=== PATIENT | male | born 1955 | race Caucasian/White ===

== ENCOUNTER 2021-09-11 18:55 | Inpatient (IN) | payer MEDICARE, MEDICAID, SELFPAY ==
--- NOTE | ~2021-09-11 | XR_ITS ---
EXAMINATION: X-RAY THORACIC SPINE X-RAY LUMBAR SPINE CLINICAL INFORMATION: Fall, pain. COMPARISON: CTA of the chest dated from 12/28/2016. TECHNIQUE: 2 views of the thoracic spine. 3 views of lumbar spine. FINDINGS: Thoracic spine: Unchanged significant compression deformity at T11. No new compression deformities or malalignment. Decreased bone mineralization and thoracic spondylosis. Again noted cardiomegaly. Included lungs are clear. Lumbar spine: No acute compression deformities or malalignment. Mild likely degenerative grade 1 anterolisthesis of L1 on L2. Moderate to severe disc space narrowing and facet arthropathy from L4 through S1. SI joints are symmetric. Atherosclerotic disease of the thoracic aorta. Nonobstructive bowel gas pattern. XR/XR thoracic spine 2V IMPRESSION: Chronic compression deformity at T11. No new fractures or subluxation. Multilevel thoracolumbar spondylosis which is moderate to severe in the lower lumbar spine. If there is high clinical suspicious for fracture, correlation with a CT or MR could obtained.
--- NOTE | ~2021-09-11 | XR_ITS ---
EXAMINATION: XR CHEST CLINICAL INFORMATION: SOB COMPARISON: None TECHNIQUE: Frontal view of the chest was obtained. FINDINGS: The lungs are well-expanded without acute consolidation. The heart size is enlarged with increased pulmonary vascularity is suggestive of CHF. There is no pleural effusion. No gross bony abnormality seen. XR/XR chest 1V IMPRESSION: Cardiomegaly with mild CHF.
--- NOTE | ~2021-09-11 | CT_ITS ---
EXAMINATION: CT HEAD WITHOUT CONTRAST CLINICAL INFORMATION: Fell, on blood thinners. COMPARISON: No similar priors. TECHNIQUE: Contiguous axial imaging was performed from the skull base to vertex without intravenous administration of contrast. This CT examination was performed using dose optimization techniques as appropriate, variously including the following: *Automated exposure control *Adjustment of mA and/or kV according to patient size (this includes techniques or standardized protocols for targeted exams where dose is matched to indication/reason for exam; i.e. extremities or head) *Use of iterative reconstruction technique DLP: 847 mGy-cm FINDINGS: There is no evidence of acute intracranial hemorrhage or edematous territorial infarction. Scattered hypoattenuation in the periventricular and deep white matter are consistent with moderate microangiopathy. Morrell-white matter differentiation is preserved. Proportional prominence of the ventricles and sulcal spaces. No evidence for obstructive hydrocephalus. No abnormal mass effect or midline shift. No extra-axial fluid collections. No acute soft tissue or osseous abnormalities. Mild mucosal thickening of the paranasal sinuses. Leftward nasal septal deviation. No air-fluid levels. The mastoids and middle ear cavities are clear. CT/CT head/brain wo con IMPRESSION: No evidence of acute intracranial hemorrhage or edematous territorial infarction. Moderate chronic microangiopathy and generalized cerebral volume loss.
--- NOTE | ~2021-09-11 | XR_ITS ---
EXAMINATION: X-RAY THORACIC SPINE X-RAY LUMBAR SPINE CLINICAL INFORMATION: Fall, pain. COMPARISON: CTA of the chest dated from 12/28/2016. TECHNIQUE: 2 views of the thoracic spine. 3 views of lumbar spine. FINDINGS: Thoracic spine: Unchanged significant compression deformity at T11. No new compression deformities or malalignment. Decreased bone mineralization and thoracic spondylosis. Again noted cardiomegaly. Included lungs are clear. Lumbar spine: No acute compression deformities or malalignment. Mild likely degenerative grade 1 anterolisthesis of L1 on L2. Moderate to severe disc space narrowing and facet arthropathy from L4 through S1. SI joints are symmetric. Atherosclerotic disease of the thoracic aorta. Nonobstructive bowel gas pattern. XR/XR lumbar spine 2-3V IMPRESSION: Chronic compression deformity at T11. No new fractures or subluxation. Multilevel thoracolumbar spondylosis which is moderate to severe in the lower lumbar spine. If there is high clinical suspicious for fracture, correlation with a CT or MR could obtained.
[2021-09-11 19:05] VITALS: BP 110/79; BP 113/70; PULSE 130; PULSE 148; RESP 28; TEMP 36.9; O2SAT 92; O2SAT 94; BMI 39.5
--- NOTE | 2021-09-11 19:08 | ECG_ITS ---
Test Reason : fall Blood Pressure : / mmHG Vent. Rate : 141 BPM Atrial Rate : 000 BPM P-R Int : 000 ms QRS Dur : 070 ms QT Int : 304 ms P-R-T Axes : 000 090 -80 degrees QTc Int : 465 ms Atrial fibrillation with rapid ventricular response Rightward axis Nonspecific ST abnormality Abnormal ECG When compared with ECG of 21-JUN-2018 10:39, ST now depressed in Lateral leads Inverted T waves have replaced nonspecific T wave abnormality in Inferior leads Referred By: Shannan Brown Electronically Signed By:WOODROW KUO
--- NOTE | 2021-09-11 19:09 | ED_ITS ---
HPI - General Adult General Chief complaint: General Medical Stated complaint: fall Time Seen by Provider: 09/11/21 18:58 Source: patient and EMS Mode of arrival: EMS Limitations: no limitations History of Present Illness HPI narrative: Patient comes to emergency room from home. Patient's called because the p atient fell out of bed. She reports that she came to give him food in his apartment, patient was found on the floor, unknown down time. The patient reports no loss of consciousness. Also, the states that the patient has been unable to care for himself, seems that patient has been coughing more than usual, having subjective fever, patient complaining of shortness of breath and feeling weak. Patient is known to have CHF and atrial fibrillation, patient states that he takes metoprolol, Lasix and Eliquis. Patient states that he is compliant with his medications. Patient states that he has not been tested for COVID yet, and he is not immunized. Related Data Home Medications Medication Instructions Recorded Confirmed apixaban 5 mg tablet (Eliquis) 5 mg PO BID 09/11/21 09/11/21 furosemide 20 mg tablet 20 mg PO DAILY 09/11/21 09/11/21 metoprolol tartrate 100 mg tablet 100 mg PO BID 09/11/21 09/11/21 Allergies Allergy/AdvReac Type Severity Reaction Status Date / Time maprotiline [From LUDIOMIL] Allergy Unknown UNK Verified 09/11/21 19:28 meperidine [From DEMEROL] Allergy Unknown VOMITING Verified 09/11/21 19:28 Review of Systems Review of Systems: Constitutional : No Weight loss, No Fever, No Chills, No Night Sweats, complaining of fatigue and generalized weakness ENT/Mouth : No Hearing loss, No Ear Pain, No Nasal Congestion, No Sinus Pain, No Hoarseness, No sore throat, No Rhinorrhea, No Swallowing Difficulty Eyes: No Eye Pain, No Swelling, No Redness, No Foreign Body, No Discharge, No Vision Changes Cardiovascular : No Chest Pain, complaining of shortness of breath with exer tion, orthopnea Respiratory : Coughing more than usual, No Wheezing, No Smoke Exposure, mild Dyspnea Gastrointestinal : No Nausea, No Vomiting, No Diarrhea, No Constipation, No abdominal Pain, No Hematochezia, No Melena Genitourinary : no irregular bleeding, No Dysuria, No Urinary Frequency, No Hem aturia, No Urinary Incontinence, No Urgency, No Flank Pain, No Urinary Flow Changes, No Hesitancy Musculoskeletal : No joint pain, No Myalgias, No Joint Swelling Skin : No Skin Lesions, No rash Neuro : No Weakness, No Numbness, No Paresthesias, No Loss of Consciousness, No Dizziness, No Headache Psych : No Anxiety/Panic, No Depression, No SI/HI/AH/VH, No Social Issues, Heme/Lymph: No Bruising, No Bleeding,No Lymphadenopathy Endocrine : No Polyuria, No Polydipsia, No Temperature Intolerance [facility] Past Medical History Medical History (Updated 09/11/21 @ 20:58 by Shannan Brown MD) Atrial fibrillation CHF (congestive heart failure) Diabetes mellitus type 2 in obese 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 Oriented X3. No acute distress. Disheveled Eyes: Pupils equal, round and reactive to light. ENT: Pharynx normal. Neck: Normal inspection. Neck supple. No lymph nodes noted. No crepitus CVS: Irregularly irregular, heart rate between 140 and 160, Pulses normal. Normal S1 and S2 Respiratory: No respiratory distress. Bilateral crackles, No Wheezing. No rales Abdomen: Soft and nontender. No rigidity. No distention. Skin: Skin warm and sweaty, Normal skin color. Normal skin turgor. Extremities: No lower extremity edema. No Lacerations. No Rash Neuro: Oriented X 3. No motor deficit. No sensory deficit. Moving all extremities. No slurred speech. CN 2 through 12 grossly intact Psych: calm, cooperative, normal affect Course Course Course Narrative: All Of patient's labs and imaging studies are pending. Patient is currently taking metoprolol at home, we will go ahead and give him a dose of IV metoprolol to control his heart rate. Rectal temperature negative for fever. Patient went into atrial fibrillation with RVR, heart rate into 170s, patient was given 5 mg IV metoprolol. Heart rate now 117, blood pressure 103. I discussed the patient with Dr. Devine, patient will be admitted. White blood cell count likely secondary to reactive leukocytosis. Patient has mild HILLARY, patient being gently rehydrated, lactic acid likely secondary to dehydration as well. Sepsis is not suspected. Patient also has mild CHF. At this time, patient has no hypoxia or respiratory distress. Medical Decision Making Lab Data Result diagrams: 09/11/21 19:21 09/11/21 19:21 Labs: Lab Results 09/11/21 09/11/21 09/11/21 Range/Units 19:06 19:21 19:21 WBC 12.2 H (4.8-10.8) X10*3/uL RBC 5.34 (4.60-5.80) X10*6/uL Hgb 15.5 (14.0-18.0) g/dl Hct 45.1 (42.0-52.0) % MCV 84.5 (80.0-98.0) fL MCH 29.0 (27.0-33.0) pg MCHC 34.4 (31.0-36.0) g/dl RDW 13.5 (11.0-16.0) % Plt Count 212 (160-400) X10*3/uL MPV 10.6 (9.4-12.4) fL Immature Gran % (Auto) 0.8 H (0.0-0.4) % Neut % (Auto) 89.8 H (45-73) % Lymph % (Auto) 3.2 L (20-40) % Pickens % (Auto) 5.8 (2-11) % Eos % (Auto) 0.0 (0-4) % Baso % (Auto) 0.4 (0-2) % Lymph # (Auto) 0.4 L (1.2-4.9) X10*3/uL Pickens # (Auto) 0.7 (0.1-1.2) X10*3/uL Eos # (Auto) 0.0 (0.0-0.4) X10*3/uL Baso # (Auto) 0.1 (0.0-0.2) X10*3/uL Abs Immat Gran (auto) 0.10 H (0.00-0.03) X10*3/uL Absolute Neuts (auto) 10.9 H (2.0-8.3) x10*3/uL Absolute Nucleated RBC 0.000 (0.0-0.012) X10*3/uL Nucleated RBC % (auto) 0.0 (0.0-0.2) /100WBC PT 19.5 H (9.9-13.0) SEC INR 1.7 H (0.9-1.1) VBG pH (7.32-7.43) VBG pCO2 mmHg VBG pO2 mmHg VBG HCO3 (22-26) mmol/L VBG O2 Saturation % VBG Base Excess mmol/L Sodium (135-145) mmol/L Potassium (3.3-5.1) mmol/L Chloride (96-108) mmol/L Carbon Dioxide (22-29) mmol/L Anion Gap (12-20) BUN (9-16) mg/dL Creatinine (0.5-1.4) mg/dL Estim Creat Clear Calc Estimated GFR POC Glucose 174 H (60-115) mg/dL Random Glucose (60-115) mg/dL Lactic Acid (0.5-2.0) mmol/L Calcium (8.4-10.2) mg/dL Magnesium (1.6-2.6) mg/dL Total Bilirubin (0.0-1.0) mg/dL Direct Bilirubin (0.0-0.5) mg/dL AST (5-37) U/L ALT (0-40) U/L Alkaline Phosphatase (39-117) U/L Total Creatine Kinase (38-174) U/L Troponin I High Sens (<3.5-35.0) ng/L B-Natriuretic Peptide (<100) pg/mL Total Protein (6.5-8.0) g/dL Albumin (3.5-5.0) g/dL TSH (0.32-4.0) uIU/mL Urine Color Urine Appearance Urine pH (5.0-8.0) Ur Specific Crockett (1.005-1.025) Urine Protein (NEG-TRACE) MG/DL Urine Glucose (UA) (NEG) MG/DL Urine Ketones (NEG) MG/DL Urine Blood (NEG) Urine Nitrite (NEG) Ur Leukocyte Esterase (NEG) Urine RBC (0) /HPF Urine WBC (0-4) /HPF Ur Squamous Epith Cells /LPF Calcium Oxalate Crystal /LPF Urine Bacteria /LPF Hyaline Casts /LPF Granular Casts /LPF Urine Mucus /LPF Urine Opiates Screen (Not Detect) Urine Fentanyl Screen (Not Detect) Ur Barbiturates Screen (Not Detect) Ur Phencyclidine Scrn (Not Detect) Ur Amphetamines Screen (Not Detect) U Benzodiazepines Scrn (Not Detect) Urine Cocaine Screen (Not Detect) U Marijuana (THC) Screen (Not Detect) Ethyl Alcohol mg/dL COVID-19 (ELSY) (Negative) COVID-19 Clin Com 09/11/21 09/11/21 09/11/21 Range/Units 19:21 19:21 19:21 WBC (4.8-10.8) X10*3/uL RBC (4.60-5.80) X10*6/uL Hgb (14.0-18.0) g/dl Hct (42.0-52.0) % MCV (80.0-98.0) fL MCH (27.0-33.0) pg MCHC (31.0-36.0) g/dl RDW (11.0-16.0) % Plt Count (160-400) X10*3/uL MPV (9.4-12.4) fL Immature Gran % (Auto) (0.0-0.4) % Neut % (Auto) (45-73) % Lymph % (Auto) (20-40) % Pickens % (Auto) (2-11) % Eos % (Auto) (0-4) % Baso % (Auto) (0-2) % Lymph # (Auto) (1.2-4.9) X10*3/uL Pickens # (Auto) (0.1-1.2) X10*3/uL Eos # (Auto) (0.0-0.4) X10*3/uL Baso # (Auto) (0.0-0.2) X10*3/uL Abs Immat Gran (auto) (0.00-0.03) X10*3/uL Absolute Neuts (auto) (2.0-8.3) x10*3/uL Absolute Nucleated RBC (0.0-0.012) X10*3/uL Nucleated RBC % (auto) (0.0-0.2) /100WBC PT (9.9-13.0) SEC INR (0.9-1.1) VBG pH (7.32-7.43) VBG pCO2 mmHg VBG pO2 mmHg VBG HCO3 (22-26) mmol/L VBG O2 Saturation % VBG Base Excess mmol/L Sodium 136 (135-145) mmol/L Potassium 3.4 (3.3-5.1) mmol/L Chloride 102 (96-108) mmol/L Carbon Dioxide 21 L (22-29) mmol/L Anion Gap 16 (12-20) BUN 16 (9-16) mg/dL Creatinine 1.51 H (0.5-1.4) mg/dL Estim Creat Clear Calc 59.2 Estimated GFR 46 POC Glucose (60-115) mg/dL Random Glucose 190 H (60-115) mg/dL Lactic Acid 4.2 H* (0.5-2.0) mmol/L Calcium 9.4 (8.4-10.2) mg/dL Magnesium 1.6 (1.6-2.6) mg/dL Total Bilirubin 1.6 H (0.0-1.0) mg/dL Direct Bilirubin 0.6 H (0.0-0.5) mg/dL AST 21 (5-37) U/L ALT 11 (0-40) U/L Alkaline Phosphatase 94 (39-117) U/L Total Creatine Kinase 716 H (38-174) U/L Troponin I High Sens 24.8 (<3.5-35.0) ng/L B-Natriuretic Peptide 422 H (<100) pg/mL Total Protein 6.6 (6.5-8.0) g/dL Albumin 3.7 (3.5-5.0) g/dL TSH 2.11 (0.32-4.0) uIU/mL Urine Color Urine Appearance Urine pH (5.0-8.0) Ur Specific Crockett (1.005-1.025) Urine Protein (NEG-TRACE) MG/DL Urine Glucose (UA) (NEG) MG/DL Urine Ketones (NEG) MG/DL Urine Blood (NEG) Urine Nitrite (NEG) Ur Leukocyte Esterase (NEG) Urine RBC (0) /HPF Urine WBC (0-4) /HPF Ur Squamous Epith Cells /LPF Calcium Oxalate Crystal /LPF Urine Bacteria /LPF Hyaline Casts /LPF Granular Casts /LPF Urine Mucus /LPF Urine Opiates Screen (Not Detect) Urine Fentanyl Screen (Not Detect) Ur Barbiturates Screen (Not Detect) Ur Phencyclidine Scrn (Not Detect) Ur Amphetamines Screen (Not Detect) U Benzodiazepines Scrn (Not Detect) Urine Cocaine Screen (Not Detect) U Marijuana (THC) Screen (Not Detect) Ethyl Alcohol mg/dL COVID-19 (ELSY) (Negative) COVID-19 Clin Com 09/11/21 09/11/21 09/11/21 Range/Units 19:21 19:21 19:24 WBC (4.8-10.8) X10*3/uL RBC (4.60-5.80) X10*6/uL Hgb (14.0-18.0) g/dl Hct (42.0-52.0) % MCV (80.0-98.0) fL MCH (27.0-33.0) pg MCHC (31.0-36.0) g/dl RDW (11.0-16.0) % Plt Count (160-400) X10*3/uL MPV (9.4-12.4) fL Immature Gran % (Auto) (0.0-0.4) % Neut % (Auto) (45-73) % Lymph % (Auto) (20-40) % Pickens % (Auto) (2-11) % Eos % (Auto) (0-4) % Baso % (Auto) (0-2) % Lymph # (Auto) (1.2-4.9) X10*3/uL [place]ens # (Auto) (0.1-1.2) X10*3/uL Eos # (Auto) (0.0-0.4) X10*3/uL Baso # (Auto) (0.0-0.2) X10*3/uL Abs Immat Gran (auto) (0.00-0.03) X10*3/uL Absolute Neuts (auto) (2.0-8.3) x10*3/uL Absolute Nucleated RBC (0.0-0.012) X10*3/uL Nucleated RBC % (auto) (0.0-0.2) /100WBC PT (9.9-13.0) SEC INR (0.9-1.1) VBG pH 7.46 H (7.32-7.43) VBG pCO2 22 mmHg VBG pO2 68 mmHg VBG HCO3 16 L (22-26) mmol/L VBG O2 Saturation 92.0 % VBG Base Excess -4.9 mmol/L Sodium (135-145) mmol/L Potassium (3.3-5.1) mmol/L Chloride (96-108) mmol/L Carbon Dioxide (22-29) mmol/L Anion Gap (12-20) BUN (9-16) mg/dL Creatinine (0.5-1.4) mg/dL Estim Creat Clear Calc Estimated GFR POC Glucose (60-115) mg/dL Random Glucose (60-115) mg/dL Lactic Acid (0.5-2.0) mmol/L Calcium (8.4-10.2) mg/dL Magnesium (1.6-2.6) mg/dL Total Bilirubin (0.0-1.0) mg/dL Direct Bilirubin (0.0-0.5) mg/dL AST (5-37) U/L ALT (0-40) U/L Alkaline Phosphatase (39-117) U/L Total Creatine Kinase (38-174) U/L Troponin I High Sens (<3.5-35.0) ng/L B-Natriuretic Peptide (<100) pg/mL Total Protein (6.5-8.0) g/dL Albumin (3.5-5.0) g/dL TSH (0.32-4.0) uIU/mL Urine Color Urine Appearance Urine pH (5.0-8.0) Ur Specific Crockett (1.005-1.025) Urine Protein (NEG-TRACE) MG/DL Urine Glucose (UA) (NEG) MG/DL Urine Ketones (NEG) MG/DL Urine Blood (NEG) Urine Nitrite (NEG) Ur Leukocyte Esterase (NEG) Urine RBC (0) /HPF Urine WBC (0-4) /HPF Ur Squamous Epith Cells /LPF Calcium Oxalate Crystal /LPF Urine Bacteria /LPF Hyaline Casts /LPF Granular Casts /LPF Urine Mucus /LPF Urine Opiates Screen (Not Detect) Urine Fentanyl Screen (Not Detect) Ur Barbiturates Screen (Not Detect) Ur Phencyclidine Scrn (Not Detect) Ur Amphetamines Screen (Not Detect) U Benzodiazepines Scrn (Not Detect) Urine Cocaine Screen (Not Detect) U Marijuana (THC) Screen (Not Detect) Ethyl Alcohol < 10 mg/dL COVID-19 (ELSY) Negative (Negative) COVID-19 Clin Com See Note 09/11/21 09/11/21 Range/Units 19:29 19:29 WBC (4.8-10.8) X10*3/uL RBC (4.60-5.80) X10*6/uL Hgb (14.0-18.0) g/dl Hct (42.0-52.0) % MCV (80.0-98.0) fL MCH (27.0-33.0) pg MCHC (31.0-36.0) g/dl RDW (11.0-16.0) % Plt Count (160-400) X10*3/uL MPV (9.4-12.4) fL Immature Gran % (Auto) (0.0-0.4) % Neut % (Auto) (45-73) % Lymph % (Auto) (20-40) % [place] % (Auto) (2-11) % Eos % (Auto) (0-4) % Baso % (Auto) (0-2) % Lymph # (Auto) (1.2-4.9) X10*3/uL [place] # (Auto) (0.1-1.2) X10*3/uL Eos # (Auto) (0.0-0.4) X10*3/uL Baso # (Auto) (0.0-0.2) X10*3/uL Abs Immat Gran (auto) (0.00-0.03) X10*3/uL Absolute Neuts (auto) (2.0-8.3) x10*3/uL Absolute Nucleated RBC (0.0-0.012) X10*3/uL Nucleated RBC % (auto) (0.0-0.2) /100WBC PT (9.9-13.0) SEC INR (0.9-1.1) VBG pH (7.32-7.43) VBG pCO2 mmHg VBG pO2 mmHg VBG HCO3 (22-26) mmol/L VBG O2 Saturation % VBG Base Excess mmol/L Sodium (135-145) mmol/L Potassium (3.3-5.1) mmol/L Chloride (96-108) mmol/L Carbon Dioxide (22-29) mmol/L Anion Gap (12-20) BUN (9-16) mg/dL Creatinine (0.5-1.4) mg/dL Estim Creat Clear Calc Estimated GFR POC Glucose (60-115) mg/dL Random Glucose (60-115) mg/dL Lactic Acid (0.5-2.0) mmol/L Calcium (8.4-10.2) mg/dL Magnesium (1.6-2.6) mg/dL Total Bilirubin (0.0-1.0) mg/dL Direct Bilirubin (0.0-0.5) mg/dL AST (5-37) U/L ALT (0-40) U/L Alkaline Phosphatase (39-117) U/L Total Creatine Kinase (38-174) U/L Troponin I High Sens (<3.5-35.0) ng/L B-Natriuretic Peptide (<100) pg/mL Total Protein (6.5-8.0) g/dL Albumin (3.5-5.0) g/dL TSH (0.32-4.0) uIU/mL Urine Color DK YELLOW Urine Appearance CLEAR Urine pH 7.0 (5.0-8.0) Ur Specific Cro[place]ett 1.010 (1.005-1.025) Urine Protein 1+ H (NEG-TRACE) MG/DL Urine Glucose (UA) NEG (NEG) MG/DL Urine Ketones NEG (NEG) MG/DL Urine Blood 1+ H (NEG) Urine Nitrite NEG (NEG) Ur Leukocyte Esterase NEG (NEG) Urine RBC 5-9 H (0) /HPF Urine WBC 0 (0-4) /HPF Ur Squamous Epith Cells 1+ /LPF Calcium Oxalate Crystal TRACE /LPF Urine Bacteria NONE /LPF Hyaline Casts 1-4 /LPF Granular Casts 1-4 /LPF Urine Mucus TRACE /LPF Urine Opiates Screen Not Detected (Not Detect) Urine Fentanyl Screen Not Detected (Not Detect) Ur Barbiturates Screen Not Detected (Not Detect) Ur Phencyclidine Scrn Not Detected (Not Detect) Ur Amphetamines Screen Not Detected (Not Detect) U Benzodiazepines Scrn Not Detected (Not Detect) Urine Cocaine Screen Not Detected (Not Detect) U Marijuana (THC) Screen Not Detected (Not Detect) Ethyl Alcohol mg/dL COVID-19 (ELSY) (Negative) COVID-19 Clin Com Imaging Data Chest x-ray: Radiologist's impression: The lungs are well-expanded without acute consolidation. The heart size is enlarged with increased pulmonary vascularity is suggestive of CHF. There is no pleural effusion. No gross bony abnormality seen. XR/XR chest 1V IMPRESSION: Cardiomegaly with mild CHF. CT scan - head: Radiologist's impression: FINDINGS: There is no evidence of acute intracranial hemorrhage or edematous territorial infarction. Scattered hypoattenuation in the periventricular and deep white matter are consistent with moderate microangiopathy. Morrell-white matter differentiation is preserved. Proportional prominence of the ventricles and sulcal spaces. No evidence for obstructive hydrocephalus. No abnormal mass effect or midline shift. No extra-axial fluid collections. No acute soft tissue or osseous abnormalities. Mild mucosal thickening of the paranasal sinuses. Leftward nasal septal deviation. No air-fluid levels. The mastoids and middle ear cavities are clear. ? CT/CT head/brain wo con IMPRESSION: No evidence of acute intracranial hemorrhage or edematous territorial infarction. ? Moderate chronic microangiopathy and generalized cerebral volume loss. Discharge Plan Discharge Clinical Impression: Atrial fibrillation with RVR, Acute kidney injury, Dehydration Patient Disposition: Admitted As Inpatient
[2021-09-11] MEDS: Metoprolol Tartrate 5 MG/5 ML VIAL IVPUSH (19:29)
[2021-09-11 19:31] LABS: Venous Blood Gas Refer to POC result
[2021-09-11 19:31] LABS: MANUAL DIFF FLAG NO
[2021-09-11 19:32] LABS: VBG Base Excess -4.9 mmol/L; VBG HCO3 16 mmol/L (22-26); VBG pCO2 22 mmHg; VBG pH 7.46 (7.32-7.43); VBG pO2 68 mmHg
[2021-09-11 19:32] LABS: Basophils Absolute Auto 0.1 X10*3/uL (0.0-0.2); Basophils Percent Auto 0.4 % (0-2); Hematocrit 45.1 % (42.0-52.0); Hemoglobin 15.5 g/dl (14.0-18.0); Imm Gran Pct Auto 0.8 % (0.0-0.4); Lymphocytes Absolute Auto 0.4 X10*3/uL (1.2-4.9); Lymphocytes Percent Auto 3.2 % (20-40); Mean Corpuscular HGB Conc 34.4 g/dl (31.0-36.0); Mean Corpuscular Volume 84.5 fL (80.0-98.0); Mean Platelet Volume 10.6 fL (9.4-12.4); Monocytes Absolute Auto 0.7 X10*3/uL (0.1-1.2); Monocytes Percent Auto 5.8 % (2-11); Neutrophils Absolute Auto 10.9 x10*3/uL (2.0-8.3); Neutrophils Percent Auto 89.8 % (45-73); Platelet Count 212 X10*3/uL (160-400); Red Blood Count 5.34 X10*6/uL (4.60-5.80); Red Cell Distribution Width 13.5 % (11.0-16.0); White Blood Count 12.2 X10*3/uL (4.8-10.8)
[2021-09-11 19:37] LABS: Appearance Urine CLEAR; Color Urine DK YELLOW; Glucose Urine UA NEG (NEG); Leukocyte Esterase Urine NEG (NEG); Nitrite Urine NEG (NEG); UACC Culture Trigger NO; Urine Blood 1+ (NEG); Urine Ketones NEG (NEG); Urine Protein 1+ MG/DL (NEG-TRACE)
[2021-09-11 19:39] LABS: INTERNATIONAL NORM RATIO 1.7 (0.9-1.1); Prothrombin Time 19.5 SEC (9.9-13.0)
[2021-09-11 19:46] LABS: Calcium Oxalate Crystals Urine TRACE /LPF; Mucus Urine TRACE /LPF; Squamous Epithelial Cell Urine 1+ /LPF; WBC Urine 0 /HPF (0-4)
[2021-09-11 19:46] LABS: Ethanol < 10 mg/dL; Lactic Acid 4.2 mmol/L (0.5-2.0)
[2021-09-11 19:47] LABS: Glucose, Whole Blood 174 mg/dL (60-115)
[2021-09-11 19:48] VITALS: BP 114/60; PULSE 128; RESP 18; TEMP 36.4; O2SAT 97
[2021-09-11 19:51] LABS: Amphetamine Screen Urine Not Detected (Not Detect); Barbiturates, Urine Not Detected (Not Detect); Benzodiazepines Screen Urine Not Detected (Not Detect); Cannabinoid Screen Urine Not Detected (Not Detect); Cocaine Screen Urine Not Detected (Not Detect); Fentanyl, urine Not Detected (Not Detect); Opiate Screen Urine Not Detected (Not Detect); Phencyclidine Screen Urine Not Detected (Not Detect)
[2021-09-11 19:51] LABS: COVID-19 Test Negative (Negative); IDNOW Serial# 16C4AD1C
[2021-09-11 19:54] VITALS: BP 103/61; PULSE 120
[2021-09-11 19:54] LABS: Alanine Aminotransferase 11 U/L (0-40); Albumin Level 3.7 g/dL (3.5-5.0); Alkaline Phosphatase 94 U/L (39-117); Anion Gap 16 (12-20); Aspartate Amino Transferase 21 U/L (5-37); Bilirubin Direct 0.6 mg/dL (0.0-0.5); Bilirubin Total 1.6 mg/dL (0.0-1.0); Blood Urea Nitrogen 16 mg/dL (9-16); Calcium 9.4 mg/dL (8.4-10.2); Carbon Dioxide 21 mmol/L (22-29); Chloride 102 mmol/L (96-108); Creatinine Clr Calc Pharmacy 59.2; Estimated Glomerular Filt Rate 46; Glucose Random 190 mg/dL (60-115); Magnesium 1.6 mg/dL (1.6-2.6); Potassium 3.4 mmol/L (3.3-5.1); Sodium 136 mmol/L (135-145); Total Protein 6.6 g/dL (6.5-8.0)
[2021-09-11 19:58] LABS: B Type Natriuretic Peptide 422 pg/mL (<100); Troponin-I High Sensitivity 24.8 ng/L (<3.5-35.0)
[2021-09-11 20:01] VITALS: BP 103/61; PULSE 128; RESP 17; O2SAT 96
[2021-09-11 20:14] LABS: TSH reflex Free T4 2.11 uIU/mL (0.32-4.0)
[2021-09-11] MEDS: 0.9 % Sodium Chloride 1,000 ML 300 ML IVCONT (20:34)
[2021-09-11 21:10] VITALS: BP 126/62; PULSE 118; RESP 25; O2SAT 98
--- NOTE | 2021-09-11 21:11 | PHA.MEDREC ---
Pharmacy Consult ? Medication Reconciliation Pharmacy has completed the medication reconciliation.
[2021-09-11 21:27] LABS: Reflex Lactate? Lactic Acid Added
[2021-09-11 22:18] LABS: ~Lactic Acid-LAB USE ONLY 2.4 mmol/L (0.5-2.0)
[2021-09-11 22:20] VITALS: BP 142/78; PULSE 110; RESP 24; O2SAT 96
[2021-09-11 22:32] LABS: IDNOW Serial# 55D5AD1C; Influenza A Positive (Negative); Influenza B2 Negative (Negative)
--- NOTE | 2021-09-11 23:28 | P.HPHOSP_ITS ---
History of Present Illness Date of Service: 09/11/21 Chief Complaint: Fall 66-year-old male with a past medical history of hypertension, CHF, AFib, tobacco dependence presented to the hospital today with a chief complaint of fall. Patient reported that he tripped and fell over today; denies any head strike or loss of consciousness. Denies any chest pain or palpitations. Mentions that he has been complaint with his home medications. Denies any GI symptoms. Patient also reports that he has chronic low back pain; denies any change in his back pain. Denies any numbness tingling or focal weakness. Denies any neck pain or hip pain. Denies any fever chills cough or shortness of breath. Denies any lightheadedness or dizziness. Review of all other systems is negative except mentioned above ER course: Per ER team; CT head showed no acute findings; thoracic spine x-ray showed no acute fracture but noted multilevel thoracolumbar spondylosis; old chronic compression fracture of the T11 noted; chest x-ray showed mild CHF; troponin of 24; EKG nonischemic; creatinine elevated to 1.5; given IV fluids. Admitted for further management. COUNTS INCLUDE 234 BEDS AT THE [facility] Medical History (Updated 09/11/21 @ 20:58 by Shannan Brown MD) Atrial fibrillation CHF (congestive heart failure) Diabetes mellitus type 2 in obese Hx of assisted use of blood thinners Hypertension Social History Advance Directives: No Advance Directives Information Provided: Yes Meds Allergies Allergy/AdvReac Type Severity Reaction Status Date / Time maprotiline [From LUDIOMIL] Allergy Unknown UNK Verified 09/11/21 19:28 meperidine [From DEMEROL] Allergy Unknown VOMITING Verified 09/11/21 19:28 Active Medications: Current Medications Pharmacy Consult (Consult Rx Perform Med Rec) 1 each MISCELLANE ONCE PRN PRN Reason: Consult order Home Medications Medication Instructions Recorded Confirmed Last Taken Type apixaban 5 mg tablet (Eliquis) 5 mg PO BID 09/11/21 09/11/21 Unknown History furosemide 20 mg tablet 20 mg PO DAILY 09/11/21 09/11/21 Unknown History metoprolol tartrate 100 mg tablet 100 mg PO BID 09/11/21 09/11/21 Unknown History Physical Exam Vital Signs and Narrative: Vital Signs: Last Vital Signs Temp 97.6 F 09/11/21 19:48 Pulse 110 H 04/27/22 22:20 Resp 24 H 09/11/21 22:20 BP 142/78 H 09/11/21 22:20 Pulse Ox 96 09/11/21 22:20 Oxygen Flow Rate 2 09/11/21 19:05 BMI result Body Mass Index 39.5 Gen: Appears be in no acute distress; dry skin turgor HEENT: NCAT, dry mucosa. Pulmonary: Vesicular breath sounds, fair air entry CVS: Normal S1-S2 Abdomen: BS+, Soft, Nontender Extremities: Warm well perfused Neuro: Alert and awake. Grossly nonfocal Results Labs CBC and Chem 7: 09/12/21 05:56 09/12/21 05:56 Labs: Laboratory Results - last 24 hr 09/11/21 09/11/21 09/11/21 19:06 19:21 19:21 MCV 84.5 MCH 29.0 MCHC 34.4 RDW 13.5 Plt Count 212 MPV 10.6 Immature Gran % (Auto) 0.8 H Neut % (Auto) 89.8 H Lymph % (Auto) 3.2 L [place] % (Auto) 5.8 Eos % (Auto) 0.0 Baso % (Auto) 0.4 Lymph # (Auto) 0.4 L [place] # (Auto) 0.7 Eos # (Auto) 0.0 Baso # (Auto) 0.1 Abs Immat Gran (auto) 0.10 H Absolute Neuts (auto) 10.9 H Absolute Nucleated RBC 0.000 Nucleated RBC % (auto) 0.0 PT 19.5 H INR 1.7 H VBG pH VBG pCO2 VBG pO2 VBG HCO3 VBG O2 Saturation VBG Base Excess Anion Gap Estim Creat Clear Calc Estimated GFR POC Glucose 174 H Random Glucose Lactic Acid Lactic Acid F/U @ 2Hr Calcium Magnesium Total Bilirubin Direct Bilirubin AST ALT Alkaline Phosphatase Total Creatine Kinase Troponin I High Sens B-Natriuretic Peptide Total Protein Albumin TSH Urine Color Urine Appearance Urine pH Ur Specific [place] Urine Protein Urine Glucose (UA) Urine Ketones Urine Blood Urine Nitrite Ur Leukocyte Esterase Urine RBC Urine WBC Ur Squamous Epith Cells Calcium Oxalate Crystal Urine Bacteria Hyaline Casts Granular Casts Urine Mucus Urine Opiates Screen Urine Fentanyl Screen Ur Barbiturates Screen Ur Phencyclidine Scrn Ur Amphetamines Screen U Benzodiazepines Scrn Urine Cocaine Screen U Marijuana (THC) Screen Ethyl Alcohol COVID-19 (ELSY) COVID-19 Clin Com Influenza Type A (ROMEL) Influenza Type B (ROMEL) Influenza A & B Note 09/11/21 09/11/21 09/11/21 19:21 19:21 19:21 MCV MCH MCHC RDW Plt Count MPV Immature Gran % (Auto) Neut % (Auto) Lymph % (Auto) [place] % (Auto) Eos % (Auto) Baso % (Auto) Lymph # (Auto) [place] # (Auto) Eos # (Auto) Baso # (Auto) Abs Immat Gran (auto) Absolute Neuts (auto) Absolute Nucleated RBC Nucleated RBC % (auto) PT INR VBG pH VBG pCO2 VBG pO2 VBG HCO3 VBG O2 Saturation VBG Base Excess Anion Gap 16 Estim Creat Clear Calc 59.2 Estimated GFR 46 POC Glucose Random Glucose 190 H Lactic Acid 4.2 H* Lactic Acid F/U @ 2Hr Calcium 9.4 Magnesium 1.6 Total Bilirubin 1.6 H Direct Bilirubin 0.6 H AST 21 ALT 11 Alkaline Phosphatase 94 Total Creatine Kinase 716 H Troponin I High Sens 24.8 B-Natriuretic Peptide 422 H Total Protein 6.6 Albumin 3.7 TSH 2.11 Urine Color Urine Appearance Urine pH Ur Specific [place] Urine Protein Urine Glucose (UA) Urine Ketones Urine Blood Urine Nitrite Ur Leukocyte Esterase Urine RBC Urine WBC Ur Squamous Epith Cells Calcium Oxalate Crystal Urine Bacteria Hyaline Casts Granular Casts Urine Mucus Urine Opiates Screen Urine Fentanyl Screen Ur Barbiturates Screen Ur Phencyclidine Scrn Ur Amphetamines Screen U Benzodiazepines Scrn Urine Cocaine Screen U Marijuana (THC) Screen Ethyl Alcohol COVID-19 (ELSY) COVID-19 Clin Com Influenza Type A (ROMEL) Influenza Type B (ROMEL) Influenza A & B Note 09/11/21 09/11/21 09/11/21 19:21 19:21 19:24 MCV MCH MCHC RDW Plt Count MPV Immature Gran % (Auto) Neut % (Auto) Lymph % (Auto) [place] % (Auto) Eos % (Auto) Baso % (Auto) Lymph # (Auto) [place] # (Auto) Eos # (Auto) Baso # (Auto) Abs Immat Gran (auto) Absolute Neuts (auto) Absolute Nucleated RBC Nucleated RBC % (auto) PT INR VBG pH 7.46 H VBG pCO2 22 VBG pO2 68 VBG HCO3 16 L VBG O2 Saturation 92.0 VBG Base Excess -4.9 Anion Gap Estim Creat Clear Calc Estimated GFR POC Glucose Random Glucose Lactic Acid Lactic Acid F/U @ 2Hr Calcium Magnesium Total Bilirubin Direct Bilirubin AST ALT Alkaline Phosphatase Total Creatine Kinase Troponin I High Sens B-Natriuretic Peptide Total Protein Albumin TSH Urine Color Urine Appearance Urine pH Ur Specific [place] Urine Protein Urine Glucose (UA) Urine Ketones Urine Blood Urine Nitrite Ur Leukocyte Esterase Urine RBC Urine WBC Ur Squamous Epith Cells Calcium Oxalate Crystal Urine Bacteria Hyaline Casts Granular Casts Urine Mucus Urine Opiates Screen Urine Fentanyl Screen Ur Barbiturates Screen Ur Phencyclidine Scrn Ur Amphetamines Screen U Benzodiazepines Scrn Urine Cocaine Screen U Marijuana (THC) Screen Ethyl Alcohol < 10 COVID-19 (ELSY) Negative COVID-19 Clin Com See Note Influenza Type A (ROMEL) Influenza Type B (ROMEL) Influenza A & B Note 09/11/21 09/11/21 09/11/21 19:29 19:29 21:50 MCV MCH MCHC RDW Plt Count MPV Immature Gran % (Auto) Neut % (Auto) Lymph % (Auto) [place] % (Auto) Eos % (Auto) Baso % (Auto) Lymph # (Auto) [place] # (Auto) Eos # (Auto) Baso # (Auto) Abs Immat Gran (auto) Absolute Neuts (auto) Absolute Nucleated RBC Nucleated RBC % (auto) PT INR VBG pH VBG pCO2 VBG pO2 VBG HCO3 VBG O2 Saturation VBG Base Excess Anion Gap Estim Creat Clear Calc Estimated GFR POC Glucose Random Glucose Lactic Acid Lactic Acid F/U @ 2Hr Calcium Magnesium Total Bilirubin Direct Bilirubin AST ALT Alkaline Phosphatase Total Creatine Kinase Troponin I High Sens B-Natriuretic Peptide Total Protein Albumin TSH Urine Color DK YELLOW Urine Appearance CLEAR Urine pH 7.0 Ur Specific [place] 1.010 Urine Protein 1+ H Urine Glucose (UA) NEG Urine Ketones NEG Urine Blood 1+ H Urine Nitrite NEG Ur Leukocyte Esterase NEG Urine RBC 5-9 H Urine WBC 0 Ur Squamous Epith Cells 1+ Calcium Oxalate Crystal TRACE Urine Bacteria NONE Hyaline Casts 1-4 Granular Casts 1-4 Urine Mucus TRACE Urine Opiates Screen Not Detected Urine Fentanyl Screen Not Detected Ur Barbiturates Screen Not Detected Ur Phencyclidine Scrn Not Detected Ur Amphetamines Screen Not Detected U Benzodiazepines Scrn Not Detected Urine Cocaine Screen Not Detected U Marijuana (THC) Screen Not Detected Ethyl Alcohol COVID-19 (ELSY) COVID-19 Clin Com Influenza Type A (ROMEL) Positive A Influenza Type B (ROMEL) Negative Influenza A & B Note See Note 09/11/21 22:00 MCV MCH MCHC RDW Plt Count MPV Immature Gran % (Auto) Neut % (Auto) Lymph % (Auto) [place] % (Auto) Eos % (Auto) Baso % (Auto) Lymph # (Auto) [place] # (Auto) Eos # (Auto) Baso # (Auto) Abs Immat Gran (auto) Absolute Neuts (auto) Absolute Nucleated RBC Nucleated RBC % (auto) PT INR VBG pH VBG pCO2 VBG pO2 VBG HCO3 VBG O2 Saturation VBG Base Excess Anion Gap Estim Creat Clear Calc Estimated GFR POC Glucose Random Glucose Lactic Acid Lactic Acid F/U @ 2Hr 2.4 H* Calcium Magnesium Total Bilirubin Direct Bilirubin AST ALT Alkaline Phosphatase Total Creatine Kinase Troponin I High Sens B-Natriuretic Peptide Total Protein Albumin TSH Urine Color Urine Appearance Urine pH Ur Specific [place] Urine Protein Urine Glucose (UA) Urine Ketones Urine Blood Urine Nitrite Ur Leukocyte Esterase Urine RBC Urine WBC Ur Squamous Epith Cells Calcium Oxalate Crystal Urine Bacteria Hyaline Casts Granular Casts Urine Mucus Urine Opiates Screen Urine Fentanyl Screen Ur Barbiturates Screen Ur Phencyclidine Scrn Ur Amphetamines Screen U Benzodiazepines Scrn Urine Cocaine Screen U Marijuana (THC) Screen Ethyl Alcohol COVID-19 (ELSY) COVID-19 Clin Com Influenza Type A (ROMEL) Influenza Type B (ROMEL) Influenza A & B Note Imaging Radiologist's Impressions: Impressions Chest X-Ray 09/11/21 19:34 IMPRESSION: Cardiomegaly with mild CHF. Lumbar Spine X-Ray 09/11/21 20:26 IMPRESSION: Chronic compression deformity at T11. No new fractures or subluxation. Multilevel thoracolumbar spondylosis which is moderate to severe in the lower lumbar spine. If there is high clinical suspicious for fracture, correlation with a CT or MR could obtained. Thoracic Spine X-Ray 09/11/21 20:26 IMPRESSION: Chronic compression deformity at T11. No new fractures or subluxation. Multilevel thoracolumbar spondylosis which is moderate to severe in the lower lumbar spine. If there is high clinical suspicious for fracture, correlation with a CT or MR could obtained. Head CT 09/11/21 20:49 IMPRESSION: No evidence of acute intracranial hemorrhage or edematous territorial infarction. Moderate chronic microangiopathy and generalized cerebral volume loss. Assessment and Plan (1) Atrial fibrillation with RVR: Status: Acute (2) Acute kidney injury: Status: Acute Plan 66-year-old male with a past medical history of hypertension, CHF, AFib, tobacco dependence presented to the hospital today with a chief complaint of fall. Fall: Mechanical in nature. Denies any head strike or loss of consciousness. CT head showed no acute intracranial process. Fall precautions. PT/OT eventually. HILLARY: Likely prerenal or secondary to mild rhabdo. Patient being given gentle IV fluids. Rhabdomyolysis: Monitor CPK levels. Patient on IV fluids. Lactic acidosis: Improving with IV fluids. Microscopic hematuria: Likely in setting of HILLARY/dehydration. Repeat urinalysis after hydration. If not improving please consider urology follow-up. AFib with RVR: Patient heart rate on presentation was in 140s. IV metoprolol prn. Monitor telemetry. Continue home metoprolol. c/w Home Eliquis. Elevated troponins: Patient denies any chest pain. EKG nonischemic. Troponin-24->167->441. Likely in the setting of demand versus question myocarditis given influenza positive. Cardiology consult dr Dorsey was notified. Echocardiogram Influenza positive: Patient is started on Tamiflu. Droplet precautions. History of CHF: Patient breathing comfortably. Chest x-ray showed mild congestion. Patient being given IV fluids for HILLARY/rhabdomyolysis/lactic acidosis. Monitor for signs of fluid overload. To be resumed on Lasix eventually. DVT prophylaxis: Patient on Eliquis Code status: Full code Quality Stroke Does the patient have a stroke diagnosis?: No VTE Prior VTE?: No VTE Risk Level:: Medical - moderate - high VTE Device Contraindication: Treatment Not Indicated VTE Drug Contraindication: N/A - Med Ordered
[2021-09-12] VITALS (16 sets, daily range): BP systolic 113–186; BP diastolic 70–107; PULSE 86–187; RESP 16–33; TEMP 36.4–37.1; O2SAT 90–97; BMI 39.5
--- NOTE | 2021-09-12 | ECG_ITS ---
Test Reason : REPEAT. ELEVATED TROPONIN Blood Pressure : / mmHG Vent. Rate : 105 BPM Atrial Rate : 000 BPM P-R Int : 000 ms QRS Dur : 070 ms QT Int : 362 ms P-R-T Axes : 000 072 -43 degrees QTc Int : 478 ms Atrial fibrillation with rapid ventricular response Nonspecific ST and T wave abnormality Abnormal ECG When compared with ECG of 11-SEP-2021 19:02, ST no longer depressed in Lateral leads Referred By: Rolando Devine Electronically Signed By:WOODROW KUO
[2021-09-12 00:04] LABS: Reflex Lactate? 2 Y
[2021-09-12] MEDS: Dextrose 5 % and 0.45 % NaCl 1,000 ML 50 ML IVCONT (00:46)
[2021-09-12] MEDS: 0.9 % Sodium Chloride Flush 3 ML SYRINGE IVFLUSH ×3 (00:46→20:30)
[2021-09-12 01:02] LABS: ~Lactic Acid-LAB USE ONLY 2.8 mmol/L (0.5-2.0)
[2021-09-12 01:03] LABS: Troponin-I High Sensitivity 167.5 ng/L (<3.5-35.0)
[2021-09-12 06:06] LABS: MANUAL DIFF FLAG NO
--- NOTE | 2021-09-12 06:07 | PC.NURSE ---
PT was moving around in bed while using the urinal and heart rate increased to 170. Afterwards pt was repositioned to comfortable position and HR decreased to 110-120. Hospitalist made aware and requested that repeat trop be drawn and to give morning metoprolol now.
[2021-09-12 06:08] LABS: Basophils Percent Auto 0.3 % (0-2); Eosinophils Percent Auto 0.2 % (0-4); Hematocrit 43.2 % (42.0-52.0); Hemoglobin 14.4 g/dl (14.0-18.0); Imm Gran Abs Auto 0.05 X10*3/uL (0.00-0.03); Imm Gran Pct Auto 0.6 % (0.0-0.4); Lymphocytes Absolute Auto 0.8 X10*3/uL (1.2-4.9); Lymphocytes Percent Auto 8.7 % (20-40); Mean Corpuscular HGB Conc 33.3 g/dl (31.0-36.0); Mean Corpuscular Hemoglobin 28.2 pg (27.0-33.0); Mean Corpuscular Volume 84.5 fL (80.0-98.0); Mean Platelet Volume 10.4 fL (9.4-12.4); Monocytes Percent Auto 11.2 % (2-11); Platelet Count 176 X10*3/uL (160-400); Red Blood Count 5.11 X10*6/uL (4.60-5.80); Red Cell Distribution Width 13.7 % (11.0-16.0); White Blood Count 8.9 X10*3/uL (4.8-10.8)
[2021-09-12] MEDS: Metoprolol Tartrate 100 MG TABLET PO ×2 (06:18→20:30)
[2021-09-12 06:26] LABS: Anion Gap 13 (12-20); Blood Urea Nitrogen 16 mg/dL (9-16); Calcium 8.9 mg/dL (8.4-10.2); Carbon Dioxide 25 mmol/L (22-29); Chloride 103 mmol/L (96-108); Creatinine Clr Calc Pharmacy 83.6; Estimated Glomerular Filt Rate > 60; Glucose Random 143 mg/dL (60-115); Potassium 3.9 mmol/L (3.3-5.1); Sodium 137 mmol/L (135-145)
[2021-09-12 06:31] LABS: Troponin-I High Sensitivity 441.4 ng/L (<3.5-35.0)
[2021-09-12] MEDS: Oseltamivir Phosphate 75 MG CAPSULE PO ×2 (07:19→18:40)
--- NOTE | 2021-09-12 09:00 | CA_ITS ---
Transthoracic Echocardiogram Patient (Last, First, Middle): Dion Landaverde, Gender: Male Date of : 1955 Age: 66 Procedure Date: 09/12/2021 Procedure Type: Transthoracic Echocardiogram Location: [facility] [place] Height: 172.72 cm Weight: 117.94 kg BSA: 2.29 m2 Heart Rate: bpm BP: 151 / 90 mmHg Mother Baby Rn: KARL Referring MD: Rolando Devine MD Symptoms: afib rvr; elevated troponin Study Quality: Technically Difficult/Contrast ECG Rhythm: Atrial Fibrillation Conclusions: - The left ventricular systolic function is normal. The visually estimated ejection fraction is between 65-70%. - There is mild to moderately decreased right ventricular systolic function. - The left atrium is moderately dilated. - Moderate pulmonary hypertension is present. Findings Procedure Information Contrast agent, definity, is being given per protocol without apparent complications. Left Ventricle Normal left ventricular cavity size. There is moderately increased left ventricular wall thickness. The left ventricular systolic function is normal. The visually estimated ejection fraction is between 65-70%. There is no evidence of regional wall motion abnormalities. Diastolic function is indeterminate on the basis of available data. Right Ventricle Normal right ventricular cavity size. There is mild to moderately decreased right ventricular systolic function. Atria The left atrium is moderately dilated. The right atrium is severely dilated. Aortic Valve There is mild calcification of the aortic valve. There is no aortic valve stenosis. There is no aortic valve regurgitation. Mitral Valve The mitral valve was not well visualized. There is no mitral valve regurgitation. There is no mitral valve stenosis. Pulmonic Valve The pulmonic valve was not well visualized. Tricuspid Valve There is trace tricuspid valve regurgitation. The right ventricular systolic pressure is 55 mmHg. Moderate pulmonary hypertension is present. Great Vessels The asc aorta is normal in size. Venous The inferior vena cava was not well visualized. The inferior vena cava is dilated and collapses less than 50% with inspiration. Pericardium/Pleural There is no evidence of pericardial effusion. Prior Study Comparison No significant change compared to prior study dated: 12/29/2016. Measurements 2D Linear Measurements IVSd: 1.37 0.6-0.9/0.6-1.0 cm LVIDd: 3.76 3.9-5.3/4.2-5.9 cm LVIDd Index: 1.64 2.4-3.2/2.2-3.1 cm/m2 LVIDs: 2.20 2.0-3.6 cm LVPWd: 1.46 0.7-1.1 cm LA Diam: 4.50 2.7-3.8/3.0-4.0 cm LAIDs Index: 1.97 1.5-2.3 cm/m2 LV Mass: 242.36 67-162/88-224 g LV Mass Index: 105.83 43-95/49-115 g/m2 LVOT Diam: 2.00 3.0+(-)1.3 cm 2D Systolic Function EF 4C: 61.10 >55% EF 2C: 61.10 >55% EF BiP: 61.50 >55% Mitral Valve MV Pk E: 1.40 MV Decel Time: 130.00 E'Lateral: 9.57 E'Medial: 6.85 E/E' Med: 20.40 E/E' Lat: 14.60 PHT: 38.00 MVA PHT: 5.79 Decel [place]: 10.78 Aortic Valve AoV Pk Fernando: 0.98 AoV Mn Fernando: 0.73 AoV VTI: 0.18 AoV Pk Grad: 4.00 Aov Mn Grad: 2.00 WILMA Cont.VTI: 1.87 LVOT LVOT Pk Fernando: 0.64 LVOT Mn Fernando: 0.45 LVOT VTI: 0.11 LVOT Pk Grad: 2.00 LVOT Mn Grad: 1.00 LVOT Diam: 2.00 LVOT Area: 3.14 Diastolic Function MV Pk E: 1.40 E'Medial: 6.85 E/E' Med: 20.40 E' Laterial: 9.57 E/E' Lat: 14.60 Right Ventricle TAPSE (mm): 12.90 TVS' Fernando: 7.83 Tricuspid Valve TR Pk Fernando: 3.18 TR Pk Grad: 40.00 RA Press: 15.00 RVSP: 55.00 Great Vessels Aorta Sinus of Valsalva: 3.51 2.0-3.[address] [place]: 2.39 1.7-3.4 cm Ao Asc: 3.30 2.1-3.4 cm Updated in Other Vendor System with Status of Final Chinmay Dorsey MD electronically signed on 09/12/2021 5:11:38 PM with status of Final
--- NOTE | 2021-09-12 09:33 | PM.CNCAR ---
History of Present Illness History of Present Illness Date of Service: 09/12/21 Chief complaint: Fall Narrative: This is a cardiology consultation regarding atrial fibrillation as well as elevated troponins. Initial presentation is mainly because of fall. He states that he tripped and fell down. No major injuries. No chest pain or shortness of breath or palpitations or dizzy spells or syncopal episodes or any other clear cardiac symptoms. In this context, he was found to have elevation troponins. He was also found to have atrial fibrillation with rapid rate. Hence Cardiology consulted. He states that he has never had any cardiac issues like coronary artery disease, myocardial infarction or cardiomyopathy or in fact any cardiac issues whatsoever in the past. However, Eliquviktoria is listed his meds and hence atrial fibrillation is likely previously known. Overall, not too active at baseline but able to get along for the most part. He also has tested positive for influenza A. Review of Systems Review of Systems: Yes all other systems are reviewed and are negative Constitutional: Constitutional: Reports as per HPI, Reports fatigue, Reports frequent falls, Reports lethargy and Reports malaise Eyes: Eyes: Reports as per HPI ENT: Reports as per HPI Cardiovascular: Cardiovascular: Reports as per HPI, Denies acrocyanosis, Denies cool extremities, Denies chest pain, Denies leg edema, Denies lightheadedness, Denies palpitations and Denies dyspnea Respiratory: Respiratory: Reports as per HPI, Reports no additional respiratory complaints and Denies dyspnea Gastrointestinal: Gastrointestinal: Reports as per HPI and Reports no additional gastrointestinal complaints Genitourinary: Genitourinary: Reports no additional male genitourinary complaints and Reports as per HPI Musculoskeletal: Musculoskeletal: Reports no additional musculoskeletal complaints and Reports as per HPI Integumentary/Breasts: Skin/Breast: Reports system reviewed and no additional complaints, except as docu Neurologic: Reports system reviewed and no additional complaints, except as documented, Reports as per HPI and Reports frequent falls Psychiatric: Psychiatric: Reports no additional psychiatric complaints and Reports as per HPI Endocrine: Endocrine: Reports no additional endocrine complaints, Reports as per HPI, Reports fatigue and Denies palpitations Hematologic/Lymphatic: Hematologic/Lymphatic: Reports no additional hematologic/lymphatic complaints and Reports as per HPI Allergic/Immunologic: Allergic/Immunologic: Reports no additional allergic/immunologic complaints and Reports as per HPI COUNTS INCLUDE 234 BEDS AT THE [facility] Past Medical History Medical History (Updated 09/12/21 @ 09:39 by Chinmay Dorsey MD) Atrial fibrillation CHF (congestive heart failure) Diabetes mellitus type 2 in obese 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 Hypertension Family History Family History (Updated 09/12/21 @ 09:36 by Chinmay Dorsey MD) Mother CAD (coronary artery disease) Social History Social History Advance Directives: No Advance Directives Information Provided: Yes Meds Allergies Allergy/AdvReac Type Severity Reaction Status Date / Time maprotiline [From LUDIOMIL] Allergy Unknown UNK Verified 09/11/21 19:28 meperidine [From DEMEROL] Allergy Unknown VOMITING Verified 09/11/21 19:28 Active Medications: Current Medications Acetaminophen (Acetaminophen 325 Mg Tablet) 650 mg PO Q6H PRN PRN Reason: Pain, Mild (Pain Scale 1-3) Apixaban (Apixaban 5 Mg Tablet) 5 mg PO BID [facility] Furosemide (Furosemide 20 Mg Tablet) 20 mg PO DAILY [facility]; Protocol Melatonin (Melatonin 3 Mg Tablet) 6 mg PO BEDTIME PRN PRN Reason: Insomnia Metoprolol Tartrate (Metoprolol Tartrate 100 Mg Tablet) 100 mg PO BID [facility]; Protocol Last Admin: 09/12/21 06:18 Dose: 100 mg Documented by: Metoprolol Tartrate (Metoprolol Tartrate 5 Mg/5 Ml Vial) 5 mg IVPUSH Q6H PRN PRN Reason: HR>125 Oseltamivir Phosphate (Oseltamivir Phosphate 75 Mg Capsule) 75 mg PO Q12H [facility] Stop: 09/16/21 19:01 Last Admin: 09/12/21 07:19 Dose: 75 mg Documented by: Pharmacy Consult (Consult Rx Perform Med Rec) 1 each MISCELLANE ONCE PRN PRN Reason: Consult order Senna (Sennosides 8.6 Mg Tablet) 17.2 mg PO BEDTIME PRN PRN Reason: Constipation Sodium Chloride (0.9 % Sodium Chloride Flush 3 Ml Syringe) 3 ml IVFLUSH QSHIFT [facility] Last Admin: 09/12/21 07:19 Dose: Not Given Documented by: Home Medications Medication Instructions Recorded Confirmed Last Taken Type apixaban 5 mg tablet (Eliquis) 5 mg PO BID 09/11/21 09/11/21 Unknown History furosemide 20 mg tablet 20 mg PO DAILY 09/11/21 09/11/21 Unknown History metoprolol tartrate 100 mg tablet 100 mg PO BID 09/11/21 09/11/21 Unknown History Physical Exam Vital Signs: Vital Signs: Last Vital Signs Temp 97.6 F 09/12/21 07:17 Pulse 109 H 09/12/21 07:17 Resp 26 H 09/12/21 07:17 BP 147/78 H 09/12/21 07:17 Pulse Ox 95 09/12/21 07:17 Oxygen Flow Rate 2 09/11/21 19:05 BMI result Body Mass Index 39.5 Const: General: comfortable and no acute distress Orientation/consciousness: patient oriented x3 HEENT: Other: Unremarkable Head: Yes normal to inspection Neck: Neck: Yes normal visual inspection Chest: Chest palpation & inspection: normal inspection of the chest Resp: Auscultation: rhonchi, wheezes and diminished lung sounds Cardio: Palpation: normal PMI Heart sounds: S1 normal heart sound present, S2 normal heart sound present, no gallops, no murmurs and no rubs GI: Palpation (GI): Soft to palpation Back/Spine/Pelvis: Other: unremarkable Skin: General skin exam: no rashes or lesions noted Neuro: General: patient oriented x3 Extrem: General: Yes normal to inspection Psych: Mental Status: mental status grossly normal Objective Labs and Meds Result diagrams: 09/12/21 05:56 09/12/21 05:56 Lab results: Laboratory Results - last 24 hr 09/11/21 09/11/21 09/11/21 19:06 19:21 19:21 WBC 12.2 H RBC 5.34 Hgb 15.5 Hct 45.1 MCV 84.5 MCH 29.0 MCHC 34.4 RDW 13.5 Plt Count 212 MPV 10.6 Immature Gran % (Auto) 0.8 H Neut % (Auto) 89.8 H Lymph % (Auto) 3.2 L [place] % (Auto) 5.8 Eos % (Auto) 0.0 Baso % (Auto) 0.4 Lymph # (Auto) 0.4 L [place] # (Auto) 0.7 Eos # (Auto) 0.0 Baso # (Auto) 0.1 Abs Immat Gran (auto) 0.10 H Absolute Neuts (auto) 10.9 H Absolute Nucleated RBC 0.000 Nucleated RBC % (auto) 0.0 PT 19.5 H INR 1.7 H VBG pH VBG pCO2 VBG pO2 VBG HCO3 VBG O2 Saturation VBG Base Excess Sodium Potassium Chloride Carbon Dioxide Anion Gap BUN Creatinine Estim Creat Clear Calc Estimated GFR POC Glucose 174 H Random Glucose Lactic Acid Lactic Acid F/U @ 2Hr Lactic Acid F/U @ 4Hr Calcium Magnesium Total Bilirubin Direct Bilirubin AST ALT Alkaline Phosphatase Total Creatine Kinase Troponin I High Sens B-Natriuretic Peptide Total Protein Albumin TSH Urine Color Urine Appearance Urine pH Ur Specific [place] Urine Protein Urine Glucose (UA) Urine Ketones Urine Blood Urine Nitrite Ur Leukocyte Esterase Urine RBC Urine WBC Ur Squamous Epith Cells Calcium Oxalate Crystal Urine Bacteria Hyaline Casts Granular Casts Urine Mucus Urine Opiates Screen Urine Fentanyl Screen Ur Barbiturates Screen Ur Phencyclidine Scrn Ur Amphetamines Screen U Benzodiazepines Scrn Urine Cocaine Screen U Marijuana (THC) Screen Ethyl Alcohol COVID-19 (ELSY) COVID-19 Clin Com Influenza Type A (ROMEL) Influenza Type B (ROMEL) Influenza A & B Note 09/11/21 09/11/21 09/11/21 19:21 19:21 19:21 WBC RBC Hgb Hct MCV MCH MCHC RDW Plt Count MPV Immature Gran % (Auto) Neut % (Auto) Lymph % (Auto) [place] % (Auto) Eos % (Auto) Baso % (Auto) Lymph # (Auto) [place] # (Auto) Eos # (Auto) Baso # (Auto) Abs Immat Gran (auto) Absolute Neuts (auto) Absolute Nucleated RBC Nucleated RBC % (auto) PT INR VBG pH VBG pCO2 VBG pO2 VBG HCO3 VBG O2 Saturation VBG Base Excess Sodium 136 Potassium 3.4 Chloride 102 Carbon Dioxide 21 L Anion Gap 16 BUN 16 Creatinine 1.51 H Estim Creat Clear Calc 59.2 Estimated GFR 46 POC Glucose Random Glucose 190 H Lactic Acid 4.2 H* Lactic Acid F/U @ 2Hr Lactic Acid F/U @ 4Hr Calcium 9.4 Magnesium 1.6 Total Bilirubin 1.6 H Direct Bilirubin 0.6 H AST 21 ALT 11 Alkaline Phosphatase 94 Total Creatine Kinase 716 H Troponin I High Sens 24.8 B-Natriuretic Peptide 422 H Total Protein 6.6 Albumin 3.7 TSH 2.11 Urine Color Urine Appearance Urine pH Ur Specific [place] Urine Protein Urine Glucose (UA) Urine Ketones Urine Blood Urine Nitrite Ur Leukocyte Esterase Urine RBC Urine WBC Ur Squamous Epith Cells Calcium Oxalate Crystal Urine Bacteria Hyaline Casts Granular Casts Urine Mucus Urine Opiates Screen Urine Fentanyl Screen Ur Barbiturates Screen Ur Phencyclidine Scrn Ur Amphetamines Screen U Benzodiazepines Scrn Urine Cocaine Screen U Marijuana (THC) Screen Ethyl Alcohol COVID-19 (ELSY) COVID-19 Clin Com Influenza Type A (ROMEL) Influenza Type B (ROMEL) Influenza A & B Note 09/11/21 09/11/21 09/11/21 19:21 19:21 19:24 WBC RBC Hgb Hct MCV MCH MCHC RDW Plt Count MPV Immature Gran % (Auto) Neut % (Auto) Lymph % (Auto) [place] % (Auto) Eos % (Auto) Baso % (Auto) Lymph # (Auto) [place] # (Auto) Eos # (Auto) Baso # (Auto) Abs Immat Gran (auto) Absolute Neuts (auto) Absolute Nucleated RBC Nucleated RBC % (auto) PT INR VBG pH 7.46 H VBG pCO2 22 VBG pO2 68 VBG HCO3 16 L VBG O2 Saturation 92.0 VBG Base Excess -4.9 Sodium Potassium Chloride Carbon Dioxide Anion Gap BUN Creatinine Estim Creat Clear Calc Estimated GFR POC Glucose Random Glucose Lactic Acid Lactic Acid F/U @ 2Hr Lactic Acid F/U @ 4Hr Calcium Magnesium Total Bilirubin Direct Bilirubin AST ALT Alkaline Phosphatase Total Creatine Kinase Troponin I High Sens B-Natriuretic Peptide Total Protein Albumin TSH Urine Color Urine Appearance Urine pH Ur Specific [place] Urine Protein Urine Glucose (UA) Urine Ketones Urine Blood Urine Nitrite Ur Leukocyte Esterase Urine RBC Urine WBC Ur Squamous Epith Cells Calcium Oxalate Crystal Urine Bacteria Hyaline Casts Granular Casts Urine Mucus Urine Opiates Screen Urine Fentanyl Screen Ur Barbiturates Screen Ur Phencyclidine Scrn Ur Amphetamines Screen U Benzodiazepines Scrn Urine Cocaine Screen U Marijuana (THC) Screen Ethyl Alcohol < 10 COVID-19 (ELSY) Negative COVID-19 Clin Com See Note Influenza Type A (ROMEL) Influenza Type B (ROMEL) Influenza A & B Note 09/11/21 09/11/21 09/11/21 19:29 19:29 21:50 WBC RBC Hgb Hct MCV MCH MCHC RDW Plt Count MPV Immature Gran % (Auto) Neut % (Auto) Lymph % (Auto) [place] % (Auto) Eos % (Auto) Baso % (Auto) Lymph # (Auto) [place] # (Auto) Eos # (Auto) Baso # (Auto) Abs Immat Gran (auto) Absolute Neuts (auto) Absolute Nucleated RBC Nucleated RBC % (auto) PT INR VBG pH VBG pCO2 VBG pO2 VBG HCO3 VBG O2 Saturation VBG Base Excess Sodium Potassium Chloride Carbon Dioxide Anion Gap BUN Creatinine Estim Creat Clear Calc Estimated GFR POC Glucose Random Glucose Lactic Acid Lactic Acid F/U @ 2Hr Lactic Acid F/U @ 4Hr Calcium Magnesium Total Bilirubin Direct Bilirubin AST ALT Alkaline Phosphatase Total Creatine Kinase Troponin I High Sens B-Natriuretic Peptide Total Protein Albumin TSH Urine Color DK YELLOW Urine Appearance CLEAR Urine pH 7.0 Ur Specific [place] 1.010 Urine Protein 1+ H Urine Glucose (UA) NEG Urine Ketones NEG Urine Blood 1+ H Urine Nitrite NEG Ur Leukocyte Esterase NEG Urine RBC 5-9 H Urine WBC 0 Ur Squamous Epith Cells 1+ Calcium Oxalate Crystal TRACE Urine Bacteria NONE Hyaline Casts 1-4 Granular Casts 1-4 Urine Mucus TRACE Urine Opiates Screen Not Detected Urine Fentanyl Screen Not Detected Ur Barbiturates Screen Not Detected Ur Phencyclidine Scrn Not Detected Ur Amphetamines Screen Not Detected U Benzodiazepines Scrn Not Detected Urine Cocaine Screen Not Detected U Marijuana (THC) Screen Not Detected Ethyl Alcohol COVID-19 (ELSY) COVID-19 Clin Com Influenza Type A (ROMEL) Positive A Influenza Type B (ROMEL) Negative Influenza A & B Note See Note 09/11/21 09/12/21 09/12/21 22:00 00:35 00:35 WBC RBC Hgb Hct MCV MCH MCHC RDW Plt Count MPV Immature Gran % (Auto) Neut % (Auto) Lymph % (Auto) [place] % (Auto) Eos % (Auto) Baso % (Auto) Lymph # (Auto) [place] # (Auto) Eos # (Auto) Baso # (Auto) Abs Immat Gran (auto) Absolute Neuts (auto) Absolute Nucleated RBC Nucleated RBC % (auto) PT INR VBG pH VBG pCO2 VBG pO2 VBG HCO3 VBG O2 Saturation VBG Base Excess Sodium Potassium Chloride Carbon Dioxide Anion Gap BUN Creatinine Estim Creat Clear Calc Estimated GFR POC Glucose Random Glucose Lactic Acid Lactic Acid F/U @ 2Hr 2.4 H* Lactic Acid F/U @ 4Hr 2.8 H* Calcium Magnesium Total Bilirubin Direct Bilirubin AST ALT Alkaline Phosphatase Total Creatine Kinase Troponin I High Sens 167.5 H* D B-Natriuretic Peptide Total Protein Albumin TSH Urine Color Urine Appearance Urine pH Ur Specific [place] Urine Protein Urine Glucose (UA) Urine Ketones Urine Blood Urine Nitrite Ur Leukocyte Esterase Urine RBC Urine WBC Ur Squamous Epith Cells Calcium Oxalate Crystal Urine Bacteria Hyaline Casts Granular Casts Urine Mucus Urine Opiates Screen Urine Fentanyl Screen Ur Barbiturates Screen Ur Phencyclidine Scrn Ur Amphetamines Screen U Benzodiazepines Scrn Urine Cocaine Screen U Marijuana (THC) Screen Ethyl Alcohol COVID-19 (ELSY) COVID-19 Clin Com Influenza Type A (ROMEL) Influenza Type B (ROMEL) Influenza A & B Note 09/12/21 09/12/21 09/12/21 05:56 05:56 05:57 WBC 8.9 RBC 5.11 Hgb 14.4 Hct 43.2 MCV 84.5 MCH 28.2 MCHC 33.3 RDW 13.7 Plt Count 176 MPV 10.4 Immature Gran % (Auto) 0.6 H Neut % (Auto) 79.0 H Lymph % (Auto) 8.7 L [place] % (Auto) 11.2 H Eos % (Auto) 0.2 Baso % (Auto) 0.3 Lymph # (Auto) 0.8 L [place] # (Auto) 1.0 Eos # (Auto) 0.0 Baso # (Auto) 0.0 Abs Immat Gran (auto) 0.05 H Absolute Neuts (auto) 7.0 Absolute Nucleated RBC 0.000 Nucleated RBC % (auto) 0.0 PT INR VBG pH VBG pCO2 VBG pO2 VBG HCO3 VBG O2 Saturation VBG Base Excess Sodium 137 Potassium 3.9 Chloride 103 Carbon Dioxide 25 Anion Gap 13 BUN 16 Creatinine 1.07 Estim Creat Clear Calc 83.6 Estimated GFR > 60 POC Glucose Random Glucose 143 H Lactic Acid Lactic Acid F/U @ 2Hr Lactic Acid F/U @ 4Hr Calcium 8.9 Magnesium Total Bilirubin Direct Bilirubin AST ALT Alkaline Phosphatase Total Creatine Kinase 2512 H D Troponin I High Sens 441.4 H* D B-Natriuretic Peptide Total Protein Albumin TSH Urine Color Urine Appearance Urine pH Ur Specific [place] Urine Protein Urine Glucose (UA) Urine Ketones Urine Blood Urine Nitrite Ur Leukocyte Esterase Urine RBC Urine WBC Ur Squamous Epith Cells Calcium Oxalate Crystal Urine Bacteria Hyaline Casts Granular Casts Urine Mucus Urine Opiates Screen Urine Fentanyl Screen Ur Barbiturates Screen Ur Phencyclidine Scrn Ur Amphetamines Screen U Benzodiazepines Scrn Urine Cocaine Screen U Marijuana (THC) Screen Ethyl Alcohol COVID-19 (ELSY) COVID-19 Clin Com Influenza Type A (ROMEL) Influenza Type B (ROMEL) Influenza A & B Note ECG Interpretation: EKG with atrial fibrillation at 105/Min; nonspecific ST-T changes. In the EKG prior to that, rate was much faster at 01:41/Min and the ST changes in the inferior and anterolateral leads were more prominent. Imaging Radiologist's impression: Impressions Chest X-Ray 09/11/21 19:34 IMPRESSION: Cardiomegaly with mild CHF. Lumbar Spine X-Ray 09/11/21 20:26 IMPRESSION: Chronic compression deformity at T11. No new fractures or subluxation. Multilevel thoracolumbar spondylosis which is moderate to severe in the lower lumbar spine. If there is high clinical suspicious for fracture, correlation with a CT or MR could obtained. Thoracic Spine X-Ray 09/11/21 20:26 IMPRESSION: Chronic compression deformity at T11. No new fractures or subluxation. Multilevel thoracolumbar spondylosis which is moderate to severe in the lower lumbar spine. If there is high clinical suspicious for fracture, correlation with a CT or MR could obtained. Head CT 09/11/21 20:49 IMPRESSION: No evidence of acute intracranial hemorrhage or edematous territorial infarction. Moderate chronic microangiopathy and generalized cerebral volume loss. Assessment and Plan (1) Atrial fibrillation with RVR: Status: Acute (2) NSTEMI (non-ST elevated myocardial infarction): Status: Acute (3) Rhabdomyolysis: Status: Acute (4) Influenza A: Status: Acute Plan High sensitivity troponins- 24 followed by 167 followed by 441. CK-716 followed by 2512 Cardiac BNP 422. Influenza A positive. Chest x-ray report have cardiomegaly and mild CHF. Overall, atrial fibrillation with rapid rate likely in the setting of active infection from influenza. He is already on beta-blockers. If necessary, we can add either diltiazem or digoxin. He is not on telemetry at this time and hence I requested RN to put him back on a monitor to get his rates. Per prior report from [facility] in 2007, he already had atrial fibrillation and hence most likely this is all chronic. With regard to elevated troponins and CK, not clear if it is NSTEMI or if it is truly rhabdomyolysis from falling down. In any case, he has no cardiac symptoms at all. Additionally, with regard to anticoagulation, he is already on Eliquis. Hence no specific interventions at this time especially in setting of acute infection with influenza. We can however get an echocardiogram for cardiac function assessment including wall motion assessment. Eventually, can consider stress testing. Procedures Date of Service Date of Service: 09/12/21
[2021-09-12] MEDS: Apixaban 5 MG TABLET PO ×2 (10:01→20:30)
[2021-09-12] MEDS: Furosemide 20 MG TABLET PO (10:01)
--- NOTE | 2021-09-12 11:20 | MHC.CM.PN ---
Addendum entered by Hattie Daniels 09/12/21 13:49: CM INFORMED [facility] UNABLE TO VERIFY PCP. MANAN TRAMMELL HAS RETIRED AND PT HAS NOT BEEN ESTABLISHED WITH A NEW PROVIDER. PT WILL NOT BE ELIGIBLE FOR HOME PT Original Note: PT REPORTS HE LIVES WITH HIS AND IS INDEPENDENT WITH CARE AT BASELINE HE REPORTS HE USES [facility] AND HAS NO OTHER DME PT DENIES HAVING HOME SERVICES PT REPORTS HE HAS A HCP NAMING HIS , RASHAD, HIS AGENT PT SAYS HIS PCP IS MANAN TRAMMELL IMM DELIVERED PT IS AWARE HE WILL HAVE A PT EVAL TO HELP DETERMINE DISPOSITION HE REPORTS IF STR IS RECOMMENDED, HE WOULD PREFER [facility] HE DOES NOT HAVE AN AGENCY PREFERENCE IF HOME SERVICES ARE RECOMMENDED BUT IS AGREEABLE TO THEM. DC PLAN TBD PENDING PT EVAL ABLE TO TRANSPORT IF PT IS SAFE TO GO BY CAR
--- NOTE | 2021-09-12 12:19 | P.PNIM_ITS ---
Subjective Subjective Date of Service: 09/12/21 Interval History: coughing no chest pain Review of Systems Review of Systems: Yes all other systems are reviewed and are negative Physical Exam Vital Signs: Vital Signs: Last Vital Signs Temp 97.6 F 09/12/21 07:17 Pulse 94 09/12/21 09:59 Resp 26 H 09/12/21 09:59 BP 125/75 09/12/21 09:59 Pulse Ox 95 09/12/21 09:59 Oxygen Flow Rate 2 09/11/21 19:05 BMI result Body Mass Index 39.5 Gen: mild resp distress HEENT: sclera anicteric, moist mucus membranes Neck: supple Lungs: tachypnea, clear bilaterally Heart: irregularly irregular, no murmurs Abd: soft, non-tender, non-distended Ext: no edema Skin: warm/well-perfused Neuro: alert and oriented x3, no focal findings Psych: appropriate affect Objective Data Active Medications Acetaminophen (Acetaminophen 325 Mg Tablet) 650 mg PO Q6H PRN PRN Reason: Pain, Mild (Pain Scale 1-3) Apixaban (Apixaban 5 Mg Tablet) 5 mg PO BID [facility] Last Admin: 09/12/21 10:01 Dose: 5 mg Documented by: ROGER Furosemide (Furosemide 20 Mg Tablet) 20 mg PO DAILY [facility]; Protocol Last Admin: 09/12/21 10:01 Dose: 20 mg Documented by: ROGER Melatonin (Melatonin 3 Mg Tablet) 6 mg PO BEDTIME PRN PRN Reason: Insomnia Metoprolol Tartrate (Metoprolol Tartrate 100 Mg Tablet) 100 mg PO BID [facility]; Protocol Last Admin: 09/12/21 06:18 Dose: 100 mg Documented by: DUSTY Metoprolol Tartrate (Metoprolol Tartrate 5 Mg/5 Ml Vial) 5 mg IVPUSH Q6H PRN PRN Reason: HR>125 Oseltamivir Phosphate (Oseltamivir Phosphate 75 Mg Capsule) 75 mg PO Q12H [facility] Stop: 09/16/21 19:01 Last Admin: 09/12/21 07:19 Dose: 75 mg Documented by: ROGER Pharmacy Consult (Consult Rx Perform Med Rec) 1 each MISCELLANE ONCE PRN PRN Reason: Consult order Senna (Sennosides 8.6 Mg Tablet) 17.2 mg PO BEDTIME PRN PRN Reason: Constipation Sodium Chloride (0.9 % Sodium Chloride Flush 3 Ml Syringe) 3 ml IVFLUSH QSHIFT [facility] Last Admin: 09/12/21 07:19 Dose: Not Given Documented by: ROGER Non-Admin Reason: IV Running Labs CBC & Chem 7: 09/12/21 05:56 09/12/21 05:56 Labs: Laboratory Results - last 24 hr 09/11/21 09/11/21 09/11/21 19:06 19:21 19:21 MCV 84.5 MCH 29.0 MCHC 34.4 RDW 13.5 Plt Count 212 MPV 10.6 Immature Gran % (Auto) 0.8 H Neut % (Auto) 89.8 H Lymph % (Auto) 3.2 L [place] % (Auto) 5.8 Eos % (Auto) 0.0 Baso % (Auto) 0.4 Lymph # (Auto) 0.4 L [place] # (Auto) 0.7 Eos # (Auto) 0.0 Baso # (Auto) 0.1 Abs Immat Gran (auto) 0.10 H Absolute Neuts (auto) 10.9 H Absolute Nucleated RBC 0.000 Nucleated RBC % (auto) 0.0 PT 19.5 H INR 1.7 H VBG pH VBG pCO2 VBG pO2 VBG HCO3 VBG O2 Saturation VBG Base Excess Anion Gap Estim Creat Clear Calc Estimated GFR POC Glucose 174 H Random Glucose Lactic Acid Lactic Acid F/U @ 2Hr Lactic Acid F/U @ 4Hr Calcium Magnesium Total Bilirubin Direct Bilirubin AST ALT Alkaline Phosphatase Total Creatine Kinase Troponin I High Sens B-Natriuretic Peptide Total Protein Albumin TSH Urine Color Urine Appearance Urine pH Ur Specific Mcintosh Urine Protein Urine Glucose (UA) Urine Ketones Urine Blood Urine Nitrite Ur Leukocyte Esterase Urine RBC Urine WBC Ur Squamous Epith Cells Calcium Oxalate Crystal Urine Bacteria Hyaline Casts Granular Casts Urine Mucus Urine Opiates Screen Urine Fentanyl Screen Ur Barbiturates Screen Ur Phencyclidine Scrn Ur Amphetamines Screen U Benzodiazepines Scrn Urine Cocaine Screen U Marijuana (THC) Screen Ethyl Alcohol COVID-19 (ELSY) COVID-19 Clin Com Influenza Type A (ROMEL) Influenza Type B (ROMEL) Influenza A & B Note 09/11/21 09/11/21 09/11/21 19:21 19:21 19:21 MCV MCH MCHC RDW Plt Count MPV Immature Gran % (Auto) Neut % (Auto) Lymph % (Auto) [place] % (Auto) Eos % (Auto) Baso % (Auto) Lymph # (Auto) [place] # (Auto) Eos # (Auto) Baso # (Auto) Abs Immat Gran (auto) Absolute Neuts (auto) Absolute Nucleated RBC Nucleated RBC % (auto) PT INR VBG pH VBG pCO2 VBG pO2 VBG HCO3 VBG O2 Saturation VBG Base Excess Anion Gap 16 Estim Creat Clear Calc 59.2 Estimated GFR 46 POC Glucose Random Glucose 190 H Lactic Acid 4.2 H* Lactic Acid F/U @ 2Hr Lactic Acid F/U @ 4Hr Calcium 9.4 Magnesium 1.6 Total Bilirubin 1.6 H Direct Bilirubin 0.6 H AST 21 ALT 11 Alkaline Phosphatase 94 Total Creatine Kinase 716 H Troponin I High Sens 24.8 B-Natriuretic Peptide 422 H Total Protein 6.6 Albumin 3.7 TSH 2.11 Urine Color Urine Appearance Urine pH Ur Specific Mcintosh Urine Protein Urine Glucose (UA) Urine Ketones Urine Blood Urine Nitrite Ur Leukocyte Esterase Urine RBC Urine WBC Ur Squamous Epith Cells Calcium Oxalate Crystal Urine Bacteria Hyaline Casts Granular Casts Urine Mucus Urine Opiates Screen Urine Fentanyl Screen Ur Barbiturates Screen Ur Phencyclidine Scrn Ur Amphetamines Screen U Benzodiazepines Scrn Urine Cocaine Screen U Marijuana (THC) Screen Ethyl Alcohol COVID-19 (ELSY) COVID-19 Clin Com Influenza Type A (ROMEL) Influenza Type B (ROMEL) Influenza A & B Note 09/11/21 09/11/21 09/11/21 19:21 19:21 19:24 MCV MCH MCHC RDW Plt Count MPV Immature Gran % (Auto) Neut % (Auto) Lymph % (Auto) [place] % (Auto) Eos % (Auto) Baso % (Auto) Lymph # (Auto) [place] # (Auto) Eos # (Auto) Baso # (Auto) Abs Immat Gran (auto) Absolute Neuts (auto) Absolute Nucleated RBC Nucleated RBC % (auto) PT INR VBG pH 7.46 H VBG pCO2 22 VBG pO2 68 VBG HCO3 16 L VBG O2 Saturation 92.0 VBG Base Excess -4.9 Anion Gap Estim Creat Clear Calc Estimated GFR POC Glucose Random Glucose Lactic Acid Lactic Acid F/U @ 2Hr Lactic Acid F/U @ 4Hr Calcium Magnesium Total Bilirubin Direct Bilirubin AST ALT Alkaline Phosphatase Total Creatine Kinase Troponin I High Sens B-Natriuretic Peptide Total Protein Albumin TSH Urine Color Urine Appearance Urine pH Ur Specific Mcintosh Urine Protein Urine Glucose (UA) Urine Ketones Urine Blood Urine Nitrite Ur Leukocyte Esterase Urine RBC Urine WBC Ur Squamous Epith Cells Calcium Oxalate Crystal Urine Bacteria Hyaline Casts Granular Casts Urine Mucus Urine Opiates Screen Urine Fentanyl Screen Ur Barbiturates Screen Ur Phencyclidine Scrn Ur Amphetamines Screen U Benzodiazepines Scrn Urine Cocaine Screen U Marijuana (THC) Screen Ethyl Alcohol < 10 COVID-19 (ELSY) Negative COVID-19 Clin Com See Note Influenza Type A (ROMEL) Influenza Type B (ROMEL) Influenza A & B Note 09/11/21 09/11/21 09/11/21 19:29 19:29 21:50 MCV MCH MCHC RDW Plt Count MPV Immature Gran % (Auto) Neut % (Auto) Lymph % (Auto) [place] % (Auto) Eos % (Auto) Baso % (Auto) Lymph # (Auto) [place] # (Auto) Eos # (Auto) Baso # (Auto) Abs Immat Gran (auto) Absolute Neuts (auto) Absolute Nucleated RBC Nucleated RBC % (auto) PT INR VBG pH VBG pCO2 VBG pO2 VBG HCO3 VBG O2 Saturation VBG Base Excess Anion Gap Estim Creat Clear Calc Estimated GFR POC Glucose Random Glucose Lactic Acid Lactic Acid F/U @ 2Hr Lactic Acid F/U @ 4Hr Calcium Magnesium Total Bilirubin Direct Bilirubin AST ALT Alkaline Phosphatase Total Creatine Kinase Troponin I High Sens B-Natriuretic Peptide Total Protein Albumin TSH Urine Color DK YELLOW Urine Appearance CLEAR Urine pH 7.0 Ur Specific Mcintosh 1.010 Urine Protein 1+ H Urine Glucose (UA) NEG Urine Ketones NEG Urine Blood 1+ H Urine Nitrite NEG Ur Leukocyte Esterase NEG Urine RBC 5-9 H Urine WBC 0 Ur Squamous Epith Cells 1+ Calcium Oxalate Crystal TRACE Urine Bacteria NONE Hyaline Casts 1-4 Granular Casts 1-4 Urine Mucus TRACE Urine Opiates Screen Not Detected Urine Fentanyl Screen Not Detected Ur Barbiturates Screen Not Detected Ur Phencyclidine Scrn Not Detected Ur Amphetamines Screen Not Detected U Benzodiazepines Scrn Not Detected Urine Cocaine Screen Not Detected U Marijuana (THC) Screen Not Detected Ethyl Alcohol COVID-19 (ELSY) COVID-19 Clin Com Influenza Type A (ROMEL) Positive A Influenza Type B (ROMEL) Negative Influenza A & B Note See Note 04/09/12/21 09/12/21 22:00 00:35 00:35 MCV MCH MCHC RDW Plt Count MPV Immature Gran % (Auto) Neut % (Auto) Lymph % (Auto) [place] % (Auto) Eos % (Auto) Baso % (Auto) Lymph # (Auto) [place] # (Auto) Eos # (Auto) Baso # (Auto) Abs Immat Gran (auto) Absolute Neuts (auto) Absolute Nucleated RBC Nucleated RBC % (auto) PT INR VBG pH VBG pCO2 VBG pO2 VBG HCO3 VBG O2 Saturation VBG Base Excess Anion Gap Estim Creat Clear Calc Estimated GFR POC Glucose Random Glucose Lactic Acid Lactic Acid F/U @ 2Hr 2.4 H* Lactic Acid F/U @ 4Hr 2.8 H* Calcium Magnesium Total Bilirubin Direct Bilirubin AST ALT Alkaline Phosphatase Total Creatine Kinase Troponin I High Sens 167.5 H* D B-Natriuretic Peptide Total Protein Albumin TSH Urine Color Urine Appearance Urine pH Ur Specific Mcintosh Urine Protein Urine Glucose (UA) Urine Ketones Urine Blood Urine Nitrite Ur Leukocyte Esterase Urine RBC Urine WBC Ur Squamous Epith Cells Calcium Oxalate Crystal Urine Bacteria Hyaline Casts Granular Casts Urine Mucus Urine Opiates Screen Urine Fentanyl Screen Ur Barbiturates Screen Ur Phencyclidine Scrn Ur Amphetamines Screen U Benzodiazepines Scrn Urine Cocaine Screen U Marijuana (THC) Screen Ethyl Alcohol COVID-19 (ELSY) COVID-19 Clin Com Influenza Type A (ROMEL) Influenza Type B (ROMEL) Influenza A & B Note 09/12/21 09/12/21 09/12/21 05:56 05:56 05:57 MCV 84.5 MCH 28.2 MCHC 33.3 RDW 13.7 Plt Count 176 MPV 10.4 Immature Gran % (Auto) 0.6 H Neut % (Auto) 79.0 H Lymph % (Auto) 8.7 L [place] % (Auto) 11.2 H Eos % (Auto) 0.2 Baso % (Auto) 0.3 Lymph # (Auto) 0.8 L [place] # (Auto) 1.0 Eos # (Auto) 0.0 Baso # (Auto) 0.0 Abs Immat Gran (auto) 0.05 H Absolute Neuts (auto) 7.0 Absolute Nucleated RBC 0.000 Nucleated RBC % (auto) 0.0 PT INR VBG pH VBG pCO2 VBG pO2 VBG HCO3 VBG O2 Saturation VBG Base Excess Anion Gap 13 Estim Creat Clear Calc 83.6 Estimated GFR > 60 POC Glucose Random Glucose 143 H Lactic Acid Lactic Acid F/U @ 2Hr Lactic Acid F/U @ 4Hr Calcium 8.9 Magnesium Total Bilirubin Direct Bilirubin AST ALT Alkaline Phosphatase Total Creatine Kinase 2512 H D Troponin I High Sens 441.4 H* D B-Natriuretic Peptide Total Protein Albumin TSH Urine Color Urine Appearance Urine pH Ur Specific Mcintosh Urine Protein Urine Glucose (UA) Urine Ketones Urine Blood Urine Nitrite Ur Leukocyte Esterase Urine RBC Urine WBC Ur Squamous Epith Cells Calcium Oxalate Crystal Urine Bacteria Hyaline Casts Granular Casts Urine Mucus Urine Opiates Screen Urine Fentanyl Screen Ur Barbiturates Screen Ur Phencyclidine Scrn Ur Amphetamines Screen U Benzodiazepines Scrn Urine Cocaine Screen U Marijuana (THC) Screen Ethyl Alcohol COVID-19 (ELSY) COVID-19 Clin Com Influenza Type A (ROMEL) Influenza Type B (ROMEL) Influenza A & B Note Assessment and Plan (1) Influenza A: Status: Acute (2) Rhabdomyolysis: Status: Acute (3) NSTEMI (non-ST elevated myocardial infarction): Status: Acute Plan hospital d#2 66yo M with permanent AF, CHF, HTN presented with falls admitted for HILLARY, rhabdomyolysis, AF/RVR, elevated troponin-I, influenza A # elevated troponin-I - Cardiology consulted, likely rhabdomyolysis vs demand, TTE pending, eventual ischemic workup # rhabdomyolysis - gentle IV hydration with NS, repeat CPK in AM, related to influenza myositis? # HILLARY - resolving with IV hydration, avoid nephrotoxins, repeat BMP in AM # permanent AF with RVR - rate now controlled in 90s - continue metoprolol, IV if needed - continue apixaban # lactic acidosis - not due to sepsis # influenza A - oseltamivir d#05/22, droplet precautions # CHF, history of - gentle hydration with caution for fluid overload, TTE pending, hold furosemide for now # VTE ppx - apixaban In my clinical judgment, the patient requires continued hospitalization for the following reasons: IV hydration Quality Stroke Does the patient have a stroke diagnosis?: No VTE Prior VTE?: No VTE Risk Level:: Medical - moderate - high VTE Device Contraindication: Treatment Not Indicated VTE Drug Contraindication: N/A - Med Ordered
--- NOTE | 2021-09-12 12:25 | PC.NURSE ---
audible wheezing inspiration/exhalation, RR 30, O2 maintaining at 97% on 2L. provider notified.
[2021-09-12] MEDS: Albuterol/Iprat 2.5/0.5MG 3 ML AMPUL.NEB INHALE (12:46)
[2021-09-12] MEDS: Albuterol Sulfate (0.083%) 2.5 MG/3 ML VIAL.NEB INHALE ×2 (15:19→20:32)
[2021-09-12] MEDS: Metoprolol Tartrate 5 MG/5 ML VIAL IVPUSH (17:45)
--- NOTE | 2021-09-12 17:53 | PM.EVENT ---
Event Note Date of Service: 09/12/21 Event Note: heart rate still elevated - afib with rvr 140s-160s, BP elevated, asymptomatic, will start diltiazem infusion.
[2021-09-12] MEDS: dilTIAZem HCL 125 MG in 0.9 % Sodium Chloride 100 ML 10 MG IVCONT (18:04)
[2021-09-12] MEDS: 0.9 % Sodium Chloride 1,000 ML 50 ML IVCONT (18:55)
--- NOTE | 2021-09-12 20:14 | PC.NURSE ---
Pt came to unit incontinent of stool and urine. HR elevated in 130's MD notified, 5mG IV PUSH metoprolol given, somewhat effective. Pt became wheezy MD notified; xopenex ordered and given by respiratory. PT hR became more elevated in the 180's, MD made aware and Cardizem drip ordered. HR steadily decreasing and pt being monitored. Report given to oncoming RN.
[2021-09-13] VITALS (11 sets, daily range): BP systolic 110–150; BP diastolic 44–79; PULSE 66–93; RESP 19–22; TEMP 36.3–37; O2SAT 94–97
[2021-09-13 01:51] LABS: Glucose, Whole Blood 142 mg/dL (60-115)
[2021-09-13] MEDS: dilTIAZem HCL 125 MG in 0.9 % Sodium Chloride 100 ML 10 MG IVCONT (02:25)
[2021-09-13] MEDS: Oseltamivir Phosphate 75 MG CAPSULE PO ×2 (05:59→20:13)
[2021-09-13 07:12] LABS: B Type Natriuretic Peptide 229 pg/mL (<100)
[2021-09-13] MEDS: Albuterol Sulfate (0.083%) 2.5 MG/3 ML VIAL.NEB INHALE ×4 (07:35→19:09)
[2021-09-13 07:40] LABS: Anion Gap 8 (12-20); Blood Urea Nitrogen 14 mg/dL (9-16); Calcium 8.3 mg/dL (8.4-10.2); Carbon Dioxide 27 mmol/L (22-29); Chloride 103 mmol/L (96-108); Creatinine Clr Calc Pharmacy 105.2; Estimated Glomerular Filt Rate > 60; Glucose Random 126 mg/dL (60-115); Potassium 3.4 mmol/L (3.3-5.1); Sodium 135 mmol/L (135-145)
[2021-09-13 07:53] LABS: Magnesium 1.7 mg/dL (1.6-2.6)
--- NOTE | 2021-09-13 08:45 | P.CDIC_ITS ---
CDI Concurrent Query Documentation Clarification: PHYSICIAN'S DOCUMENTATION REQUEST Date of Query: 09/13/21 0846 Patient Name: Dion Landaverde Admit Date: 09/11/21 Dear Doctor, A review of the medical record indicates additional documentation may be needed. Please review below and update the documentation accordingly. Risk Factors/Clinical Indicators/Treatments Patient admitted with HILLARY and Rhabdomyolysis vs. demand. Presented with a fall out of bed, found on the floor without known duration of time. CK 2512 IV hydration. Xray spine - high suspicion for fracture. Based on the above, could you clarify in the Progress Notes the appropriate diagnosis, if significant, that supports the above abnormalities and additional evaluation, monitoring, and/or treatment rendered: * Traumatic Rhabdomyolysis * Nontraumatic Rhabdomyolysis * Other (please specify) * Unable to determine Use of terms such as suspected, likely, concern for, or probable (associated with a specific diagnosis that is being evaluated, monitored, or treated as if it exists) are acceptable and can be coded in the inpatient setting, when documented at the time of discharge. Thank you, Essence Gomez [facility], CDIS Extension: [phone] Please use your independent medical judgment in providing your response. THIS QUERY IS PART OF THE PERMANENT MEDICAL RECORD Provider Response: Other Other Diagnosis: traumatic
[2021-09-13] MEDS: Apixaban 5 MG TABLET PO ×2 (09:19→19:58)
[2021-09-13] MEDS: Metoprolol Tartrate 100 MG TABLET PO ×2 (09:19→19:58)
[2021-09-13] MEDS: 0.9 % Sodium Chloride Flush 3 ML SYRINGE IVFLUSH ×2 (09:19→17:57)
[2021-09-13] MEDS: 0.9 % Sodium Chloride 1,000 ML 50 ML IVCONT (09:20)
--- NOTE | 2021-09-13 09:24 | MHC.CM.PN ---
PT is recommending STR and per CM documentation, [facility] is Patient's first choice; a referral will be made to [facility].
--- NOTE | 2021-09-13 11:20 | HO.PM.IMPN ---
Subjective Subjective Date of Service: 09/13/21 Interval History: Placed on diltiazem infusion overnight due to RVR Weakness improving Cough improving Review of Systems Review of Systems: Yes all other systems are reviewed and are negative Physical Exam Vital Signs: Vital Signs: Last Vital Signs Temp 98.6 F 09/13/21 04:00 Pulse 73 09/13/21 11:15 Resp 20 09/13/21 11:15 BP 150/74 H 09/13/21 08:30 Pulse Ox 97 09/13/21 08:30 Oxygen Flow Rate 2 09/11/21 19:05 BMI result Body Mass Index 39.5 Gen: NAD HEENT: sclera anicteric, moist mucus membranes Neck: supple Lungs: CTAB Heart: irregularly irregular, no murmurs Abd: soft, non-tender, non-distended Ext: no edema Skin: warm/well-perfused Neuro: alert and oriented x3, no focal findings Psych: appropriate affect Objective Data Active Medications Acetaminophen (Acetaminophen 325 Mg Tablet) 650 mg PO Q6H PRN PRN Reason: Pain, Mild (Pain Scale 1-3) Albuterol Sulfate (Albuterol Sulfate (0.083%) 2.5 Mg/3 Ml Vial.Neb) 2.5 mg INHALE RQ4H WHILE AWAKE [facility] Last Admin: 09/13/21 11:15 Dose: 2.5 mg Documented by: BRIDGET Apixaban (Apixaban 5 Mg Tablet) 5 mg PO BID [facility] Last Admin: 09/13/21 09:19 Dose: 5 mg Documented by: NHUNG Sodium Chloride (Ns) 1,000 mls @ 50 mls/hr IVCONT .Q20H [facility] Last Admin: 09/13/21 09:20 Dose: 50 mls/hr Documented by: NHUNG Diltiazem HCl 125 mg/ Sodium (Chloride) 125 mls @ 0 mls/hr IVCONT .Q0M [facility]; Protocol Last Admin: 09/13/21 02:25 Dose: 10 mg/hr, 10 mls/hr Documented by: RADHA Levalbuterol HCl (Levalbuterol Hcl 1.25 Mg/0.5 Ml Vial.Neb) 1.25 mg INHALE Q3H PRN PRN Reason: sob Last Admin: 09/12/21 18:28 Dose: 1.25 mg Documented by: BRIDGET Melatonin (Melatonin 3 Mg Tablet) 6 mg PO BEDTIME PRN PRN Reason: Insomnia Metoprolol Tartrate (Metoprolol Tartrate 100 Mg Tablet) 100 mg PO BID [facility]; Protocol Last Admin: 09/13/21 09:19 Dose: 100 mg Documented by: NHUNG Metoprolol Tartrate (Metoprolol Tartrate 5 Mg/5 Ml Vial) 5 mg IVPUSH Q6H PRN PRN Reason: HR>125 Last Admin: 09/12/21 17:45 Dose: 5 mg Documented by: ATTILA Oseltamivir Phosphate (Oseltamivir Phosphate 75 Mg Capsule) 75 mg PO Q12H [facility] Stop: 09/16/21 19:01 Last Admin: 09/13/21 05:59 Dose: 75 mg Documented by: RADHA Pharmacy Consult (Consult Rx Perform Med Rec) 1 each MISCELLANE ONCE PRN PRN Reason: Consult order Senna (Sennosides 8.6 Mg Tablet) 17.2 mg PO BEDTIME PRN PRN Reason: Constipation Sodium Chloride (0.9 % Sodium Chloride Flush 3 Ml Syringe) 3 ml IVFLUSH QSHIFT [facility] Last Admin: 09/13/21 09:19 Dose: 3 ml Documented by: NHUNG Labs CBC & Chem 7: 09/12/21 05:56 09/13/21 06:24 Labs: Laboratory Results - last 24 hr 09/13/21 09/13/21 09/13/21 01:47 06:24 06:24 Anion Gap 8 L Estim Creat Clear Calc 105.2 Estimated GFR > 60 POC Glucose 142 H Random Glucose 126 H Calcium 8.3 L D Magnesium 1.7 Total Creatine Kinase 2487 H B-Natriuretic Peptide 229 H TTE (09/12/21) - The left ventricular systolic function is normal.? The visually estimated ejection fraction is between 65-70%. ? - There is mild to moderately decreased right ventricular? systolic function. ? - The left atrium is moderately dilated. ? - Moderate pulmonary hypertension is present.? Microbiology Microbiology Results: Microbiology 09/11/21 19:54 Blood Culture - Preliminary Blood - Venous No growth after 24 hours. 09/11/21 19:21 Blood Culture - Preliminary Blood - Venous No growth after 24 hours. Assessment and Plan (1) Influenza A: Status: Acute (2) Rhabdomyolysis: Status: Acute (3) NSTEMI (non-ST elevated myocardial infarction): Status: Acute Plan hospital d#23 66yo M with permanent AF, CHF, HTN presented with falls admitted for HILLARY, rhabdomyolysis, AF/RVR, elevated troponin-I, influenza A # elevated troponin-I - Cardiology consulted, likely rhabdomyolysis vs demand, eventual outpt ischemic workup # rhabdomyolysis, traumatic - continue gentle IV hydration with NS, repeat CPK in AM, related to falls, less likely to influenza # HILLARY, prerenal - resolved with IV hydration # permanent AF with RVR - rate now contrlled on diltiazem infusion + PO metoprolol; start PO diltiazem and transition off off drip - continue apixaban # lactic acidosis - not due to sepsis # influenza A - oseltamivir d#06/22, droplet precautions # CHF, R-sided - currently getting volume due to rhabdomyolysis; furosemide on hold; continue metoprolol # VTE ppx - apixaban # dispo - STR In my clinical judgment, the patient requires continued hospitalization for the following reasons: IV hydration, IV rate control Quality Stroke Does the patient have a stroke diagnosis?: No VTE Prior VTE?: No VTE Risk Level:: Medical - moderate - high VTE Device Contraindication: Treatment Not Indicated VTE Drug Contraindication: N/A - Med Ordered
[2021-09-13] MEDS: dilTIAZem HCL 60 MG TABLET PO ×3 (13:29→19:58)
[2021-09-13] MEDS: Acetaminophen 325 MG TABLET 650 MG PO (20:03)
[2021-09-14] VITALS (10 sets, daily range): BP systolic 135–166; BP diastolic 68–91; PULSE 65–107; RESP 19–20; TEMP 36.2–36.9; O2SAT 90–98
[2021-09-14] MEDS: Oseltamivir Phosphate 75 MG CAPSULE PO ×2 (06:21→19:50)
[2021-09-14] MEDS: Acetaminophen 325 MG TABLET 650 MG PO ×2 (06:21→19:51)
[2021-09-14] MEDS: 0.9 % Sodium Chloride 1,000 ML 50 ML IVCONT (06:22)
[2021-09-14 06:53] LABS: Anion Gap 14 (12-20); Blood Urea Nitrogen 16 mg/dL (9-16); Calcium 8.5 mg/dL (8.4-10.2); Carbon Dioxide 24 mmol/L (22-29); Chloride 106 mmol/L (96-108); Creatinine Clr Calc Pharmacy 124.2; Estimated Glomerular Filt Rate > 60; Glucose Random 135 mg/dL (60-115); Magnesium 1.7 mg/dL (1.6-2.6); Potassium 3.7 mmol/L (3.3-5.1); Sodium 140 mmol/L (135-145)
[2021-09-14 07:00] LABS: B Type Natriuretic Peptide 118 pg/mL (<100)
[2021-09-14] MEDS: Albuterol Sulfate (0.083%) 2.5 MG/3 ML VIAL.NEB INHALE ×4 (07:35→18:54)
[2021-09-14 09:13] LABS: Glucose, Whole Blood 184 mg/dL (60-115)
[2021-09-14] MEDS: Metoprolol Tartrate 100 MG TABLET PO ×2 (09:36→19:50)
[2021-09-14] MEDS: 0.9 % Sodium Chloride Flush 3 ML SYRINGE IVFLUSH (09:37)
[2021-09-14] MEDS: dilTIAZem HCL 60 MG TABLET PO (09:37)
[2021-09-14] MEDS: Apixaban 5 MG TABLET PO ×2 (09:39→19:50)
--- NOTE | 2021-09-14 10:19 | HO.PM.IMPN ---
Subjective Subjective Date of Service: 09/14/21 Interval History: Cough + dyspnea improved Still very weak Review of Systems Review of Systems: Yes all other systems are reviewed and are negative Physical Exam Vital Signs: Vital Signs: Last Vital Signs Temp 97.8 F 09/14/21 07:21 Pulse 88 09/14/21 07:36 Resp 20 09/14/21 07:36 BP 135/91 H 09/14/21 07:21 Pulse Ox 94 09/14/21 07:21 Oxygen Flow Rate 2 09/11/21 19:05 BMI result Body Mass Index 39.5 Gen: NAD HEENT: sclera anicteric, moist mucus membranes Neck: supple Lungs: CTAB Heart: irregularly irregular, no murmurs Abd: soft, non-tender, non-distended Ext: no edema Skin: warm/well-perfused Neuro: alert and oriented x3, no focal findings Psych: appropriate affect Objective Data Active Medications Acetaminophen (Acetaminophen 325 Mg Tablet) 650 mg PO Q6H PRN PRN Reason: Pain, Mild (Pain Scale 1-3) Last Admin: 09/14/21 06:21 Dose: 650 mg Documented by: LORE Albuterol Sulfate (Albuterol Sulfate (0.083%) 2.5 Mg/3 Ml Vial.Neb) 2.5 mg INHALE RQ4H WHILE AWAKE [facility] Last Admin: 09/14/21 07:35 Dose: 2.5 mg Documented by: ELMER Apixaban (Apixaban 5 Mg Tablet) 5 mg PO BID [facility] Last Admin: 09/14/21 09:39 Dose: 5 mg Documented by: TAYLOR Diltiazem HCl (Diltiazem Hcl 60 Mg Tablet) 60 mg PO QID [facility]; Protocol Last Admin: 09/14/21 09:37 Dose: 60 mg Documented by: TAYLOR Sodium Chloride (Ns) 1,000 mls @ 50 mls/hr IVCONT .Q20H [facility] Last Admin: 09/14/21 06:22 Dose: 50 mls/hr Documented by: LORE Levalbuterol HCl (Levalbuterol Hcl 1.25 Mg/0.5 Ml Vial.Neb) 1.25 mg INHALE Q3H PRN PRN Reason: sob Last Admin: 09/12/21 18:28 Dose: 1.25 mg Documented by: BRIDGET Melatonin (Melatonin 3 Mg Tablet) 6 mg PO BEDTIME PRN PRN Reason: Insomnia Metoprolol Tartrate (Metoprolol Tartrate 100 Mg Tablet) 100 mg PO BID [facility]; Protocol Last Admin: 09/14/21 09:36 Dose: 100 mg Documented by: TAYLOR Metoprolol Tartrate (Metoprolol Tartrate 5 Mg/5 Ml Vial) 5 mg IVPUSH Q6H PRN PRN Reason: HR>125 Last Admin: 09/12/21 17:45 Dose: 5 mg Documented by: ATTILA Oseltamivir Phosphate (Oseltamivir Phosphate 75 Mg Capsule) 75 mg PO Q12H [facility] Stop: 09/16/21 19:01 Last Admin: 09/14/21 06:21 Dose: 75 mg Documented by: LORE Pharmacy Consult (Consult Rx Perform Med Rec) 1 each MISCELLANE ONCE PRN PRN Reason: Consult order Senna (Sennosides 8.6 Mg Tablet) 17.2 mg PO BEDTIME PRN PRN Reason: Constipation Sodium Chloride (0.9 % Sodium Chloride Flush 3 Ml Syringe) 3 ml IVFLUSH QSHIFT [facility] Last Admin: 09/14/21 09:37 Dose: 3 ml Documented by: TAYLOR Labs CBC & Chem 7: 09/12/21 05:56 09/14/21 06:06 Labs: Laboratory Results - last 24 hr 09/14/21 09/14/21 09/14/21 06:06 06:06 09:10 Anion Gap 14 Estim Creat Clear Calc 124.2 Estimated GFR > 60 POC Glucose 184 H Random Glucose 135 H Calcium 8.5 Magnesium 1.7 Total Creatine Kinase 2045 H B-Natriuretic Peptide 118 H Microbiology Microbiology Results: Microbiology 09/11/21 19:54 Blood Culture - Preliminary Blood - Venous No growth after 48 hours. 09/11/21 19:21 Blood Culture - Preliminary Blood - Venous No growth after 48 hours. Assessment and Plan (1) Influenza A: Status: Acute (2) Rhabdomyolysis: Status: Acute (3) NSTEMI (non-ST elevated myocardial infarction): Status: Acute Plan hospital d#4 66yo M with permanent AF, CHF, HTN presented with falls admitted for HILLARY, rhabdomyolysis, AF/RVR, elevated troponin-I, influenza A # elevated troponin-I - Cardiology consulted, likely rhabdomyolysis vs demand, eventual outpt ischemic workup # rhabdomyolysis, traumatic - continue gentle IV hydration with NS, repeat CPK in AM, related to falls, less likely to influenza # HILLARY, prerenal - resolved with IV hydration # permanent AF with RVR - change PO diltiazem to 24-hr release, continue metoprolol - continue apixaban # lactic acidosis - not due to sepsis # influenza A - oseltamivir d#07/20, droplet precautions # CHF, R-sided - currently getting volume due to rhabdomyolysis; furosemide on hold; continue metoprolol # VTE ppx - apixaban # dispo - STR In my clinical judgment, the patient requires continued hospitalization for the following reasons: IV hydration Quality Stroke Does the patient have a stroke diagnosis?: No VTE Prior VTE?: No VTE Risk Level:: Medical - moderate - high VTE Device Contraindication: Treatment Not Indicated VTE Drug Contraindication: N/A - Med Ordered
[2021-09-14 10:56] LABS: Estimated Average Glucose 137 mg/dL; Hemoglobin A1c % 6.4 %
[2021-09-14] MEDS: dilTIAZem HCL CD 240 MG CAP.ER.DEG PO (12:01)
[2021-09-15] VITALS (11 sets, daily range): BP systolic 138–174; BP diastolic 50–93; PULSE 72–101; RESP 18–22; TEMP 36.1–36.5; O2SAT 91–96
[2021-09-15] MEDS: 0.9 % Sodium Chloride 1,000 ML 50 ML IVCONT (04:50)
[2021-09-15] MEDS: Oseltamivir Phosphate 75 MG CAPSULE PO ×2 (06:19→19:28)
[2021-09-15 07:13] LABS: Anion Gap 15 (12-20); Blood Urea Nitrogen 12 mg/dL (9-16); Calcium 8.8 mg/dL (8.4-10.2); Carbon Dioxide 25 mmol/L (22-29); Chloride 103 mmol/L (96-108); Creatinine Clr Calc Pharmacy 122.5; Estimated Glomerular Filt Rate > 60; Glucose Random 150 mg/dL (60-115); Potassium 3.6 mmol/L (3.3-5.1); Sodium 139 mmol/L (135-145)
[2021-09-15] MEDS: Metoprolol Tartrate 100 MG TABLET PO ×2 (08:23→19:28)
[2021-09-15] MEDS: Apixaban 5 MG TABLET PO ×2 (08:24→19:28)
[2021-09-15] MEDS: dilTIAZem HCL CD 240 MG CAP.ER.DEG PO (08:24)
[2021-09-15] MEDS: Albuterol Sulfate (0.083%) 2.5 MG/3 ML VIAL.NEB INHALE ×4 (09:21→18:51)
--- NOTE | 2021-09-15 10:47 | HO.PM.IMPN ---
Subjective Subjective Date of Service: 09/15/21 Interval History: Cough + dyspnea improved HR controlled CPK still high Review of Systems Review of Systems: Yes all other systems are reviewed and are negative Physical Exam Vital Signs: Vital Signs: Last Vital Signs Temp 97.2 F 09/15/21 08:00 Pulse 72 09/15/21 09:22 Resp 22 H 09/15/21 09:22 BP 138/93 H 09/15/21 08:00 Pulse Ox 93 09/15/21 08:00 Oxygen Flow Rate 2 09/11/21 19:05 BMI result Body Mass Index 39.5 Gen: NAD HEENT: sclera anicteric, moist mucus membranes Neck: supple Lungs: CTAB Heart: irregularly irregular, no murmurs Abd: soft, non-tender, non-distended Ext: no edema Skin: warm/well-perfused Neuro: alert and oriented x3, no focal findings Psych: appropriate affect Objective Data Active Medications Acetaminophen (Acetaminophen 325 Mg Tablet) 650 mg PO Q6H PRN PRN Reason: Pain, Mild (Pain Scale 1-3) Last Admin: 09/14/21 19:51 Dose: 650 mg Documented by: LORE Albuterol Sulfate (Albuterol Sulfate (0.083%) 2.5 Mg/3 Ml Vial.Neb) 2.5 mg INHALE RQ4H WHILE AWAKE COUNTS INCLUDE 234 BEDS AT THE [facility] Last Admin: 09/15/21 09:21 Dose: 2.5 mg Documented by: ELMER Apixaban (Apixaban 5 Mg Tablet) 5 mg PO BID COUNTS INCLUDE 234 BEDS AT THE [facility] Last Admin: 09/15/21 08:24 Dose: 5 mg Documented by: TAYLOR Diltiazem HCl (Diltiazem Hcl Cd 240 Mg Cap.Er.Deg) 240 mg PO DAILY COUNTS INCLUDE 234 BEDS AT THE [facility]; Protocol Last Admin: 09/15/21 08:24 Dose: 240 mg Documented by: TAYLOR Sodium Chloride (Ns) 1,000 mls @ 100 mls/hr IVCONT .Q10H [facility] Last Admin: 09/15/21 04:50 Dose: 50 mls/hr Documented by: NATALIIA Levalbuterol HCl (Levalbuterol Hcl 1.25 Mg/0.5 Ml Vial.Neb) 1.25 mg INHALE Q3H PRN PRN Reason: sob Last Admin: 09/12/21 18:28 Dose: 1.25 mg Documented by: BRIDGET Melatonin (Melatonin 3 Mg Tablet) 6 mg PO BEDTIME PRN PRN Reason: Insomnia Metoprolol Tartrate (Metoprolol Tartrate 100 Mg Tablet) 100 mg PO BID COUNTS INCLUDE 234 BEDS AT THE [facility]; Protocol Last Admin: 09/15/21 08:23 Dose: 100 mg Documented by: TAYLOR Metoprolol Tartrate (Metoprolol Tartrate 5 Mg/5 Ml Vial) 5 mg IVPUSH Q6H PRN PRN Reason: HR>125 Last Admin: 09/12/21 17:45 Dose: 5 mg Documented by: ATTILA Oseltamivir Phosphate (Oseltamivir Phosphate 75 Mg Capsule) 75 mg PO Q12H COUNTS INCLUDE 234 BEDS AT THE [facility] Stop: 09/16/21 19:01 Last Admin: 09/15/21 06:19 Dose: 75 mg Documented by: NATALIIA Pharmacy Consult (Consult Rx Perform Med Rec) 1 each MISCELLANE ONCE PRN PRN Reason: Consult order Senna (Sennosides 8.6 Mg Tablet) 17.2 mg PO BEDTIME PRN PRN Reason: Constipation Sodium Chloride (0.9 % Sodium Chloride Flush 3 Ml Syringe) 3 ml IVFLUSH QSHIFT COUNTS INCLUDE 234 BEDS AT THE [facility] Last Admin: 09/15/21 08:21 Dose: Not Given Documented by: TAYLOR Non-Admin Reason: IV Running Labs CBC & Chem 7: 09/12/21 05:56 09/15/21 06:04 Labs: Laboratory Results - last 24 hr 09/14/21 09/15/21 06:06 06:04 Anion Gap 15 Estim Creat Clear Calc 122.5 Estimated GFR > 60 Random Glucose 150 H Estimat Average Glucose 137 Hemoglobin A1c % 6.4 Calcium 8.8 Total Creatine Kinase 2353 H Assessment and Plan (1) Influenza A: Status: Acute (2) Rhabdomyolysis: Status: Acute (3) NSTEMI (non-ST elevated myocardial infarction): Status: Acute Plan hospital d#5 66yo M with permanent AF, CHF, HTN presented with falls admitted for HILLARY, rhabdomyolysis, AF/RVR, elevated troponin-I, influenza A # elevated troponin-I - Cardiology consulted, likely rhabdomyolysis vs demand, outpt ischemic workup # rhabdomyolysis, traumatic - continue gentle IV hydration with NS- will increase rate from 50 to 100 mL/hr; repeat CPK in A - probably related to falls, less likely to influenza # HILLARY, prerenal - resolved with IV hydration # permanent AF with RVR - changed PO diltiazem to 24-hr release with adequate rate control, continue metoprolol - continue apixaban for AC # lactic acidosis - not due to sepsis # influenza A - oseltamivir d#/, droplet precautions # CHF, R-sided - currently getting volume due to rhabdomyolysis; furosemide on hold; continue metoprolol # VTE ppx - apixaban # dispo - STR In my clinical judgment, the patient requires continued hospitalization for the following reasons: IV hydration Quality Stroke Does the patient have a stroke diagnosis?: No VTE Prior VTE?: No VTE Risk Level:: Medical - moderate - high VTE Device Contraindication: Treatment Not Indicated VTE Drug Contraindication: N/A - Med Ordered
[2021-09-15] MEDS: 0.9 % Sodium Chloride 1,000 ML 100 ML IVCONT (18:36)
[2021-09-15] MEDS: Acetaminophen 325 MG TABLET 650 MG PO (19:28)
[2021-09-15] MEDS: 0.9 % Sodium Chloride Flush 3 ML SYRINGE IVFLUSH (19:29)
[2021-09-16] VITALS (11 sets, daily range): BP systolic 123–190; BP diastolic 60–97; PULSE 70–101; RESP 18–20; TEMP 36.2–36.7; O2SAT 94–97
[2021-09-16] MEDS: Oseltamivir Phosphate 75 MG CAPSULE PO ×2 (05:58→19:19)
[2021-09-16 07:14] LABS: B Type Natriuretic Peptide 283 pg/mL (<100)
[2021-09-16 07:33] LABS: Anion Gap 14 (12-20); Blood Urea Nitrogen 11 mg/dL (9-16); Calcium 9.2 mg/dL (8.4-10.2); Carbon Dioxide 27 mmol/L (22-29); Chloride 102 mmol/L (96-108); Creatinine Clr Calc Pharmacy 127.8; Estimated Glomerular Filt Rate > 60; Glucose Random 177 mg/dL (60-115); Potassium 3.9 mmol/L (3.3-5.1); Sodium 139 mmol/L (135-145)
[2021-09-16] MEDS: Albuterol Sulfate (0.083%) 2.5 MG/3 ML VIAL.NEB INHALE ×3 (08:13→15:20)
--- NOTE | 2021-09-16 09:27 | P.PNIM_ITS ---
Subjective Subjective Date of Service: 09/16/21 Interval History: Cough/dyspnea improved No chest pain C/o muscle weakness HR increasing, episodes of RVR in 110s Review of Systems Review of Systems: Yes all other systems are reviewed and are negative Physical Exam Vital Signs: Vital Signs: Last Vital Signs Temp 97.8 F 09/16/21 07:20 Pulse 95 09/16/21 08:13 Resp 19 09/16/21 08:13 BP 146/80 H 09/16/21 07:20 Pulse Ox 95 09/16/21 07:20 Oxygen Flow Rate 2 09/11/21 19:05 BMI result Body Mass Index 39.5 Gen: NAD HEENT: sclera anicteric, moist mucus membranes Neck: supple Lungs: CTAB Heart: irregularly irregular, no murmurs Abd: soft, non-tender, non-distended Ext: no edema Skin: warm/well-perfused Neuro: alert and oriented x3, no focal findings Psych: appropriate affect Objective Data Active Medications Acetaminophen (Acetaminophen 325 Mg Tablet) 650 mg PO Q6H PRN PRN Reason: Pain, Mild (Pain Scale 1-3) Last Admin: 09/15/21 19:28 Dose: 650 mg Documented by: ARUN Albuterol Sulfate (Albuterol Sulfate (0.083%) 2.5 Mg/3 Ml Vial.Neb) 2.5 mg INHALE RQ4H WHILE AWAKE [facility] Last Admin: 09/16/21 08:13 Dose: 2.5 mg Documented by: ELMER Apixaban (Apixaban 5 Mg Tablet) 5 mg PO BID [facility] Last Admin: 09/15/21 19:28 Dose: 5 mg Documented by: ARUN Diltiazem HCl (Diltiazem Hcl Cd 240 Mg Cap.Er.Deg) 240 mg PO DAILY [facility]; Protocol Last Admin: 09/15/21 08:24 Dose: 240 mg Documented by: TAYLOR Sodium Chloride (Ns) 1,000 mls @ 100 mls/hr IVCONT .Q10H [facility] Last Infusion: 09/16/21 01:49 Dose: 0 mls/hr Documented by: ARUN Levalbuterol HCl (Levalbuterol Hcl 1.25 Mg/0.5 Ml Vial.Neb) 1.25 mg INHALE Q3H PRN PRN Reason: sob Last Admin: 09/12/21 18:28 Dose: 1.25 mg Documented by: BRIDGET Melatonin (Melatonin 3 Mg Tablet) 6 mg PO BEDTIME PRN PRN Reason: Insomnia Metoprolol Tartrate (Metoprolol Tartrate 100 Mg Tablet) 100 mg PO BID [facility]; Protocol Last Admin: 09/15/21 19:28 Dose: 100 mg Documented by: ARUN Metoprolol Tartrate (Metoprolol Tartrate 5 Mg/5 Ml Vial) 5 mg IVPUSH Q6H PRN PRN Reason: HR>125 Last Admin: 09/12/21 17:45 Dose: 5 mg Documented by: ATTILA Oseltamivir Phosphate (Oseltamivir Phosphate 75 Mg Capsule) 75 mg PO Q12H [facility] Stop: 09/16/21 19:01 Last Admin: 09/16/21 05:58 Dose: 75 mg Documented by: ARUN Pharmacy Consult (Consult Rx Perform Med Rec) 1 each MISCELLANE ONCE PRN PRN Reason: Consult order Senna (Sennosides 8.6 Mg Tablet) 17.2 mg PO BEDTIME PRN PRN Reason: Constipation Sodium Chloride (0.9 % Sodium Chloride Flush 3 Ml Syringe) 3 ml IVFLUSH QSHIFT [facility] Last Admin: 09/15/21 19:29 Dose: 3 ml Documented by: ARUN Labs CBC & Chem 7: 09/12/21 05:56 09/16/21 06:32 Labs: Laboratory Results - last 24 hr 09/16/21 09/16/21 06:32 06:32 Anion Gap 14 Estim Creat Clear Calc 127.8 Estimated GFR > 60 Random Glucose 177 H Calcium 9.2 Total Creatine Kinase 3265 H D B-Natriuretic Peptide 283 H Assessment and Plan (1) Influenza A: Status: Acute (2) Rhabdomyolysis: Status: Acute (3) NSTEMI (non-ST elevated myocardial infarction): Status: Acute Plan hospital d#6 66yo M with permanent AF, CHF, HTN presented with falls admitted for HILLARY, rhabdomyolysis, AF/RVR, elevated troponin-I, influenza A # elevated troponin-I - Cardiology consulted, likely rhabdomyolysis vs demand, outpt ischemic workup # rhabdomyolysis, traumatic - continue IV hydration with NS @ 100 mL/hr; CPK still not coming down, so will consult Nephro; recheck CPK in AM - probably related to falls, less likely to influenza # HILLARY, prerenal - resolved with IV hydration # permanent AF with RVR - changed PO diltiazem to 24-hr release; will increase dose - continue metoprolol tartrate - continue apixaban # lactic acidosis - not due to sepsis # influenza A - oseltamivir d#09/19, droplet precautions # CHF, R-sided - currently getting volume due to rhabdomyolysis; furosemide on hold; continue metoprolol # VTE ppx - apixaban # dispo - STR In my clinical judgment, the patient requires continued hospitalization for the following reasons: IV hydration Quality Stroke Does the patient have a stroke diagnosis?: No VTE Prior VTE?: No VTE Risk Level:: Medical - moderate - high VTE Device Contraindication: Treatment Not Indicated VTE Drug Contraindication: N/A - Med Ordered
--- NOTE | 2021-09-16 09:41 | P.PNCA_ITS ---
Subjective Subjective Date of Service: 09/16/21 Interval history: He states that he feels good. No complaints like angina or shortness of breath or palpitations or in fact anything cardiac related at all. Review of Systems Review of Systems Yes all other systems are reviewed and are negative Constitutional: Reports as per HPI Eyes: Reports as per HPI Reports as per HPI Cardiovascular: Reports as per HPI, Denies acrocyanosis, Denies cool extremities, Denies chest pain, Denies leg edema, Denies lightheadedness, Denies palpitations and Denies dyspnea Respiratory: Reports as per HPI, Reports no additional respiratory complaints and Denies dyspnea Gastrointestinal: Reports as per HPI and Reports no additional gastrointestinal complaints Genitourinary: Reports no additional male genitourinary complaints and Reports as per HPI Musculoskeletal: Reports no additional musculoskeletal complaints and Reports as per HPI Skin/Breast: Reports system reviewed and no additional complaints, except as docu Reports system reviewed and no additional complaints, except as documented and Reports as per HPI Psychiatric: Reports no additional psychiatric complaints and Reports as per HPI Endocrine: Reports no additional endocrine complaints, Reports as per HPI and Denies palpitations Hematologic/Lymphatic: Reports no additional hematologic/lymphatic complaints and Reports as per HPI Allergic/Immunologic: Reports no additional allergic/immunologic complaints and Reports as per HPI Physical Exam Vital Signs: Last Vital Signs Temp 97.8 F 09/16/21 07:20 Pulse 95 09/16/21 08:13 Resp 19 09/16/21 08:13 BP 146/80 H 09/16/21 07:20 Pulse Ox 95 09/16/21 07:20 Oxygen Flow Rate 2 09/11/21 19:05 BMI result Body Mass Index 39.5 Const General: comfortable and no acute distress Orientation/consciousness: patient oriented x3 HEENT Other: Unremarkable Head: Yes normal to inspection Neck Neck: Yes normal visual inspection Chest Chest palpation & inspection: normal inspection of the chest Resp Auscultation: crackles, wheezes and diminished lung sounds Cardio Palpation: normal PMI Heart sounds: S1 normal heart sound present, S2 normal heart sound present, no gallops, no murmurs and no rubs GI Palpation (GI): Soft to palpation Back/Spine/Pelvis Other: unremarkable Skin General skin exam: no rashes or lesions noted Neuro General: patient oriented x3 Extrem General: Yes normal to inspection Psych Mental Status: mental status grossly normal Objective Labs and Meds Result diagrams: 09/12/21 05:56 09/16/21 06:32 Lab results: Laboratory Results - last 24 hr 09/16/21 09/16/21 06:32 06:32 Sodium 139 Potassium 3.9 Chloride 102 Carbon Dioxide 27 Anion Gap 14 BUN 11 Creatinine 0.70 Estim Creat Clear Calc 127.8 Estimated GFR > 60 Random Glucose 177 H Calcium 9.2 Total Creatine Kinase 3265 H D B-Natriuretic Peptide 283 H Progress Note: A&P Assessment and plan (1) Atrial fibrillation with RVR: Status: Acute (2) NSTEMI (non-ST elevated myocardial infarction): Status: Acute (3) Rhabdomyolysis: Status: Acute (4) Influenza A: Status: Acute Plan High sensitivity troponins- 24 followed by 167 followed by 441. CK-716 followed by 2512 Cardiac BNP 422. Influenza A positive. Chest x-ray report have cardiomegaly and mild CHF. Telemetry was reviewed and that shows atrial fibrillation, rate around 100- 105/Min. Some higher rates but mostly around 100/Min. Most likely is atrial fibrillation with rapid rate is related to the current influenza infection. His chest sounds still wheezy but he probably has underlying pulmonary disease related to chronic smoking. At home he takes rgqu-[id number] tartrate 100 b.i.d.. During hospitalization, have added diltiazem CD 2 40 mg daily. That should be adequate for now. Otherwise he is on Eliquis at home and that can be continued. His atrial fibrillation is chronic and was noted even in a prior report in [facility], 2008. With regard to elevated troponins as well as CK, could be either demand NSTEMI or rhabdomyolysis or some combination of both. He has no cardiac symptoms whatsoever. Echocardiogram shows preserved LVEF at 65-70% and no wall motion abnormalities and mild to moderately decreased RV function. We could consider outpatient stress testing when he has recovered from the influenza. Time Spent With Patient Time: Total time spent is greater than 50% in coordination of care (as documented) at patient's floor/unit and/or counseling patient: 35min. Progress Note: Quality Stroke Does the patient have a stroke diagnosis?: No Procedures Date of Service Date of Service: 09/16/21
--- NOTE | 2021-09-16 09:46 | P.CDIC_ITS ---
CDI Concurrent Query Documentation Clarification: PHYSICIAN'S DOCUMENTATION REQUEST Date of Query: 09/16/21 0946 Patient Name: Dion Landaverde Admit Date: 09/11/21 Dear Doctor, A review of the medical record indicates additional documentation may be needed. Please review below and update the documentation accordingly. Risk Factors/Clinical Indicators/Treatments BMI 39.5 5' 8 in height Nursing notes 09/12 - patient is Obese class II. If possible, please provide an associated diagnosis related to the abnormal BMI, such as: For a BMI >= 39: * Overweight * Obesity * Due to excess calories or other Morbid Obesity Or: * BMI is not significant * Other (please specify) * Unable to determine Use of terms such as suspected, likely, concern for, or probable (associated with a specific diagnosis that is being evaluated, monitored, or treated as if it exists) are acceptable and can be coded in the inpatient setting, when documented at the time of discharge. Thank you, Essence Gomez [facility], CDIS Extension: [phone] Please use your independent medical judgment in providing your response. THIS QUERY IS PART OF THE PERMANENT MEDICAL RECORD Provider Response: Other Other Diagnosis: non morbid obesity
--- NOTE | 2021-09-16 09:48 | PC.NURSE ---
IV access lost for last rn on shift production supervisor night nurse stated two rn tried, nurses attempting currently
[2021-09-16] MEDS: Apixaban 5 MG TABLET PO ×2 (12:00→20:03)
[2021-09-16] MEDS: Metoprolol Tartrate 100 MG TABLET PO ×2 (12:00→20:03)
[2021-09-16] MEDS: 0.9 % Sodium Chloride 1,000 ML 100 ML IVCONT ×2 (12:07→21:12)
[2021-09-16] MEDS: dilTIAZem HCL CD 300 MG CAP.ER.24H PO (12:08)
--- NOTE | 2021-09-16 14:23 | MHC.CM.PN ---
per rounds pt needs str pt is unvax
[2021-09-16] MEDS: 0.9 % Sodium Chloride Flush 3 ML SYRINGE IVFLUSH (23:47)
[2021-09-17] VITALS (11 sets, daily range): BP systolic 140–173; BP diastolic 73–93; PULSE 68–95; RESP 16–24; TEMP 36–37.1; O2SAT 94–100
[2021-09-17] MEDS: 0.9 % Sodium Chloride 1,000 ML 100 ML IVCONT (05:54)
[2021-09-17 07:35] LABS: Anion Gap 13 (12-20); Blood Urea Nitrogen 8 mg/dL (9-16); Carbon Dioxide 26 mmol/L (22-29); Chloride 103 mmol/L (96-108); Creatinine Clr Calc Pharmacy 137.6; Estimated Glomerular Filt Rate > 60; Glucose Random 179 mg/dL (60-115); Potassium 3.9 mmol/L (3.3-5.1); Sodium 138 mmol/L (135-145)
[2021-09-17 07:41] LABS: B Type Natriuretic Peptide 259 pg/mL (<100)
[2021-09-17] MEDS: Albuterol Sulfate (0.083%) 2.5 MG/3 ML VIAL.NEB INHALE ×4 (07:54→19:31)
[2021-09-17] MEDS: dilTIAZem HCL CD 300 MG CAP.ER.24H PO (09:08)
[2021-09-17] MEDS: 0.9 % Sodium Chloride Flush 3 ML SYRINGE IVFLUSH ×2 (09:09→16:18)
[2021-09-17] MEDS: Apixaban 5 MG TABLET PO ×2 (09:09→20:45)
[2021-09-17] MEDS: Metoprolol Tartrate 100 MG TABLET PO ×2 (09:09→20:45)
--- NOTE | 2021-09-17 15:10 | HO.PM.IMPN ---
Subjective Subjective Date of Service: 09/18/21 Interval History: offers no acute complaints, denies lightheadedness dizziness, denies chest pain, no palpitation, no acute overnight issues, tolerating diet drinking fluids. Review of Systems Review of Systems: Yes all other systems are reviewed and are negative Physical Exam Vital Signs: Vital Signs: Last Vital Signs Temp 97.3 F 09/17/21 10:53 Pulse 72 09/17/21 12:04 Resp 18 09/17/21 12:04 BP 170/85 H 09/17/21 10:53 Pulse Ox 97 09/17/21 10:53 Oxygen Flow Rate 2 09/11/21 19:05 BMI result Body Mass Index 39.5 Const: Other: Gen: Resting comfortably Neck: supple no JVD Lungs: to auscultation bilaterally no wheeze, no crackles Heart: irregularly irregular, no murmurs Abd: soft, non-tender, non-distended, bowel sounds audible. Ext: no edema. Skin: warm/well-perfused Neuro: alert and oriented x3, no focal findings Psych: appropriate affect ? Objective Data Active Medications Acetaminophen (Acetaminophen 325 Mg Tablet) 650 mg PO Q6H PRN PRN Reason: Pain, Mild (Pain Scale 1-3) Last Admin: 09/15/21 19:28 Dose: 650 mg Documented by: ARUN Albuterol Sulfate (Albuterol Sulfate (0.083%) 2.5 Mg/3 Ml Vial.Neb) 2.5 mg INHALE RQ4H WHILE AWAKE [facility] Last Admin: 09/17/21 12:04 Dose: 2.5 mg Documented by: ELMER Apixaban (Apixaban 5 Mg Tablet) 5 mg PO BID [facility] Last Admin: 09/17/21 09:09 Dose: 5 mg Documented by: MARTHA Diltiazem HCl (Diltiazem Hcl Cd 300 Mg Cap.Er.24h) 300 mg PO DAILY [facility]; Protocol Last Admin: 09/17/21 09:08 Dose: 300 mg Documented by: MARTHA Sodium Chloride (Ns) 1,000 mls @ 100 mls/hr IVCONT .Q10H [facility] Last Admin: 09/17/21 05:54 Dose: 100 mls/hr Documented by: MOE Levalbuterol HCl (Levalbuterol Hcl 1.25 Mg/0.5 Ml Vial.Neb) 1.25 mg INHALE Q3H PRN PRN Reason: sob Last Admin: 09/12/21 18:28 Dose: 1.25 mg Documented by: BRIDGET Melatonin (Melatonin 3 Mg Tablet) 6 mg PO BEDTIME PRN PRN Reason: Insomnia Metoprolol Tartrate (Metoprolol Tartrate 100 Mg Tablet) 100 mg PO BID [facility]; Protocol Last Admin: 09/17/21 09:09 Dose: 100 mg Documented by: MARTHA Metoprolol Tartrate (Metoprolol Tartrate 5 Mg/5 Ml Vial) 5 mg IVPUSH Q6H PRN PRN Reason: HR>125 Last Admin: 09/12/21 17:45 Dose: 5 mg Documented by: ATTILA Pharmacy Consult (Consult Rx Perform Med Rec) 1 each MISCELLANE ONCE PRN PRN Reason: Consult order Senna (Sennosides 8.6 Mg Tablet) 17.2 mg PO BEDTIME PRN PRN Reason: Constipation Sodium Chloride (0.9 % Sodium Chloride Flush 3 Ml Syringe) 3 ml IVFLUSH QSNJFT [facility] Last Admin: 09/17/21 09:09 Dose: 3 ml Documented by: MARTHA Labs CBC & Chem 7: 09/12/21 05:56 09/17/21 06:52 Labs: Laboratory Results - last 24 hr 09/17/21 09/17/21 06:52 06:52 Anion Gap 13 Estim Creat Clear Calc 137.6 Estimated GFR > 60 Random Glucose 179 H Calcium 9.0 Total Creatine Kinase 2697 H B-Natriuretic Peptide 259 H Microbiology Microbiology Results: Microbiology 09/11/21 19:54 Blood Culture - Final Blood - Venous No growth after 5 days. 09/11/21 19:21 Blood Culture - Final Blood - Venous No growth after 5 days. Assessment and Plan (1) Influenza A: Status: Acute (2) Rhabdomyolysis: Status: Acute (3) NSTEMI (non-ST elevated myocardial infarction): Status: Acute Plan hospital d#7 66yo M with permanent AF, CHF, HTN presented with falls, admitted for HILLARY, rhabdomyolysis, AF/RVR, elevated troponin-I, influenza A # elevated troponin-I - patient denies chest pain, no shortness of breath, likely rhabdomyolysis vs demand, outpt ischemic workup as per Cardiology. # rhabdomyolysis, traumatic - CPK trended down to 2000 range, will DC IV fluid push by mouth fluids , continue to hold Lasix - probably related to falls, less likely to influenza # HILLARY, prerenal - resolved with IV hydration # permanent AF with RVR - change to PO diltiazem 300 mg daily, heart rate better controlled continue metoprolol tartrate and apixaban # lactic acidosis resolved - not due to sepsis # influenza A - finished 5 day course of oseltamivir , droplet precautions, oxygenation 97% on nasal cannula, wean oxygen patient not on home O2 # CHF, R-sided, no evidence of CHF, BNP stable ,continue metoprolol and Cardizem, BP elevated will discontinue IV fluid and follow BP. # VTE ppx on apixaban # dispo - STR patient Unsafe to go home upon discharge due to recurrent fall and unsteady gait CM looking for rehab bed. Quality Stroke Does the patient have a stroke diagnosis?: No VTE Prior VTE?: No VTE Risk Level:: Medical - moderate - high VTE Device Contraindication: Treatment Not Indicated VTE Drug Contraindication: N/A - Med Ordered
[2021-09-18] MEDS: 0.9 % Sodium Chloride Flush 3 ML SYRINGE IVFLUSH ×2 (00:07→08:28)
[2021-09-18 04:00] VITALS: BP 152/96; PULSE 76; RESP 20; TEMP 37; O2SAT 98
[2021-09-18 07:06] VITALS: BP 150/62; PULSE 70; RESP 20; TEMP 36.8; O2SAT 97
[2021-09-18 08:14] VITALS: PULSE 77
[2021-09-18] MEDS: Apixaban 5 MG TABLET PO (08:28)
[2021-09-18] MEDS: dilTIAZem HCL CD 300 MG CAP.ER.24H PO (08:28)
[2021-09-18] MEDS: Metoprolol Tartrate 100 MG TABLET PO (08:28)
[2021-09-18] MEDS: Albuterol Sulfate (0.083%) 2.5 MG/3 ML VIAL.NEB INHALE ×2 (08:48→11:38)
[2021-09-18 08:51] VITALS: PULSE 77; RESP 20; O2SAT 98
[2021-09-18 11:40] VITALS: PULSE 85; RESP 18; O2SAT 96
--- NOTE | 2021-09-18 11:42 | MHC.CM.PN ---
Per MD in ROUNDS, Patient will be medically cleared for dc today to SNF/STR.Patient will dc to [facility]. IMM addressed with Patient and original has been given to Patient and a copy has been placed on the chart. Patient will dc to [facility] today at 2 PM, via [facility]. CM attempted to inform Patient's /Jessica by phone number listed but there was a recording from [employer] that indicated that call cannot go through.Patient is aware of and in agreement with the dc plan.
[2021-09-18 12:28] LABS: IDNOW Serial# 16C4AD1C
[2021-09-18 12:29] LABS: COVID-19 Test Negative (Negative)
--- NOTE | 2021-09-18 12:40 | P.DS_ITS ---
DS: Providers Provider Date of Service: 09/18/21 Date of admission: 09/11/21 23:25 Primary care physician: Unknown Physician Consults: 09/11/21 23:25 Consult to Cardiology Routine Consulting Provider: Chinmay Dorsey Reason for consultation: CHF; mild AFib with RVR 09/16/21 08:00 Consult to Nephrology Routine Consulting Provider: [facility] Reason for consultation: persistent rhabdo despite IV fluids, CHF caution DS: Diagnosis Discharge Diagnosis (1) Influenza A: Status: Acute (2) Rhabdomyolysis: Status: Acute (3) NSTEMI (non-ST elevated myocardial infarction): Status: Acute DS: Summary Hospital Course Hospital Course: Chief Complaint: Fall 66-year-old male with a past medical history of hypertension, CHF, AFib, tobacco dependence presented to the hospital with a chief complaint of fall.? Patient reported that he tripped and fell over today; denies any head strike or loss of consciousness.? Denies any chest pain or palpitations.? Mentions that he has been complaint with his home medications.? Denies any GI symptoms.? Patient also reports that he has chronic low back pain; denies any change in his back pain.? Denies any numbness tingling or focal weakness.? Denies any neck pain or hip pain.? Denies any fever chills cough or shortness of breath.? Denies any lightheadedness or dizziness.? Review of all other systems is negative except mentioned above ER course: Per ER team; CT head showed no acute findings; thoracic spine x-ray showed no acute fracture but noted multilevel thoracolumbar spondylosis; old chronic compression fracture of the T11 noted; chest x-ray showed mild CHF; troponin of 24; EKG nonischemic; creatinine elevated to 1.5; given IV fluids.? Admitted for further management. hospital course 66yo M with permanent AF, CHF, HTN presented with falls, admitted for HILLARY, rhabdomyolysis, AF/RVR, elevated troponin-I, and influenza A #Elevated troponin-I patient complained of no chest pain, no shortness of breath, likely rhabdomyolysis vs demand, seen by Cardiology and they recommend outpatient ischemic workup recommended patient to follow up with Dr. Dorsey # rhabdomyolysis, traumatic,? CPK trended down to < 2000 range, with IV fluids, Lasix was held rhabdo mild lysis likely related to falls and less likely due to influenza. # HILLARY, prerenal resolved with IV hydration, will resume home dose of Lasix # Permanent AF with RVR patient treated with IV diltiazem subsequently transitioned to by mouth Diltiazem?CD 300 mg daily, heart rate better controlled continue metoprolol tartrate and apixaban. # lactic acidosis resolved was not due to sepsis. # influenza A,? finished 5 day course of oseltamivir , wean oxygen as tolerat ed. # CHF, R-sided, no evidence of CHF,? BNP stable ,continue metoprolol and Cardizem, resume Lasix 20 mg daily. Time Spent with Patient Time attestation: Total time spent providing and/or coordinating discharge services: Discharge coordination time: Greater than 30 minutes Quality: Safe Use of Opioids Does Pt have an Active Cancer Diagnosis on the Problem List?: No Quality: Stroke Does the patient have a stroke diagnosis?: No Physical Exam Vital Signs: Vital Signs: Last Vital Signs Temp 98.3 F 09/18/21 07:06 Pulse 85 09/18/21 11:40 Resp 18 09/18/21 11:40 BP 150/62 H 09/18/21 07:06 Pulse Ox 97 09/18/21 07:06 Oxygen Flow Rate 2 09/11/21 19:05 BMI result Body Mass Index 39.5 Const: Other: Gen: awake alert, no acute distress HEENT: sclera anicteric, moist mucus membranes Neck: supple, no JVD Lungs: clear to auscultation, no wheeze, no rhonchi Heart: irregularly irregular, no murmurs Abd: soft, non-tender, non-distended Ext: no edema Skin: warm/well-perfused Neuro: alert and oriented x3, no focal findings Psych: appropriate affect DS: Data Data Completed and Pending Labs on day of discharge: Laboratory Results - last 24 hr 09/18/21 09/18/21 07:26 11:55 Total Creatine Kinase 1635 H D COVID-19 (ELSY) Negative COVID-19 Clin Com See Note Discharge Plan Discharge Patient Disposition: er SNF Discharge Diagnosis: acute kidney injury permanent AFib with RVR lactic acidosis influenza a elevated troponin traumatic rhabdomyolysis Referrals: [facility] [Outside] - 1 Week Physician,Unknown J [Primary Care Provider] - 1 Week Discharge Medications: New diltiazem HCl 300 mg Capsule,Extended Release 24hr 300 mg PO DAILY Qty: 30 0RF Protocol: Hold for SBP/HR < HOLD for SBP < : 90 HOLD for HR < : 60 levalbuterol HCl [Xopenex Concentrate] 1.25 mg/0.5 mL Solution For Nebulization 1.25 mg inhalation Q3H PRN (Reason: sob) Qty: 30 0RF acetaminophen 325 mg Tablet 650 mg PO Q6H PRN (Reason: Pain, Mild (Pain Scale 1-3)) Qty: 30 0RF Continued metoprolol tartrate 100 mg tablet 100 mg PO BID 0RF furosemide 20 mg tablet 20 mg PO DAILY 0RF Eliquis 5 mg tablet 5 mg PO BID 0RF Discharge Orders: Discharge Order (Routine); Ordered 09/18/21 Ordered By: Fatoumata Hogue Diet: advance to usual diet Activity on Discharge: As tolerated Stand Alone Forms: Patient Portal Discharge page Care Plan Goals: HILLARY resolved with IV hydration, resume Lasix as before, finished course of Tamiflu for influenza A, being discharged to rehab facility due to weakness, unsteady gait. Health Concerns: Chronic persistent atrial fibrillation take medications as prescribed Plan of Treatment: outpatient follow-up with Cardiology Dr. Dorsey from [facility] for ischemic workup, continue close outpatient follow-up with primary care physician. Assessment: as per discharge summary
== END 2021-09-18 14:37 | disposition skilled nursing facility (03) | DRG 564 ==
LOC: HO.ED 20:58 → HO.EDOVER 23:40 → HO.IMC 09-12 12:53
PROVIDERS: Family Medicine; Admitting Provider Hospitalist; Emergency Provider Emergency Medicine; Visit Provider Hospitalist
DX: T79.6XXA Traumatic ischemia of muscle, initial encounter (principal); I21.4 Non-ST elevation (NSTEMI) myocardial infarction; N17.9 Acute kidney failure, unspecified; E87.2 Acidosis; I48.21 Permanent atrial fibrillation; R31.29 Other microscopic hematuria; F17.210 Nicotine dependence, cigarettes, uncomplicated; I50.812 Chronic right heart failure; J10.1 Influenza due to other identified influenza virus with other respiratory manifestations; E86.0 Dehydration; W06.XXXA Fall from bed, initial encounter; M54.50 Low back pain, unspecified; G89.29 Other chronic pain; E66.9 Obesity, unspecified; Z68.39 Body mass index [BMI] 39.0-39.9, adult; Z20.822 Contact with and (suspected) exposure to COVID-19; Z71.6 Tobacco abuse counseling; Z88.5 Allergy status to narcotic agent; Z88.8 Allergy status to other drugs, medicaments and biological substances; Z79.01 Long term (current) use of anticoagulants; Z79.899 Other long term (current) drug therapy
CPT/HCPCS: 36415; 70450; 71045; 72070; 72100; 80048; 80076; 80307; 81001; 82077; 82550; 82803; 82947; 83036; 83605; 83735; 83880; 84443; 84484; 85025; 85610; 87040; 87502; 87635; 93005; 93306; 94640; 96361; 96374; 97110; 97116; 97162; 99285; Q9957

== ENCOUNTER → 2021-10-07 13:27 | Outpatient (BNVA) | payer MEDICARE, MEDICAID, SELFPAY | PROVIDERS: Visit Provider Internal Medicine | DX: I48.19 Other persistent atrial fibrillation (principal); I21.4 Non-ST elevation (NSTEMI) myocardial infarction | CPT/HCPCS: 99212 ==

== ENCOUNTER 2022-07-30 16:49 | Inpatient (IN) | payer MEDICARE, MEDICAID, SELFPAY ==
[2022-07-30] VITALS (8 sets, daily range): BP systolic 100–206; BP diastolic 64–118; PULSE 88–138; RESP 16–32; TEMP 36.4–38.6; O2SAT 88–99; BMI 33.7; BMI 32.8
--- NOTE | ~2022-07-30 | XR_ITS ---
EXAMINATION: XR CHEST CLINICAL INFORMATION: Fall. COMPARISON: Chest x-ray 09/11/2021 TECHNIQUE: Frontal view of the chest was obtained. 5:48 PM FINDINGS: Heart size is enlarged. There is mild central pulmonary vascular congestion. No overt pulmonary edema. No focal consolidation. No pleural effusion there is no pneumothorax. No acute osseous abnormality. Partially visualized chronic deformity of the right shoulder with absent right humeral head. Marked degenerative changes of left glenohumeral joint. XR/XR chest 1V IMPRESSION: Cardiomegaly. Mild central pulmonary vascular congestion.
--- NOTE | ~2022-07-30 | CT_ITS ---
EXAMINATION: CT CHEST, ABDOMEN AND PELVIS WITHOUT CONTRAST. CLINICAL INFORMATION: Meet sepsis criteria with no source. COMPARISON: 12/28/2016 CT scan of the chest. TECHNIQUE: Multidetector volumetric imaging was performed from the thoracic inlet through the pubic symphysis without intravenous contrast. Sagittal and coronal reformatted images were obtained on the technologist workstation. This CT examination was performed using dose optimization techniques as appropriate, variously including the following: *Automated exposure control *Adjustment of mA and/or kV according to patient size (this includes techniques or standardized protocols for targeted exams where dose is matched to indication/reason for exam; i.e. extremities or head) *Use of iterative reconstruction technique DLP: 1746 mGy-cm FINDINGS: CHEST: Lungs: Small bilateral pleural effusions with dependent bibasilar airspace changes more likely due to atelectasis. No dense consolidation. Mediastinum: Prominent vascular calcification within the aorta and coronary vessels. No bulky hilar or mediastinal adenopathy with shotty mediastinal lymph nodes noted Coronary Artery Calcification: Present Pericardium/Pleura: No significant effusion. No pleural mass or thickening. Chest Wall/Axilla: Extensive chronic appearing and degenerative changes to both shoulders with marked deformity to both proximal humeri. ABDOMEN/PELVIS: Peritoneal Space:No significant free air or free fluid identified. Liver, Gallbladder, Biliary Tree: The non contrast liver is normal in size, shape, and attenuation. No focal hepatic lesion or biliary ductal dilatation is present. Gallstone in the dependent portion of the otherwise unremarkable gallbladder. Pancreas: Unremarkable. Spleen: Unremarkable. Adrenal Glands: Unremarkable. Kidneys and Ureters: Exophytic 2 cm cyst arising from the lateral midpole right kidney. No further evaluation this is needed. There is a 5 mm calcification within the right renal pelvis but I do not appreciate any obvious ureteric calculi. Contralateral left kidney grossly unremarkable Bladder: Decompressed by Dia catheter Gastrointestinal Tract: The small and large bowel are unremarkable. The appendix is unremarkable. Abdominal Wall: No significant hernia is appreciated. Lymphovascular Structures: Prominent vascular calcification within the aorta iliac system. Pelvic Viscera: Unremarkable. Osseus Structures: In addition to the chronic degenerative changes to the shoulders, there is a left femoral neck fracture as noted on the plain films from earlier the same day. There are compression fractures of L3, T12, and L1. The L3 and T12 fractures are new from the 09/11/2021 plain films but otherwise of indeterminate age. CT/CT abdomen pelvis wo IV con IMPRESSION: 1. Chronic appearing changes as described above. I do not appreciate any acute intra-abdominal process. 2. Small bilateral pleural effusions with dependent bibasilar airspace changes more likely due to atelectasis. 3. Left femoral neck fracture as noted on the plain films from earlier the same day. 4. Compression fractures of T12 and L3 of indeterminate age but new from the 2017 plain films.
--- NOTE | ~2022-07-30 | CT_ITS ---
EXAMINATION: CT HEAD WITHOUT CONTRAST CLINICAL INFORMATION: Fall, on Eliquis COMPARISON: CT head 09/11/2021 TECHNIQUE: Contiguous axial imaging was performed from the skull base to vertex without intravenous administration of contrast. This CT examination was performed using dose optimization techniques as appropriate, variously including the following: *Automated exposure control *Adjustment of mA and/or kV according to patient size (this includes techniques or standardized protocols for targeted exams where dose is matched to indication/reason for exam; i.e. extremities or head) *Use of iterative reconstruction technique DLP: 754 mGy-cm FINDINGS: There is no evidence of acute intracranial hemorrhage or edematous territorial infarction. No abnormal mass effect or midline shift is seen. Morrell to white matter differentiation is well preserved. No extra-axial fluid collections are identified. Commensurate prominence of the ventricles and sulci is compatible with generalized parenchymal volume loss. There is periventricular and subcortical white matter hypoattenuation, most likely representing microangiopathic disease . No acute calvarial fracture.. Paranasal sinuses and mastoid air cells are well-aerated. CT/CT head/brain wo IV con IMPRESSION: No CT evidence of acute intracranial hemorrhage or edematous large vessel territorial infarction.
--- NOTE | ~2022-07-30 | XR_ITS ---
EXAMINATION: XR PELVIS CLINICAL INFORMATION: Status post left hip hemiarthroplasty. COMPARISON: 07/30/2022 TECHNIQUE: AP view of the pelvis. FINDINGS: AP view of the lower pelvis demonstrates patient to be status post left hip arthroplasty status post subcapital hip fracture seen on study of 07/30/2022. The acetabular and femoral components appear in good position. No acute fracture is identified. There is some gas from recent surgery seen about the left hip. The right hip joint space appears maintained. Inferior and superior pubic rami appear unremarkable bilaterally. XR/XR pelvis 1-2V IMPRESSION: Satisfactory appearance status post left hip arthroplasty.
--- NOTE | ~2022-07-30 | XR_ITS ---
EXAMINATION: XR HIP, LEFT CLINICAL INFORMATION: Fall COMPARISON: None available. TECHNIQUE: Frontal view the pelvis with coned frontal and crosstable lateral views of the left hip. FINDINGS: Impacted left femoral neck fracture is seen. The humeral head itself is well-seated in the acetabulum.. Contralateral right hip grossly unremarkable. No acute bony abnormality otherwise within the pelvis. Unremarkable bowel gas pattern XR/XR hip LT w PEL1V IMPRESSION: Impacted left femoral neck fracture
--- NOTE | 2022-07-30 17:08 | ECG_ITS ---
Test Reason : SEPSIS/FALL Blood Pressure : / mmHG Vent. Rate : 122 BPM Atrial Rate : 000 BPM P-R Int : 000 ms QRS Dur : 062 ms QT Int : 294 ms P-R-T Axes : 000 091 002 degrees QTc Int : 418 ms Atrial fibrillation with rapid ventricular response Rightward axis Abnormal ECG When compared with ECG of 12-SEP-2021 01:05, Nonspecific T wave abnormality no longer evident in Anterior leads Referred By: Vonnie Altamirano Electronically Signed By:Jeffrey Ho
--- NOTE | 2022-07-30 17:22 | ED_ITS ---
HPI - Fall General Chief Complaint: Fall Stated Complaint: FALL Time Seen by Provider: 07/30/22 16:53 Source: patient, family (Spouse) and EMS Mode of arrival: EMS Limitations: no limitations History of Present Illness HPI Narrative: 67-year-old male came in by ambulance for evaluation after a mechanical fall, patient fell at home and remained on the floor for couple hours, called 911 for lift assist, patient with a history of CHF, smoking, AFib on Eliquis therefore patient was transferred to the hospital for further evaluation on arrival patient is disheveled, he was hypoxic at 89% on room air that was improved with 2 L of oxygen via nasal cannula in the ED. patient overall is a poor historian patient otherwise complains no headache, neck pain, no CP, no SOB, no abdominal pain, no extremities problem. Related Data Home Medications Medication Instructions Recorded Confirmed apixaban 5 mg tablet (Eliquis) 5 mg PO BID 09/11/21 07/30/22 furosemide 20 mg tablet 20 mg PO DAILY 09/11/21 07/30/22 metoprolol tartrate 100 mg tablet 100 mg PO BID 09/11/21 07/30/22 ibuprofen 200 mg tablet 400 mg PO Q6H PRN Pain 07/30/22 07/30/22 Previous Rx's Medication Instructions Recorded acetaminophen 325 mg tablet 650 mg PO Q6H PRN Pain, Mild (Pain 09/18/21 Scale 1-3) #30 tabs lisinopril 40 mg tablet 40 mg PO DAILY #90 tabs 10/31/21 Allergies Allergy/AdvReac Type Severity Reaction Status Date / Time maprotiline [From LUDIOMIL] Allergy Unknown UNK Verified 07/30/22 17:09 meperidine [From DEMEROL] Allergy Unknown VOMITING Verified 07/30/22 17:09 Review of Systems Review of Systems: All other systems are reviewed and are negative Constitutional: Reports as per HPI and Reports no additional constitutional complaints Eyes: Reports as per HPI and Reports no additional eye complaints Reports system reviewed and no additional complaints, except as documented Cardiovascular: Reports as per HPI and Reports no additional cardiovascular complaints Respiratory: Reports as per HPI and Reports no additional respiratory complaints Gastrointestinal: Reports as per HPI and Reports no additional gastrointestinal complaints Genitourinary: Reports no additional female genitourinary complaints Musculoskeletal: Reports no additional musculoskeletal complaints Skin/Breast: Reports system reviewed and no additional complaints, except as docu Psychiatric: Reports no additional psychiatric complaints Endocrine: Reports no additional endocrine complaints Hematologic/Lymphatic: Reports no additional hematologic/lymphatic complaints Allergic/Immunologic: Reports no additional allergic/immunologic complaints Reports system reviewed and no additional complaints, except as documented and Reports Abnormal speech present [facility] [place] Past Medical History Medical History Atrial fibrillation CHF (congestive heart failure) Diabetes mellitus type 2 in obese Hx of long-term use of blood thinners Hypertension Surgical History No pertinent past surgical history Family History Family History Mother CAD (coronary artery disease) Social History Social History Household Members: Spouse and Family Housing: House Do you presently have visiting nurse or other home services: No Alcohol intake: never Patient Tobacco Use Status: Current everyday Tobacco user Tobacco use type: Cigarette Cigarette Packs Per Day: 0.5 Cigarettes Per Day: 10.0 Smoked in Last 30 Days: Yes e-Cigarette/Vaping Use: Never Used Use of substances other than those prescribed or required for medical reasons: No Advance Directives: No Advance Directives Information Provided: No service: No Current occupational status: retired Current occupational exposures/hazards: No Physical Exam Vital Signs: Vital Signs: Last Vital Signs Temp 97.5 F 07/30/22 20:29 Pulse 100 07/30/22 21:33 Resp 20 07/30/22 21:33 BP 103/69 07/30/22 21:33 Pulse Ox 96 07/30/22 21:33 O2 Del Method 07/30/22 21:33 O2 Flow Rate 2 07/30/22 21:33 BMI result Body Mass Index 33.7 Vital signs have been reviewed as appeared to be correct. Blood pressure elevated. Heart rate elevated. Respiration rate normal. Temperature normal. Oxygen saturation normal. Appearance: Alert. Oriented X3. No acute distress. Head: Normal external exam. Normocephalic. Atraumatic. No Lauren signs noted. No raccoon eyes noted Eyes: PERRLA. EOMI. Conjunctiva and sclera normal. Eyelids normal. ENT: TM's Normal. Pharynx normal. Uvula midline. Moist mucous membranes. No trismus noted. No drooling noted. No muffled voice noted. Neck: Normal inspection. Neck supple. FROM. No adenopathy. Thyroid Normal. No meningeal signs. No neck mass noted. CVS: Normal heart rate and rhythm. Heart sound normal. No murmurs noted. Pulses normal throughout. Respiratory: No respiratory distress. Painless inspiration. Breath sounds normal . No wheezes/rales/rhonchi noted. Chest nontender. No accessory muscle usage noted or decreased air movement noted. Abdomen: Soft and nontender. Bowel sounds normal in all 4 quadrants. No distention noted. No organomegaly noted. No visible injury noted. Back: No CVA tenderness. Full range of motion noted. Skin: Skin warm and dry. Normal skin color. Normal skin turgor. No rashes/lesions/lacerations noted. Extremities: No lower extremity edema. Extremities exhibit normal range of motion. Extremities nontender. Neuro: Oriented X 3. Cranial nerve exam: II-XII are grossly intact No motor deficit. No sensory deficit. Reflexes normal. Course Course Course Narrative: 67-year-old male came in by ambulance after a fall presumptively a mechanical fall, unable to obtain grate history from the patient, findings patient initially met criteria for SIRS with fever without finding source of infection will cover with empirical ceftriaxone. CT of the chest/abdomen/pelvis are negative for screening for source of infection. Left impacted femoral neck fracture will admit to medical service for medical clearance before surgery. Chronic elevation of total bilirubin with no abdominal pain to suspect a gallbladder issue. Medications Administered Generic Name Dose Route Start Last Admin Trade Name Holaq PRN Reason Stop Dose Admin Enoxaparin Sodium 100 mg 07/30/22 21:00 07/30/22 21:46 Enoxaparin Sodium 100 Mg/Ml Syringe 1 mg/kg (100 mg) 100 mg SUBCUT Administration [facility]H [facility] Insulin Human Lispro 0 unit 07/30/22 21:00 07/30/22 21:46 Insulin Lispro 100 Unit/Ml 3 Ml Vial SUBCUT 2 unit QIDACHS [facility] Administration Protocol Metoprolol Tartrate 100 mg 07/30/22 21:00 07/30/22 21:47 Metoprolol Tartrate 100 Mg Tablet PO 100 mg BID [facility] Administration Protocol Morphine Sulfate 2 mg 07/30/22 20:24 07/30/22 20:45 Morphine Sulfate 2 Mg/Ml Cartridge IVPUSH 2 mg Q4H PRN Administration Pain, Severe (Pain Scale 7-10) Protocol Ondansetron HCl 4 mg 07/30/22 20:23 07/30/22 20:45 Ondansetron Hcl 4 Mg/2 Ml Vial IVPUSH 4 mg Q8H PRN Administration Nausea and Vomiting Discontinued Medications Generic Name Dose Route Start Last Admin Trade Name Freq PRN Reason Stop Dose Admin Diltiazem HCl 10 mg 07/30/22 20:24 07/30/22 20:47 Diltiazem Hcl 50 Mg/10 Ml Vial IVPUSH 07/30/22 20:25 10 mg STAT STA Administration Furosemide 20 mg 07/30/22 20:28 07/30/22 20:48 Furosemide 20 Mg/2 Ml Vial IVPUSH 07/30/22 20:29 20 mg ONCE ONE Administration Protocol Sodium Chloride 1,000 mls @ 999 mls/hr 07/30/22 17:08 07/30/22 18:22 Ns IV 07/30/22 18:08 Not Given .Q1H1M ONE Ceftriaxone Sodium 1 gm/ 50 mls @ 100 mls/hr 07/30/22 19:17 07/30/22 19:54 Sodium Chloride IV 07/30/22 19:46 Infused ONCE ONE Infusion Medical Decision Making Differential Diagnosis Differential Diagnoses: The differential diagnosis associated with the presentation includes Mechanical fall, syncope, hip fracture, intracranial bleed, electrolyte disturbance, rule out sepsis, sirs. Admission/Observation Consideration of admission/observation: Escalation of care including admission/observation considered Consult Healthcare Provider Management of the patient was discussed with: Hospitalist and Investment Banking Analyst (Kaye bazan from [facility].) Lab Data MDM Lab Attestation statement: I reviewed the patient's lab results. 07/30/22 18:02 07/30/22 19:31 Labs: Lab Results 07/30/22 07/30/22 07/30/22 Range/Units 18:02 18:02 18:02 WBC 11.5 H (4.8-10.8) X10*3/uL RBC 5.37 (4.60-5.80) X10*6/uL Hgb 15.5 (14.0-18.0) g/dl Hct 46.1 (42.0-52.0) % MCV 85.8 (80.0-98.0) fL MCH 28.9 (27.0-33.0) pg MCHC 33.6 (31.0-36.0) g/dl RDW 13.8 (11.0-16.0) % Plt Count 208 (160-400) X10*3/uL MPV 10.5 (9.4-12.4) fL Immature Gran % (Auto) 0.7 H (0.0-0.4) % Neut % (Auto) 88.9 H (45-73) % Lymph % (Auto) 5.9 L (20-40) % Calvert % (Auto) 3.9 (2-11) % Eos % (Auto) 0.3 (0-4) % Baso % (Auto) 0.3 (0-2) % Lymph # (Auto) 0.7 L (1.2-4.9) X10*3/uL Calvert # (Auto) 0.5 (0.1-1.2) X10*3/uL Eos # (Auto) 0.0 (0.0-0.4) X10*3/uL Baso # (Auto) 0.0 (0.0-0.2) X10*3/uL Abs Immat Gran (auto) 0.08 H (0.00-0.03) X10*3/uL Absolute Neuts (auto) 10.2 H (2.0-8.3) x10*3/uL Absolute Nucleated RBC 0.000 (0.0-0.012) X10*3/uL Nucleated RBC % (auto) 0.0 (0.0-0.2) /100WBC Sodium (135-145) mmol/L Potassium (3.3-5.1) mmol/L Chloride (96-108) mmol/L Carbon Dioxide (22-29) mmol/L Anion Gap (12-20) BUN (9-16) mg/dL Creatinine (0.5-1.4) mg/dL Estim Creat Clear Calc Estimated GFR Random Glucose (60-115) mg/dL Lactic Acid (0.5-2.0) mmol/L Calcium (8.4-10.2) mg/dL Magnesium (1.6-2.6) mg/dL Total Bilirubin (0.0-1.0) mg/dL Direct Bilirubin (0.0-0.5) mg/dL AST (5-37) U/L ALT (0-40) U/L Alkaline Phosphatase (39-117) U/L Total Creatine Kinase (38-174) U/L Troponin I High Sens 11.3 (<3.5-35.0) ng/L B-Natriuretic Peptide 658 H (<100) pg/mL Total Protein (6.5-8.0) g/dL Albumin (3.5-5.0) g/dL Lipase (8-78) U/L TSH (0.32-4.0) uIU/mL Free T4 (0.71-1.85) ng/dL Urine Color Urine Appearance Urine pH (5.0-9.0) Ur Specific [place] (1.005-1.025) Urine Protein (Neg-Trace) mg/dL Urine Glucose (UA) (Negative) mg/dL Urine Ketones (Negative) mg/dL Urine Blood (Negative) Urine Nitrite (Negative) Ur Leukocyte Esterase (Negative) Urine RBC (0-2) /HPF Urine WBC (0-5) /HPF Ur Squamous Epith Cells (0-2) /HPF Urine Bacteria (None Seen) Hyaline Casts (0-2) /LPF Influenza Type A (PCR) (Negative) Influenza Type B (PCR) (Negative) RSV RNA Qual (PCR) (Negative) SARS-CoV-2 RNA (RT-PCR) (Negative) 07/30/22 07/30/22 07/30/22 Range/Units 18:02 18:02 19:26 WBC (4.8-10.8) X10*3/uL RBC (4.60-5.80) X10*6/uL Hgb (14.0-18.0) g/dl Hct (42.0-52.0) % MCV (80.0-98.0) fL MCH (27.0-33.0) pg MCHC (31.0-36.0) g/dl RDW (11.0-16.0) % Plt Count (160-400) X10*3/uL MPV (9.4-12.4) fL Immature Gran % (Auto) (0.0-0.4) % Neut % (Auto) (45-73) % Lymph % (Auto) (20-40) % Calvert % (Auto) (2-11) % Eos % (Auto) (0-4) % Baso % (Auto) (0-2) % Lymph # (Auto) (1.2-4.9) X10*3/uL Calvert # (Auto) (0.1-1.2) X10*3/uL Eos # (Auto) (0.0-0.4) X10*3/uL Baso # (Auto) (0.0-0.2) X10*3/uL Abs Immat Gran (auto) (0.00-0.03) X10*3/uL Absolute Neuts (auto) (2.0-8.3) x10*3/uL Absolute Nucleated RBC (0.0-0.012) X10*3/uL Nucleated RBC % (auto) (0.0-0.2) /100WBC Sodium (135-145) mmol/L Potassium (3.3-5.1) mmol/L Chloride (96-108) mmol/L Carbon Dioxide (22-29) mmol/L Anion Gap (12-20) BUN (9-16) mg/dL Creatinine (0.5-1.4) mg/dL Estim Creat Clear Calc Estimated GFR Random Glucose (60-115) mg/dL Lactic Acid 2.3 H* (0.5-2.0) mmol/L Calcium (8.4-10.2) mg/dL Magnesium (1.6-2.6) mg/dL Total Bilirubin (0.0-1.0) mg/dL Direct Bilirubin (0.0-0.5) mg/dL AST (5-37) U/L ALT (0-40) U/L Alkaline Phosphatase (39-117) U/L Total Creatine Kinase (38-174) U/L Troponin I High Sens (<3.5-35.0) ng/L B-Natriuretic Peptide (<100) pg/mL Total Protein (6.5-8.0) g/dL Albumin (3.5-5.0) g/dL Lipase (8-78) U/L TSH (0.32-4.0) uIU/mL Free T4 (0.71-1.85) ng/dL Urine Color Yellow Urine Appearance Clear Urine pH 5.0 (5.0-9.0) Ur Specific [place] 1.020 (1.005-1.025) Urine Protein Trace (Neg-Trace) mg/dL Urine Glucose (UA) Negative (Negative) mg/dL Urine Ketones Negative (Negative) mg/dL Urine Blood Large (3+) H (Negative) Urine Nitrite Negative (Negative) Ur Leukocyte Esterase Negative (Negative) Urine RBC >20 H (0-2) /HPF Urine WBC 0-5 (0-5) /HPF Ur Squamous Epith Cells 3-5 (0-2) /HPF Urine Bacteria None Seen (None Seen) Hyaline Casts 0-2 (0-2) /LPF Influenza Type A (PCR) NEGATIVE (Negative) Influenza Type B (PCR) NEGATIVE (Negative) RSV RNA Qual (PCR) NEGATIVE (Negative) SARS-CoV-2 RNA (RT-PCR) NEGATIVE (Negative) 07/30/22 07/30/22 Range/Units 19:31 20:20 WBC (4.8-10.8) X10*3/uL RBC (4.60-5.80) X10*6/uL Hgb (14.0-18.0) g/dl Hct (42.0-52.0) % MCV (80.0-98.0) fL MCH (27.0-33.0) pg MCHC (31.0-36.0) g/dl RDW (11.0-16.0) % Plt Count (160-400) X10*3/uL MPV (9.4-12.4) fL Immature Gran % (Auto) (0.0-0.4) % Neut % (Auto) (45-73) % Lymph % (Auto) (20-40) % Calvert % (Auto) (2-11) % Eos % (Auto) (0-4) % Baso % (Auto) (0-2) % Lymph # (Auto) (1.2-4.9) X10*3/uL Calvert # (Auto) (0.1-1.2) X10*3/uL Eos # (Auto) (0.0-0.4) X10*3/uL Baso # (Auto) (0.0-0.2) X10*3/uL Abs Immat Gran (auto) (0.00-0.03) X10*3/uL Absolute Neuts (auto) (2.0-8.3) x10*3/uL Absolute Nucleated RBC (0.0-0.012) X10*3/uL Nucleated RBC % (auto) (0.0-0.2) /100WBC Sodium 142 (135-145) mmol/L Potassium 4.4 (3.3-5.1) mmol/L Chloride 108 (96-108) mmol/L Carbon Dioxide 25 (22-29) mmol/L Anion Gap 13 (12-20) BUN 15 (9-16) mg/dL Creatinine 0.85 (0.5-1.4) mg/dL Estim Creat Clear Calc 101.6 Estimated GFR > 60 Random Glucose 144 H (60-115) mg/dL Lactic Acid 1.6 (0.5-2.0) mmol/L Calcium 8.4 D (8.4-10.2) mg/dL Magnesium 1.7 (1.6-2.6) mg/dL Total Bilirubin 1.8 H (0.0-1.0) mg/dL Direct Bilirubin 0.4 (0.0-0.5) mg/dL AST 17 (5-37) U/L ALT 15 (0-40) U/L Alkaline Phosphatase 125 H (39-117) U/L Total Creatine Kinase 47 (38-174) U/L Troponin I High Sens (<3.5-35.0) ng/L B-Natriuretic Peptide (<100) pg/mL Total Protein 5.9 L (6.5-8.0) g/dL Albumin 3.3 L (3.5-5.0) g/dL Lipase 8 (8-78) U/L TSH 2.41 (0.32-4.0) uIU/mL Free T4 1.06 (0.71-1.85) ng/dL Urine Color Urine Appearance Urine pH (5.0-9.0) Ur Specific [place] (1.005-1.025) Urine Protein (Neg-Trace) mg/dL Urine Glucose (UA) (Negative) mg/dL Urine Ketones (Negative) mg/dL Urine Blood (Negative) Urine Nitrite (Negative) Ur Leukocyte Esterase (Negative) Urine RBC (0-2) /HPF Urine WBC (0-5) /HPF Ur Squamous Epith Cells (0-2) /HPF Urine Bacteria (None Seen) Hyaline Casts (0-2) /LPF Influenza Type A (PCR) (Negative) Influenza Type B (PCR) (Negative) RSV RNA Qual (PCR) (Negative) SARS-CoV-2 RNA (RT-PCR) (Negative) Independent Interpretation I performed an independent interpretation of an: EKG (AFib with RVR at 122, otherwise normal intervals, no ST-T ischemic change.), Plain X-Ray (X-ray: Left hip x-ray: Left femoral neck impacted fracture.) and CT Scan (Head CT: No acute intracranial pathology.) Radiology Impression Discussion of test interpretation with radiology: I have reviewed the radiologist's reading. Independent Historian Clinical information obtained from an independent historian. History obtained from or confirmed by: Spouse Critical Care Time Critical Care Time Critical Care Time: Yes Total Critical Care Time: 60 Attestation: I spent 60 minutes providing critical care service to the patient, this including time spent at the bedside to evaluate the patient, reassess the patient, monitoring vital signs, review labs, and radiographic studies, counseling the patient/family, discussing the case with consultants, disposition the patient. Discharge Plan Discharge Clinical Impression: Atrial fibrillation, Closed fracture of left hip, SIRS (systemic inflammatory response syndrome) Patient Disposition: Admitted As Inpatient
[2022-07-30 18:09] LABS: MANUAL DIFF FLAG NO
[2022-07-30 18:16] LABS: Basophils Percent Auto 0.3 % (0-2); Eosinophils Percent Auto 0.3 % (0-4); Hematocrit 46.1 % (42.0-52.0); Hemoglobin 15.5 g/dl (14.0-18.0); Imm Gran Abs Auto 0.08 X10*3/uL (0.00-0.03); Imm Gran Pct Auto 0.7 % (0.0-0.4); Lymphocytes Absolute Auto 0.7 X10*3/uL (1.2-4.9); Lymphocytes Percent Auto 5.9 % (20-40); Mean Corpuscular HGB Conc 33.6 g/dl (31.0-36.0); Mean Corpuscular Hemoglobin 28.9 pg (27.0-33.0); Mean Corpuscular Volume 85.8 fL (80.0-98.0); Mean Platelet Volume 10.5 fL (9.4-12.4); Monocytes Absolute Auto 0.5 X10*3/uL (0.1-1.2); Monocytes Percent Auto 3.9 % (2-11); Neutrophils Absolute Auto 10.2 x10*3/uL (2.0-8.3); Neutrophils Percent Auto 88.9 % (45-73); Platelet Count 208 X10*3/uL (160-400); Red Blood Count 5.37 X10*6/uL (4.60-5.80); Red Cell Distribution Width 13.8 % (11.0-16.0); White Blood Count 11.5 X10*3/uL (4.8-10.8)
--- NOTE | 2022-07-30 18:17 | PC.NURSE ---
IVs inserted, labs drawn. EKG done - afib on monitor, HR 129. Will continue to monitor.
--- NOTE | 2022-07-30 18:31 | PHA.MEDREC ---
Pharmacy Consult ? Medication Reconciliation Pharmacy has completed the medication reconciliation.
[2022-07-30 18:33] LABS: Lactic Acid 2.3 mmol/L (0.5-2.0)
[2022-07-30 18:34] LABS: B Type Natriuretic Peptide 658 pg/mL (<100)
[2022-07-30 18:37] LABS: Troponin-I High Sensitivity 11.3 ng/L (<3.5-35.0)
[2022-07-30 18:55] LABS: Influenza A PCR NEGATIVE (Negative); Influenza B PCR NEGATIVE (Negative); Resp Syncy Virus RNA Qual PCR NEGATIVE (Negative); SARS COV2 PCR INHOUSE NEGATIVE (Negative)
[2022-07-30] MEDS: cefTRIAXone sodium 1 GM in 0.9 % Sodium Chloride 50 ML IV (19:24)
--- NOTE | 2022-07-30 19:26 | PC.NURSE ---
rendon inserted, urine obtained.
[2022-07-30 19:39] LABS: Appearance Urine Clear; Color Urine Yellow; Glucose Urine UA Negative (Negative); Leukocyte Esterase Urine Negative (Negative); Nitrite Urine Negative (Negative); UMIC TRIGGER UACC YES; Urine Blood Large (3+) (Negative); Urine Ketones Negative (Negative); Urine Protein Trace mg/dL (Neg-Trace)
[2022-07-30 19:44] LABS: Bacteria Urine None Seen (None Seen); Hyaline Casts Urine 0-2 /LPF (0-2); RBC Urine >20 /HPF (0-2); WBC Urine 0-5 /HPF (0-5)
[2022-07-30 19:53] LABS: Alanine Aminotransferase 15 U/L (0-40); Albumin Level 3.3 g/dL (3.5-5.0); Alkaline Phosphatase 125 U/L (39-117); Anion Gap 13 (12-20); Aspartate Amino Transferase 17 U/L (5-37); Bilirubin Direct 0.4 mg/dL (0.0-0.5); Bilirubin Total 1.8 mg/dL (0.0-1.0); Blood Urea Nitrogen 15 mg/dL (9-16); Calcium 8.4 mg/dL (8.4-10.2); Carbon Dioxide 25 mmol/L (22-29); Chloride 108 mmol/L (96-108); Creatinine Clr Calc Pharmacy 101.6; Estimated Glomerular Filt Rate > 60; Glucose Random 144 mg/dL (60-115); Lipase 8 U/L (8-78); Potassium 4.4 mmol/L (3.3-5.1); Sodium 142 mmol/L (135-145); Total Protein 5.9 g/dL (6.5-8.0)
[2022-07-30 20:07] LABS: Reflex Lactate? Lactic Acid Added
--- NOTE | 2022-07-30 20:09 | P.HPHOSP_ITS ---
History of Present Illness Date of Service: 07/30/22 Attending physician on admission: Kyleigh Soto Chief Complaint: fall 67-year-old male with history of paroxysmal atrial fibrillation anticoagulated with Eliquis, HFpEF, [id number] type 2 diabetes, and hypertension who is a current 4-5 cigarette per day smoker presented to the ED via EMS after sustaining a mechanical fall earlier today. Denies any prodrome. Ambulates with a walker and states he has had multiple falls. The patient reports that he lost his footing and fell and was on the floor for several hours before his . On arrival, the patient was disheveled, hypoxic to 89% on room air and placed on 2 L supplemental O2 with improvement to 95%. Was tachycardic to 138, tachypneic to 32 and hypertensive to 167/117. Patient did develop fever of 101.5. Denies recent known illness or sick contacts. Denies fevers at home, chills, sore throat, congestion, abdominal pain, nausea, vomiting, urinary symptoms, diarrhea, cough, shortness of breath, palpitations, or chest pain. On arrival, leukocytosis 11.5. Renal function baseline, electrolyte levels normal. Lactic acid 2.3. Troponin negative. BNP 658, baseline around 250. CK 47. Urinalysis with 3+ blood, otherwise unremarkable. Negative for influenza, COVID-19, and RSV. Head CT negative for any acute intracranial abnormality. CXR showing ca rdiomegaly with mild central pulmonary congestion. Hip/pelvis x-ray showing impacted left femoral neck fracture. In the ED, given 1 g IV ceftriaxone. 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 Hypertension Family History Mother CAD (coronary artery disease) Surgical History No pertinent past surgical history Social History Household Members: Spouse and Family Housing: House Do you presently have visiting nurse or other home services: No Alcohol intake: never Patient Tobacco Use Status: Current everyday Tobacco user Tobacco use type: Cigarette Cigarette Packs Per Day: 0.5 Cigarettes Per Day: 10.0 Smoked in Last 30 Days: Yes e-Cigarette/Vaping Use: Never Used Use of substances other than those prescribed or required for medical reasons: No Advance Directives: No Advance Directives Information Provided: No service: No Current occupational status: retired Current occupational exposures/hazards: No Meds Allergies Allergy/AdvReac Type Severity Reaction Status Date / Time maprotiline [From LUDIOMIL] Allergy Unknown UNK Verified 07/30/22 17:09 meperidine [From DEMEROL] Allergy Unknown VOMITING Verified 07/30/22 17:09 Active Medications: Current Medications Pharmacy Consult (Consult Rx Perform Med Rec) 1 each MISCELLANE ONCE PRN PRN Reason: Consult order Home Medications Medication Instructions Recorded Confirmed Last Taken Type apixaban 5 mg tablet (Eliquis) 5 mg PO BID 09/11/21 07/30/22 07/30/22 08:00 Hi story furosemide 20 mg tablet 20 mg PO DAILY 09/11/21 07/30/22 07/30/22 08:00 History metoprolol tartrate 100 mg tablet 100 mg PO BID 09/11/21 07/30/22 07/30/22 08:00 History ibuprofen 200 mg tablet 400 mg PO Q6H PRN Pain 07/30/22 07/30/22 Unknown History Physical Exam Vital Signs and Narrative: Vital Signs: Last Vital Signs Temp 101.5 F H 07/30/22 18:00 Pulse 126 H 07/30/22 18:00 Resp 20 07/30/22 18:00 BP 175/92 H 07/30/22 18:00 Pulse Ox 95 07/30/22 18:00 O2 Del Method 07/30/22 18:00 O2 Flow Rate 2 07/30/22 18:00 BMI result Body Mass Index 33.7 Constitutional - Awake and Alert, disheveled-appearing, anxious appearing Eyes - PERRLA, EOMI Cardiovascular - S1S2, RRR, No edema Respiratory - Normal lung expansion, Normal respiratory effort, No respiratory distress on 2L supplemental O2. Bilateral crackles with scattered expiratory wheezing Gastrointestinal - NT / ND; +BS; No rebound or guarding Extremities - no calf tenderness bilaterally, no swelling Musculoskeletal - LLE externally rotated flexed at the knee with limited ROM 2/2 pain Skin - Warm/Dry Neurological - Alert & oriented x3 Psychological - anxious appearing Results Labs 07/30/22 18:02 07/30/22 19:31 Labs: Laboratory Results - last 24 hr 07/30/22 07/30/22 07/30/22 18:02 18:02 18:02 MCV 85.8 MCH 28.9 MCHC 33.6 RDW 13.8 Plt Count 208 MPV 10.5 Immature Gran % (Auto) 0.7 H Neut % (Auto) 88.9 H Lymph % (Auto) 5.9 L Shannon % (Auto) 3.9 Eos % (Auto) 0.3 Baso % (Auto) 0.3 Lymph # (Auto) 0.7 L Shannon # (Auto) 0.5 Eos # (Auto) 0.0 Baso # (Auto) 0.0 Abs Immat Gran (auto) 0.08 H Absolute Neuts (auto) 10.2 H Absolute Nucleated RBC 0.000 Nucleated RBC % (auto) 0.0 Anion Gap Estim Creat Clear Calc Estimated GFR Random Glucose Lactic Acid Calcium Total Bilirubin Direct Bilirubin AST ALT Alkaline Phosphatase Total Creatine Kinase Troponin I High Sens 11.3 B-Natriuretic Peptide 658 H Total Protein Albumin Lipase Urine Color Urine Appearance Urine pH Ur Specific [place] Urine Protein Urine Glucose (UA) Urine Ketones Urine Blood Urine Nitrite Ur Leukocyte Esterase Urine RBC Urine WBC Ur Squamous Epith Cells Urine Bacteria Hyaline Casts Influenza Type A (PCR) Influenza Type B (PCR) RSV RNA Qual (PCR) SARS-CoV-2 RNA (RT-PCR) 07/30/22 07/30/22 07/30/22 18:02 18:02 19:26 MCV MCH MCHC RDW Plt Count MPV Immature Gran % (Auto) Neut % (Auto) Lymph % (Auto) Shannon % (Auto) Eos % (Auto) Baso % (Auto) Lymph # (Auto) Shannon # (Auto) Eos # (Auto) Baso # (Auto) Abs Immat Gran (auto) Absolute Neuts (auto) Absolute Nucleated RBC Nucleated RBC % (auto) Anion Gap Estim Creat Clear Calc Estimated GFR Random Glucose Lactic Acid 2.3 H* Calcium Total Bilirubin Direct Bilirubin AST ALT Alkaline Phosphatase Total Creatine Kinase Troponin I High Sens B-Natriuretic Peptide Total Protein Albumin Lipase Urine Color Yellow Urine Appearance Clear Urine pH 5.0 Ur Specific [place] 1.020 Urine Protein Trace Urine Glucose (UA) Negative Urine Ketones Negative Urine Blood Large (3+) H Urine Nitrite Negative Ur Leukocyte Esterase Negative Urine RBC >20 H Urine WBC 0-5 Ur Squamous Epith Cells 3-5 Urine Bacteria None Seen Hyaline Casts 0-2 Influenza Type A (PCR) NEGATIVE Influenza Type B (PCR) NEGATIVE RSV RNA Qual (PCR) NEGATIVE SARS-CoV-2 RNA (RT-PCR) NEGATIVE 07/30/22 19:31 MCV MCH MCHC RDW Plt Count MPV Immature Gran % (Auto) Neut % (Auto) Lymph % (Auto) Shannon % (Auto) Eos % (Auto) Baso % (Auto) Lymph # (Auto) Shannon # (Auto) Eos # (Auto) Baso # (Auto) Abs Immat Gran (auto) Absolute Neuts (auto) Absolute Nucleated RBC Nucleated RBC % (auto) Anion Gap 13 Estim Creat Clear Calc 101.6 Estimated GFR > 60 Random Glucose 144 H Lactic Acid Calcium 8.4 D Total Bilirubin 1.8 H Direct Bilirubin 0.4 AST 17 ALT 15 Alkaline Phosphatase 125 H Total Creatine Kinase 47 Troponin I High Sens B-Natriuretic Peptide Total Protein 5.9 L Albumin 3.3 L Lipase 8 Urine Color Urine Appearance Urine pH Ur Specific [place] Urine Protein Urine Glucose (UA) Urine Ketones Urine Blood Urine Nitrite Ur Leukocyte Esterase Urine RBC Urine WBC Ur Squamous Epith Cells Urine Bacteria Hyaline Casts Influenza Type A (PCR) Influenza Type B (PCR) RSV RNA Qual (PCR) SARS-CoV-2 RNA (RT-PCR) Imaging Radiologist's Impressions: Impressions Head CT 07/30/22 17:35 IMPRESSION: No CT evidence of acute intracranial hemorrhage or edematous large vessel territorial infarction. Chest X-Ray 07/30/22 17:55 IMPRESSION: Cardiomegaly. Mild central pulmonary vascular congestion. Hip/Pelvis X-Ray 07/30/22 17:55 IMPRESSION: Impacted left femoral neck fracture Assessment and Plan (1) Closed fracture of left hip: Status: Acute (2) Atrial fibrillation with RVR: Status: Acute (3) CHF exacerbation: Status: Acute Plan 67-year-old male with history of paroxysmal atrial fibrillation anticoagulated with Eliquis, HFpEF, [id number] type 2 diabetes, and hypertension who is a current 4-5 cigarette per day smoker admitted for left femoral neck fracture, AFib RVR, and CHF exacerbation. #Acute left femoral neck fracture -Impacted -Ortho consult -Hold eliquis 48-72 hours pre-op per ortho. NPO after midnight 08/01 -pain management -bed rest -continue rendon # acute hypoxemic respiratory failure -secondary to CHF exacerbation -continue supplemental O2 to maintain oximetry 92% #Paroxysmal atrial fibrillation with RVR -HR 129 on exam, 10mg IV diltiazem ordered -Hold eliquis as above. Therapeutic lovenox -Continue PO metoprolol -Echo ordered -Apprecaite cardiology input # sepsis-unclear etiology, possibly viral -leukocytosis 11.5 likely related to fracture. Tachycardia related to atrial fibrillation with RVR. However, febrile to 101.5 and tachypneic to 32 consisten t with sepsis. Lactic acidosis likely related to CHF/hypoxia, not severe sepsis -CXR negative for pneumonia -negative for COVID-19, influenza, RSV. UA negative -full viral respiratory panel pending -CT chest and CT abdomen pending per ED -Tylenol p.r.n. -given 1 g ceftriaxone in ED. Unclear source of infection at this time, possibly viral. Hold off on further antibiotics at this time #Acute CHF exacerbation, unspecified EF -CXR with mild pulmonary congestion, BNP elevated -20 mg IV Lasix daily -echocardiogram ordered -appreciate cardiology input -cardiac diet -strict I and O, daily weights -continue Rendon for fluid management # recurrent falls -PT consult postop # [id number] type 2 diabetes -POC glucose -diabetic diet -Humalog on sliding scale DVT prophylaxis- therapeutic lovenox Full code Pt requires inpt stay at least 2 midnights for management of femoral neck frac ture, afib with rvr, and chf exacerbation Time Spent With Patient Time: Total time managing care of this patient today ____ minutes. Quality Stroke Does the patient have a stroke diagnosis?: No VTE Prior VTE?: No VTE Risk Level:: Medical - moderate - high VTE Device Contraindication: Treatment Not Indicated VTE Drug Contraindication: N/A - Med Ordered
--- NOTE | 2022-07-30 20:30 | PC.NURSE ---
patient a&ox3, lungs course crackles bases as well as in/ex wheezing, vitals obtained-pt afib on monitor 120s, 2nd VL obtained, pt c/o 12/25 lt leg and back pain, hospitalist at bedside, call grayson within reach, will continue to monitor.
[2022-07-30 20:37] LABS: Lactic Acid 1.6 mmol/L (0.5-2.0)
[2022-07-30] MEDS: ondansetron HCL 4 MG/2 ML VIAL IVPUSH (20:45)
[2022-07-30] MEDS: Morphine Sulfate 2 MG/ML CARTRIDGE IVPUSH (20:45)
[2022-07-30] MEDS: dilTIAZem HCL 50 MG/10 ML VIAL 10 MG IVPUSH (20:47)
[2022-07-30] MEDS: Furosemide 20 MG/2 ML VIAL IVPUSH (20:48)
--- NOTE | 2022-07-30 20:58 | PC.NURSE ---
Cardizem given per order. HR now 107 on monitor. Lasix given. medicated for pain
[2022-07-30 21:43] LABS: Glucose, Whole Blood 157 mg/dL (60-115)
[2022-07-30] MEDS: Enoxaparin Sodium 100 MG/ML SYRINGE SUBCUT (21:46)
[2022-07-30] MEDS: Insulin Lispro 100 UNIT/ML 3 ML VIAL SUBCUT (21:46)
[2022-07-30] MEDS: Metoprolol Tartrate 100 MG TABLET PO (21:47)
[2022-07-30 21:48] LABS: Magnesium 1.7 mg/dL (1.6-2.6)
[2022-07-30 21:56] LABS: INTERNATIONAL NORM RATIO 1.3 (0.9-1.1); Prothrombin Time 15.5 SEC (10.0-13.1)
[2022-07-30 21:59] LABS: Partial Thromboplastin Time 36.2 SEC (26.0-36.4)
[2022-07-30 22:11] LABS: Free T4 (Free Thyroxine) 1.06 ng/dL (0.71-1.85); TSH reflex Free T4 2.41 uIU/mL (0.32-4.0)
--- NOTE | 2022-07-30 23:05 | PC.NURSE ---
Report to Myra REA on S3.
[2022-07-30] MEDS: 0.9 % Sodium Chloride Flush 3 ML SYRINGE IVFLUSH (23:37)
[2022-07-30 23:51] LABS: Glucose, Whole Blood 140 mg/dL (60-115)
[2022-07-31 03:48] VITALS: BP 110/62; PULSE 66; RESP 16; TEMP 36.3; O2SAT 98
[2022-07-31] MEDS: Morphine Sulfate 2 MG/ML CARTRIDGE IVPUSH ×3 (03:54→15:44)
--- NOTE | 2022-07-31 05:38 | PC.NURSE ---
Addendum entered by Myra Taylor RN 07/31/22 06:13: Case management referral ordered, this nurse sent message to , to make aware of member situation and current needs for fungal treatment. No response at this time. Will continue to monitor. Original Note: Patient arrived to room via stretcher and transferred to bed at approximately 2315. Patient presents after mechanical fall and down time approximately 2 hours before being found by . Patient A&OX3 for person, place and situation but confused on time/year. Afib in 100s on tele, RR WNL, O2 Sats mid 90s on 2LNC, abdomen, round, obese, BS hyperactive, patient on diabetic diet until 08/01/2022 @0001. Dia catheter in place, no BM at this time. Skin is very dirty, fungal to groin, R-abdominal fold and bilateral axilla.scab to 2nd toe of Left foot. Red non-blanchable area to Great toe Left foot. Patient reports he walks bare foot all the time and has not showered or bathed due to fall risk, no formal supports at home. Patient given bed bath by this RN and NUT FORMER. ABD pads and intadry applied to fungal areas. Sequential compression boots applied, patient repositioned Q2H.Patient has Left femoral head fracture and is awaiting surgery. Patient given meds PRN for pain,see MAR. Patient educated transportation assistant grayson and plan, patient educated on the importance of foot care and his diabetes. Patient verbalized understanding. This RN putting in CM referral and report to oncoming RN for Nystatin order for fungal areas.
[2022-07-31 06:27] LABS: MANUAL DIFF FLAG NO
[2022-07-31 06:32] LABS: Basophils Absolute Auto 0.1 X10*3/uL (0.0-0.2); Basophils Percent Auto 0.5 % (0-2); Eosinophils Absolute Auto 0.1 X10*3/uL (0.0-0.4); Eosinophils Percent Auto 1.5 % (0-4); Hematocrit 43.7 % (42.0-52.0); Hemoglobin 14.2 g/dl (14.0-18.0); Imm Gran Abs Auto 0.06 X10*3/uL (0.00-0.03); Imm Gran Pct Auto 0.6 % (0.0-0.4); Lymphocytes Percent Auto 10.1 % (20-40); Mean Corpuscular HGB Conc 32.5 g/dl (31.0-36.0); Mean Corpuscular Hemoglobin 28.6 pg (27.0-33.0); Mean Corpuscular Volume 88.1 fL (80.0-98.0); Mean Platelet Volume 11.3 fL (9.4-12.4); Monocytes Absolute Auto 0.5 X10*3/uL (0.1-1.2); Monocytes Percent Auto 5.3 % (2-11); Neutrophils Absolute Auto 7.9 x10*3/uL (2.0-8.3); Platelet Count 177 X10*3/uL (160-400); Red Blood Count 4.96 X10*6/uL (4.60-5.80); Red Cell Distribution Width 14.1 % (11.0-16.0); White Blood Count 9.6 X10*3/uL (4.8-10.8)
[2022-07-31 06:53] LABS: B Type Natriuretic Peptide 547 pg/mL (<100)
[2022-07-31 06:59] LABS: Anion Gap 16 (12-20); Blood Urea Nitrogen 18 mg/dL (9-16); Calcium 8.8 mg/dL (8.4-10.2); Carbon Dioxide 24 mmol/L (22-29); Chloride 105 mmol/L (96-108); Creatinine Clr Calc Pharmacy 88.8; Estimated Glomerular Filt Rate > 60; Glucose Random 125 mg/dL (60-115); Potassium 4.5 mmol/L (3.3-5.1); Sodium 140 mmol/L (135-145)
--- NOTE | 2022-07-31 07:00 | CA_ITS ---
Transthoracic Echocardiogram Patient (Last, First, Middle): Dion Landaverde, Gender: Male Date of : 1955 Age: 67 Procedure Date: 07/31/2022 Procedure Type: Transthoracic Echocardiogram Location: S3E Height: 177.8 cm Weight: 103.42 kg BSA: 2.21 m2 Heart Rate: 102 bpm BP: 107 / 70 mmHg Contracts Analyst: TYRELL Symptoms: chf, afib rvr Study Quality: Technically Difficult/Contrast ECG Rhythm: Atrial Fibrillation Conclusions: - Normal left ventricular cavity size. There is severely increased left ventricular wall thickness. The left ventricular systolic function is hyperdynamic. The visually estimated ejection fraction is >70%. - Mildly increased right ventricular cavity size. There is mildly decreased right ventricular systolic function. - There is mild dilatation of the sinuses of Valsalva measuring 3.70 cm and mild dilatation of the ascending aorta measuring 3.50 cm. Findings Procedure Information Contrast agent, definity, is being given per protocol without apparent complications. Left Ventricle Normal left ventricular cavity size. There is severely increased left ventricular wall thickness. The left ventricular systolic function is hyperdynamic. The visually estimated ejection fraction is >70%. There is no evidence of regional wall motion abnormalities. Diastolic function is indeterminate on the basis of available data. Right Ventricle Mildly increased right ventricular cavity size. There is mildly decreased right ventricular systolic function. Atria The left atrium is moderately dilated. Aortic Valve There is mild calcification of the aortic valve. There is mild thickening of the aortic valve. There is no aortic valve stenosis. There is no aortic valve regurgitation. Mitral Valve There is moderate mitral annular calcification. There is no mitral valve regurgitation. There is no mitral valve stenosis. Pulmonic Valve The pulmonic valve is likely normal. Tricuspid Valve Likely normal tricuspid valve structure and function. Normal right atrial pressure. There is no evidence of pulmonary hypertension. Great Vessels There is mild dilatation of the sinuses of Valsalva measuring 3.70 cm and mild dilatation of the ascending aorta measuring 3.50 cm. The visualized portions of the pulmonary artery and branches are normal. Venous The inferior vena cava is normal in size and collapses greater than 50% with inspiration. Pericardium/Pleural There is no evidence of pericardial effusion. Measurements 2D Linear Measurements IVSd: 1.52 0.6-0.9/0.6-1.0 cm LVIDd: 2.94 3.9-5.3/4.2-5.9 cm LVIDd Index: 1.33 2.4-3.2/2.2-3.1 cm/m2 LVIDs: 1.94 2.0-3.6 cm LVPWd: 1.56 0.7-1.1 cm LA Diam: 4.00 2.7-3.8/3.0-4.0 cm LAIDs Index: 1.81 1.5-2.3 cm/m2 LV Mass: 200.47 67-162/88-224 g LV Mass Index: 90.71 43-95/49-115 g/m2 LVOT Diam: 2.20 3.0+(-)1.3 cm 2D Systolic Function EF 4C: 72.40 >55% EF 2C: 71.30 >55% EF BiP: 70.80 >55% Mitral Valve MV Pk E: 1.19 MV PK A: 0.39 MV Decel Time: 191.00 E/A: 3.10 E'Lateral: 11.00 E'Medial: 9.25 E/E' Med: 12.90 E/E' Lat: 10.80 PHT: 56.00 MVA PHT: 3.93 Decel [place]: 6.24 Aortic Valve AoV Pk Fernando: 1.78 AoV Mn Fernando: 1.31 AoV VTI: 0.29 AoV Pk Grad: 13.00 Aov Mn Grad: 8.00 WILMA Cont.VTI: 1.47 LVOT LVOT Pk Fernando: 0.61 LVOT Mn Fernando: 0.49 LVOT VTI: 0.11 LVOT Pk Grad: 2.00 LVOT Mn Grad: 1.00 LVOT Diam: 2.20 LVOT Area: 3.80 Diastolic Function MV Pk E: 1.19 MV Pk A: 0.39 E/A: 3.10 E'Medial: 9.25 E/E' Med: 12.90 E' Laterial: 11.00 E/E' Lat: 10.80 Right Ventricle TAPSE (mm): 9.57 TVS' Fernando: 10.20 Tricuspid Valve TR Pk Fernando: 2.77 TR Pk Grad: 31.00 RA Press: 3.00 RVSP: 34.00 Great Vessels Aorta Sinus of Valsalva: 3.70 2.0-3.5 cm Ao Asc: 3.50 2.1-3.4 cm Pulmonary Valve PV Pk Fernando: 0.86 Peak PV Grad: 3.00 Updated in Other Vendor System with Status of Final Jeffrey Ho MD electronically signed on 07/31/2022 4:42:35 PM with status of Final
[2022-07-31 07:24] VITALS: BP 107/70; PULSE 107; RESP 18; TEMP 36; O2SAT 96
[2022-07-31 07:54] LABS: Glucose, Whole Blood 183 mg/dL (60-115)
[2022-07-31 07:54] LABS: Glucose, Whole Blood 147 mg/dL (60-115)
--- NOTE | 2022-07-31 09:03 | P.CONOP_ITS ---
History of Present Illness HPI Consult date: 07/31/22 Chief complaint: Hip Freacture,afib rvr,chf Narrative: 67-year-old male with history of paroxysmal atrial fibrillation anticoagulated w tasia Eliefeis, HFpEF, [id number] type 2 diabetes, and hypertension who is a current 4-5 cigarette per day smoker admitted to the hospitalist service after sustaining a mechanical fall earlier today resulting in a left femoral neck fracture.?Ambulates with a walker and states he has had multiple falls. The patient reports that he lost his footing and fell and was on the floor for several hours before his found him.? On arrival the the ED, the patient was disheveled, hypoxic to 89% on room air and placed on 2 L supplemental O2 with improvement to 95%.? Was tachycardic to 138, tachypneic to 32 and hypertensive to 167/117.? Patient did develop fever of 101.5.? Denies recent known illness or sick contacts.?He was admitted to hospital service for further workup and treatment and orthopedics was consulted for further recommendations of his left femur fracture. Review of Systems Review of Systems: per hpi [facility] Past Medical History Medical History (Updated 07/31/22 @ 12:44 by Dereck Fajardo DO) Atrial fibrillation CHF (congestive heart failure) Diabetes mellitus type 2 in obese Hx of care home use of blood thinners Hypertension Family History Family History Mother CAD (coronary artery disease) Surgical History Surgical History No pertinent past surgical history Social History Social History Household Members: Spouse Housing: Apartment Do you presently have visiting nurse or other home services: No Alcohol intake: never Patient Tobacco Use Status: Current everyday Tobacco user Tobacco use type: Cigarette Cigarette Packs Per Day: 0.5 Cigarettes Per Day: 3 Years Smoked: 54 e-Cigarette/Vaping Use: Never Used Second Hand Smoke Exposure: No service: No Current occupational status: retired Current occupational exposures/hazards: No Meds Allergies Allergy/AdvReac Type Severity Reaction Status Date / Time maprotiline [From LUDIOMIL] Allergy Unknown UNK Verified 07/30/22 17:09 meperidine [From DEMEROL] Allergy Unknown VOMITING Verified 07/30/22 17:09 Active Medications: Current Medications Acetaminophen (Acetaminophen 325 Mg Tablet) 650 mg PO Q6H PRN PRN Reason: Pain, Mild, fever Albuterol Sulfate (Albuterol Sulfate (0.083%) 2.5 Mg/3 Ml Vial.Neb) 2.5 mg IN [place] Q4H PRN PRN Reason: Shortness of Breath/Wheezing Docusate Sodium (Docusate Sodium 100 Mg Capsule) 100 mg PO DAILY PRN PRN Reason: Constipation Enoxaparin Sodium (Enoxaparin Sodium 100 Mg/Ml Syringe) 100 mg 1 mg/kg (100 mg) SUBCUT Q12H [facility] Last Admin: 07/30/22 21:46 Dose: 100 mg Furosemide (Furosemide 20 Mg/2 Ml Vial) 20 mg IVPUSH DAILY [facility]; Protocol Glucose (Glucose Gel 15 Gm Gel..Gram.) 15 gm PO Q15M PRN; Protocol PRN Reason: per Hypoglycemia Standing Ord. Dextrose (D10) 250 mls @ 750 mls/hr IV Q15M PRN; Protocol PRN Reason: per Hypoglycemia Standing Ord. Insulin Human Lispro (Insulin Lispro 100 Unit/Ml 3 Ml Vial) 0 unit SUBCUT QIDACHS [facility]; Protocol Last Admin: 07/31/22 08:21 Dose: Not Given Lisinopril (Lisinopril 40 Mg Tablet) 40 mg PO DAILY [facility]; Protocol Metoprolol Tartrate (Metoprolol Tartrate 100 Mg Tablet) 100 mg PO BID [facility]; Protocol Last Admin: 07/30/22 21:47 Dose: 100 mg Morphine Sulfate (Morphine Sulfate 2 Mg/Ml Cartridge) 2 mg IVPUSH Q4H PRN; Prot ocol PRN Reason: Pain, Severe (Pain Scale 7-10) Last Admin: 07/31/22 03:54 Dose: 2 mg Nicotine Polacrilex (Nicotine Polacrilex 2 Mg Gum) 2 mg BUCCAL Q2H PRN PRN Reason: Nicotine Cravings Ondansetron HCl (Ondansetron Hcl 4 Mg/2 Ml Vial) 4 mg IVPUSH Q8H PRN PRN Reason: Nausea and Vomiting Last Admin: 07/30/22 20:45 Dose: 4 mg Oxycodone HCl (Oxycodone Hcl Immed Release 5 Mg Tablet) 5 mg PO Q4H PRN PRN Reason: Pain, Moderate (Pain Scale 4-6 Pharmacy Consult (Consult Rx Perform Med Rec) 1 each MISCELLANE ONCE PRN PRN Reason: Consult order Sodium Chloride (0.9 % Sodium Chloride Flush 3 Ml Syringe) 3 ml IVFLUSH QSHIFT [facility] Last Admin: 07/30/22 23:37 Dose: 3 ml Home Medications Medication Instructions Recorded Confirmed Last Taken Type apixaban 5 mg tablet (Eliquis) 5 mg PO BID 09/11/21 07/30/22 07/30/22 08:00 History furosemide 20 mg tablet 20 mg PO DAILY 09/11/21 07/30/22 07/30/22 08:00 History metoprolol tartrate 100 mg tablet 100 mg PO BID 09/11/21 07/30/22 07/30/22 08:00 History ibuprofen 200 mg tablet 400 mg PO Q6H PRN Pain 07/30/22 07/30/22 Unknown History Physical Exam Vital Signs: Vital Signs: Last Vital Signs Temp 96.8 F 07/31/22 07:24 Pulse 107 H 07/31/22 07:24 Resp 18 07/31/22 07:24 BP 107/70 07/31/22 07:24 Pulse Ox 96 07/31/22 07:24 O2 Del Method 07/31/22 07:24 O2 Flow Rate 2 07/31/22 07:24 BMI result Body Mass Index 32.8 Const: General: cooperative, healthy appearing and no acute distress Resp: Effort & Inspection: normal respiratory effort and able to speak in complete sentences Cardio: Rate: regular rate Peripheral pulses: Peripheral pulses 2+ throughout GI: Palpation (GI): Soft to palpation Skin: General skin exam: no rashes or lesions noted Extrem: Other: left hip without abraisons or open wounds. Pain with log roll, unable to SLR. NVI. Results Labs 07/31/22 05:30 07/31/22 05:30 Labs: Abnormal lab results 07/30/22 07/30/22 07/30/22 Range/Units 18:02 18:02 18:02 WBC 11.5 H (4.8-10.8) X10*3/uL Immature Gran % (Auto) 0.7 H (0.0-0.4) % Neut % (Auto) 88.9 H (45-73) % Lymph % (Auto) 5.9 L (20-40) % Lymph # (Auto) 0.7 L (1.2-4.9) X10*3/uL Abs Immat Gran (auto) 0.08 H (0.00-0.03) X10*3/uL Absolute Neuts (auto) 10.2 H (2.0-8.3) x10*3/uL PT (10.0-13.1) SEC INR (0.9-1.1) BUN (9-16) mg/dL POC Glucose (60-115) mg/dL Random Glucose (60-115) mg/dL Lactic Acid 2.3 H* (0.5-2.0) mmol/L Total Bilirubin (0.0-1.0) mg/dL Alkaline Phosphatase (39-117) U/L B-Natriuretic Peptide 658 H (<100) pg/mL Total Protein (6.5-8.0) g/dL Albumin (3.5-5.0) g/dL Urine Blood (Negative) Urine RBC (0-2) /HPF 07/30/22 07/30/22 07/30/22 Range/Units 19:26 19:31 21:36 WBC (4.8-10.8) X10*3/uL Immature Gran % (Auto) (0.0-0.4) % Neut % (Auto) (45-73) % Lymph % (Auto) (20-40) % Lymph # (Auto) (1.2-4.9) X10*3/uL Abs Immat Gran (auto) (0.00-0.03) X10*3/uL Absolute Neuts (auto) (2.0-8.3) x10*3/uL PT (10.0-13.1) SEC INR (0.9-1.1) BUN (9-16) mg/dL POC Glucose 157 H (60-115) mg/dL Random Glucose 144 H (60-115) mg/dL Lactic Acid (0.5-2.0) mmol/L Total Bilirubin 1.8 H (0.0-1.0) mg/dL Alkaline Phosphatase 125 H (39-117) U/L B-Natriuretic Peptide (<100) pg/mL Total Protein 5.9 L (6.5-8.0) g/dL Albumin 3.3 L (3.5-5.0) g/dL Urine Blood Large (3+) H (Negative) Urine RBC >20 H (0-2) /HPF 07/30/22 07/30/22 07/31/22 Range/Units 21:40 23:47 05:30 WBC (4.8-10.8) X10*3/uL Immature Gran % (Auto) 0.6 H (0.0-0.4) % Neut % (Auto) 82.0 H (45-73) % Lymph % (Auto) 10.1 L (20-40) % Lymph # (Auto) 1.0 L (1.2-4.9) X10*3/uL Abs Immat Gran (auto) 0.06 H (0.00-0.03) X10*3/uL Absolute Neuts (auto) (2.0-8.3) x10*3/uL PT 15.5 H (10.0-13.1) SEC INR 1.3 H (0.9-1.1) BUN (9-16) mg/dL POC Glucose 140 H (60-115) mg/dL Random Glucose (60-115) mg/dL Lactic Acid (0.5-2.0) mmol/L Total Bilirubin (0.0-1.0) mg/dL Alkaline Phosphatase (39-117) U/L B-Natriuretic Peptide (<100) pg/mL Total Protein (6.5-8.0) g/dL Albumin (3.5-5.0) g/dL Urine Blood (Negative) Urine RBC (0-2) /HPF 07/31/22 07/31/22 07/31/22 Range/Units 05:30 05:30 07:23 WBC (4.8-10.8) X10*3/uL Immature Gran % (Auto) (0.0-0.4) % Neut % (Auto) (45-73) % Lymph % (Auto) (20-40) % Lymph # (Auto) (1.2-4.9) X10*3/uL Abs Immat Gran (auto) (0.00-0.03) X10*3/uL Absolute Neuts (auto) (2.0-8.3) x10*3/uL PT (10.0-13.1) SEC INR (0.9-1.1) BUN 18 H (9-16) mg/dL POC Glucose 183 H (60-115) mg/dL Random Glucose 125 H (60-115) mg/dL Lactic Acid (0.5-2.0) mmol/L Total Bilirubin (0.0-1.0) mg/dL Alkaline Phosphatase (39-117) U/L B-Natriuretic Peptide 547 H (<100) pg/mL Total Protein (6.5-8.0) g/dL Albumin (3.5-5.0) g/dL Urine Blood (Negative) Urine RBC (0-2) /HPF 07/31/22 Range/Units 07:49 WBC (4.8-10.8) X10*3/uL Immature Gran % (Auto) (0.0-0.4) % Neut % (Auto) (45-73) % Lymph % (Auto) (20-40) % Lymph # (Auto) (1.2-4.9) X10*3/uL Abs Immat Gran (auto) (0.00-0.03) X10*3/uL Absolute Neuts (auto) (2.0-8.3) x10*3/uL PT (10.0-13.1) SEC INR (0.9-1.1) BUN (9-16) mg/dL POC Glucose 147 H (60-115) mg/dL Random Glucose (60-115) mg/dL Lactic Acid (0.5-2.0) mmol/L Total Bilirubin (0.0-1.0) mg/dL Alkaline Phosphatase (39-117) U/L B-Natriuretic Peptide (<100) pg/mL Total Protein (6.5-8.0) g/dL Albumin (3.5-5.0) g/dL Urine Blood (Negative) Urine RBC (0-2) /HPF H & H 07/30/22 07/31/22 Range/Units 18:02 05:30 Hgb 15.5 14.2 (14.0-18.0) g/dl Hct 46.1 43.7 (42.0-52.0) % Coagulation 07/30/22 Range/Units 21:40 INR 1.3 H (0.9-1.1) All other labs normal. Diagnostic results Hip x-ray: image reviewed (Impacted left femoral neck fracture) Assessment and Plan (1) Left displaced femoral neck fracture: Status: Acute Plan I discussed the case with Dr Melendez and explained the extent of the injury to the patient and options available which include surgical intervention. I explained the procedure in detail along with the length of recovery and rehab course. I explained the risk, benefits and alternatives. Risk including, but not limited to infection, blood clots, bleeding, non union or malunion and nerve/tissue damage to surrounding areas. I answered all their questions and with their understanding they have consented to move forward with Operative Fixation of the left hip . The patient will be T&S, med clearance obtained and NPO after midnight. Cardiology clearance 07/31/22 Dictated By: Jeffrey Ho MD Plan 67-year-old gentleman with known history of atrial fibrillation presenting with mechanical fall and hip fracture.? Was noticed to be in AFib with RVR with hypoxia and elevated blood pressures.? I think fracture related pain was a troncoso issue which led to tachycardia and also elevated blood pressures.? His pain is reasonably well controlled at this point and his heart rates are improving along with blood pressure coming down.? He is on Cardizem currently.? I think we should continue the Cardizem for now.? Eliquis has been held appropriately.? He does not appear to be in significant heart failure to me.? I think he can continue oral diuretics at this point.? He is intermediate risk to proceed with hip replacement.? Preoperatively would favor using phenylephrine if required for hypotension and would try to avoid anything that increases heart rate and contractility because he already has significant left ventricular hypertrophy and hyperdynamic function. We will follow along with you.? Thank you for allowing me to participate in the care of your patient.? Please feel free to contact me if you have any questions. Time Spent With Patient Time: Total time managing care of this patient today ____ minutes. Procedures Date of Service Date of Service: 07/31/22
[2022-07-31] MEDS: 0.9 % Sodium Chloride Flush 3 ML SYRINGE IVFLUSH ×3 (09:06→23:51)
[2022-07-31] MEDS: Metoprolol Tartrate 100 MG TABLET PO ×2 (09:06→20:09)
[2022-07-31] MEDS: lisinopriL 40 MG TABLET PO (09:06)
[2022-07-31] MEDS: Enoxaparin Sodium 100 MG/ML SYRINGE SUBCUT ×2 (09:07→20:10)
[2022-07-31] MEDS: Furosemide 20 MG/2 ML VIAL IVPUSH (09:07)
[2022-07-31 11:05] VITALS: BP 120/64; PULSE 104; RESP 18; TEMP 36.5; O2SAT 94
[2022-07-31 11:23] LABS: Adenovirus PCR Not Detected (Not Detect.); Bordetella parapertussis PCR Not Detected (Not Detect.); Bordetella pertussis PCR Not Detected (Not Detect.); Chlamydia pneumoniae PCR Not Detected (Not Detect.); Coronavirus 229E PCR Not Detected (Not Detect.); Coronavirus HKU1 PCR Not Detected (Not Detect.); Coronavirus NL63 PCR Not Detected (Not Detect.); Coronavirus OC43 PCR Not Detected (Not Detect.); Human metapneumovirus PCR Not Detected (Not Detect.); Influenza A PCR Not Detected (Not Detect.); Influenza B PCR Not Detected (Not Detect.); Mycoplasma pneumoniae PCR Not Detected (Not Detect.); Parainfluenza 1 PCR Not Detected (Not Detect.); Parainfluenza 2 PCR Not Detected (Not Detect.); Parainfluenza 3 PCR Not Detected (Not Detect.); Parainfluenza 4 PCR Not Detected (Not Detect.); RSV PCR Not Detected (Not Detect.); Rhino/Enterovirus PCR Detected (Not Detect.); SARS-CoV-2 PCR Not Detected (Not Detect.)
[2022-07-31 11:45] LABS: Glucose, Whole Blood 146 mg/dL (60-115)
[2022-07-31] MEDS: oxyCODONE HCl Immed Release 5 MG TABLET PO ×3 (12:08→23:56)
--- NOTE | 2022-07-31 12:38 | HO.PM.IMPN ---
Subjective Subjective Date of Service: 07/31/22 Interval History: No acute issues overnight. Heart rate fairly well control. Review of Systems Denies chest pain Denies shortness of breath Denies nausea vomiting diarrhea Denies fever chills Physical Exam Vital Signs: Vital Signs: Last Vital Signs Temp 97.7 F 07/31/22 11:05 Pulse 104 H 07/31/22 11:05 Resp 18 07/31/22 11:05 BP 120/64 07/31/22 11:05 Pulse Ox 94 07/31/22 11:05 O2 Del Method 07/31/22 11:05 O2 Flow Rate 2 07/31/22 07:24 BMI result Body Mass Index 32.8 Const: Other: Awake alert no acute distress Resp: Other: Clear to auscultation bilaterally no rales rhonchi or wheezes Cardio: Other: No S4; positive S1-S2; no S3 murmurs rubs gallops. Irregular regular GI: Other: Soft nontender nondistended normoactive bowel sounds Extrem: Other: no edema bilat Objective Data Active Medications Acetaminophen (Acetaminophen 325 Mg Tablet) 650 mg PO Q6H PRN PRN Reason: Pain, Mild, fever Albuterol Sulfate (Albuterol Sulfate (0.083%) 2.5 Mg/3 Ml Vial.Neb) 2.5 mg INHALE Q4H PRN PRN Reason: Shortness of Breath/Wheezing Docusate Sodium (Docusate Sodium 100 Mg Capsule) 100 mg PO DAILY PRN PRN Reason: Constipation Enoxaparin Sodium (Enoxaparin Sodium 100 Mg/Ml Syringe) 100 mg 1 mg/kg (100 mg) SUBCUT Q12H [facility] Last Admin: 07/31/22 09:07 Dose: 100 mg Documented By: TAE Furosemide (Furosemide 20 Mg/2 Ml Vial) 20 mg IVPUSH DAILY [facility]; Protocol Last Admin: 07/31/22 09:07 Dose: 20 mg Documented By: TAE Glucose (Glucose Gel 15 Gm Gel..Gram.) 15 gm PO Q15M PRN; Protocol PRN Reason: per Hypoglycemia Standing Ord. Dextrose (D10) 250 mls @ 750 mls/hr IV Q15M PRN; Protocol PRN Reason: per Hypoglycemia Standing Ord. Insulin Human Lispro (Insulin Lispro 100 Unit/Ml 3 Ml Vial) 0 unit SUBCUT QIDACHS [facility]; Protocol Last Admin: 07/31/22 11:22 Dose: Not Given Documented By: TAE Non-Admin Reason: No Insulin Coverage Lisinopril (Lisinopril 40 Mg Tablet) 40 mg PO DAILY [facility]; Protocol Last Admin: 07/31/22 09:06 Dose: 40 mg Documented By: TAE Metoprolol Tartrate (Metoprolol Tartrate 100 Mg Tablet) 100 mg PO BID [facility]; Protocol Last Admin: 07/31/22 09:06 Dose: 100 mg Documented By: TAE Morphine Sulfate (Morphine Sulfate 2 Mg/Ml Cartridge) 2 mg IVPUSH Q4H PRN; Protocol PRN Reason: Pain, Severe (Pain Scale 7-10) Last Admin: 07/31/22 09:05 Dose: 2 mg Documented By: TAE Nicotine Polacrilex (Nicotine Polacrilex 2 Mg Gum) 2 mg BUCCAL Q2H PRN PRN Reason: Nicotine Cravings Ondansetron HCl (Ondansetron Hcl 4 Mg/2 Ml Vial) 4 mg IVPUSH Q8H PRN PRN Reason: Nausea and Vomiting Last Admin: 07/30/22 20:45 Dose: 4 mg Documented By: CARL Oxycodone HCl (Oxycodone Hcl Immed Release 5 Mg Tablet) 5 mg PO Q4H PRN PRN Reason: Pain, Moderate (Pain Scale 4-6 Last Admin: 07/31/22 12:08 Dose: 5 mg Documented By: TAE Pharmacy Consult (Consult Rx Perform Med Rec) 1 each MISCELLANE ONCE PRN PRN Reason: Consult order Sodium Chloride (0.9 % Sodium Chloride Flush 3 Ml Syringe) [facility] Last Admin: 07/31/22 09:06 Dose: 3 ml Documented By: TAE Labs 07/31/22 05:30 07/31/22 05:30 Labs: Laboratory Results - last 24 hr 07/30/22 07/30/22 07/30/22 18:02 18:02 18:02 MCV 85.8 MCH 28.9 MCHC 33.6 RDW 13.8 Plt Count 208 MPV 10.5 Immature Gran % (Auto) 0.7 H Neut % (Auto) 88.9 H Lymph % (Auto) 5.9 L [place] % (Auto) 3.9 Eos % (Auto) 0.3 Baso % (Auto) 0.3 Lymph # (Auto) 0.7 L [place] # (Auto) 0.5 Eos # (Auto) 0.0 Baso # (Auto) 0.0 Abs Immat Gran (auto) 0.08 H Absolute Neuts (auto) 10.2 H Absolute Nucleated RBC 0.000 Nucleated RBC % (auto) 0.0 PT INR APTT Anion Gap Estim Creat Clear Calc Estimated GFR POC Glucose Random Glucose Lactic Acid Calcium Magnesium Total Bilirubin Direct Bilirubin AST ALT Alkaline Phosphatase Total Creatine Kinase Troponin I High Sens 11.3 B-Natriuretic Peptide 658 H Total Protein Albumin Lipase TSH Free T4 Urine Color Urine Appearance Urine pH Ur Specific [place] Urine Protein Urine Glucose (UA) Urine Ketones Urine Blood Urine Nitrite Ur Leukocyte Esterase Urine RBC Urine WBC Ur Squamous Epith Cells Urine Bacteria Hyaline Casts Respiratory Panel [place] Adenovirus (Rapid PCR) B.pert (TEM-PCR) B.parapertussis DNA PCR C. pneumoniae DNA (PCR) Coronavirus OC43 (PCR) Coronavirus HKU1 (PCR) Coronavirus 229E (PCR) Coronavirus NL63 (PCR) Human Metapneumovir PCR Influenza A (RT-PCR) Influenza Type A (PCR) Influenza B (RT-PCR) Influenza Type B (PCR) M. pneumoniae (PCR) Parainfluenza 1 (PCR) Parainfluenza 2 (PCR) Parainfluenza 3 (PCR) Parainfluenza 4 (PCR) RSV (PCR) RSV RNA Qual (PCR) Entero/Rhino (PCR) SARS-CoV-2 RNA (RT-PCR) 07/30/22 07/30/22 07/30/22 18:02 18:02 19:26 MCV MCH MCHC RDW Plt Count MPV Immature Gran % (Auto) Neut % (Auto) Lymph % (Auto) [place] % (Auto) Eos % (Auto) Baso % (Auto) Lymph # (Auto) [place] # (Auto) Eos # (Auto) Baso # (Auto) Abs Immat Gran (auto) Absolute Neuts (auto) Absolute Nucleated RBC Nucleated RBC % (auto) PT INR APTT Anion Gap Estim Creat Clear Calc Estimated GFR POC Glucose Random Glucose Lactic Acid 2.3 H* Calcium Magnesium Total Bilirubin Direct Bilirubin AST ALT Alkaline Phosphatase Total Creatine Kinase Troponin I High Sens B-Natriuretic Peptide Total Protein Albumin Lipase TSH Free T4 Urine Color Yellow Urine Appearance Clear Urine pH 5.0 Ur Specific [place] 1.020 Urine Protein Trace Urine Glucose (UA) Negative Urine Ketones Negative Urine Blood Large (3+) H Urine Nitrite Negative Ur Leukocyte Esterase Negative Urine RBC >20 H Urine WBC 0-5 Ur Squamous Epith Cells 3-5 Urine Bacteria None Seen Hyaline Casts 0-2 Respiratory Panel [place] Adenovirus (Rapid PCR) B.pert (TEM-PCR) B.parapertussis DNA PCR C. pneumoniae DNA (PCR) Coronavirus OC43 (PCR) Coronavirus HKU1 (PCR) Coronavirus 229E (PCR) Coronavirus NL63 (PCR) Human Metapneumovir PCR Influenza A (RT-PCR) Influenza Type A (PCR) NEGATIVE Influenza B (RT-PCR) Influenza Type B (PCR) NEGATIVE M. pneumoniae (PCR) Parainfluenza 1 (PCR) Parainfluenza 2 (PCR) Parainfluenza 3 (PCR) Parainfluenza 4 (PCR) RSV (PCR) RSV RNA Qual (PCR) NEGATIVE Entero/Rhino (PCR) SARS-CoV-2 RNA (RT-PCR) NEGATIVE 07/30/22 07/30/22 07/30/22 19:31 20:20 21:36 MCV MCH MCHC RDW Plt Count MPV Immature Gran % (Auto) Neut % (Auto) Lymph % (Auto) [place] % (Auto) Eos % (Auto) Baso % (Auto) Lymph # (Auto) [place] # (Auto) Eos # (Auto) Baso # (Auto) Abs Immat Gran (auto) Absolute Neuts (auto) Absolute Nucleated RBC Nucleated RBC % (auto) PT INR APTT Anion Gap 13 Estim Creat Clear Calc 101.6 Estimated GFR > 60 POC Glucose 157 H Random Glucose 144 H Lactic Acid 1.6 Calcium 8.4 D Magnesium 1.7 Total Bilirubin 1.8 H Direct Bilirubin 0.4 AST 17 ALT 15 Alkaline Phosphatase 125 H Total Creatine Kinase 47 Troponin I High Sens B-Natriuretic Peptide Total Protein 5.9 L Albumin 3.3 L Lipase 8 TSH 2.41 Free T4 1.06 Urine Color Urine Appearance Urine pH Ur Specific [place] Urine Protein Urine Glucose (UA) Urine Ketones Urine Blood Urine Nitrite Ur Leukocyte Esterase Urine RBC Urine WBC Ur Squamous Epith Cells Urine Bacteria Hyaline Casts Respiratory Panel [place] Adenovirus (Rapid PCR) B.pert (TEM-PCR) B.parapertussis DNA PCR C. pneumoniae DNA (PCR) Coronavirus OC43 (PCR) Coronavirus HKU1 (PCR) Coronavirus 229E (PCR) Coronavirus NL63 (PCR) Human Metapneumovir PCR Influenza A (RT-PCR) Influenza Type A (PCR) Influenza B (RT-PCR) Influenza Type B (PCR) M. pneumoniae (PCR) Parainfluenza 1 (PCR) Parainfluenza 2 (PCR) Parainfluenza 3 (PCR) Parainfluenza 4 (PCR) RSV (PCR) RSV RNA Qual (PCR) Entero/Rhino (PCR) SARS-CoV-2 RNA (RT-PCR) 07/30/22 07/30/22 07/30/22 21:40 23:02 23:47 MCV MCH MCHC RDW Plt Count MPV Immature Gran % (Auto) Neut % (Auto) Lymph % (Auto) [place] % (Auto) Eos % (Auto) Baso % (Auto) Lymph # (Auto) [place] # (Auto) Eos # (Auto) Baso # (Auto) Abs Immat Gran (auto) Absolute Neuts (auto) Absolute Nucleated RBC Nucleated RBC % (auto) PT 15.5 H INR 1.3 H APTT 36.2 Anion Gap Estim Creat Clear Calc Estimated GFR POC Glucose 140 H Random Glucose Lactic Acid Calcium Magnesium Total Bilirubin Direct Bilirubin AST ALT Alkaline Phosphatase Total Creatine Kinase Troponin I High Sens B-Natriuretic Peptide Total Protein Albumin Lipase TSH Free T4 Urine Color Urine Appearance Urine pH Ur Specific [place] Urine Protein Urine Glucose (UA) Urine Ketones Urine Blood Urine Nitrite Ur Leukocyte Esterase Urine RBC Urine WBC Ur Squamous Epith Cells Urine Bacteria Hyaline Casts Respiratory Panel [place] See Note Adenovirus (Rapid PCR) Not Detected B.pert (TEM-PCR) Not Detected B.parapertussis DNA PCR Not Detected C. pneumoniae DNA (PCR) Not Detected Coronavirus OC43 (PCR) Not Detected Coronavirus HKU1 (PCR) Not Detected Coronavirus 229E (PCR) Not Detected Coronavirus NL63 (PCR) Not Detected Human Metapneumovir PCR Not Detected Influenza A (RT-PCR) Not Detected Influenza Type A (PCR) Influenza B (RT-PCR) Not Detected Influenza Type B (PCR) M. pneumoniae (PCR) Not Detected Parainfluenza 1 (PCR) Not Detected Parainfluenza 2 (PCR) Not Detected Parainfluenza 3 (PCR) Not Detected Parainfluenza 4 (PCR) Not Detected RSV (PCR) Not Detected RSV RNA Qual (PCR) Entero/Rhino (PCR) Detected A SARS-CoV-2 RNA (RT-PCR) Not Detected 07/31/22 07/31/22 07/31/22 05:30 05:30 05:30 MCV 88.1 MCH 28.6 MCHC 32.5 RDW 14.1 Plt Count 177 MPV 11.3 Immature Gran % (Auto) 0.6 H Neut % (Auto) 82.0 H Lymph % (Auto) 10.1 L [place] % (Auto) 5.3 Eos % (Auto) 1.5 Baso % (Auto) 0.5 Lymph # (Auto) 1.0 L [place] # (Auto) 0.5 Eos # (Auto) 0.1 Baso # (Auto) 0.1 Abs Immat Gran (auto) 0.06 H Absolute Neuts (auto) 7.9 Absolute Nucleated RBC 0.000 Nucleated RBC % (auto) 0.0 PT INR APTT Anion Gap 16 Estim Creat Clear Calc 88.8 Estimated GFR > 60 POC Glucose Random Glucose 125 H Lactic Acid Calcium 8.8 Magnesium Total Bilirubin Direct Bilirubin AST ALT Alkaline Phosphatase Total Creatine Kinase Troponin I High Sens B-Natriuretic Peptide 547 H Total Protein Albumin Lipase TSH Free T4 Urine Color Urine Appearance Urine pH Ur Specific [place] Urine Protein Urine Glucose (UA) Urine Ketones Urine Blood Urine Nitrite Ur Leukocyte Esterase Urine RBC Urine WBC Ur Squamous Epith Cells Urine Bacteria Hyaline Casts Respiratory Panel [place] Adenovirus (Rapid PCR) B.pert (TEM-PCR) B.parapertussis DNA PCR C. pneumoniae DNA (PCR) Coronavirus OC43 (PCR) Coronavirus HKU1 (PCR) Coronavirus 229E (PCR) Coronavirus NL63 (PCR) Human Metapneumovir PCR Influenza A (RT-PCR) Influenza Type A (PCR) Influenza B (RT-PCR) Influenza Type B (PCR) M. pneumoniae (PCR) Parainfluenza 1 (PCR) Parainfluenza 2 (PCR) Parainfluenza 3 (PCR) Parainfluenza 4 (PCR) RSV (PCR) RSV RNA Qual (PCR) Entero/Rhino (PCR) SARS-CoV-2 RNA (RT-PCR) 07/31/22 07/31/22 07/31/22 07:23 07:49 11:02 MCV MCH MCHC RDW Plt Count MPV Immature Gran % (Auto) Neut % (Auto) Lymph % (Auto) [place] % (Auto) Eos % (Auto) Baso % (Auto) Lymph # (Auto) [place] # (Auto) Eos # (Auto) Baso # (Auto) Abs Immat Gran (auto) Absolute Neuts (auto) Absolute Nucleated RBC Nucleated RBC % (auto) PT INR APTT Anion Gap Estim Creat Clear Calc Estimated GFR POC Glucose 183 H 147 H 146 H Random Glucose Lactic Acid Calcium Magnesium Total Bilirubin Direct Bilirubin AST ALT Alkaline Phosphatase Total Creatine Kinase Troponin I High Sens B-Natriuretic Peptide Total Protein Albumin Lipase TSH Free T4 Urine Color Urine Appearance Urine pH Ur Specific [place] Urine Protein Urine Glucose (UA) Urine Ketones Urine Blood Urine Nitrite Ur Leukocyte Esterase Urine RBC Urine WBC Ur Squamous Epith Cells Urine Bacteria Hyaline Casts Respiratory Panel [place] Adenovirus (Rapid PCR) B.pert (TEM-PCR) B.parapertussis DNA PCR C. pneumoniae DNA (PCR) Coronavirus OC43 (PCR) Coronavirus HKU1 (PCR) Coronavirus 229E (PCR) Coronavirus NL63 (PCR) Human Metapneumovir PCR Influenza A (RT-PCR) Influenza Type A (PCR) Influenza B (RT-PCR) Influenza Type B (PCR) M. pneumoniae (PCR) Parainfluenza 1 (PCR) Parainfluenza 2 (PCR) Parainfluenza 3 (PCR) Parainfluenza 4 (PCR) RSV (PCR) RSV RNA Qual (PCR) Entero/Rhino (PCR) SARS-CoV-2 RNA (RT-PCR) Assessment and Plan (1) Left displaced femoral neck fracture: Status: Acute (2) Atrial fibrillation with RVR: Status: Acute (3) CHF exacerbation: Status: Acute (4) Diabetes mellitus type 2 in obese: Status: Acute Plan 67-year-old male with history of paroxysmal atrial fibrillation anticoagulated with Eliquis, HFpEF, ibe-[id number] type 2 diabetes, and hypertension who is a current 4-5 cigarette per day smoker admitted for left femoral neck fracture, AFib RVR, and CHF exacerbation. 1.Acute left femoral neck fracture -Hold eliquis; NPO after midnight 08/01 -pain management -rendon 2.Paroxysmal atrial fibrillation with RVR -Hold eliquis as above. Therapeutic lovenox -Continue PO metoprolol -2d echo -cards consult 3Sepsis-unclear etiology, possibly viral -resolved -given 1 g ceftriaxone in ED. Hold off on further antibiotics at this time 4.Acute CHF exacerbation, unspecified EF -IV lasix -2d echo -cardiac diet -continue Rendon for fluid management 5.Owi-vqyraqu-wedkulafj type 2 diabetes --lispro correctional scale -adjust as indicated loveno Full code Patient requires ongoing hospitalization to manage acute 5th left femoral neck fracture Time Spent With Patient Time: Total time managing care of this patient today ____ minutes. Quality Stroke Does the patient have a stroke diagnosis?: No VTE Prior VTE?: No VTE Risk Level:: Medical - moderate - high VTE Device Contraindication: Treatment Not Indicated VTE Drug Contraindication: N/A - Med Ordered
--- NOTE | 2022-07-31 12:48 | PC.NURSE ---
Pt s last dose of eliquis was 3-15-23 am per his .
--- NOTE | 2022-07-31 14:42 | MHC.CM.PN ---
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
[2022-07-31 15:57] VITALS: BP 106/71; PULSE 107; RESP 18; TEMP 36.8; O2SAT 96
[2022-07-31 16:25] LABS: Glucose, Whole Blood 131 mg/dL (60-115)
--- NOTE | 2022-07-31 16:45 | PM.CNCAR ---
History of Present Illness History of Present Illness Date of Service: 07/31/22 Requesting physician: Dereck Fajardo Chief complaint: Hip Freacture,afib rvr,chf Narrative: 67-year-old gentleman with known history of atrial fibrillation on Eliquis, diabetes, heart failure preserved ejection fraction and tobacco abuse who unfortunately fell out of his bad and has left hip fracture. He is in pain. He also had some fever on admission. He was noticed to be hypertensive and tachypneic and in AFib with RVR. He needs surgery for the left hip. He is denying any shortness of breath currently. His heart rates are better controlled at this point. Eliquis has been held appropriately. No chest pain history. Echocardiography is showing severe left ventricular hypertrophy with hyperdynamic LV function. Right ventricle is mildly dilated and has mild dysfunction. [facility] Past Medical History Medical History (Updated 07/31/22 @ 12:44 by Dereck Fajardo DO) Atrial fibrillation CHF (congestive heart failure) Diabetes mellitus type 2 in obese Hx of correction use of blood thinners Hypertension Family History Family History Mother CAD (coronary artery disease) Surgical History Surgical History No pertinent past surgical history Social History Social History Household Members: Spouse Housing: Apartment Do you presently have visiting nurse or other home services: No Alcohol intake: never Patient Tobacco Use Status: Current everyday Tobacco user Tobacco use type: Cigarette Cigarette Packs Per Day: 0.5 Cigarettes Per Day: 3 Years Smoked: 54 e-Cigarette/Vaping Use: Never Used Second Hand Smoke Exposure: No service: No Current occupational status: retired Current occupational exposures/hazards: No Meds Allergies Allergy/AdvReac Type Severity Reaction Status Date / Time maprotiline [From LUDIOMIL] Allergy Unknown UNK Verified 07/30/22 17:09 meperidine [From DEMEROL] Allergy Unknown VOMITING Verified 07/30/22 17:09 Active Medications: Current Medications Acetaminophen (Acetaminophen 325 Mg Tablet) 650 mg PO Q6H PRN PRN Reason: Pain, Mild, fever Albuterol Sulfate (Albuterol Sulfate (0.083%) 2.5 Mg/3 Ml Vial.Neb) 2.5 mg INHALE Q4H PRN PRN Reason: Shortness of Breath/Wheezing Docusate Sodium (Docusate Sodium 100 Mg Capsule) 100 mg PO DAILY PRN PRN Reason: Constipation Enoxaparin Sodium (Enoxaparin Sodium 100 Mg/Ml Syringe) 100 mg 1 mg/kg (100 mg) SUBCUT Q12H [facility] Last Admin: 07/31/22 09:07 Dose: 100 mg Furosemide (Furosemide 20 Mg/2 Ml Vial) 20 mg IVPUSH DAILY [facility]; Protocol Last Admin: 07/31/22 09:07 Dose: 20 mg Glucose (Glucose Gel 15 Gm Gel..Gram.) 15 gm PO Q15M PRN; Protocol PRN Reason: per Hypoglycemia Standing Ord. Dextrose (D10) 250 mls @ 750 mls/hr IV Q15M PRN; Protocol PRN Reason: per Hypoglycemia Standing Ord. Insulin Human Lispro (Insulin Lispro 100 Unit/Ml 3 Ml Vial) 0 unit SUBCUT QIDACHS [facility]; Protocol Last Admin: 07/31/22 16:40 Dose: Not Given Lisinopril (Lisinopril 40 Mg Tablet) 40 mg PO DAILY [facility]; Protocol Last Admin: 07/31/22 09:06 Dose: 40 mg Metoprolol Tartrate (Metoprolol Tartrate 100 Mg Tablet) 100 mg PO BID [facility]; Protocol Last Admin: 07/31/22 09:06 Dose: 100 mg Morphine Sulfate (Morphine Sulfate 2 Mg/Ml Cartridge) 2 mg IVPUSH Q4H PRN; Protocol PRN Reason: Pain, Severe (Pain Scale 7-10) Last Admin: 07/31/22 15:44 Dose: 2 mg Nicotine Polacrilex (Nicotine Polacrilex 2 Mg Gum) 2 mg BUCCAL Q2H PRN PRN Reason: Nicotine Cravings Ondansetron HCl (Ondansetron Hcl 4 Mg/2 Ml Vial) 4 mg IVPUSH Q8H PRN PRN Reason: Nausea and Vomiting Last Admin: 07/30/22 20:45 Dose: 4 mg Oxycodone HCl (Oxycodone Hcl Immed Release 5 Mg Tablet) 5 mg PO Q4H PRN PRN Reason: Pain, Moderate (Pain Scale 4-6 Last Admin: 07/31/22 12:08 Dose: 5 mg Pharmacy Consult (Consult Rx Perform Med Rec) 1 each MISCELLANE ONCE PRN PRN Reason: Consult order Sodium Chloride (0.9 % Sodium Chloride Flush 3 Ml Syringe) [facility] Last Admin: 07/31/22 15:34 Dose: 3 ml Home Medications Medication Instructions Recorded Confirmed Last Taken Type apixaban 5 mg tablet (Eliquis) 5 mg PO BID 09/11/21 07/30/22 07/30/22 08:00 History furosemide 20 mg tablet 20 mg PO DAILY 09/11/21 07/30/22 07/30/22 08:00 History metoprolol tartrate 100 mg tablet 100 mg PO BID 09/11/21 07/30/22 07/30/22 08:00 History ibuprofen 200 mg tablet 400 mg PO Q6H PRN Pain 07/30/22 07/30/22 Unknown History Physical Exam Vital Signs: Vital Signs: Last Vital Signs Temp 98.2 F 07/31/22 15:57 Pulse 107 H 07/31/22 15:57 Resp 18 07/31/22 15:57 BP 106/71 07/31/22 15:57 Pulse Ox 96 07/31/22 15:57 O2 Del Method 07/31/22 15:57 O2 Flow Rate 2 07/31/22 07:24 BMI result Body Mass Index 32.8 GENERAL APPEARANCE: in no acute distress, pleasant. NECK: no carotid bruit, no significant jugular venous distention. SKIN: no suspicious lesions, warm and dry. HEART: no murmurs, irregular rate and rhythm. Tachycardic. LUNGS: clear to auscultation bilaterally. ABDOMEN: soft, nontender. PERIPHERAL PULSES: equal. NEUROLOGIC: No gross deficits, AAO X 3 Objective Labs and Meds 07/31/22 05:30 07/31/22 05:30 Lab results: Laboratory Results - last 24 hr 07/30/22 07/30/22 07/30/22 18:02 18:02 18:02 WBC 11.5 H RBC 5.37 Hgb 15.5 Hct 46.1 MCV 85.8 MCH 28.9 MCHC 33.6 RDW 13.8 Plt Count 208 MPV 10.5 Immature Gran % (Auto) 0.7 H Neut % (Auto) 88.9 H Lymph % (Auto) 5.9 L [place] % (Auto) 3.9 Eos % (Auto) 0.3 Baso % (Auto) 0.3 Lymph # (Auto) 0.7 L [place] # (Auto) 0.5 Eos # (Auto) 0.0 Baso # (Auto) 0.0 Abs Immat Gran (auto) 0.08 H Absolute Neuts (auto) 10.2 H Absolute Nucleated RBC 0.000 Nucleated RBC % (auto) 0.0 PT INR APTT Sodium Potassium Chloride Carbon Dioxide Anion Gap BUN Creatinine Estim Creat Clear Calc Estimated GFR POC Glucose Random Glucose Lactic Acid Calcium Magnesium Total Bilirubin Direct Bilirubin AST ALT Alkaline Phosphatase Total Creatine Kinase Troponin I High Sens 11.3 B-Natriuretic Peptide 658 H Total Protein Albumin Lipase TSH Free T4 Urine Color Urine Appearance Urine pH Ur Specific [place] Urine Protein Urine Glucose (UA) Urine Ketones Urine Blood Urine Nitrite Ur Leukocyte Esterase Urine RBC Urine WBC Ur Squamous Epith Cells Urine Bacteria Hyaline Casts Respiratory Panel [place] Adenovirus (Rapid PCR) B.pert (TEM-PCR) B.parapertussis DNA PCR C. pneumoniae DNA (PCR) Coronavirus OC43 (PCR) Coronavirus HKU1 (PCR) Coronavirus 229E (PCR) Coronavirus NL63 (PCR) Human Metapneumovir PCR Influenza A (RT-PCR) Influenza Type A (PCR) Influenza B (RT-PCR) Influenza Type B (PCR) M. pneumoniae (PCR) Parainfluenza 1 (PCR) Parainfluenza 2 (PCR) Parainfluenza 3 (PCR) Parainfluenza 4 (PCR) RSV (PCR) RSV RNA Qual (PCR) Entero/Rhino (PCR) SARS-CoV-2 RNA (RT-PCR) 07/30/22 07/30/22 07/30/22 18:02 18:02 19:26 WBC RBC Hgb Hct MCV MCH MCHC RDW Plt Count MPV Immature Gran % (Auto) Neut % (Auto) Lymph % (Auto) [place] % (Auto) Eos % (Auto) Baso % (Auto) Lymph # (Auto) [place] # (Auto) Eos # (Auto) Baso # (Auto) Abs Immat Gran (auto) Absolute Neuts (auto) Absolute Nucleated RBC Nucleated RBC % (auto) PT INR APTT Sodium Potassium Chloride Carbon Dioxide Anion Gap BUN Creatinine Estim Creat Clear Calc Estimated GFR POC Glucose Random Glucose Lactic Acid 2.3 H* Calcium Magnesium Total Bilirubin Direct Bilirubin AST ALT Alkaline Phosphatase Total Creatine Kinase Troponin I High Sens B-Natriuretic Peptide Total Protein Albumin Lipase TSH Free T4 Urine Color Yellow Urine Appearance Clear Urine pH 5.0 Ur Specific [place] 1.020 Urine Protein Trace Urine Glucose (UA) Negative Urine Ketones Negative Urine Blood Large (3+) H Urine Nitrite Negative Ur Leukocyte Esterase Negative Urine RBC >20 H Urine WBC 0-5 Ur Squamous Epith Cells 3-5 Urine Bacteria None Seen Hyaline Casts 0-2 Respiratory Panel [place] Adenovirus (Rapid PCR) B.pert (TEM-PCR) B.parapertussis DNA PCR C. pneumoniae DNA (PCR) Coronavirus OC43 (PCR) Coronavirus HKU1 (PCR) Coronavirus 229E (PCR) Coronavirus NL63 (PCR) Human Metapneumovir PCR Influenza A (RT-PCR) Influenza Type A (PCR) NEGATIVE Influenza B (RT-PCR) Influenza Type B (PCR) NEGATIVE M. pneumoniae (PCR) Parainfluenza 1 (PCR) Parainfluenza 2 (PCR) Parainfluenza 3 (PCR) Parainfluenza 4 (PCR) RSV (PCR) RSV RNA Qual (PCR) NEGATIVE Entero/Rhino (PCR) SARS-CoV-2 RNA (RT-PCR) NEGATIVE 07/30/22 07/30/22 07/30/22 19:31 20:20 21:36 WBC RBC Hgb Hct MCV MCH MCHC RDW Plt Count MPV Immature Gran % (Auto) Neut % (Auto) Lymph % (Auto) [place] % (Auto) Eos % (Auto) Baso % (Auto) Lymph # (Auto) [place] # (Auto) Eos # (Auto) Baso # (Auto) Abs Immat Gran (auto) Absolute Neuts (auto) Absolute Nucleated RBC Nucleated RBC % (auto) PT INR APTT Sodium 142 Potassium 4.4 Chloride 108 Carbon Dioxide 25 Anion Gap 13 BUN 15 Creatinine 0.85 Estim Creat Clear Calc 101.6 Estimated GFR > 60 POC Glucose 157 H Random Glucose 144 H Lactic Acid 1.6 Calcium 8.4 D Magnesium 1.7 Total Bilirubin 1.8 H Direct Bilirubin 0.4 AST 17 ALT 15 Alkaline Phosphatase 125 H Total Creatine Kinase 47 Troponin I High Sens B-Natriuretic Peptide Total Protein 5.9 L Albumin 3.3 L Lipase 8 TSH 2.41 Free T4 1.06 Urine Color Urine Appearance Urine pH Ur Specific [place] Urine Protein Urine Glucose (UA) Urine Ketones Urine Blood Urine Nitrite Ur Leukocyte Esterase Urine RBC Urine WBC Ur Squamous Epith Cells Urine Bacteria Hyaline Casts Respiratory Panel [place] Adenovirus (Rapid PCR) B.pert (TEM-PCR) B.parapertussis DNA PCR C. pneumoniae DNA (PCR) Coronavirus OC43 (PCR) Coronavirus HKU1 (PCR) Coronavirus 229E (PCR) Coronavirus NL63 (PCR) Human Metapneumovir PCR Influenza A (RT-PCR) Influenza Type A (PCR) Influenza B (RT-PCR) Influenza Type B (PCR) M. pneumoniae (PCR) Parainfluenza 1 (PCR) Parainfluenza 2 (PCR) Parainfluenza 3 (PCR) Parainfluenza 4 (PCR) RSV (PCR) RSV RNA Qual (PCR) Entero/Rhino (PCR) SARS-CoV-2 RNA (RT-PCR) 07/30/22 07/30/22 07/30/22 21:40 23:02 23:47 WBC RBC Hgb Hct MCV MCH MCHC RDW Plt Count MPV Immature Gran % (Auto) Neut % (Auto) Lymph % (Auto) [place] % (Auto) Eos % (Auto) Baso % (Auto) Lymph # (Auto) [place] # (Auto) Eos # (Auto) Baso # (Auto) Abs Immat Gran (auto) Absolute Neuts (auto) Absolute Nucleated RBC Nucleated RBC % (auto) PT 15.5 H INR 1.3 H APTT 36.2 Sodium Potassium Chloride Carbon Dioxide Anion Gap BUN Creatinine Estim Creat Clear Calc Estimated GFR POC Glucose 140 H Random Glucose Lactic Acid Calcium Magnesium Total Bilirubin Direct Bilirubin AST ALT Alkaline Phosphatase Total Creatine Kinase Troponin I High Sens B-Natriuretic Peptide Total Protein Albumin Lipase TSH Free T4 Urine Color Urine Appearance Urine pH Ur Specific [place] Urine Protein Urine Glucose (UA) Urine Ketones Urine Blood Urine Nitrite Ur Leukocyte Esterase Urine RBC Urine WBC Ur Squamous Epith Cells Urine Bacteria Hyaline Casts Respiratory Panel [place] See Note Adenovirus (Rapid PCR) Not Detected B.pert (TEM-PCR) Not Detected B.parapertussis DNA PCR Not Detected C. pneumoniae DNA (PCR) Not Detected Coronavirus OC43 (PCR) Not Detected Coronavirus HKU1 (PCR) Not Detected Coronavirus 229E (PCR) Not Detected Coronavirus NL63 (PCR) Not Detected Human Metapneumovir PCR Not Detected Influenza A (RT-PCR) Not Detected Influenza Type A (PCR) Influenza B (RT-PCR) Not Detected Influenza Type B (PCR) M. pneumoniae (PCR) Not Detected Parainfluenza 1 (PCR) Not Detected Parainfluenza 2 (PCR) Not Detected Parainfluenza 3 (PCR) Not Detected Parainfluenza 4 (PCR) Not Detected RSV (PCR) Not Detected RSV RNA Qual (PCR) Entero/Rhino (PCR) Detected A SARS-CoV-2 RNA (RT-PCR) Not Detected 07/31/22 07/31/22 07/31/22 05:30 05:30 05:30 WBC 9.6 RBC 4.96 Hgb 14.2 Hct 43.7 MCV 88.1 MCH 28.6 MCHC 32.5 RDW 14.1 Plt Count 177 MPV 11.3 Immature Gran % (Auto) 0.6 H Neut % (Auto) 82.0 H Lymph % (Auto) 10.1 L [place] % (Auto) 5.3 Eos % (Auto) 1.5 Baso % (Auto) 0.5 Lymph # (Auto) 1.0 L [place] # (Auto) 0.5 Eos # (Auto) 0.1 Baso # (Auto) 0.1 Abs Immat Gran (auto) 0.06 H Absolute Neuts (auto) 7.9 Absolute Nucleated RBC 0.000 Nucleated RBC % (auto) 0.0 PT INR APTT Sodium 140 Potassium 4.5 Chloride 105 Carbon Dioxide 24 Anion Gap 16 BUN 18 H Creatinine 0.96 Estim Creat Clear Calc 88.8 Estimated GFR > 60 POC Glucose Random Glucose 125 H Lactic Acid Calcium 8.8 Magnesium Total Bilirubin Direct Bilirubin AST ALT Alkaline Phosphatase Total Creatine Kinase Troponin I High Sens B-Natriuretic Peptide 547 H Total Protein Albumin Lipase TSH Free T4 Urine Color Urine Appearance Urine pH Ur Specific [place] Urine Protein Urine Glucose (UA) Urine Ketones Urine Blood Urine Nitrite Ur Leukocyte Esterase Urine RBC Urine WBC Ur Squamous Epith Cells Urine Bacteria Hyaline Casts Respiratory Panel [place] Adenovirus (Rapid PCR) B.pert (TEM-PCR) B.parapertussis DNA PCR C. pneumoniae DNA (PCR) Coronavirus OC43 (PCR) Coronavirus HKU1 (PCR) Coronavirus 229E (PCR) Coronavirus NL63 (PCR) Human Metapneumovir PCR Influenza A (RT-PCR) Influenza Type A (PCR) Influenza B (RT-PCR) Influenza Type B (PCR) M. pneumoniae (PCR) Parainfluenza 1 (PCR) Parainfluenza 2 (PCR) Parainfluenza 3 (PCR) Parainfluenza 4 (PCR) RSV (PCR) RSV RNA Qual (PCR) Entero/Rhino (PCR) SARS-CoV-2 RNA (RT-PCR) 07/31/22 07/31/22 07/31/22 07:23 07:49 11:02 WBC RBC Hgb Hct MCV MCH MCHC RDW Plt Count MPV Immature Gran % (Auto) Neut % (Auto) Lymph % (Auto) [place] % (Auto) Eos % (Auto) Baso % (Auto) Lymph # (Auto) [place] # (Auto) Eos # (Auto) Baso # (Auto) Abs Immat Gran (auto) Absolute Neuts (auto) Absolute Nucleated RBC Nucleated RBC % (auto) PT INR APTT Sodium Potassium Chloride Carbon Dioxide Anion Gap BUN Creatinine Estim Creat Clear Calc Estimated GFR POC Glucose 183 H 147 H 146 H Random Glucose Lactic Acid Calcium Magnesium Total Bilirubin Direct Bilirubin AST ALT Alkaline Phosphatase Total Creatine Kinase Troponin I High Sens B-Natriuretic Peptide Total Protein Albumin Lipase TSH Free T4 Urine Color Urine Appearance Urine pH Ur Specific [place] Urine Protein Urine Glucose (UA) Urine Ketones Urine Blood Urine Nitrite Ur Leukocyte Esterase Urine RBC Urine WBC Ur Squamous Epith Cells Urine Bacteria Hyaline Casts Respiratory Panel [place] Adenovirus (Rapid PCR) B.pert (TEM-PCR) B.parapertussis DNA PCR C. pneumoniae DNA (PCR) Coronavirus OC43 (PCR) Coronavirus HKU1 (PCR) Coronavirus 229E (PCR) Coronavirus NL63 (PCR) Human Metapneumovir PCR Influenza A (RT-PCR) Influenza Type A (PCR) Influenza B (RT-PCR) Influenza Type B (PCR) M. pneumoniae (PCR) Parainfluenza 1 (PCR) Parainfluenza 2 (PCR) Parainfluenza 3 (PCR) Parainfluenza 4 (PCR) RSV (PCR) RSV RNA Qual (PCR) Entero/Rhino (PCR) SARS-CoV-2 RNA (RT-PCR) 07/31/22 16:17 WBC RBC Hgb Hct MCV MCH MCHC RDW Plt Count MPV Immature Gran % (Auto) Neut % (Auto) Lymph % (Auto) [place] % (Auto) Eos % (Auto) Baso % (Auto) Lymph # (Auto) [place] # (Auto) Eos # (Auto) Baso # (Auto) Abs Immat Gran (auto) Absolute Neuts (auto) Absolute Nucleated RBC Nucleated RBC % (auto) PT INR APTT Sodium Potassium Chloride Carbon Dioxide Anion Gap BUN Creatinine Estim Creat Clear Calc Estimated GFR POC Glucose 131 H Random Glucose Lactic Acid Calcium Magnesium Total Bilirubin Direct Bilirubin AST ALT Alkaline Phosphatase Total Creatine Kinase Troponin I High Sens B-Natriuretic Peptide Total Protein Albumin Lipase TSH Free T4 Urine Color Urine Appearance Urine pH Ur Specific [place] Urine Protein Urine Glucose (UA) Urine Ketones Urine Blood Urine Nitrite Ur Leukocyte Esterase Urine RBC Urine WBC Ur Squamous Epith Cells Urine Bacteria Hyaline Casts Respiratory Panel [place] Adenovirus (Rapid PCR) B.pert (TEM-PCR) B.parapertussis DNA PCR C. pneumoniae DNA (PCR) Coronavirus OC43 (PCR) Coronavirus HKU1 (PCR) Coronavirus 229E (PCR) Coronavirus NL63 (PCR) Human Metapneumovir PCR Influenza A (RT-PCR) Influenza Type A (PCR) Influenza B (RT-PCR) Influenza Type B (PCR) M. pneumoniae (PCR) Parainfluenza 1 (PCR) Parainfluenza 2 (PCR) Parainfluenza 3 (PCR) Parainfluenza 4 (PCR) RSV (PCR) RSV RNA Qual (PCR) Entero/Rhino (PCR) SARS-CoV-2 RNA (RT-PCR) Imaging Radiologist's impression: Impressions Head CT 07/30/22 17:35 IMPRESSION: No CT evidence of acute intracranial hemorrhage or edematous large vessel territorial infarction. Chest X-Ray 07/30/22 17:55 IMPRESSION: Cardiomegaly. Mild central pulmonary vascular congestion. Hip/Pelvis X-Ray 07/30/22 17:55 IMPRESSION: Impacted left femoral neck fracture Abdomen/Pelvis CT 07/30/22 21:30 IMPRESSION: 1. Chronic appearing changes as described above. I do not appreciate any acute intra-abdominal process. 2. Small bilateral pleural effusions with dependent bibasilar airspace changes more likely due to atelectasis. 3. Left femoral neck fracture as noted on the plain films from earlier the same day. 4. Compression fractures of T12 and L3 of indeterminate age but new from the [address] 07/30/22 21:30 IMPRESSION: 1. Chronic appearing changes as described above. I do not appreciate any acute intra-abdominal process. 2. Small bilateral pleural effusions with dependent bibasilar airspace changes more likely due to atelectasis. 3. Left femoral neck fracture as noted on the plain films from earlier the same day. 4. Compression fractures of T12 and L3 of indeterminate age but new from the 2017 plain films. Assessment and Plan (1) CHF exacerbation: Status: Acute (2) Atrial fibrillation with RVR: Status: Acute Plan 67-year-old gentleman with known history of atrial fibrillation presenting with mechanical fall and hip fracture. Was noticed to be in AFib with RVR with hypoxia and elevated blood pressures. I think fracture related pain was a troncoso issue which led to tachycardia and also elevated blood pressures. His pain is reasonably well controlled at this point and his heart rates are improving along with blood pressure coming down. He is on Cardizem currently. I think we should continue the Cardizem for now. Eliquis has been held appropriately. He does not appear to be in significant heart failure to me. I think he can continue oral diuretics at this point. He is intermediate risk to proceed with hip replacement. Preoperatively would favor using phenylephrine if required for hypotension and would try to avoid anything that increases heart rate and contractility because he already has significant left ventricular hypertrophy and hyperdynamic function. We will follow along with you. Thank you for allowing me to participate in the care of your patient. Please feel free to contact me if you have any questions. Time Spent With Patient Time: Total time managing care of this patient today ____ minutes. Procedures Date of Service Date of Service: 07/31/22
[2022-07-31 19:37] VITALS: BP 160/79; PULSE 100; RESP 17; TEMP 36; O2SAT 94
[2022-07-31 21:00] LABS: Glucose, Whole Blood 138 mg/dL (60-115)
[2022-08-01] VITALS (19 sets, daily range): BP systolic 87–134; BP diastolic 45–91; PULSE 94–121; RESP 13–20; TEMP 36–37.1; O2SAT 88–100; BMI 32.5
--- NOTE | 2022-08-01 | ECG_ITS ---
Test Reason : cp Blood Pressure : / mmHG Vent. Rate : 146 BPM Atrial Rate : 000 BPM P-R Int : 000 ms QRS Dur : 066 ms QT Int : 294 ms P-R-T Axes : 000 070 252 degrees QTc Int : 458 ms Atrial fibrillation with rapid ventricular response ST & T wave abnormality, consider inferior ischemia Abnormal ECG When compared with ECG of 30-JUL-2022 18:12, Nonspecific T wave abnormality no longer evident in Lateral leads Referred By: Suzanne Soto Electronically Signed By:ITALO BRITT MD
[2022-08-01 06:28] LABS: MANUAL DIFF FLAG NO
[2022-08-01 06:33] LABS: Basophils Absolute Auto 0.1 X10*3/uL (0.0-0.2); Basophils Percent Auto 0.9 % (0-2); Eosinophils Absolute Auto 0.3 X10*3/uL (0.0-0.4); Eosinophils Percent Auto 4.5 % (0-4); Hematocrit 40.6 % (42.0-52.0); Hemoglobin 13.5 g/dl (14.0-18.0); Imm Gran Abs Auto 0.09 X10*3/uL (0.00-0.03); Imm Gran Pct Auto 1.3 % (0.0-0.4); Lymphocytes Absolute Auto 1.2 X10*3/uL (1.2-4.9); Lymphocytes Percent Auto 17.9 % (20-40); Mean Corpuscular HGB Conc 33.3 g/dl (31.0-36.0); Mean Corpuscular Hemoglobin 28.5 pg (27.0-33.0); Mean Corpuscular Volume 85.7 fL (80.0-98.0); Mean Platelet Volume 10.6 fL (9.4-12.4); Monocytes Absolute Auto 0.5 X10*3/uL (0.1-1.2); Monocytes Percent Auto 7.7 % (2-11); Neutrophils Absolute Auto 4.6 x10*3/uL (2.0-8.3); Neutrophils Percent Auto 67.7 % (45-73); Platelet Count 159 X10*3/uL (160-400); Red Blood Count 4.74 X10*6/uL (4.60-5.80); Red Cell Distribution Width 14.1 % (11.0-16.0); White Blood Count 6.7 X10*3/uL (4.8-10.8)
[2022-08-01 07:04] LABS: Alanine Aminotransferase 11 U/L (0-40); Albumin Level 2.8 g/dL (3.5-5.0); Alkaline Phosphatase 97 U/L (39-117); Anion Gap 13 (12-20); Aspartate Amino Transferase 12 U/L (5-37); Bilirubin Total 1.4 mg/dL (0.0-1.0); Blood Urea Nitrogen 22 mg/dL (9-16); Calcium 8.4 mg/dL (8.4-10.2); Carbon Dioxide 24 mmol/L (22-29); Chloride 104 mmol/L (96-108); Creatinine Clr Calc Pharmacy 86.7; Estimated Glomerular Filt Rate > 60; Glucose Fasting 114 mg/dL (60-99); Potassium 3.7 mmol/L (3.3-5.1); Sodium 137 mmol/L (135-145); Total Protein 5.2 g/dL (6.5-8.0)
[2022-08-01] MEDS: 0.9 % Sodium Chloride Flush 3 ML SYRINGE IVFLUSH ×2 (07:10→20:12)
[2022-08-01] MEDS: Furosemide 20 MG/2 ML VIAL IVPUSH (07:21)
[2022-08-01] MEDS: lisinopriL 40 MG TABLET PO (07:22)
[2022-08-01] MEDS: Metoprolol Tartrate 100 MG TABLET PO ×2 (07:22→22:07)
[2022-08-01 08:27] LABS: Glucose, Whole Blood 130 mg/dL (60-115)
--- NOTE | 2022-08-01 08:53 | P.CONAN_ITS ---
HPI - Anesthesia Eval Consult details Narrative: Left femur fracture PMFSH Active Problems Active Problems: All Active Problems (Updated 07/31/22 @ 12:44 by Dereck Fajardo DO) Diabetes mellitus type 2 in obese (Acute) Left displaced femoral neck fracture (Acute) CHF exacerbation (Acute) Atrial fibrillation with RVR (Acute) Closed fracture of left hip (Acute) SIRS (systemic inflammatory response syndrome) (Acute) Persistent atrial fibrillation (Acute) Rhabdomyolysis (Acute) Influenza A (Acute) Atrial fibrillation (Acute) Past Medical History Medical History (Updated 08/01/22 @ 08:54 by Alfred Anthony MD) Atrial fibrillation CHF (congestive heart failure) Diabetes mellitus type 2 in obese Hx of senior care use of blood thinners Hypertension Myocardial infarct Family History Family History Mother CAD (coronary artery disease) Family history of problems with anesthesia: No Surgical History Surgical History No pertinent past surgical history History of Problems with Anesthesia: No Social History Social History Household Members: Spouse Housing: Apartment Do you presently have visiting nurse or other home services: No Alcohol intake: never Patient Tobacco Use Status: Current everyday Tobacco user Tobacco use type: Cigarette Cigarette Packs Per Day: 0.5 Cigarettes Per Day: 3 Years Smoked: 54 e-Cigarette/Vaping Use: Never Used Second Hand Smoke Exposure: No service: No Current occupational status: retired Current occupational exposures/hazards: No Meds Allergies Allergy/AdvReac Type Severity Reaction Status Date / Time maprotiline [From LUDIOMIL] Allergy Unknown UNK Verified 07/30/22 17:09 meperidine [From DEMEROL] Allergy Unknown VOMITING Verified 07/30/22 17:09 Active Medications: Current Medications Acetaminophen (Acetaminophen 325 Mg Tablet) 650 mg PO Q6H PRN PRN Reason: Pain, Mild, fever Albuterol Sulfate 2.5 mg/ (Ipratropium [place] 0.5 mg) 0 mg INHALE RQ4H WHILE AWAKE PRN PRN Reason: Wheezing Docusate Sodium (Docusate Sodium 100 Mg Capsule) 100 mg PO DAILY PRN PRN Reason: Constipation Enoxaparin Sodium (Enoxaparin Sodium 100 Mg/Ml Syringe) 100 mg 1 mg/kg (100 mg) SUBCUT Q12H [facility] Last Admin: 07/31/22 20:10 Dose: 100 mg Furosemide (Furosemide 20 Mg/2 Ml Vial) 20 mg IVPUSH DAILY [facility]; Protocol Last Admin: 08/01/22 07:21 Dose: 20 mg Glucose (Glucose Gel 15 Gm Gel..Gram.) 15 gm PO Q15M PRN; Protocol PRN Reason: per Hypoglycemia Standing Ord. Dextrose (D10) 250 mls @ 750 mls/hr IV Q15M PRN; Protocol PRN Reason: per Hypoglycemia Standing Ord. Insulin Human Lispro (Insulin Lispro 100 Unit/Ml 3 Ml Vial) 0 unit SUBCUT QIDACHS [facility]; Protocol Last Admin: 08/01/22 07:11 Dose: Not Given Lisinopril (Lisinopril 40 Mg Tablet) 40 mg PO DAILY [facility]; Protocol Last Admin: 08/01/22 07:22 Dose: 40 mg Metoprolol Tartrate (Metoprolol Tartrate 100 Mg Tablet) 100 mg PO BID [facility]; Protocol Last Admin: 08/01/22 07:22 Dose: 100 mg Morphine Sulfate (Morphine Sulfate 2 Mg/Ml Cartridge) 2 mg IVPUSH Q4H PRN; Protocol PRN Reason: Pain, Severe (Pain Scale 7-10) Last Admin: 07/31/22 15:44 Dose: 2 mg Nicotine Polacrilex (Nicotine Polacrilex 2 Mg Gum) 2 mg BUCCAL Q2H PRN PRN Reason: Nicotine Cravings Ondansetron HCl (Ondansetron Hcl 4 Mg/2 Ml Vial) 4 mg IVPUSH Q8H PRN PRN Reason: Nausea and Vomiting Last Admin: 07/30/22 20:45 Dose: 4 mg Oxycodone HCl (Oxycodone Hcl Immed Release 5 Mg Tablet) 5 mg PO Q4H PRN PRN Reason: Pain, Moderate (Pain Scale 4-6 Last Admin: 07/31/22 23:56 Dose: 5 mg Pharmacy Consult (Consult Rx Perform Med Rec) 1 each MISCELLANE ONCE PRN PRN Reason: Consult order Sodium Chloride (0.9 % Sodium Chloride Flush 3 Ml Syringe) 3 ml IVFLUSH [facility] Last Admin: 08/01/22 07:10 Dose: 3 ml Home Medications Medication Instructions Recorded Confirmed Last Taken Type apixaban 5 mg tablet (Eliquis) 5 mg PO BID 09/11/21 07/30/22 07/30/22 08:00 History furosemide 20 mg tablet 20 mg PO DAILY 09/11/21 07/30/22 07/30/22 08:00 History metoprolol tartrate 100 mg tablet 100 mg PO BID 09/11/21 07/30/22 07/30/22 08:00 History ibuprofen 200 mg tablet 400 mg PO Q6H PRN Pain 07/30/22 07/30/22 Unknown History Exam Exam Date and Time: August 01, 2022 0853 Height,Weight and Vital Signs: Height 5 ft 10 in Weight 103.1 kg Last Vital Signs Temp 97.6 F 08/01/22 08:29 Pulse 104 H 08/01/22 08:29 Resp 18 08/01/22 08:29 BP 116/72 08/01/22 08:29 Pulse Ox 97 08/01/22 08:29 O2 Del Method 08/01/22 08:29 O2 Flow Rate 2 07/31/22 07:24 Pertinent Lab Results Pertinent Lab Results: Laboratory Tests 07/30/22 07/30/22 07/30/22 18:02 18:02 18:02 WBC 11.5 H RBC 5.37 Hgb 15.5 Hct 46.1 MCV 85.8 MCH 28.9 MCHC 33.6 RDW 13.8 Plt Count 208 MPV 10.5 Immature Gran % (Auto) 0.7 H Neut % (Auto) 88.9 H Lymph % (Auto) 5.9 L [place] % (Auto) 3.9 Eos % (Auto) 0.3 Baso % (Auto) 0.3 Lymph # (Auto) 0.7 L [place] # (Auto) 0.5 Eos # (Auto) 0.0 Baso # (Auto) 0.0 Abs Immat Gran (auto) 0.08 H Absolute Neuts (auto) 10.2 H Absolute Nucleated RBC 0.000 Nucleated RBC % (auto) 0.0 PT INR APTT Sodium Potassium Chloride Carbon Dioxide Anion Gap BUN Creatinine Estim Creat Clear Calc Estimated GFR POC Glucose Random Glucose Fasting Glucose Lactic Acid Calcium Magnesium Total Bilirubin Direct Bilirubin AST ALT Alkaline Phosphatase Total Creatine Kinase Troponin I High Sens 11.3 B-Natriuretic Peptide 658 H Total Protein Albumin Lipase TSH Free T4 Urine Color Urine Appearance Urine pH Ur Specific [place] Urine Protein Urine Glucose (UA) Urine Ketones Urine Blood Urine Nitrite Ur Leukocyte Esterase Urine RBC Urine WBC Ur Squamous Epith Cells Urine Bacteria Hyaline Casts Respiratory Panel [place] Adenovirus (Rapid PCR) B.pert (TEM-PCR) B.parapertussis DNA PCR C. pneumoniae DNA (PCR) Coronavirus OC43 (PCR) Coronavirus HKU1 (PCR) Coronavirus 229E (PCR) Coronavirus NL63 (PCR) Human Metapneumovir PCR Influenza A (RT-PCR) Influenza Type A (PCR) Influenza B (RT-PCR) Influenza Type B (PCR) M. pneumoniae (PCR) Parainfluenza 1 (PCR) Parainfluenza 2 (PCR) Parainfluenza 3 (PCR) Parainfluenza 4 (PCR) RSV (PCR) RSV RNA Qual (PCR) Entero/Rhino (PCR) SARS-CoV-2 RNA (RT-PCR) Blood Type Antibody Screen 07/30/22 07/30/22 07/30/22 18:02 18:02 19:26 WBC RBC Hgb Hct MCV MCH MCHC RDW Plt Count MPV Immature Gran % (Auto) Neut % (Auto) Lymph % (Auto) [place] % (Auto) Eos % (Auto) Baso % (Auto) Lymph # (Auto) [place] # (Auto) Eos # (Auto) Baso # (Auto) Abs Immat Gran (auto) Absolute Neuts (auto) Absolute Nucleated RBC Nucleated RBC % (auto) PT INR APTT Sodium Potassium Chloride Carbon Dioxide Anion Gap BUN Creatinine Estim Creat Clear Calc Estimated GFR POC Glucose Random Glucose Fasting Glucose Lactic Acid 2.3 H* Calcium Magnesium Total Bilirubin Direct Bilirubin AST ALT Alkaline Phosphatase Total Creatine Kinase Troponin I High Sens B-Natriuretic Peptide Total Protein Albumin Lipase TSH Free T4 Urine Color Yellow Urine Appearance Clear Urine pH 5.0 Ur Specific [place] 1.020 Urine Protein Trace Urine Glucose (UA) Negative Urine Ketones Negative Urine Blood Large (3+) H Urine Nitrite Negative Ur Leukocyte Esterase Negative Urine RBC >20 H Urine WBC 0-5 Ur Squamous Epith Cells 3-5 Urine Bacteria None Seen Hyaline Casts 0-2 Respiratory Panel [place] Adenovirus (Rapid PCR) B.pert (TEM-PCR) B.parapertussis DNA PCR C. pneumoniae DNA (PCR) Coronavirus OC43 (PCR) Coronavirus HKU1 (PCR) Coronavirus 229E (PCR) Coronavirus NL63 (PCR) Human Metapneumovir PCR Influenza A (RT-PCR) Influenza Type A (PCR) NEGATIVE Influenza B (RT-PCR) Influenza Type B (PCR) NEGATIVE M. pneumoniae (PCR) Parainfluenza 1 (PCR) Parainfluenza 2 (PCR) Parainfluenza 3 (PCR) Parainfluenza 4 (PCR) RSV (PCR) RSV RNA Qual (PCR) NEGATIVE Entero/Rhino (PCR) SARS-CoV-2 RNA (RT-PCR) NEGATIVE Blood Type Antibody Screen 07/30/22 07/30/22 07/30/22 19:31 20:20 21:36 WBC RBC Hgb Hct MCV MCH MCHC RDW Plt Count MPV Immature Gran % (Auto) Neut % (Auto) Lymph % (Auto) [place] % (Auto) Eos % (Auto) Baso % (Auto) Lymph # (Auto) [place] # (Auto) Eos # (Auto) Baso # (Auto) Abs Immat Gran (auto) Absolute Neuts (auto) Absolute Nucleated RBC Nucleated RBC % (auto) PT INR APTT Sodium 142 Potassium 4.4 Chloride 108 Carbon Dioxide 25 Anion Gap 13 BUN 15 Creatinine 0.85 Estim Creat Clear Calc 101.6 Estimated GFR > 60 POC Glucose 157 H Random Glucose 144 H Fasting Glucose Lactic Acid 1.6 Calcium 8.4 D Magnesium 1.7 Total Bilirubin 1.8 H Direct Bilirubin 0.4 AST 17 ALT 15 Alkaline Phosphatase 125 H Total Creatine Kinase 47 Troponin I High Sens B-Natriuretic Peptide Total Protein 5.9 L Albumin 3.3 L Lipase 8 TSH 2.41 Free T4 1.06 Urine Color Urine Appearance Urine pH Ur Specific [place] Urine Protein Urine Glucose (UA) Urine Ketones Urine Blood Urine Nitrite Ur Leukocyte Esterase Urine RBC Urine WBC Ur Squamous Epith Cells Urine Bacteria Hyaline Casts Respiratory Panel [place] Adenovirus (Rapid PCR) B.pert (TEM-PCR) B.parapertussis DNA PCR C. pneumoniae DNA (PCR) Coronavirus OC43 (PCR) Coronavirus HKU1 (PCR) Coronavirus 229E (PCR) Coronavirus NL63 (PCR) Human Metapneumovir PCR Influenza A (RT-PCR) Influenza Type A (PCR) Influenza B (RT-PCR) Influenza Type B (PCR) M. pneumoniae (PCR) Parainfluenza 1 (PCR) Parainfluenza 2 (PCR) Parainfluenza 3 (PCR) Parainfluenza 4 (PCR) RSV (PCR) RSV RNA Qual (PCR) Entero/Rhino (PCR) SARS-CoV-2 RNA (RT-PCR) Blood Type Antibody Screen 07/30/22 07/30/22 07/30/22 21:40 23:02 23:47 WBC RBC Hgb Hct MCV MCH MCHC RDW Plt Count MPV Immature Gran % (Auto) Neut % (Auto) Lymph % (Auto) [place] % (Auto) Eos % (Auto) Baso % (Auto) Lymph # (Auto) [place] # (Auto) Eos # (Auto) Baso # (Auto) Abs Immat Gran (auto) Absolute Neuts (auto) Absolute Nucleated RBC Nucleated RBC % (auto) PT 15.5 H INR 1.3 H APTT 36.2 Sodium Potassium Chloride Carbon Dioxide Anion Gap BUN Creatinine Estim Creat Clear Calc Estimated GFR POC Glucose 140 H Random Glucose Fasting Glucose Lactic Acid Calcium Magnesium Total Bilirubin Direct Bilirubin AST ALT Alkaline Phosphatase Total Creatine Kinase Troponin I High Sens B-Natriuretic Peptide Total Protein Albumin Lipase TSH Free T4 Urine Color Urine Appearance Urine pH Ur Specific [place] Urine Protein Urine Glucose (UA) Urine Ketones Urine Blood Urine Nitrite Ur Leukocyte Esterase Urine RBC Urine WBC Ur Squamous Epith Cells Urine Bacteria Hyaline Casts Respiratory Panel [place] See Note Adenovirus (Rapid PCR) Not Detected B.pert (TEM-PCR) Not Detected B.parapertussis DNA PCR Not Detected C. pneumoniae DNA (PCR) Not Detected Coronavirus OC43 (PCR) Not Detected Coronavirus HKU1 (PCR) Not Detected Coronavirus 229E (PCR) Not Detected Coronavirus NL63 (PCR) Not Detected Human Metapneumovir PCR Not Detected Influenza A (RT-PCR) Not Detected Influenza Type A (PCR) Influenza B (RT-PCR) Not Detected Influenza Type B (PCR) M. pneumoniae (PCR) Not Detected Parainfluenza 1 (PCR) Not Detected Parainfluenza 2 (PCR) Not Detected Parainfluenza 3 (PCR) Not Detected Parainfluenza 4 (PCR) Not Detected RSV (PCR) Not Detected RSV RNA Qual (PCR) Entero/Rhino (PCR) Detected A SARS-CoV-2 RNA (RT-PCR) Not Detected Blood Type Antibody Screen 07/31/22 07/31/22 07/31/22 05:30 05:30 05:30 WBC 9.6 RBC 4.96 Hgb 14.2 Hct 43.7 MCV 88.1 MCH 28.6 MCHC 32.5 RDW 14.1 Plt Count 177 MPV 11.3 Immature Gran % (Auto) 0.6 H Neut % (Auto) 82.0 H Lymph % (Auto) 10.1 L [place] % (Auto) 5.3 Eos % (Auto) 1.5 Baso % (Auto) 0.5 Lymph # (Auto) 1.0 L [place] # (Auto) 0.5 Eos # (Auto) 0.1 Baso # (Auto) 0.1 Abs Immat Gran (auto) 0.06 H Absolute Neuts (auto) 7.9 Absolute Nucleated RBC 0.000 Nucleated RBC % (auto) 0.0 PT INR APTT Sodium 140 Potassium 4.5 Chloride 105 Carbon Dioxide 24 Anion Gap 16 BUN 18 H Creatinine 0.96 Estim Creat Clear Calc 88.8 Estimated GFR > 60 POC Glucose Random Glucose 125 H Fasting Glucose Lactic Acid Calcium 8.8 Magnesium Total Bilirubin Direct Bilirubin AST ALT Alkaline Phosphatase Total Creatine Kinase Troponin I High Sens B-Natriuretic Peptide 547 H Total Protein Albumin Lipase TSH Free T4 Urine Color Urine Appearance Urine pH Ur Specific [place] Urine Protein Urine Glucose (UA) Urine Ketones Urine Blood Urine Nitrite Ur Leukocyte Esterase Urine RBC Urine WBC Ur Squamous Epith Cells Urine Bacteria Hyaline Casts Respiratory Panel [place] Adenovirus (Rapid PCR) B.pert (TEM-PCR) B.parapertussis DNA PCR C. pneumoniae DNA (PCR) Coronavirus OC43 (PCR) Coronavirus HKU1 (PCR) Coronavirus 229E (PCR) Coronavirus NL63 (PCR) Human Metapneumovir PCR Influenza A (RT-PCR) Influenza Type A (PCR) Influenza B (RT-PCR) Influenza Type B (PCR) M. pneumoniae (PCR) Parainfluenza 1 (PCR) Parainfluenza 2 (PCR) Parainfluenza 3 (PCR) Parainfluenza 4 (PCR) RSV (PCR) RSV RNA Qual (PCR) Entero/Rhino (PCR) SARS-CoV-2 RNA (RT-PCR) Blood Type Antibody Screen 07/31/22 07/31/22 07/31/22 07:23 07:49 11:02 WBC RBC Hgb Hct MCV MCH MCHC RDW Plt Count MPV Immature Gran % (Auto) Neut % (Auto) Lymph % (Auto) [place] % (Auto) Eos % (Auto) Baso % (Auto) Lymph # (Auto) [place] # (Auto) Eos # (Auto) Baso # (Auto) Abs Immat Gran (auto) Absolute Neuts (auto) Absolute Nucleated RBC Nucleated RBC % (auto) PT INR APTT Sodium Potassium Chloride Carbon Dioxide Anion Gap BUN Creatinine Estim Creat Clear Calc Estimated GFR POC Glucose 183 H 147 H 146 H Random Glucose Fasting Glucose Lactic Acid Calcium Magnesium Total Bilirubin Direct Bilirubin AST ALT Alkaline Phosphatase Total Creatine Kinase Troponin I High Sens B-Natriuretic Peptide Total Protein Albumin Lipase TSH Free T4 Urine Color Urine Appearance Urine pH Ur Specific [place] Urine Protein Urine Glucose (UA) Urine Ketones Urine Blood Urine Nitrite Ur Leukocyte Esterase Urine RBC Urine WBC Ur Squamous Epith Cells Urine Bacteria Hyaline Casts Respiratory Panel [place] Adenovirus (Rapid PCR) B.pert (TEM-PCR) B.parapertussis DNA PCR C. pneumoniae DNA (PCR) Coronavirus OC43 (PCR) Coronavirus HKU1 (PCR) Coronavirus 229E (PCR) Coronavirus NL63 (PCR) Human Metapneumovir PCR Influenza A (RT-PCR) Influenza Type A (PCR) Influenza B (RT-PCR) Influenza Type B (PCR) M. pneumoniae (PCR) Parainfluenza 1 (PCR) Parainfluenza 2 (PCR) Parainfluenza 3 (PCR) Parainfluenza 4 (PCR) RSV (PCR) RSV RNA Qual (PCR) Entero/Rhino (PCR) SARS-CoV-2 RNA (RT-PCR) Blood Type Antibody Screen 07/31/22 07/31/22 07/31/22 16:17 20:48 22:11 WBC RBC Hgb Hct MCV MCH MCHC RDW Plt Count MPV Immature Gran % (Auto) Neut % (Auto) Lymph % (Auto) [place] % (Auto) Eos % (Auto) Baso % (Auto) Lymph # (Auto) [place] # (Auto) Eos # (Auto) Baso # (Auto) Abs Immat Gran (auto) Absolute Neuts (auto) Absolute Nucleated RBC Nucleated RBC % (auto) PT INR APTT Sodium Potassium Chloride Carbon Dioxide Anion Gap BUN Creatinine Estim Creat Clear Calc Estimated GFR POC Glucose 131 H 138 H Random Glucose Fasting Glucose Lactic Acid Calcium Magnesium Total Bilirubin Direct Bilirubin AST ALT Alkaline Phosphatase Total Creatine Kinase Troponin I High Sens B-Natriuretic Peptide Total Protein Albumin Lipase TSH Free T4 Urine Color Urine Appearance Urine pH Ur Specific [place] Urine Protein Urine Glucose (UA) Urine Ketones Urine Blood Urine Nitrite Ur Leukocyte Esterase Urine RBC Urine WBC Ur Squamous Epith Cells Urine Bacteria Hyaline Casts Respiratory Panel [place] Adenovirus (Rapid PCR) B.pert (TEM-PCR) B.parapertussis DNA PCR C. pneumoniae DNA (PCR) Coronavirus OC43 (PCR) Coronavirus HKU1 (PCR) Coronavirus 229E (PCR) Coronavirus NL63 (PCR) Human Metapneumovir PCR Influenza A (RT-PCR) Influenza Type A (PCR) Influenza B (RT-PCR) Influenza Type B (PCR) M. pneumoniae (PCR) Parainfluenza 1 (PCR) Parainfluenza 2 (PCR) Parainfluenza 3 (PCR) Parainfluenza 4 (PCR) RSV (PCR) RSV RNA Qual (PCR) Entero/Rhino (PCR) SARS-CoV-2 RNA (RT-PCR) Blood Type O Negative Antibody Screen NEGATIVE 08/01/22 08/01/22 08/01/22 05:45 05:45 08:24 WBC 6.7 RBC 4.74 Hgb 13.5 L Hct 40.6 L MCV 85.7 MCH 28.5 MCHC 33.3 RDW 14.1 Plt Count 159 L MPV 10.6 Immature Gran % (Auto) 1.3 H Neut % (Auto) 67.7 Lymph % (Auto) 17.9 L [place] % (Auto) 7.7 Eos % (Auto) 4.5 H Baso % (Auto) 0.9 Lymph # (Auto) 1.2 [place] # (Auto) 0.5 Eos # (Auto) 0.3 Baso # (Auto) 0.1 Abs Immat Gran (auto) 0.09 H Absolute Neuts (auto) 4.6 Absolute Nucleated RBC 0.000 Nucleated RBC % (auto) 0.0 PT INR APTT Sodium 137 Potassium 3.7 Chloride 104 Carbon Dioxide 24 Anion Gap 13 BUN 22 H Creatinine 0.98 Estim Creat Clear Calc 86.7 Estimated GFR > 60 POC Glucose 130 H Random Glucose Fasting Glucose 114 H Lactic Acid Calcium 8.4 Magnesium Total Bilirubin 1.4 H Direct Bilirubin AST 12 ALT 11 Alkaline Phosphatase 97 Total Creatine Kinase Troponin I High Sens B-Natriuretic Peptide Total Protein 5.2 L Albumin 2.8 L Lipase TSH Free T4 Urine Color Urine Appearance Urine pH Ur Specific [place] Urine Protein Urine Glucose (UA) Urine Ketones Urine Blood Urine Nitrite Ur Leukocyte Esterase Urine RBC Urine WBC Ur Squamous Epith Cells Urine Bacteria Hyaline Casts Respiratory Panel [place] Adenovirus (Rapid PCR) B.pert (TEM-PCR) B.parapertussis DNA PCR C. pneumoniae DNA (PCR) Coronavirus OC43 (PCR) Coronavirus HKU1 (PCR) Coronavirus 229E (PCR) Coronavirus NL63 (PCR) Human Metapneumovir PCR Influenza A (RT-PCR) Influenza Type A (PCR) Influenza B (RT-PCR) Influenza Type B (PCR) M. pneumoniae (PCR) Parainfluenza 1 (PCR) Parainfluenza 2 (PCR) Parainfluenza 3 (PCR) Parainfluenza 4 (PCR) RSV (PCR) RSV RNA Qual (PCR) Entero/Rhino (PCR) SARS-CoV-2 RNA (RT-PCR) Blood Type Antibody Screen Airway Mallampati Class: II TM Dist: >3cm Neck ROM: Full Loose/Missing/Broken Teeth: No Heart: IRRR Lungs: CTA Assessment and Plan Assessment Anesthesia Assessment: Anesthesia Plan Discussed and Chart Reviewed Final Anesthetic Review Family History of Problems with Anesthesia: No History of Problems with Anesthesia: No NPO: Yes ASA Class: III Final Preanesthetic Review: No Changes in Pt Med Stat and Meds/Allgs Chart Reviewed Patient Risk: Intermediate Procedure Risk: Intermediate Anesthetic Plan Anesthetic Plan: GA Disposition: Standard PACU
--- NOTE | 2022-08-01 11:32 | HO.PM.IMPN ---
Subjective Subjective Date of Service: 08/01/22 Interval History: Pain control related hip fracture adequate. Some confusion overnight. Review of Systems Denies chest pain Denies shortness of breath Denies nausea vomiting diarrhea Denies fever chills Physical Exam Vital Signs: Vital Signs: Last Vital Signs Temp 97.6 F 08/01/22 08:29 Pulse 104 H 08/01/22 08:57 Resp 16 08/01/22 08:57 BP 116/72 08/01/22 08:29 Pulse Ox 97 08/01/22 08:29 O2 Del Method 08/01/22 08:29 O2 Flow Rate 2 07/31/22 07:24 BMI result Body Mass Index 32.5 Const: Other: Awake alert no acute distress Resp: Other: Clear to auscultation bilaterally no rales rhonchi or wheezes Cardio: Other: No S4; positive S1-S2; no S3 murmurs rubs gallops. Irregular regular GI: Other: Soft nontender nondistended normoactive bowel sounds Extrem: Other: no edema bilat Objective Data Active Medications Acetaminophen (Acetaminophen 325 Mg Tablet) 650 mg PO Q6H PRN PRN Reason: Pain, Mild, fever Albuterol Sulfate 2.5 mg/ (Ipratropium [place] 0.5 mg) 0 mg INHALE RQ4H WHILE AWAKE PRN PRN Reason: Wheezing Last Admin: 08/01/22 08:56 Dose: 2.5 each Documented By: CONSTANTINE Docusate Sodium (Docusate Sodium 100 Mg Capsule) 100 mg PO DAILY PRN PRN Reason: Constipation Enoxaparin Sodium (Enoxaparin Sodium 100 Mg/Ml Syringe) 100 mg 1 mg/kg (100 mg) SUBCUT Q12H [facility] Last Admin: 08/01/22 09:21 Dose: Not Given Documented By: TAE Non-Admin Reason: Off Unit: Surgery Furosemide (Furosemide 20 Mg/2 Ml Vial) 20 mg IVPUSH DAILY TERRI; Protocol Last Admin: 08/01/22 07:21 Dose: 20 mg Documented By: TAE Glucose (Glucose Gel 15 Gm Gel..Gram.) 15 gm PO Q15M PRN; Protocol PRN Reason: per Hypoglycemia Standing Ord. Dextrose (D10) 250 mls @ 750 mls/hr IV Q15M PRN; Protocol PRN Reason: per Hypoglycemia Standing Ord. Insulin Human Lispro (Insulin Lispro 100 Unit/Ml 3 Ml Vial) 0 unit SUBCUT QIDACHS [facility]; Protocol Last Admin: 08/01/22 07:11 Dose: Not Given Documented By: TAE Non-Admin Reason: NPO Lisinopril (Lisinopril 40 Mg Tablet) 40 mg PO DAILY [facility]; Protocol Last Admin: 08/01/22 07:22 Dose: 40 mg Documented By: TAE Metoprolol Tartrate (Metoprolol Tartrate 100 Mg Tablet) 100 mg PO BID [facility]; Protocol Last Admin: 08/01/22 07:22 Dose: 100 mg Documented By: TAE Morphine Sulfate (Morphine Sulfate 2 Mg/Ml Cartridge) 2 mg IVPUSH Q4H PRN; Protocol PRN Reason: Pain, Severe (Pain Scale 7-10) Last Admin: 07/31/22 15:44 Dose: 2 mg Documented By: ISAAC Nicotine Polacrilex (Nicotine Polacrilex 2 Mg Gum) 2 mg BUCCAL Q2H PRN PRN Reason: Nicotine Cravings Ondansetron HCl (Ondansetron Hcl 4 Mg/2 Ml Vial) 4 mg IVPUSH Q8H PRN PRN Reason: Nausea and Vomiting Last Admin: 07/30/22 20:45 Dose: 4 mg Documented By: CARL Oxycodone HCl (Oxycodone Hcl Immed Release 5 Mg Tablet) 5 mg PO Q4H PRN PRN Reason: Pain, Moderate (Pain Scale 4-6 Last Admin: 07/31/22 23:56 Dose: 5 mg Documented By: NABIL Pharmacy Consult (Consult Rx Perform Med Rec) 1 each MISCELLANE ONCE PRN PRN Reason: Consult order Sodium Chloride (0.9 % Sodium Chloride Flush 3 Ml Syringe) 3 ml IVFLUSH QSHIFT [facility] Last Admin: 08/01/22 07:10 Dose: 3 ml Documented By: TAE Labs 08/01/22 05:45 08/01/22 05:45 Labs: Laboratory Results - last 24 hr 07/31/22 07/31/22 07/31/22 11:02 16:17 20:48 MCV MCH MCHC RDW Plt Count MPV Immature Gran % (Auto) Neut % (Auto) Lymph % (Auto) [place] % (Auto) Eos % (Auto) Baso % (Auto) Lymph # (Auto) [place] # (Auto) Eos # (Auto) Baso # (Auto) Abs Immat Gran (auto) Absolute Neuts (auto) Absolute Nucleated RBC Nucleated RBC % (auto) Anion Gap Estim Creat Clear Calc Estimated GFR POC Glucose 146 H 131 H 138 H Fasting Glucose Calcium Total Bilirubin AST ALT Alkaline Phosphatase Total Protein Albumin Blood Type Antibody Screen 07/31/22 08/01/22 08/01/22 22:11 05:45 05:45 MCV 85.7 MCH 28.5 MCHC 33.3 RDW 14.1 Plt Count 159 L MPV 10.6 Immature Gran % (Auto) 1.3 H Neut % (Auto) 67.7 Lymph % (Auto) 17.9 L [place] % (Auto) 7.7 Eos % (Auto) 4.5 H Baso % (Auto) 0.9 Lymph # (Auto) 1.2 [place] # (Auto) 0.5 Eos # (Auto) 0.3 Baso # (Auto) 0.1 Abs Immat Gran (auto) 0.09 H Absolute Neuts (auto) 4.6 Absolute Nucleated RBC 0.000 Nucleated RBC % (auto) 0.0 Anion Gap 13 Estim Creat Clear Calc 86.7 Estimated GFR > 60 POC Glucose Fasting Glucose 114 H Calcium 8.4 Total Bilirubin 1.4 H AST 12 ALT 11 Alkaline Phosphatase 97 Total Protein 5.2 L Albumin 2.8 L Blood Type O Negative Antibody Screen NEGATIVE 08/01/22 08:24 MCV MCH MCHC RDW Plt Count MPV Immature Gran % (Auto) Neut % (Auto) Lymph % (Auto) [place] % (Auto) Eos % (Auto) Baso % (Auto) Lymph # (Auto) [place] # (Auto) Eos # (Auto) Baso # (Auto) Abs Immat Gran (auto) Absolute Neuts (auto) Absolute Nucleated RBC Nucleated RBC % (auto) Anion Gap Estim Creat Clear Calc Estimated GFR POC Glucose 130 H Fasting Glucose Calcium Total Bilirubin AST ALT Alkaline Phosphatase Total Protein Albumin Blood Type Antibody Screen Microbiology Microbiology Results: Microbiology 07/30/22 17:08 Urine Culture - Final Urine clean catch - Urine pa top No growth. 07/30/22 18:02 Blood Culture - Preliminary Blood - Venous No growth after 24 hours. 07/30/22 18:02 Blood Culture - Preliminary Blood - Venous No growth after 24 hours. Assessment and Plan (1) Left displaced femoral neck fracture: Status: Acute (2) Persistent atrial fibrillation: Status: Acute (3) SIRS (systemic inflammatory response syndrome): Status: Acute Plan 67-year-old male with history of paroxysmal atrial fibrillation anticoagulated with Eliquis, HFpEF, guh-jamyogb-wqcbncddq type 2 diabetes, and hypertension who is a current 4-5 cigarette per day smoker admitted for left femoral neck fracture, AFib RVR, and CHF exacerbation. 1.Acute left femoral neck fracture -Hold eliquis; NPO after midnight 08/01.. Surgery this a.m. -pain management -rendon 2.Paroxysmal atrial fibrillation with RVR -Hold eliquis as above. Therapeutic lovenox -Continue PO metoprolol -2d echo -cards consult appreciated 3.Sepsis-unclear etiology, possibly viral -resolved -given 1 g ceftriaxone in ED. Hold off on further antibiotics at this time 4.Acute CHF exacerbation, unspecified EF -IV lasix -2d echo -cardiac diet -continue Rendon for fluid management 5.Lkg-nrzscpj-pmyktewqm type 2 diabetes --lispro correctional scale -adjust as indicated loveno Full code Patient requires ongoing hospitalization to manage acute 5th left femoral neck fracture Time Spent With Patient Time: Total time managing care of this patient today ____ minutes. Quality Stroke Does the patient have a stroke diagnosis?: No VTE Prior VTE?: No VTE Risk Level:: Medical - moderate - high VTE Device Contraindication: Treatment Not Indicated VTE Drug Contraindication: N/A - Med Ordered
--- NOTE | 2022-08-01 12:48 | PM.OP ---
Brief Operative Note Date of Service: 08/01/22 Pre-op diagnosis: left femoral neck fracture Post-op diagnosis: same Procedure: Left hip hemiarthroplasty Implants: Styrke Accolade Cemented #5 127 deg with +8 26/50 bipolary Surgeon: Omer Melendez MD Anesthesia: GLMA and local Was an Dry Kiln Worker used for this Procedure?: No Estimated blood loss (mL): 300 IV fluids (mL): 1,500 Pathology: other Condition: stable Disposition: PACU
[2022-08-01] MEDS: HYDROmorphone HCl 0.5 MG/0.5 ML SYRINGE IVPUSH ×3 (12:51→13:15)
--- NOTE | 2022-08-01 13:33 | MHC.CM.PN ---
EMR REVIEWED AND PER MD ROUNDS, PT NOT MEDICALLY CLEARED FOR DC, TO OR TODAY FOR LEFT HIP REPAIR. CM WILL CONTINUE TO FOLLOW
--- NOTE | 2022-08-01 15:59 | W.PM.OPN ---
Operative Note Operative Note Date of Service: 08/01/22 Narrative: Date of Service: 08/01/22 Pre-op diagnosis: left femoral neck fracture Post-op diagnosis: same Procedure: Left hip hemiarthroplasty Implants: Styrke Accolade Cemented #5 127 deg with +8 26/50 bipolar Surgeon: Omer Melendez MD Anesthesia: GLMA and local Was an Bath Solution Maker used for this Procedure?: No Estimated blood loss (mL): 300 IV fluids (mL): 1,500 Pathology: other Condition: stable Disposition: PACU Procedure in detail: Patient was brought to the operative room placed in the lateral decubitus position. All bony prominences were well padded and the was prepped and draped in standard sterile fashion. IV antibiotics per weight were administered and a time-out was called to identify proper site proper procedure proper surgeon. Radiographs were available and confirmed. I began by making a curvilinear incision over the posterolateral aspect of the greater trochanter. Dissection was taken down to the tensor fascia which was incised in line with the incision and a Charnley retractor was placed. The hip was internally rotated and the external rotators were identified. All vessels in the area were cauterized and a full-thickness capsular/external rotator layer was developed in a hockey-stick fashion starting just proximal to the piriformis. This layer was tagged and the displaced femoral neck fracture was identified. Clean-up cuts was performed while protecxtion the posterolateral soft tissues and the head was removed and measured (50 mm) on the back table. I then copiously irrigated the acetabulum and removed all bony fragments. Once this was done I used a cookie cutter to lateralize and a Charnley awl to identify the canal and then sequentially broached up to a 127 deg #7. I then trialed with a standard head and a bipolar component matching the femoral head size. I was satisfied with the range of motion and stability and length. I elected to cement in a femur and re-trialed with a 5 accolade cemented. Again I was happy with the stability. I then removed all instrumentation and copiously irrigated. I used 3rd generation cementation technique and mixed 2 bags of palacos cement on the back table. I used a centralizer and a distal plug and cemented in a #5 127 deg Accolade C in anatomic anteversion. I then retrialed and was most satisfied with a +8/50 bipolar. I placed my final femoral implant and I was satisfied with the stability. I closed the capsular layer with FiberWire and then, after a three minute iodine soak. I performed a layered closure with kita on skin. Radiographs were taken and I was satisfied with the alignement. The patient was placed in sterile dressing extubated brought to recovery room in stable condition there were no known complications.
[2022-08-01 16:12] LABS: Glucose, Whole Blood 104 mg/dL (60-115)
[2022-08-01] MEDS: dilTIAZem HCL 50 MG/10 ML VIAL 10 MG IVPUSH (20:12)
[2022-08-01 20:29] LABS: Glucose, Whole Blood 271 mg/dL (60-115)
[2022-08-01] MEDS: Enoxaparin Sodium 100 MG/ML SYRINGE SUBCUT (22:06)
[2022-08-01] MEDS: Insulin Lispro 100 UNIT/ML 3 ML VIAL SUBCUT (22:07)
[2022-08-02] VITALS (7 sets, daily range): BP systolic 82–121; BP diastolic 55–68; PULSE 75–125; RESP 17–18; TEMP 36.5–36.6; O2SAT 94–98; BMI 34.6
--- NOTE | 2022-08-02 03:28 | PC.NURSE ---
After shift report, pt's heart rate via teley was reading afib increasing to the 160s then going down to the 140s. Pt denies any SOB or chest pain. MD Soto was notified of the pt's HR being afib. EKG was ordered. EKG showed the pt in rapid afib with HR reaching 162 at 19:41. MD Soto ordered STAT Cardizem 10mg IV Push. This nurse administered ordered medication to pt at 20:12. The pt's HR via teley after administration went down to the 100s and still in afib. Will continue to monitor pt's HR.
[2022-08-02] MEDS: dilTIAZem HCL 50 MG/10 ML VIAL 10 MG IVPUSH ×2 (04:19→22:44)
[2022-08-02] MEDS: oxyCODONE HCl Immed Release 5 MG TABLET PO ×4 (05:35→22:43)
[2022-08-02 05:47] LABS: MANUAL DIFF FLAG NO
[2022-08-02 05:52] LABS: Basophils Absolute Auto 0.1 X10*3/uL (0.0-0.2); Basophils Percent Auto 0.6 % (0-2); Eosinophils Absolute Auto 0.1 X10*3/uL (0.0-0.4); Eosinophils Percent Auto 0.5 % (0-4); Hematocrit 35.8 % (42.0-52.0); Hemoglobin 11.8 g/dl (14.0-18.0); Imm Gran Abs Auto 0.07 X10*3/uL (0.00-0.03); Imm Gran Pct Auto 0.7 % (0.0-0.4); Lymphocytes Absolute Auto 1.5 X10*3/uL (1.2-4.9); Lymphocytes Percent Auto 15.4 % (20-40); Mean Corpuscular Hemoglobin 28.5 pg (27.0-33.0); Mean Corpuscular Volume 86.5 fL (80.0-98.0); Mean Platelet Volume 11.4 fL (9.4-12.4); Monocytes Absolute Auto 0.9 X10*3/uL (0.1-1.2); Monocytes Percent Auto 9.5 % (2-11); Neutrophils Percent Auto 73.3 % (45-73); Platelet Count 166 X10*3/uL (160-400); Red Blood Count 4.14 X10*6/uL (4.60-5.80); Red Cell Distribution Width 13.9 % (11.0-16.0); White Blood Count 9.6 X10*3/uL (4.8-10.8)
[2022-08-02 06:10] LABS: Alanine Aminotransferase 13 U/L (0-40); Albumin Level 2.6 g/dL (3.5-5.0); Alkaline Phosphatase 82 U/L (39-117); Anion Gap 14 (12-20); Aspartate Amino Transferase 18 U/L (5-37); Bilirubin Total 1.8 mg/dL (0.0-1.0); Blood Urea Nitrogen 27 mg/dL (9-16); Carbon Dioxide 23 mmol/L (22-29); Chloride 100 mmol/L (96-108); Creatinine Clr Calc Pharmacy 93.4; Estimated Glomerular Filt Rate > 60; Glucose Fasting 141 mg/dL (60-99); Potassium 3.9 mmol/L (3.3-5.1); Sodium 133 mmol/L (135-145); Total Protein 4.8 g/dL (6.5-8.0)
[2022-08-02 07:37] LABS: Glucose, Whole Blood 154 mg/dL (60-115)
--- NOTE | 2022-08-02 07:46 | P.PNOP_ITS ---
Subjective Subjective Date of Service: 08/02/22 Interval history: POD 1 s/p Left hip hemiarthroplasty no overnight events resting in bed, denies sob, cp. Physical Exam Vital Signs: Vital Signs: Last Vital Signs Temp 97.7 F 08/02/22 03:19 Pulse 107 H 08/02/22 03:19 Resp 17 08/02/22 03:19 BP 110/55 L 08/02/22 03:19 Pulse Ox 95 08/02/22 03:19 O2 Del Method 08/02/22 03:19 O2 Flow Rate 4 08/02/22 03:19 BMI result Body Mass Index 34.6 Const: General: cooperative, healthy appearing and no acute distress Resp: Effort & Inspection: normal respiratory effort and able to speak in complete sentences Cardio: Rate: regular rate Peripheral pulses: Peripheral pulses 2+ throughout GI: Palpation (GI): Soft to palpation Skin: General skin exam: no rashes or lesions noted Extrem: Other: incision clean dry and intact. [place] intact. No erythema or effusion. Calf supple nontender. Neurovascularly intact. Procedures Date of Service Date of Service: 08/02/22 Progress Note: A&P Assessment and plan (1) History of left hip hemiarthroplasty: Status: Acute Assessment and Plan: * Continue pain mgmnt * begin lovenox for dvt ppx * begin PT/OT for LT hip hemiarthroplasty * Dispo planning-Pending PT eval, pain mgmnt Time Spent With Patient Time: Total time managing care of this patient today ____ minutes. Quality Stroke Does the patient have a stroke diagnosis?: No VTE Prior VTE?: No VTE Risk Level:: Medical - moderate - high VTE Device Contraindication: Treatment Not Indicated VTE Drug Contraindication: N/A - Med Ordered
[2022-08-02] MEDS: lisinopriL 40 MG TABLET PO (07:57)
[2022-08-02] MEDS: Metoprolol Tartrate 100 MG TABLET PO (07:57)
[2022-08-02] MEDS: Furosemide 20 MG/2 ML VIAL IVPUSH (07:57)
[2022-08-02] MEDS: Insulin Lispro 100 UNIT/ML 3 ML VIAL SUBCUT ×3 (07:57→22:44)
[2022-08-02] MEDS: 0.9 % Sodium Chloride Flush 3 ML SYRINGE IVFLUSH ×2 (07:58→16:27)
--- NOTE | 2022-08-02 09:24 | HO.POSTANES ---
Post Anesthesia Evaluation Post Anesthesia Evaluation Vital Signs: Vital Signs Temp Pulse Resp BP Pulse Ox O2 Del Method O2 Flow Rate 08/02/22 08:00 97.8 F 111 H 18 114/58 L 94 Nasal Cannula 4 08/02/22 03:19 97.7 F 107 H 17 110/55 L 95 Nasal Cannula 4 08/01/22 23:45 98 F 101 H 17 92/54 L 95 Nasal Cannula 4 08/01/22 22:05 111 H 18 115/84 95 Nasal Cannula 4 Anesthesia: General LMA Mental Status: Awake Pain Control: Satisfactory Nausea/Vomiting: None Hydration: Adequate Anesthesia-Related Issues: No Anes. Related Issues
[2022-08-02] MEDS: Enoxaparin Sodium 100 MG/ML SYRINGE SUBCUT ×2 (10:11→22:44)
--- NOTE | 2022-08-02 10:15 | P.PNIM_ITS ---
Subjective Subjective Date of Service: 08/02/22 Interval History: Uneventful night. Pain control adequate. Heart rate continues to be tacky Review of Systems Denies chest pain Denies shortness of breath Denies nausea vomiting diarrhea Denies fever chills Physical Exam Vital Signs: Vital Signs: Last Vital Signs Temp 97.8 F 08/02/22 08:00 Pulse 111 H 08/02/22 08:00 Resp 18 08/02/22 08:00 BP 114/58 L 08/02/22 08:00 Pulse Ox 94 08/02/22 08:00 O2 Del Method 08/02/22 08:00 O2 Flow Rate 4 08/02/22 08:00 BMI result Body Mass Index 34.6 Const: Other: Awake alert no acute distress Resp: Other: Clear to auscultation bilaterally no rales rhonchi or wheezes Cardio: Other: No S4; positive S1-S2; no S3 murmurs rubs gallops. Irregular regular GI: Other: Soft nontender nondistended normoactive bowel sounds Extrem: Other: no edema bilat Objective Data Active Medications Acetaminophen (Acetaminophen 325 Mg Tablet) 650 mg PO Q6H PRN PRN Reason: Pain, Mild, fever Albuterol Sulfate 2.5 mg/ (Ipratropium [place] 0.5 mg) 0 mg INHALE RQ4H WHILE AWAKE PRN PRN Reason: Wheezing Last Admin: 08/01/22 08:56 Dose: 2.5 each Documented By: CONSTANTINE Docusate Sodium (Docusate Sodium 100 Mg Capsule) 100 mg PO DAILY PRN PRN Reason: Constipation Enoxaparin Sodium (Enoxaparin Sodium 100 Mg/Ml Syringe) 100 mg 1 mg/kg (100 mg) SUBCUT Q12H [facility] Last Admin: 08/02/22 10:11 Dose: 100 mg Documented By: SHAYY Fentanyl (Fentanyl Citrate/Pf 100 Mcg/2 Ml Vial) 50 mcg IVPUSH Q5M PRN; Protocol PRN Reason: Pain, Severe (Pain Scale 7-10) Furosemide (Furosemide 20 Mg/2 Ml Vial) 20 mg IVPUSH DAILY [facility]; Protocol Last Admin: 08/02/22 07:57 Dose: 20 mg Documented By: SHAYY Glucose (Glucose Gel 15 Gm Gel..Gram.) 15 gm PO Q15M PRN; Protocol PRN Reason: per Hypoglycemia Standing Ord. Hydromorphone HCl (Hydromorphone Hcl 0.5 Mg/0.5 Ml Syringe) 0.5 mg IVPUSH Q5M PRN; Protocol PRN Reason: Pain, Severe (Pain Scale 7-10) Last Admin: 08/01/22 13:15 Dose: 0.5 mg Documented By: SHELLEY Dextrose (D10) 250 mls @ 750 mls/hr IV Q15M PRN; Protocol PRN Reason: per Hypoglycemia Standing Ord. Promethazine HCl 12.5 mg/ (Sodium Chloride) 50.5 mls @ 202 mls/hr IV ONCE PRN PRN Reason: Nausea and Vomiting Insulin Human Lispro (Insulin Lispro 100 Unit/Ml 3 Ml Vial) 0 unit SUBCUT QIDACHS [facility]; Protocol Last Admin: 08/02/22 07:57 Dose: 2 unit Documented By: SHAYY Lisinopril (Lisinopril 40 Mg Tablet) 40 mg PO DAILY [facility]; Protocol Last Admin: 08/02/22 07:57 Dose: 40 mg Documented By: SHAYY Metoprolol Tartrate (Metoprolol Tartrate 100 Mg Tablet) 100 mg PO BID [facility]; Protocol Last Admin: 08/02/22 07:57 Dose: 100 mg Documented By: SHAYY Morphine Sulfate (Morphine Sulfate 2 Mg/Ml Cartridge) 2 mg IVPUSH Q4H PRN; Protocol PRN Reason: Pain, Severe (Pain Scale 7-10) Last Admin: 07/31/22 15:44 Dose: 2 mg Documented By: ISAAC Nicotine Polacrilex (Nicotine Polacrilex 2 Mg Gum) 2 mg BUCCAL Q2H PRN PRN Reason: Nicotine Cravings Ondansetron HCl (Ondansetron Hcl 4 Mg/2 Ml Vial) 4 mg IVPUSH Q8H PRN PRN Reason: Nausea and Vomiting Last Admin: 07/30/22 20:45 Dose: 4 mg Documented By: CARL Oxycodone HCl (Oxycodone Hcl Immed Release 5 Mg Tablet) 5 mg PO Q4H PRN PRN Reason: Pain, Moderate (Pain Scale 4-6 Last Admin: 08/02/22 10:10 Dose: 5 mg Documented By: SHAYY Pharmacy Consult (Consult Rx Perform Med Rec) 1 each MISCELLANE ONCE PRN PRN Reason: Consult order Sodium Chloride (0.9 % Sodium Chloride Flush 3 Ml Syringe) 3 ml IVFLUSH QSHIFT [facility] Last Admin: 08/02/22 07:58 Dose: 3 ml Documented By: SHAYY Labs 08/02/22 05:15 08/02/22 05:15 Labs: Laboratory Results - last 24 hr 08/01/22 08/01/22 08/02/22 16:09 20:22 05:15 MCV 86.5 MCH 28.5 MCHC 33.0 RDW 13.9 Plt Count 166 MPV 11.4 Immature Gran % (Auto) 0.7 H Neut % (Auto) 73.3 H Lymph % (Auto) 15.[address] [place] % (Auto) 9.5 Eos % (Auto) 0.5 Baso % (Auto) 0.6 Lymph # (Auto) 1.5 [place] # (Auto) 0.9 Eos # (Auto) 0.1 Baso # (Auto) 0.1 Abs Immat Gran (auto) 0.07 H Absolute Neuts (auto) 7.0 Absolute Nucleated RBC 0.000 Nucleated RBC % (auto) 0.0 Anion Gap Estim Creat Clear Calc Estimated GFR POC Glucose 104 271 H Fasting Glucose Calcium Total Bilirubin AST ALT Alkaline Phosphatase Total Protein Albumin 08/02/22 08/02/22 05:15 07:30 MCV MCH MCHC RDW Plt Count MPV Immature Gran % (Auto) Neut % (Auto) Lymph % (Auto) [place] % (Auto) Eos % (Auto) Baso % (Auto) Lymph # (Auto) [place] # (Auto) Eos # (Auto) Baso # (Auto) Abs Immat Gran (auto) Absolute Neuts (auto) Absolute Nucleated RBC Nucleated RBC % (auto) Anion Gap 14 Estim Creat Clear Calc 93.4 Estimated GFR > 60 POC Glucose 154 H Fasting Glucose 141 H Calcium 8.0 L Total Bilirubin 1.8 H AST 18 ALT 13 Alkaline Phosphatase 82 Total Protein 4.8 L Albumin 2.6 L Microbiology Microbiology Results: Microbiology 07/30/22 18:02 Blood Culture - Preliminary Blood - Venous No growth after 48 hours. 07/30/22 18:02 Blood Culture - Preliminary Blood - Venous No growth after 48 hours. 07/30/22 17:08 Urine Culture - Final Urine clean catch - Urine pa top No growth. Assessment and Plan (1) History of left hip hemiarthroplasty: Status: Acute (2) Persistent atrial fibrillation: Status: Acute (3) Sepsis: Status: Acute Plan 67-year-old male with history of paroxysmal atrial fibrillation anticoagulated with Eliquis, HFpEF, kvp-ituqqds-jothbyekd type 2 diabetes, and hypertension who is a current 4-5 cigarette per day smoker admitted for left femoral neck fracture, AFib RVR, and CHF exacerbation. 1.Acute left femoral neck fracture -POD 1 -pain management -rendon 2.Paroxysmal atrial fibrillation with RVR -Hold eliquis as above. Therapeutic lovenox .... -Continue PO metoprolol -may need Cardizem if heart rate continues to be elevated 3.Sepsis-unclear etiology, possibly viral -resolved 4.Acute CHF exacerbation, unspecified EF -lasix po -cardiac diet -continue Rendon for fluid management 5.Rex-oyfwepd-xxnsrnjuc type 2 diabetes -acceptable control --lispro correctional scale -adjust as indicated loveno Full code Patient requires ongoing hospitalization to manage acute 5th left femoral neck fracture Time Spent With Patient Time: Total time managing care of this patient today ____ minutes. Quality Stroke Does the patient have a stroke diagnosis?: No VTE Prior VTE?: No VTE Risk Level:: Medical - moderate - high VTE Device Contraindication: Treatment Not Indicated VTE Drug Contraindication: N/A - Med Ordered
[2022-08-02 11:47] LABS: Glucose, Whole Blood 137 mg/dL (60-115)
--- NOTE | 2022-08-02 15:57 | PM.PNCARD ---
Subjective Subjective Date of Service: 08/02/22 Interval history: Seen examined at bedside. He is status post surgery at this point. Continues to be in atrial fibrillation with heart rates in 110s. Denying any symptoms. Physical Exam Vital Signs: Last Vital Signs Temp 97.8 F 08/02/22 08:00 Pulse 111 H 08/02/22 08:00 Resp 18 08/02/22 08:00 BP 114/58 L 08/02/22 08:00 Pulse Ox 94 08/02/22 08:00 O2 Del Method 08/02/22 08:00 O2 Flow Rate 4 08/02/22 08:00 BMI result Body Mass Index 34.6 GENERAL APPEARANCE: in no acute distress, pleasant. NECK: no carotid bruit, no significant jugular venous distention. SKIN: no suspicious lesions, warm and dry. HEART: no murmurs, irregular rate and rhythm. Tachycardic. LUNGS: clear to auscultation bilaterally. ABDOMEN: soft, nontender. PERIPHERAL PULSES: equal. NEUROLOGIC: No gross deficits, AAO X 3 Objective Labs and Meds 08/02/22 05:15 08/02/22 05:15 Lab results: Laboratory Results - last 24 hr 08/01/22 08/01/22 08/02/22 16:09 20:22 05:15 WBC 9.6 RBC 4.14 L Hgb 11.8 L Hct 35.8 L MCV 86.5 MCH 28.5 MCHC 33.0 RDW 13.9 Plt Count 166 MPV 11.4 Immature Gran % (Auto) 0.7 H Neut % (Auto) 73.3 H Lymph % (Auto) 15.4 L [place] % (Auto) 9.5 Eos % (Auto) 0.5 Baso % (Auto) 0.6 Lymph # (Auto) 1.5 [place] # (Auto) 0.9 Eos # (Auto) 0.1 Baso # (Auto) 0.1 Abs Immat Gran (auto) 0.07 H Absolute Neuts (auto) 7.0 Absolute Nucleated RBC 0.000 Nucleated RBC % (auto) 0.0 Sodium Potassium Chloride Carbon Dioxide Anion Gap BUN Creatinine Estim Creat Clear Calc Estimated GFR POC Glucose 104 271 H Fasting Glucose Calcium Total Bilirubin AST ALT Alkaline Phosphatase Total Protein Albumin 08/02/22 08/02/22 08/02/22 05:15 07:30 11:43 WBC RBC Hgb Hct MCV MCH MCHC RDW Plt Count MPV Immature Gran % (Auto) Neut % (Auto) Lymph % (Auto) [place] % (Auto) Eos % (Auto) Baso % (Auto) Lymph # (Auto) [place] # (Auto) Eos # (Auto) Baso # (Auto) Abs Immat Gran (auto) Absolute Neuts (auto) Absolute Nucleated RBC Nucleated RBC % (auto) Sodium 133 L Potassium 3.9 Chloride 100 Carbon Dioxide 23 Anion Gap 14 BUN 27 H Creatinine 0.91 Estim Creat Clear Calc 93.4 Estimated GFR > 60 POC Glucose 154 H 137 H Fasting Glucose 141 H Calcium 8.0 L Total Bilirubin 1.8 H AST 18 ALT 13 Alkaline Phosphatase 82 Total Protein 4.8 L Albumin 2.6 L Imaging Radiologist's impression: Impressions Pelvis X-Ray 08/01/22 12:05 IMPRESSION: Satisfactory appearance status post left hip arthroplasty. Progress Note: A&P Assessment and plan (1) Atrial fibrillation with RVR: Status: Acute Plan 67-year-old gentleman who is presenting for mechanical fall and hip fracture. He underwent surgery. He has atrial fibrillation and he is tachycardic. Clinically is asymptomatic currently. Continue 100 mg b.i.d. metoprolol. Would favor adding digoxin 125 mcg every other day if he continues to be tachycardic. Maria Luisa for anticoagulation. Thank you for allowing me to participate in the care of your patient. Please feel free to contact me if you have any questions. Time Spent With Patient Time: Total time managing care of this patient today ____ minutes. Progress Note: Quality Stroke Does the patient have a stroke diagnosis?: No Procedures Date of Service Date of Service: 08/02/22
[2022-08-02 16:06] LABS: Glucose, Whole Blood 229 mg/dL (60-115)
[2022-08-02] MEDS: Morphine Sulfate 2 MG/ML CARTRIDGE IVPUSH (18:23)
[2022-08-02 20:57] LABS: Glucose, Whole Blood 217 mg/dL (60-115)
[2022-08-02] MEDS: Albumin Human 25 % 100 ML IV (22:52)
[2022-08-03 03:20] VITALS: BP 131/59; PULSE 120; RESP 17; TEMP 36.4; O2SAT 96
--- NOTE | 2022-08-03 04:45 | PC.NURSE ---
At 22:00, pt's BP was 82/58, HR 125, & afib on tele. Pt had TERRI Metoprolol but held med due to his decreased BP. MD Soto notified of pt's BP & HR. Metoprolol was held and MD Soto ordered diltiazem & albumin. New meds were given to pt. Will continue to monitor pt's BP & HR.
[2022-08-03] MEDS: Metoprolol Tartrate 5 MG/5 ML VIAL IVPUSH (05:50)
[2022-08-03 06:00] VITALS: BMI 34.4
[2022-08-03 06:29] LABS: MANUAL DIFF FLAG NO
[2022-08-03 06:38] LABS: Basophils Percent Auto 0.4 % (0-2); Eosinophils Absolute Auto 0.1 X10*3/uL (0.0-0.4); Hemoglobin 10.4 g/dl (14.0-18.0); Imm Gran Abs Auto 0.15 X10*3/uL (0.00-0.03); Imm Gran Pct Auto 1.5 % (0.0-0.4); Lymphocytes Absolute Auto 1.8 X10*3/uL (1.2-4.9); Lymphocytes Percent Auto 17.8 % (20-40); Mean Corpuscular HGB Conc 33.5 g/dl (31.0-36.0); Mean Corpuscular Hemoglobin 28.9 pg (27.0-33.0); Mean Corpuscular Volume 86.1 fL (80.0-98.0); Mean Platelet Volume 11.6 fL (9.4-12.4); Monocytes Absolute Auto 1.1 X10*3/uL (0.1-1.2); Monocytes Percent Auto 11.2 % (2-11); Neutrophils Absolute Auto 6.7 x10*3/uL (2.0-8.3); Neutrophils Percent Auto 68.1 % (45-73); Platelet Count 156 X10*3/uL (160-400); White Blood Count 9.9 X10*3/uL (4.8-10.8)
[2022-08-03 07:18] LABS: Alanine Aminotransferase 10 U/L (0-40); Albumin Level 2.7 g/dL (3.5-5.0); Alkaline Phosphatase 73 U/L (39-117); Anion Gap 17 (12-20); Aspartate Amino Transferase 15 U/L (5-37); Bilirubin Total 1.6 mg/dL (0.0-1.0); Blood Urea Nitrogen 32 mg/dL (9-16); Calcium 8.2 mg/dL (8.4-10.2); Carbon Dioxide 20 mmol/L (22-29); Chloride 98 mmol/L (96-108); Creatinine Clr Calc Pharmacy 82.4; Estimated Glomerular Filt Rate > 60; Glucose Fasting 132 mg/dL (60-99); Potassium 3.8 mmol/L (3.3-5.1); Sodium 131 mmol/L (135-145); Total Protein 4.9 g/dL (6.5-8.0)
[2022-08-03 07:51] LABS: Glucose, Whole Blood 153 mg/dL (60-115)
[2022-08-03 08:00] VITALS: BP 122/61; PULSE 121; RESP 18; TEMP 36.6; O2SAT 97
[2022-08-03] MEDS: Insulin Lispro 100 UNIT/ML 3 ML VIAL SUBCUT ×4 (08:00→22:38)
[2022-08-03] MEDS: Metoprolol Tartrate 100 MG TABLET PO ×2 (08:01→22:39)
[2022-08-03] MEDS: Furosemide 20 MG/2 ML VIAL IVPUSH (08:01)
[2022-08-03] MEDS: Enoxaparin Sodium 100 MG/ML SYRINGE SUBCUT ×2 (08:01→22:38)
[2022-08-03] MEDS: lisinopriL 40 MG TABLET PO (08:01)
[2022-08-03] MEDS: 0.9 % Sodium Chloride Flush 3 ML SYRINGE IVFLUSH ×2 (08:01→14:11)
[2022-08-03] MEDS: Digoxin 0.5 MG/2 ML AMPUL 0.25 MG IVPUSH ×3 (08:23→22:37)
[2022-08-03] MEDS: Morphine Sulfate 2 MG/ML CARTRIDGE IVPUSH ×2 (09:00→14:10)
[2022-08-03 11:14] LABS: Glucose, Whole Blood 181 mg/dL (60-115)
--- NOTE | 2022-08-03 11:38 | P.PNOP_ITS ---
Subjective Subjective Date of Service: 08/03/22 Interval history: POD 2 s/p Left hip hemiarthroplasty no overnight events resting in bed, denies sob, cp. Physical Exam Vital Signs: Vital Signs: Last Vital Signs Temp 97.9 F 08/03/22 08:00 Pulse 121 H 08/03/22 08:00 Resp 18 08/03/22 08:00 BP 122/61 08/03/22 08:00 Pulse Ox 97 08/03/22 08:00 O2 Del Method 08/03/22 08:00 O2 Flow Rate 4 08/03/22 08:00 BMI result Body Mass Index 34.4 Const: General: cooperative, healthy appearing and no acute distress Resp: Effort & Inspection: normal respiratory effort and able to speak in complete sentences Cardio: Rate: regular rate Peripheral pulses: Peripheral pulses 2+ throughout GI: Palpation (GI): Soft to palpation Skin: General skin exam: no rashes or lesions noted Extrem: Other: incision clean dry and intact. [place] intact. No erythema or effusion. Calf supple nontender. Neurovascularly intact. Procedures Date of Service Date of Service: 08/03/22 Progress Note: A&P Assessment and plan (1) History of left hip hemiarthroplasty: Status: Acute Assessment and Plan: * Continue pain mgmnt * resume anticoagulant for dvt ppx * begin PT/OT for LT hip hemiarthroplasty * Dispo planning-Pending PT eval, pain mgmnt Time Spent With Patient Time: Total time managing care of this patient today ____ minutes. Quality Stroke Does the patient have a stroke diagnosis?: No VTE Prior VTE?: No VTE Risk Level:: Medical - moderate - high VTE Device Contraindication: Treatment Not Indicated VTE Drug Contraindication: N/A - Med Ordered
[2022-08-03] MEDS: oxyCODONE HCl Immed Release 5 MG TABLET PO (11:51)
[2022-08-03 12:00] VITALS: BP 104/63; PULSE 97; RESP 18; TEMP 37; O2SAT 94
--- NOTE | 2022-08-03 13:47 | P.PNIM_ITS ---
Subjective Subjective Date of Service: 08/03/22 Interval History: Pain control adequate. Heart rate correlates with pain level. No acute issues Review of Systems Denies chest pain Denies shortness of breath Denies nausea vomiting diarrhea Denies fever chills Physical Exam Vital Signs: Vital Signs: Last Vital Signs Temp 98.6 F 08/03/22 12:00 Pulse 97 08/03/22 12:00 Resp 18 08/03/22 12:00 BP 104/63 08/03/22 12:00 Pulse Ox 94 08/03/22 12:00 O2 Del Method 08/03/22 12:00 O2 Flow Rate 4 08/03/22 12:00 BMI result Body Mass Index 34.4 Const: Other: Awake alert no acute distress Resp: Other: Clear to auscultation bilaterally no rales rhonchi or wheezes Cardio: Other: No S4; positive S1-S2; no S3 murmurs rubs gallops. Irregular regular GI: Other: Soft nontender nondistended normoactive bowel sounds Extrem: Other: no edema bilat Objective Data Active Medications Acetaminophen (Acetaminophen 325 Mg Tablet) 650 mg PO Q6H PRN PRN Reason: Pain, Mild, fever Albuterol Sulfate 2.5 mg/ (Ipratropium [place] 0.5 mg) 0 mg INHALE RQ4H WHILE AWAKE PRN PRN Reason: Wheezing Last Admin: 08/01/22 08:56 Dose: 2.5 each Documented By: CONSTANTINE Digoxin (Digoxin 0.5 Mg/2 Ml Ampul) 0.25 mg IVPUSH Q6H [facility] Stop: 08/04/22 03:01 Last Admin: 08/03/22 08:23 Dose: 0.25 mg Documented By: SHAYY Docusate Sodium (Docusate Sodium 100 Mg Capsule) 100 mg PO DAILY PRN PRN Reason: Constipation Enoxaparin Sodium (Enoxaparin Sodium 100 Mg/Ml Syringe) 100 mg 1 mg/kg (100 mg) SUBCUT Q12H [facility] Last Admin: 08/03/22 08:01 Dose: 100 mg Documented By: SHAYY Fentanyl (Fentanyl Citrate/Pf 100 Mcg/2 Ml Vial) 50 mcg IVPUSH Q5M PRN; Protocol PRN Reason: Pain, Severe (Pain Scale 7-10) Furosemide (Furosemide 20 Mg/2 Ml Vial) 20 mg IVPUSH DAILY [facility]; Protocol Last Admin: 08/03/22 08:01 Dose: 20 mg Documented By: SHAYY Glucose (Glucose Gel 15 Gm Gel..Gram.) 15 gm PO Q15M PRN; Protocol PRN Reason: per Hypoglycemia Standing Ord. Hydromorphone HCl (Hydromorphone Hcl 0.5 Mg/0.5 Ml Syringe) 0.5 mg IVPUSH Q5M PRN; Protocol PRN Reason: Pain, Severe (Pain Scale 7-10) Last Admin: 08/01/22 13:15 Dose: 0.5 mg Documented By: SHELLEY Dextrose (D10) 250 mls @ 750 mls/hr IV Q15M PRN; Protocol PRN Reason: per Hypoglycemia Standing Ord. Promethazine HCl 12.5 mg/ (Sodium Chloride) 50.5 mls @ 202 mls/hr IV ONCE PRN PRN Reason: Nausea and Vomiting Insulin Human Lispro (Insulin Lispro 100 Unit/Ml 3 Ml Vial) 0 unit SUBCUT QIDACHS [facility]; Protocol Last Admin: 08/03/22 11:51 Dose: 2 unit Documented By: SHAYY Lisinopril (Lisinopril 40 Mg Tablet) 40 mg PO DAILY [facility]; Protocol Last Admin: 08/03/22 08:01 Dose: 40 mg Documented By: SHAYY Metoprolol Tartrate (Metoprolol Tartrate 100 Mg Tablet) 100 mg PO BID [facility]; Protocol Last Admin: 08/03/22 08:01 Dose: 100 mg Documented By: SHAYY Morphine Sulfate (Morphine Sulfate 2 Mg/Ml Cartridge) 2 mg IVPUSH Q4H PRN; Protocol PRN Reason: Pain, Severe (Pain Scale 7-10) Last Admin: 08/02/22 18:23 Dose: 2 mg Documented By: SHAYY Nicotine Polacrilex (Nicotine Polacrilex 2 Mg Gum) 2 mg BUCCAL Q2H PRN PRN Reason: Nicotine Cravings Ondansetron HCl (Ondansetron Hcl 4 Mg/2 Ml Vial) 4 mg IVPUSH Q8H PRN PRN Reason: Nausea and Vomiting Last Admin: 07/30/22 20:45 Dose: 4 mg Documented By: CARL Oxycodone HCl (Oxycodone Hcl Immed Release 5 Mg Tablet) 5 mg PO Q4H PRN PRN Reason: Pain, Moderate (Pain Scale 4-6 Last Admin: 08/03/22 11:51 Dose: 5 mg Documented By: SHAYY Pharmacy Consult (Consult Rx Perform Med Rec) 1 each MISCELLANE ONCE PRN PRN Reason: Consult order Sodium Chloride (0.9 % Sodium Chloride Flush 3 Ml Syringe) 3 ml IVFLUSH QSHIFT [facility] Last Admin: 08/03/22 08:01 Dose: 3 ml Documented By: SHAYY Labs 08/03/22 05:34 08/03/22 05:34 Labs: Laboratory Results - last 24 hr 08/02/22 08/02/22 08/03/22 15:55 20:45 05:34 MCV 86.1 MCH 28.9 MCHC 33.5 RDW 14.0 Plt Count 156 L MPV 11.6 Immature Gran % (Auto) 1.5 H Neut % (Auto) 68.1 Lymph % (Auto) 17.8 L [place] % (Auto) 11.2 H Eos % (Auto) 1.0 Baso % (Auto) 0.4 Lymph # (Auto) 1.8 [place] # (Auto) 1.1 Eos # (Auto) 0.1 Baso # (Auto) 0.0 Abs Immat Gran (auto) 0.15 H Absolute Neuts (auto) 6.7 Absolute Nucleated RBC 0.000 Nucleated RBC % (auto) 0.0 Anion Gap Estim Creat Clear Calc Estimated GFR POC Glucose 229 H 217 H Fasting Glucose Calcium Total Bilirubin AST ALT Alkaline Phosphatase Total Protein Albumin 08/03/22 08/03/22 08/03/22 05:34 07:35 11:11 MCV MCH MCHC RDW Plt Count MPV Immature Gran % (Auto) Neut % (Auto) Lymph % (Auto) [place] % (Auto) Eos % (Auto) Baso % (Auto) Lymph # (Auto) [place] # (Auto) Eos # (Auto) Baso # (Auto) Abs Immat Gran (auto) Absolute Neuts (auto) Absolute Nucleated RBC Nucleated RBC % (auto) Anion Gap 17 Estim Creat Clear Calc 82.4 Estimated GFR > 60 POC Glucose 153 H 181 H Fasting Glucose 132 H Calcium 8.2 L Total Bilirubin 1.6 H AST 15 ALT 10 Alkaline Phosphatase 73 Total Protein 4.9 L Albumin 2.7 L Assessment and Plan (1) Left displaced femoral neck fracture: Status: Acute (2) Atrial fibrillation with RVR: Status: Acute (3) Sepsis: Status: Acute Plan 67-year-old male with history of paroxysmal atrial fibrillation anticoagulated with Eliquis, HFpEF, [id number] type 2 diabetes, and hypertension who is a current 4-5 cigarette per day smoker admitted for left femoral neck fracture, AFib RVR, and CHF exacerbation. 1.Acute left femoral neck fracture -POD 2 -pain management -rendon 2.Paroxysmal atrial fibrillation with RVR -Hold eliquis as above. Therapeutic lovenox .... -Continue PO metoprolol -may need Cardizem if heart rate continues to be elevated 3.Sepsis-unclear etiology, possibly viral -resolved 4.Acute CHF exacerbation, unspecified EF -lasix po -cardiac diet -continue Rendon for fluid management 5.Yfu-[id number]-[id number] type 2 diabetes -acceptable control -lispro correctional scale -adjust as indicated loveno Full code Patient requires ongoing hospitalization to manage acute 5th left femoral neck f racture Time Spent With Patient Time: Total time managing care of this patient today ____ minutes. Quality Stroke Does the patient have a stroke diagnosis?: No VTE Prior VTE?: No VTE Risk Level:: Medical - moderate - high VTE Device Contraindication: Treatment Not Indicated VTE Drug Contraindication: N/A - Med Ordered
[2022-08-03 15:43] VITALS: BP 121/60; PULSE 102; RESP 17; TEMP 36.4; O2SAT 98
[2022-08-03 16:28] LABS: Glucose, Whole Blood 155 mg/dL (60-115)
[2022-08-03 19:40] VITALS: BP 114/57; PULSE 99; RESP 18; TEMP 36.1; O2SAT 98
[2022-08-03 20:37] LABS: Glucose, Whole Blood 177 mg/dL (60-115)
[2022-08-03 23:47] VITALS: BP 123/68; PULSE 84; RESP 16; TEMP 36; O2SAT 96
[2022-08-04] MEDS: Morphine Sulfate 2 MG/ML CARTRIDGE IVPUSH ×3 (00:03→09:28)
[2022-08-04 03:30] VITALS: BP 140/86; PULSE 104; RESP 16; TEMP 36; O2SAT 96
[2022-08-04] MEDS: Digoxin 0.5 MG/2 ML AMPUL 0.25 MG IVPUSH (03:40)
[2022-08-04 03:45] VITALS: PULSE 89
[2022-08-04 05:52] LABS: MANUAL DIFF FLAG NO
[2022-08-04 05:55] LABS: Basophils Percent Auto 0.4 % (0-2); Eosinophils Absolute Auto 0.4 X10*3/uL (0.0-0.4); Eosinophils Percent Auto 3.7 % (0-4); Hematocrit 31.7 % (42.0-52.0); Hemoglobin 10.7 g/dl (14.0-18.0); Imm Gran Abs Auto 0.22 X10*3/uL (0.00-0.03); Imm Gran Pct Auto 2.2 % (0.0-0.4); Lymphocytes Absolute Auto 1.3 X10*3/uL (1.2-4.9); Lymphocytes Percent Auto 12.2 % (20-40); Mean Corpuscular HGB Conc 33.8 g/dl (31.0-36.0); Mean Corpuscular Hemoglobin 28.5 pg (27.0-33.0); Mean Corpuscular Volume 84.5 fL (80.0-98.0); Mean Platelet Volume 11.5 fL (9.4-12.4); Monocytes Percent Auto 10.1 % (2-11); Neutrophils Absolute Auto 7.3 x10*3/uL (2.0-8.3); Neutrophils Percent Auto 71.4 % (45-73); Platelet Count 183 X10*3/uL (160-400); Red Blood Count 3.75 X10*6/uL (4.60-5.80); Red Cell Distribution Width 13.6 % (11.0-16.0); White Blood Count 10.2 X10*3/uL (4.8-10.8)
[2022-08-04 06:00] VITALS: BMI 34.6
[2022-08-04 06:32] LABS: Alanine Aminotransferase 10 U/L (0-40); Albumin Level 2.6 g/dL (3.5-5.0); Alkaline Phosphatase 78 U/L (39-117); Anion Gap 11 (12-20); Aspartate Amino Transferase 17 U/L (5-37); Blood Urea Nitrogen 26 mg/dL (9-16); Calcium 8.2 mg/dL (8.4-10.2); Carbon Dioxide 26 mmol/L (22-29); Chloride 99 mmol/L (96-108); Creatinine Clr Calc Pharmacy 107.9; Estimated Glomerular Filt Rate > 60; Glucose Fasting 129 mg/dL (60-99); Potassium 4.1 mmol/L (3.3-5.1); Sodium 132 mmol/L (135-145); Total Protein 4.9 g/dL (6.5-8.0)
[2022-08-04 07:50] LABS: Glucose, Whole Blood 133 mg/dL (60-115)
[2022-08-04 08:00] VITALS: BP 132/78; PULSE 98; RESP 18; TEMP 36.9; O2SAT 94
[2022-08-04] MEDS: Enoxaparin Sodium 100 MG/ML SYRINGE SUBCUT ×2 (08:35→21:03)
[2022-08-04] MEDS: lisinopriL 40 MG TABLET PO (08:35)
[2022-08-04] MEDS: Furosemide 20 MG/2 ML VIAL IVPUSH (08:35)
[2022-08-04] MEDS: Metoprolol Tartrate 100 MG TABLET PO ×2 (08:36→21:04)
[2022-08-04] MEDS: 0.9 % Sodium Chloride Flush 3 ML SYRINGE IVFLUSH ×4 (08:36→21:05)
--- NOTE | 2022-08-04 10:36 | HO.PM.IMPN ---
Subjective Subjective Date of Service: 08/04/22 Interval History: Complaining of constant hip pain not relieved with current pain medications, denies chest pain, no palpitation no shortness of breath, no lightheadedness or dizziness tolerating diet with no nausea, no vomiting, no diarrhea no other acute issues overnight, Rendon catheter with clear urine. Review of Systems Review of Systems: Yes all other systems are reviewed and are negative Physical Exam Vital Signs: Vital Signs: Last Vital Signs Temp 98.4 F 08/04/22 08:00 Pulse 98 08/04/22 08:00 Resp 18 08/04/22 08:00 BP 132/78 08/04/22 08:00 Pulse Ox 94 08/04/22 08:00 O2 Del Method 08/04/22 08:00 O2 Flow Rate 3.2 08/04/22 08:00 BMI result Body Mass Index 34.6 Const: Other: General resting comfortably in no acute distress. Neck no JVD. CVS irregular rate rhythm, Respiratory lungs clear to auscultation, no respiratory distress, no wheeze, no rhonchi. Gastrointestinal abdomen soft, nontender, bowel sounds audible, no guarding , no rigidity. Extremities no edema. Left hip dressing in place Neuro nonfocal , speech clear. Skin no rash Psych appropriate affect Objective Data Active Medications Acetaminophen (Acetaminophen 325 Mg Tablet) 650 mg PO Q6H PRN PRN Reason: Pain, Mild, fever Albuterol Sulfate 2.5 mg/ (Ipratropium [place] 0.5 mg) 0 mg INHALE RQ4H WHILE AWAKE PRN PRN Reason: Wheezing Last Admin: 08/01/22 08:56 Dose: 2.5 each Documented By: CONSTANTINE Docusate Sodium (Docusate Sodium 100 Mg Capsule) 100 mg PO DAILY PRN PRN Reason: Constipation Enoxaparin Sodium (Enoxaparin Sodium 100 Mg/Ml Syringe) 100 mg 1 mg/kg (100 mg) SUBCUT Q12H [facility] Last Admin: 08/04/22 08:35 Dose: 100 mg Documented By: MERLENE Fentanyl (Fentanyl Citrate/Pf 100 Mcg/2 Ml Vial) 50 mcg IVPUSH Q5M PRN; Protocol PRN Reason: Pain, Severe (Pain Scale 7-10) Furosemide (Furosemide 20 Mg/2 Ml Vial) 20 mg IVPUSH DAILY [facility]; Protocol Last Admin: 08/04/22 08:35 Dose: 20 mg Documented By: MERLENE Glucose (Glucose Gel 15 Gm Gel..Gram.) 15 gm PO Q15M PRN; Protocol PRN Reason: per Hypoglycemia Standing Ord. Hydromorphone HCl (Hydromorphone Hcl 0.5 Mg/0.5 Ml Syringe) 0.5 mg IVPUSH Q5M PRN; Protocol PRN Reason: Pain, Severe (Pain Scale 7-10) Last Admin: 08/01/22 13:15 Dose: 0.5 mg Documented By: SHELLEY Dextrose (D10) 250 mls @ 750 mls/hr IV Q15M PRN; Protocol PRN Reason: per Hypoglycemia Standing Ord. Promethazine HCl 12.5 mg/ (Sodium Chloride) 50.5 mls @ 202 mls/hr IV ONCE PRN PRN Reason: Nausea and Vomiting Insulin Human Lispro (Insulin Lispro 100 Unit/Ml 3 Ml Vial) 0 unit SUBCUT QIDACHS COUNT [facility]; Protocol Last Admin: 08/04/22 08:50 Dose: Not Given Lisinopril (Lisinopril 40 Mg Tablet) 40 mg PO DAILY COUNT [facility]; Protocol Last Admin: 08/04/22 08:35 Dose: 40 mg Documented By: MERLENE Metoprolol Tartrate (Metoprolol Tartrate 100 Mg Tablet) 100 mg PO BID [facility]; Protocol Last Admin: 08/04/22 08:36 Dose: 100 mg Documented By: MERLENE Morphine Sulfate (Morphine Sulfate 2 Mg/Ml Cartridge) 2 mg IVPUSH Q4H PRN; Protocol PRN Reason: Pain, Severe (Pain Scale 7-10) Last Admin: 08/04/22 09:28 Dose: 2 mg Documented By: MERLENE Nicotine Polacrilex (Nicotine Polacrilex 2 Mg Gum) 2 mg BUCCAL Q2H PRN PRN Reason: Nicotine Cravings Ondansetron HCl (Ondansetron Hcl 4 Mg/2 Ml Vial) 4 mg IVPUSH Q8H PRN PRN Reason: Nausea and Vomiting Last Admin: 07/30/22 20:45 Dose: 4 mg Documented By: CARL Oxycodone HCl (Oxycodone Hcl Immed Release 5 Mg Tablet) 5 mg PO Q4H PRN PRN Reason: Pain, Moderate (Pain Scale 4-6 Last Admin: 08/03/22 11:51 Dose: 5 mg Documented By: SHAYY Pharmacy Consult (Consult Rx Perform Med Rec) 1 each MISCELLANE ONCE PRN PRN Reason: Consult order Sodium Chloride (0.9 % Sodium Chloride Flush 3 Ml Syringe) 3 ml IVFLUSH QSHIFT COUNT [facility] Last Admin: 08/04/22 08:36 Dose: 3 ml Documented By: MERLENE Labs 08/04/22 05:17 08/04/22 05:17 Labs: Laboratory Results - last 24 hr 08/03/22 08/03/22 08/03/22 11:11 16:21 20:30 MCV MCH MCHC RDW Plt Count MPV Immature Gran % (Auto) Neut % (Auto) Lymph % (Auto) [place] % (Auto) Eos % (Auto) Baso % (Auto) Lymph # (Auto) [place] # (Auto) Eos # (Auto) Baso # (Auto) Abs Immat Gran (auto) Absolute Neuts (auto) Absolute Nucleated RBC Nucleated RBC % (auto) Anion Gap Estim Creat Clear Calc Estimated GFR POC Glucose 181 H 155 H 177 H Fasting Glucose Calcium Total Bilirubin AST ALT Alkaline Phosphatase Total Protein Albumin 08/04/22 08/04/22 08/04/22 05:17 05:17 07:34 MCV 84.5 MCH 28.5 MCHC 33.8 RDW 13.6 Plt Count 183 MPV 11.5 Immature Gran % (Auto) 2.2 H Neut % (Auto) 71.4 Lymph % (Auto) 12.2 L [place] % (Auto) 10.1 Eos % (Auto) 3.7 Baso % (Auto) 0.4 Lymph # (Auto) 1.3 [place] # (Auto) 1.0 Eos # (Auto) 0.4 Baso # (Auto) 0.0 Abs Immat Gran (auto) 0.22 H Absolute Neuts (auto) 7.3 Absolute Nucleated RBC 0.000 Nucleated RBC % (auto) 0.0 Anion Gap 11 L Estim Creat Clear Calc 107.9 Estimated GFR > 60 POC Glucose 133 H Fasting Glucose 129 H Calcium 8.2 L Total Bilirubin 1.0 AST 17 ALT 10 Alkaline Phosphatase 78 Total Protein 4.9 L Albumin 2.6 L Assessment and Plan (1) Left displaced femoral neck fracture: Status: Acute (2) Atrial fibrillation with RVR: Status: Acute (3) Sepsis: Status: Acute Plan 67-year-old male with history of paroxysmal atrial fibrillation anticoagulated with Eliquis, HFpEF, abq-vujghpa-hbhhjbuzx type 2 diabetes, and hypertension who is a current 4-5 cigarette per day smoker admitted for left femoral neck fracture, AFib RVR, and CHF exacerbation. 1.Acute left femoral neck fracture -POD 3 -persistent pain, will add scheduled Tylenol and oxycodone, encourage incentive spirometry -mook rendon, will add stool softeners Colace 200 at bedtime and MiraLax daily Seen by Physical therapy they recommend short-term rehab 2.Paroxysmal atrial fibrillation with RVR -on Therapeutic lovenox , will discuss with Ortho if ok to transition to Eliquis -Continue PO metoprolol 3.Sepsis-unclear etiology, possibly viral -resolved 4.Acute CHF exacerbation, unspecified EF -resolved, continue lasix po -cardiac diet 5.Jfz-inwspbg-nfcrjrfcy type 2 diabetes -acceptable control, blood sugars less than 200 -lispro correctional scale, diabetic diet 6. Obesity recommend low-calorie diet DVT prophylaxis on lovenox subcu therapeutic Full code Patient requires ongoing hospitalization to manage acute left femoral neck fracture Time Spent With Patient Time: Total time managing care of this patient today ____ minutes. Quality Stroke Does the patient have a stroke diagnosis?: No VTE Prior VTE?: No VTE Risk Level:: Medical - moderate - high VTE Device Contraindication: Treatment Not Indicated VTE Drug Contraindication: N/A - Med Ordered
--- NOTE | 2022-08-04 10:55 | P.PNOP_ITS ---
Subjective Subjective Date of Service: 08/04/22 Interval history: POD 3 s/p Left hip hemiarthroplasty no overnight events resting in bed, denies sob, cp. Physical Exam Vital Signs: Vital Signs: Last Vital Signs Temp 98.4 F 08/04/22 08:00 Pulse 98 08/04/22 08:00 Resp 18 08/04/22 08:00 BP 132/78 08/04/22 08:00 Pulse Ox 94 08/04/22 08:00 O2 Del Method 08/04/22 08:00 O2 Flow Rate 3.2 08/04/22 08:00 BMI result Body Mass Index 34.6 Const: General: cooperative, healthy appearing and no acute distress Resp: Effort & Inspection: normal respiratory effort and able to speak in complete sentences Cardio: Rate: regular rate Peripheral pulses: Peripheral pulses 2+ throughout GI: Palpation (GI): Soft to palpation Skin: General skin exam: no rashes or lesions noted Extrem: Other: incision clean dry and intact. [place] intact. No erythema or effusion. Calf supple nontender. Neurovascularly intact. Procedures Date of Service Date of Service: 08/04/22 Progress Note: A&P Assessment and plan (1) History of left hip hemiarthroplasty: Status: Acute Assessment and Plan: * Continue pain mgmnt * resume anticoagulant for dvt ppx * PT/OT for LT hip hemiarthroplasty * Dispo planning-Pending PT eval, pain mgmnt Time Spent With Patient Time: Total time managing care of this patient today ____ minutes. Quality Stroke Does the patient have a stroke diagnosis?: No VTE Prior VTE?: No VTE Risk Level:: Medical - moderate - high VTE Device Contraindication: Treatment Not Indicated VTE Drug Contraindication: N/A - Med Ordered
[2022-08-04] MEDS: Acetaminophen 325 MG TABLET 650 MG PO ×3 (10:58→21:03)
[2022-08-04] MEDS: oxyCODONE HCl Immed Release 5 MG TABLET 10 MG PO ×3 (10:59→21:04)
[2022-08-04 11:25] LABS: Glucose, Whole Blood 156 mg/dL (60-115)
[2022-08-04] MEDS: Insulin Lispro 100 UNIT/ML 3 ML VIAL SUBCUT ×2 (11:38→16:54)
--- NOTE | 2022-08-04 14:25 | PC.NURSE ---
Pt FC removed at 1400 per Ghias orders, due to void at 1999.
[2022-08-04 16:00] VITALS: BP 109/68; PULSE 95; RESP 18; TEMP 36.2; O2SAT 99
--- NOTE | 2022-08-04 16:34 | PC.NURSE ---
PT VOIDED 100 ML AT 1634.
[2022-08-04 16:36] LABS: Glucose, Whole Blood 180 mg/dL (60-115)
[2022-08-04 16:58] VITALS: O2SAT 98
[2022-08-04] MEDS: Docusate Sodium 100 MG CAPSULE 200 MG PO (21:04)
[2022-08-04 21:26] LABS: Glucose, Whole Blood 137 mg/dL (60-115)
[2022-08-04 23:21] VITALS: BP 127/66; PULSE 73; RESP 16; TEMP 36.1; O2SAT 97
[2022-08-05] MEDS: oxyCODONE HCl Immed Release 5 MG TABLET 10 MG PO ×2 (03:18→10:28)
[2022-08-05] MEDS: Acetaminophen 325 MG TABLET 650 MG PO ×2 (03:18→10:28)
[2022-08-05 03:40] VITALS: BP 121/75; PULSE 98; RESP 18; TEMP 36; O2SAT 97
[2022-08-05] MEDS: Morphine Sulfate 2 MG/ML CARTRIDGE IVPUSH (05:50)
[2022-08-05 05:57] VITALS: BMI 33.5
[2022-08-05 06:14] LABS: MANUAL DIFF FLAG NO
[2022-08-05 06:31] LABS: Basophils Absolute Auto 0.1 X10*3/uL (0.0-0.2); Basophils Percent Auto 0.6 % (0-2); Eosinophils Absolute Auto 0.5 X10*3/uL (0.0-0.4); Eosinophils Percent Auto 5.5 % (0-4); Hemoglobin 10.2 g/dl (14.0-18.0); Imm Gran Abs Auto 0.36 X10*3/uL (0.00-0.03); Imm Gran Pct Auto 3.7 % (0.0-0.4); Lymphocytes Absolute Auto 1.4 X10*3/uL (1.2-4.9); Lymphocytes Percent Auto 14.3 % (20-40); Mean Corpuscular HGB Conc 32.9 g/dl (31.0-36.0); Mean Corpuscular Hemoglobin 28.3 pg (27.0-33.0); Mean Corpuscular Volume 85.9 fL (80.0-98.0); Mean Platelet Volume 11.9 fL (9.4-12.4); Monocytes Absolute Auto 0.9 X10*3/uL (0.1-1.2); Monocytes Percent Auto 9.5 % (2-11); Neutrophils Absolute Auto 6.5 x10*3/uL (2.0-8.3); Neutrophils Percent Auto 66.4 % (45-73); Platelet Count 198 X10*3/uL (160-400); Red Blood Count 3.61 X10*6/uL (4.60-5.80); Red Cell Distribution Width 13.7 % (11.0-16.0); White Blood Count 9.7 X10*3/uL (4.8-10.8)
[2022-08-05 06:49] LABS: Alanine Aminotransferase 15 U/L (0-40); Albumin Level 2.5 g/dL (3.5-5.0); Alkaline Phosphatase 79 U/L (39-117); Anion Gap 13 (12-20); Aspartate Amino Transferase 22 U/L (5-37); Bilirubin Total 1.1 mg/dL (0.0-1.0); Blood Urea Nitrogen 28 mg/dL (9-16); Calcium 8.1 mg/dL (8.4-10.2); Carbon Dioxide 24 mmol/L (22-29); Chloride 102 mmol/L (96-108); Estimated Glomerular Filt Rate > 60; Glucose Fasting 132 mg/dL (60-99); Potassium 4.1 mmol/L (3.3-5.1); Sodium 135 mmol/L (135-145); Total Protein 4.8 g/dL (6.5-8.0)
[2022-08-05 07:14] VITALS: BP 120/65; PULSE 81; RESP 20; TEMP 36.6; O2SAT 97
[2022-08-05 07:29] LABS: Glucose, Whole Blood 178 mg/dL (60-115)
[2022-08-05] MEDS: lisinopriL 40 MG TABLET PO (08:14)
[2022-08-05] MEDS: Furosemide 20 MG/2 ML VIAL IVPUSH (08:14)
[2022-08-05] MEDS: Metoprolol Tartrate 100 MG TABLET PO (08:14)
[2022-08-05] MEDS: Insulin Lispro 100 UNIT/ML 3 ML VIAL SUBCUT ×2 (08:14→12:05)
[2022-08-05] MEDS: polyethylene glycoL 3350 17 GM POWD.PACK PO (08:14)
[2022-08-05] MEDS: Enoxaparin Sodium 100 MG/ML SYRINGE SUBCUT (08:14)
[2022-08-05] MEDS: 0.9 % Sodium Chloride Flush 3 ML SYRINGE IVFLUSH (08:15)
[2022-08-05] MEDS: Nystatin Powder 15 GM BOTTLE 1 APPL TOPICAL (10:28)
--- NOTE | 2022-08-05 10:44 | PM.DS ---
DS: Providers Provider Date of Service: 08/05/22 Date of admission: 07/30/22 20:23 Primary care physician: Unknown Physician Consults: 07/30/22 20:23 Consult to Cardiology Routine Consulting Provider: [facility] Cardiovascular Services Reason for consultation: afib rvr, chf Has provider been notified: Yes 07/30/22 20:46 Consult to Orthopedics Routine Consulting Provider: [facility] Orthopedic Surgeons Reason for consultation: impacted left femoral neck fx DS: Diagnosis Discharge Diagnosis (1) History of left hip hemiarthroplasty: Status: Acute DS: Summary Hospital Course Hospital Course: History of presenting illness: Date of Service: 07/30/22 Attending physician on admission: Kyleigh Soto Chief Complaint: fall 67-year-old male with history of paroxysmal atrial fibrillation anticoagulated with Eliquis, HFpEF, jbe-khkdcfp-dlnbxsakb type 2 diabetes, and hypertension who is a current 4-5 cigarette per day smoker presented to the ED via EMS after sustaining a mechanical fall earlier today.? Denies any prodrome. Ambulates with a walker and states he has had multiple falls. The patient reports that he lost his footing and fell and was on the floor for several hours before his .? On arrival, the patient was disheveled, hypoxic to 89% on room air and placed on 2 L supplemental O2 with improvement to 95%.? Was tachycardic to 138, tachypneic to 32 and hypertensive to 167/117.? Patient did develop fever of 101.5.? Denies recent known illness or sick contacts.? Denies fevers at home, chills, sore throat, congestion, abdominal pain, nausea, vomiting, urinary symptoms, diarrhea, cough, shortness of breath, palpitations, or chest pain.? On arrival, leukocytosis 11.5.? Renal function baseline, electrolyte levels normal.? Lactic acid 2.3.? Troponin negative.? BNP 658, baseline around 250.? CK 47.? Urinalysis with 3+ blood, otherwise unremarkable.? Negative for influenza, COVID-19, and RSV.? Head CT negative for any acute intracranial abnormality.? CXR showing cardiomegaly with mild central pulmonary congestion.? Hip/pelvis x-ray showing impacted left femoral neck fracture.? In the ED, given 1 g IV ceftriaxone. Hospital course: 67-year-old male with history of paroxysmal atrial fibrillation anticoagulated with Eliquis, HFpEF, okx-slkifth-hjragqepl type 2 diabetes, and hypertension who is a current 4-5 cigarette per day smoker admitted for left femoral neck fracture, AFib RVR, and CHF exacerbation. 1.Acute left femoral neck fracture,s/p Left hip hemiarthroplasty, continue pain medications Tylenol and oxycodone, continue stool softeners, seen by Physical therapy is being discharged to short-term rehab for continue therapy recommend outpatient follow-up with Orthopedic surgery 2.Paroxysmal atrial fibrillation with RVR, resolved likely due to pain, continue Eliquis and metoprolol 3.Sepsis-unclear etiology, possibly viral, resolved. 4.Acute diastolic CHF exacerbation, treated with intravenous Lasix, all symptoms resolved recommend to continue Lasix and low-salt diet. 5.Kpx-ldsvmpf-dvzuyxhoi type 2 diabetes recommend to continue diabetic diet, not on oral hypoglycemics. 6. Obesity recommend low-calorie diet. Time Spent with Patient Time attestation: Total time managing care of this patient today ____ minutes. Discharge coordination time: Greater than 30 minutes Quality: Safe Use of Opioids Does Pt have an Active Cancer Diagnosis on the Problem List?: No Quality: Stroke Does the patient have a stroke diagnosis?: No Physical Exam Vital Signs: Vital Signs: Last Vital Signs Temp 98 F 08/05/22 07:14 Pulse 81 08/05/22 07:14 Resp 20 08/05/22 07:14 BP 120/65 08/05/22 07:14 Pulse Ox 97 08/05/22 07:14 O2 Del Method 08/05/22 07:14 O2 Flow Rate 2 08/05/22 07:14 BMI result Body Mass Index 33.5 Const: Other: General awake alert x3, no acute distress.? Neck? no JVD. CVS irregular rate rhythm, Respiratory lungs clear to auscultation, no respiratory distress, no wheeze, no rhonchi. Gastrointestinal abdomen soft, nontender, bowel sounds audible, no guarding , no rigidity. Extremities no edema.? Left hip dressing in place, no drainage. Neuro nonfocal , speech clear. Skin no rash Psych appropriate affect DS: Data Data Completed and Pending Pending studies at discharge: Pending at discharge 08/01/22 11:45 Surgical [PTH] Routine Labs on day of discharge: Laboratory Results - last 24 hr 08/04/22 08/04/22 08/04/22 11:19 16:27 21:22 WBC RBC Hgb Hct MCV MCH MCHC RDW Plt Count MPV Immature Gran % (Auto) Neut % (Auto) Lymph % (Auto) [place] % (Auto) Eos % (Auto) Baso % (Auto) Lymph # (Auto) [place] # (Auto) Eos # (Auto) Baso # (Auto) Abs Immat Gran (auto) Absolute Neuts (auto) Absolute Nucleated RBC Nucleated RBC % (auto) Sodium Potassium Chloride Carbon Dioxide Anion Gap BUN Creatinine Estim Creat Clear Calc Estimated GFR POC Glucose 156 H 180 H 137 H Fasting Glucose Calcium Total Bilirubin AST ALT Alkaline Phosphatase Total Protein Albumin 08/05/22 08/05/22 08/05/22 05:37 05:37 07:14 WBC 9.7 RBC 3.61 L Hgb 10.2 L Hct 31.0 L MCV 85.9 MCH 28.3 MCHC 32.9 RDW 13.7 Plt Count 198 MPV 11.9 Immature Gran % (Auto) 3.7 H Neut % (Auto) 66.4 Lymph % (Auto) 14.3 L [place] % (Auto) 9.5 Eos % (Auto) 5.5 H Baso % (Auto) 0.6 Lymph # (Auto) 1.4 [place] # (Auto) 0.9 Eos # (Auto) 0.5 H Baso # (Auto) 0.1 Abs Immat Gran (auto) 0.36 H Absolute Neuts (auto) 6.5 Absolute Nucleated RBC 0.000 Nucleated RBC % (auto) 0.0 Sodium 135 Potassium 4.1 Chloride 102 Carbon Dioxide 24 Anion Gap 13 BUN 28 H Creatinine 0.82 Estim Creat Clear Calc 105.0 Estimated GFR > 60 POC Glucose 178 H Fasting Glucose 132 H Calcium 8.1 L Total Bilirubin 1.1 H AST 22 ALT 15 Alkaline Phosphatase 79 Total Protein 4.8 L Albumin 2.5 L Discharge Plan Discharge Anticipated Discharge Date/Time: 08/05/22 11:46 Patient Disposition: Xfer SNF Discharge Diagnosis: Left femoral neck fracture Sepsis possibly viral Acute diastolic CHF exacerbation Referrals: [facility] [Outside] - 1 Week Physician,Unknown J [Primary Care Provider] - 1 Week Discharge Medications: New polyethylene glycol 3350 17 gram Powder In Packet 17 g PO DAILY Qty: 30 0RF nicotine (polacrilex) 2 mg Gum 2 mg buccal Q2H PRN (Reason: Nicotine Cravings) Qty: 30 0RF docusate sodium 100 mg Capsule 200 mg PO BEDTIME Qty: 30 0RF nystatin 100,000 unit/gram Powder 1 appl topical BID Qty: 15 0RF Protocol: Apply to: Apply to: groin oxycodone 5 mg Tablet 10 mg PO Q6H PRN (Reason: pain, severe) Qty: 14 0RF Rx Instructions: Partial Fill upon patient request. Continued lisinopril 40 mg tablet 40 mg PO DAILY Qty: 90 3RF metoprolol tartrate 100 mg tablet 100 mg PO BID furosemide 20 mg tablet 20 mg PO DAILY Eliquis 5 mg tablet 5 mg PO BID acetaminophen 325 mg Tablet 650 mg PO Q6H PRN (Reason: Pain, Mild (Pain Scale 1-3)) Qty: 30 0RF Discontinued ibuprofen 200 mg Tablet 400 mg PO Q6H PRN (Reason: Pain) Discharge Orders: Discharge Order (Routine); Ordered 08/05/22 Ordered By: Fatoumata Hogue Diet: Diabetic diet Activity on Discharge: As tolerated Stand Alone Forms: Patient Portal Discharge page Care Plan Goals: Status post left hip hemiarthroplasty, take Tylenol and oxycodone for pain control/physical therapy diabetes follow diabetic diet Incentive spirometry take bowel medication while on narcotics Health Concerns: Continue all home medications as before including Eliquis Plan of Treatment: Outpatient follow-up with Orthopedic surgery Dr. Omer Melendez Assessment: As above
[2022-08-05 11:08] LABS: Glucose, Whole Blood 152 mg/dL (60-115)
--- NOTE | 2022-08-05 11:36 | MHC.CM.PN ---
Addendum entered by Carola Mckeon 08/05/22 13:41: DC Packet and negative covid test result have been sent to the facility. BLS scheduled for 3pm belt picker. Original Note: IMM 08/05/22 Per MD rounds dc today. SNF preferences obtained and referrals sent. [facility] [address] [place] [address]. DC Summary has been sent to the facility. Covid test and DC packet are pending. Transport is booked for 3pm belt picker.
[2022-08-05 12:00] VITALS: TEMP 36.1
[2022-08-05 12:01] LABS: COVID-19 Test Negative (Negative); IDNOW Serial# 08D9AD1C
== END 2022-08-05 15:58 | disposition skilled nursing facility (03) | DRG 853 ==
LOC: HO.ED 20:17 → HO.EDOVER 21:25 → HO.S3 21:31
PROVIDERS: Hospitalist; Orthopaedic Surgery; Student in an Organized Health Care Education/Training Program; Admitting Provider Physician Assistant; Emergency Provider Emergency Medicine; Visit Provider Hospitalist
PROC: 0SRS0J9 Replacement of Left Hip Joint, Femoral Surface with Synthetic Substitute, Cemented, Open Approach (ICD-10-PCS; CPT 27125; principal; 2022-08-01 09:00)
DX: A41.89 Other specified sepsis (principal); J96.01 Acute respiratory failure with hypoxia; S72.002A Fracture of unspecified part of neck of left femur, initial encounter for closed fracture; E87.20 Acidosis, unspecified; I50.32 Chronic diastolic (congestive) heart failure; I48.19 Other persistent atrial fibrillation; W06.XXXA Fall from bed, initial encounter; I11.0 Hypertensive heart disease with heart failure; E11.9 Type 2 diabetes mellitus without complications; F17.210 Nicotine dependence, cigarettes, uncomplicated; E66.9 Obesity, unspecified; Z68.33 Body mass index [BMI] 33.0-33.9, adult; Z20.822 Contact with and (suspected) exposure to COVID-19; Z71.3 Dietary counseling and surveillance; Z71.6 Tobacco abuse counseling; Z88.0 Allergy status to penicillin; Z79.01 Long term (current) use of anticoagulants; Z79.899 Other long term (current) drug therapy
CPT/HCPCS: 0241U; 36415; 70450; 71045; 71250; 72170; 73502; 74176; 80048; 80053; 80076; 81001; 82550; 82947; 83605; 83690; 83735; 83880; 84439; 84443; 84484; 85025; 85610; 85730; 86850; 86900; 86901; 87040; 87086; 87633; 87635; 88304; 88305; 88311; 93005; 93306; 94640; 97110; 97163; 97167; 97530; 97535; 99285; C1713; C1758; C1776; J0690; J0696; J1160; J1170; J1650; J1940; J2270; J2370; J2405; J2795; J3010; P9047; Q9957

== ENCOUNTER 2022-08-06 06:07 | Outpatient (REF) | payer SELFPAY ==
[2022-08-06 06:27] LABS: Hematocrit 30.6 % (42.0-52.0); Hemoglobin 10.2 g/dl (14.0-18.0); Mean Corpuscular HGB Conc 33.3 g/dl (31.0-36.0); Mean Corpuscular Hemoglobin 28.7 pg (27.0-33.0); Mean Corpuscular Volume 86.2 fL (80.0-98.0); Mean Platelet Volume 11.2 fL (9.4-12.4); Platelet Count 283 X10*3/uL (160-400); Red Blood Count 3.55 X10*6/uL (4.60-5.80); Red Cell Distribution Width 13.7 % (11.0-16.0); White Blood Count 9.2 X10*3/uL (4.8-10.8)
[2022-08-06 06:57] LABS: Alanine Aminotransferase 16 U/L (0-40); Albumin Level 2.5 g/dL (3.5-5.0); Alkaline Phosphatase 81 U/L (39-117); Anion Gap 15 (12-20); Aspartate Amino Transferase 21 U/L (5-37); Bilirubin Total 1.4 mg/dL (0.0-1.0); Blood Urea Nitrogen 24 mg/dL (9-16); Calcium 8.1 mg/dL (8.4-10.2); Carbon Dioxide 23 mmol/L (22-29); Chloride 105 mmol/L (96-108); Estimated Glomerular Filt Rate > 60; Glucose Random 129 mg/dL (60-115); Potassium 4.1 mmol/L (3.3-5.1); Sodium 139 mmol/L (135-145); Total Protein 4.7 g/dL (6.5-8.0)
[2022-08-06 08:11] LABS: Band Neutrophils Percent 4 % (3-5); Basophils Abs Manual 0.1 X10*3/uL (0.0-0.2); Basophils Percent Manual 1 % (0-2); Eosinophils Absolute Manual 0.3 X10*3/uL (0.0-0.4); Eosinophils Percent Manual 3 % (0-4); Lymphocytes Percent Manual 11 % (20-40); Metamyelocytes Absolute 0.4 X10*3/uL; Metamyelocytes Percent 4 %; Monocytes Absolute Manual 0.3 X10*3/uL (0.1-1.2); Monocytes Percent Manual 3 % (2-11); Myelocytes Absolute 0.2 X10*/uL; Myelocytes Percent 2 %; Neutrophils Percent Manual 72 % (45-73)
[2022-08-06 08:12] LABS: Platelet Estimate NORMAL (NORMAL); Platelet Morphology Comment NORMAL; Polychromasia 1+ (0-2) /OIF; RBC Morphology NOTED
== END 2022-08-06 06:08 | disposition home or self-care (01) ==
LOC: HO.MMNH1L 06:07
PROVIDERS: Visit Provider Family Medicine
DX: E11.9 Type 2 diabetes mellitus without complications (principal); I10 Essential (primary) hypertension
CPT/HCPCS: 36415; 80053; 85007; 85027

== ENCOUNTER → 2022-08-07 11:45 | Outpatient (BNVA) | payer MEDICARE, MEDICAID, SELFPAY | PROVIDERS: Visit Provider Physician Assistant | DX: Z47.1 Aftercare following joint replacement surgery (principal); Z96.642 Presence of left artificial hip joint | CPT/HCPCS: 99212 ==

== ENCOUNTER 2022-08-11 06:16 | Outpatient (REF) | payer SELFPAY ==
[2022-08-11 06:07] LABS: MANUAL DIFF FLAG NO
[2022-08-11 06:35] LABS: Basophils Absolute Auto 0.1 X10*3/uL (0.0-0.2); Eosinophils Absolute Auto 0.3 X10*3/uL (0.0-0.4); Eosinophils Percent Auto 3.3 % (0-4); Hematocrit 33.4 % (42.0-52.0); Hemoglobin 10.8 g/dl (14.0-18.0); Imm Gran Abs Auto 0.39 X10*3/uL (0.00-0.03); Imm Gran Pct Auto 3.8 % (0.0-0.4); Lymphocytes Absolute Auto 1.6 X10*3/uL (1.2-4.9); Lymphocytes Percent Auto 15.6 % (20-40); Mean Corpuscular HGB Conc 32.3 g/dl (31.0-36.0); Mean Corpuscular Volume 89.5 fL (80.0-98.0); Mean Platelet Volume 10.2 fL (9.4-12.4); Monocytes Absolute Auto 0.8 X10*3/uL (0.1-1.2); Monocytes Percent Auto 7.3 % (2-11); Neutrophils Absolute Auto 7.2 x10*3/uL (2.0-8.3); Platelet Count 440 X10*3/uL (160-400); Red Blood Count 3.73 X10*6/uL (4.60-5.80); Red Cell Distribution Width 14.9 % (11.0-16.0); White Blood Count 10.4 X10*3/uL (4.8-10.8)
[2022-08-11 06:59] LABS: Anion Gap 14 (12-20); Blood Urea Nitrogen 16 mg/dL (9-16); Calcium 8.2 mg/dL (8.4-10.2); Carbon Dioxide 24 mmol/L (22-29); Chloride 105 mmol/L (96-108); Estimated Glomerular Filt Rate > 60; Glucose Random 117 mg/dL (60-115); Potassium 4.4 mmol/L (3.3-5.1); Sodium 139 mmol/L (135-145)
== END 2022-08-11 06:17 | disposition home or self-care (01) ==
LOC: HO.MMNH1L 06:16
PROVIDERS: Visit Provider Family Medicine
DX: E11.9 Type 2 diabetes mellitus without complications (principal); I10 Essential (primary) hypertension
CPT/HCPCS: 36415; 80048; 85025

== ENCOUNTER 2022-08-15 05:32 | Outpatient (REF) | payer MEDICARE, MEDICAID, SELFPAY ==
--- NOTE | ~2022-08-15 | XR_ITS ---
EXAMINATION: XR HIP, LEFT CLINICAL INFORMATION: Pain. COMPARISON: Pelvic radiograph 08/01/2022. TECHNIQUE: Two views of the left hip. FINDINGS: Total left-sided hip arthroplasty is intact. No periprosthetic fracture. No acute fractures or malalignment. SI joints are symmetric. Pubic symphysis is maintained. XR/XR hip LT w PEL1V IMPRESSION: 1. Intact left hip arthroplasty. 2. No acute fractures or malalignment.
== END 2022-08-15 05:33 | disposition home or self-care (01) ==
LOC: HO.HOSX 05:32
PROVIDERS: Visit Provider Physician Assistant
DX: M25.552 Pain in left hip (principal); Z47.1 Aftercare following joint replacement surgery; Z96.642 Presence of left artificial hip joint; Z79.899 Other long term (current) drug therapy
CPT/HCPCS: 73502; 99212

== ENCOUNTER 2022-08-22 15:09 | Outpatient (REF) | payer SELFPAY | END 2022-08-22 15:10 | disposition home or self-care (01) | LOC: HO.MMNH1L 15:09 | PROVIDERS: Visit Provider Family Medicine | DX: Z13.89 Encounter for screening for other disorder (principal) ==

== ENCOUNTER 2022-09-10 09:04 | Outpatient (REF) | payer MEDICARE, MEDICAID, SELFPAY | END 2022-09-10 09:05 | disposition home or self-care (01) | LOC: HO.HOSX 09:04 | PROVIDERS: Visit Provider Physician Assistant | DX: Z13.89 Encounter for screening for other disorder (principal) ==

== ENCOUNTER 2022-09-22 05:46 | Outpatient (REF) | payer MEDICARE, MEDICAID, SELFPAY ==
[2022-09-22 05:43] LABS: MANUAL DIFF FLAG NO
[2022-09-22 06:25] LABS: Basophils Absolute Auto 0.1 X10*3/uL (0.0-0.2); Basophils Percent Auto 0.9 % (0-2); Eosinophils Absolute Auto 0.3 X10*3/uL (0.0-0.4); Eosinophils Percent Auto 3.3 % (0-4); Hematocrit 43.6 % (42.0-52.0); Hemoglobin 14.2 g/dl (14.0-18.0); Imm Gran Abs Auto 0.07 X10*3/uL (0.00-0.03); Imm Gran Pct Auto 0.9 % (0.0-0.4); Lymphocytes Absolute Auto 1.9 X10*3/uL (1.2-4.9); Lymphocytes Percent Auto 23.7 % (20-40); Mean Corpuscular HGB Conc 32.6 g/dl (31.0-36.0); Mean Corpuscular Hemoglobin 28.5 pg (27.0-33.0); Mean Corpuscular Volume 87.6 fL (80.0-98.0); Mean Platelet Volume 10.3 fL (9.4-12.4); Monocytes Absolute Auto 0.6 X10*3/uL (0.1-1.2); Monocytes Percent Auto 7.7 % (2-11); Neutrophils Absolute Auto 5.1 x10*3/uL (2.0-8.3); Neutrophils Percent Auto 63.5 % (45-73); Platelet Count 235 X10*3/uL (160-400); Red Blood Count 4.98 X10*6/uL (4.60-5.80); Red Cell Distribution Width 13.5 % (11.0-16.0); White Blood Count 8.1 X10*3/uL (4.8-10.8)
[2022-09-22 06:42] LABS: Anion Gap 13 (12-20); Blood Urea Nitrogen 12 mg/dL (9-16); Calcium 8.9 mg/dL (8.4-10.2); Carbon Dioxide 23 mmol/L (22-29); Chloride 109 mmol/L (96-108); Estimated Glomerular Filt Rate > 60; Glucose Random 96 mg/dL (60-115); Sodium 141 mmol/L (135-145)
== END 2022-09-22 05:47 | disposition home or self-care (01) ==
LOC: HO.MMNH1L 05:46
PROVIDERS: Visit Provider Family Medicine
DX: Z13.89 Encounter for screening for other disorder (principal)
CPT/HCPCS: 36415; 80048; 85025

== ENCOUNTER 2022-09-22 12:55 | Emergency (ER) | payer MEDICARE, MEDICAID, SELFPAY ==
[2022-09-22] VITALS (7 sets, daily range): BP systolic 101–151; BP diastolic 62–124; PULSE 82–104; RESP 16–18; TEMP 36.4–37.2; O2SAT 92–98; BMI 33.5
--- NOTE | ~2022-09-22 | XR_ITS ---
EXAMINATION: PORTABLE CHEST 1 VIEW CLINICAL INFORMATION: elevated lactic acid r/o infection. COMPARISON: 07/30/2022. TECHNIQUE: Portable frontal view of the chest was obtained. FINDINGS: Lungs well-expanded with chronic appearing coarsened reticular markings bilaterally but no superimposed focal infiltrate, effusion, edema, or pneumothorax. Cardiac silhouette remains prominent with mild vascular calcification in aorta. Extensive degenerative changes in the left shoulder without prior resection of the right humeral head partially visualized XR/XR chest 1V IMPRESSION: Chronic appearing changes similar to the 07/30/2022 study without acute superimposed process.
--- NOTE | ~2022-09-22 | XR_ITS ---
EXAMINATION: XR LUMBOSACRAL SPINE CLINICAL INFORMATION: Acute on chronic pain COMPARISON: Previous x-ray August 2021 and abdominal and pelvic CT July 2022 TECHNIQUE: Three views of the lumbosacral spine. FINDINGS: There is curvature of the proximal lumbar spine to the right. This is increased from previous exam. There may be transitional anatomy or 6 lumbar-type vertebral bodies. Levels are designated with the first nonrib-bearing vertebral body designated as L1 and the transitional segment inferiorly. There are T12-L1 and L4 vertebral body compression fractures T12 compression fracture is unchanged. L1 and L4 compression fractures are new in the interval from August 2021 and unchanged from previous CT of the abdomen and pelvis July 2022. There is disc space Narrowing at L2-L3. There is atherosclerotic disease. There is a left hip replacement. XR/XR lumbar spine 2-3V IMPRESSION: Probable transitional anatomy with 6 lumbar-type vertebral bodies. First nonrib-bearing vertebral body designated as L1. T12, L1 and L4 vertebral body compression fractures. L1 and L4 vertebral body compression fractures are new in the interval from 2021 and unchanged from recent abdominal and pelvic CT July 2022.
--- NOTE | 2022-09-22 13:36 | ECG_ITS ---
Test Reason : FALL Blood Pressure : / mmHG Vent. Rate : 103 BPM Atrial Rate : 000 BPM P-R Int : 000 ms QRS Dur : 068 ms QT Int : 344 ms P-R-T Axes : 000 087 003 degrees QTc Int : 450 ms Atrial fibrillation with rapid ventricular response Abnormal ECG When compared with ECG of 01-AUG-2022 19:42, decrease in ventricular rate Referred By: Landen Chaney Electronically Signed By:WOODROW KUO
[2022-09-22 14:10] LABS: MANUAL DIFF FLAG NO
[2022-09-22 14:19] LABS: Appearance Urine Clear; Basophils Percent Auto 0.4 % (0-2); Color Urine Yellow; Eosinophils Absolute Auto 0.2 X10*3/uL (0.0-0.4); Eosinophils Percent Auto 1.4 % (0-4); Glucose Urine UA Negative (Negative); Hemoglobin 14.8 g/dl (14.0-18.0); Imm Gran Abs Auto 0.13 X10*3/uL (0.00-0.03); Imm Gran Pct Auto 1.1 % (0.0-0.4); Leukocyte Esterase Urine Negative (Negative); Lymphocytes Absolute Auto 1.1 X10*3/uL (1.2-4.9); Lymphocytes Percent Auto 9.6 % (20-40); Mean Corpuscular HGB Conc 32.9 g/dl (31.0-36.0); Mean Corpuscular Hemoglobin 28.4 pg (27.0-33.0); Mean Corpuscular Volume 86.4 fL (80.0-98.0); Mean Platelet Volume 9.8 fL (9.4-12.4); Monocytes Absolute Auto 0.7 X10*3/uL (0.1-1.2); Monocytes Percent Auto 5.9 % (2-11); Neutrophils Absolute Auto 9.3 x10*3/uL (2.0-8.3); Neutrophils Percent Auto 81.6 % (45-73); Nitrite Urine Negative (Negative); Platelet Count 239 X10*3/uL (160-400); Red Blood Count 5.21 X10*6/uL (4.60-5.80); Red Cell Distribution Width 13.4 % (11.0-16.0); Specific Gravity - Urine 1.015 (1.005-1.025); UMIC TRIGGER UACC YES; Urine Blood Trace (Negative); Urine Ketones Negative (Negative); Urine Protein Trace mg/dL (Neg-Trace); White Blood Count 11.4 X10*3/uL (4.8-10.8)
[2022-09-22 14:24] LABS: Bacteria Urine None Seen (None Seen); Squamous Epithelial Cell Urine 0-2 /HPF (0-2); WBC Urine 0-5 /HPF (0-5)
[2022-09-22 14:36] LABS: Lactic Acid 2.9 mmol/L (0.5-2.0)
[2022-09-22 14:44] LABS: Alanine Aminotransferase 11 U/L (0-40); Albumin Level 3.4 g/dL (3.5-5.0); Alkaline Phosphatase 112 U/L (39-117); Anion Gap 13 (12-20); Aspartate Amino Transferase 14 U/L (5-37); Bilirubin Total 0.6 mg/dL (0.0-1.0); Blood Urea Nitrogen 13 mg/dL (9-16); Calcium 9.3 mg/dL (8.4-10.2); Carbon Dioxide 24 mmol/L (22-29); Chloride 108 mmol/L (96-108); Creatinine Clr Calc Pharmacy 103.8; Estimated Glomerular Filt Rate > 60; Glucose Random 115 mg/dL (60-115); Magnesium 1.8 mg/dL (1.6-2.6); Phosphorus 2.8 mg/dL (2.7-4.5); Potassium 3.9 mmol/L (3.3-5.1); Sodium 141 mmol/L (135-145); Total Protein 6.1 g/dL (6.5-8.0)
[2022-09-22] MEDS: 0.9 % Sodium Chloride 1,000 ML 999 ML IV ×2 (14:51→20:08)
[2022-09-22] MEDS: Acetaminophen 325 MG TABLET 975 MG PO (14:51)
[2022-09-22 14:58] LABS: TSH reflex Free T4 3.33 uIU/mL (0.32-4.0)
--- NOTE | 2022-09-22 15:29 | ED.GENADULT ---
HPI - General Adult General Chief complaint: Fall Stated complaint: fall with back pain, per ems Time Seen by Provider: 09/22/22 13:12 History of Present Illness HPI narrative: 67-year-old male with history of chronic low back pain presents with a fall. Patient is not sure why he fell. He did not feel lightheaded, chest pain, palpitations or short of breath. He felt weak and collapsed. Patient has chronic low back pain which is may be slightly worse today than it has previously. The pain does not radiate. Denies loss of bowel or bladder control. Denies any saddle paresthesias. Patient reports the pain is worse with movement. It does not radiate. Not associated with numbness or tingling. Is not associated with focal neurologic deficits. Patient denies sitting his head. He denies any additional musculoskeletal complaints. Related Data Home Medications Medication Instructions Recorded Confirmed apixaban 5 mg tablet (Eliquis) 5 mg PO BID 09/11/21 08/16/22 furosemide 20 mg tablet 20 mg PO DAILY 09/11/21 08/16/22 metoprolol tartrate 100 mg tablet 100 mg PO BID 09/11/21 08/16/22 Previous Rx's Medication Instructions Recorded acetaminophen 325 mg tablet 650 mg PO Q6H PRN Pain, Mild (Pain 09/18/21 Scale 1-3) #30 tabs lisinopril 40 mg tablet 40 mg PO DAILY #90 tabs 10/31/21 docusate sodium 100 mg capsule 200 mg PO BEDTIME #30 caps 08/05/22 nicotine (polacrilex) 2 mg gum 2 mg buccal Q2H PRN Nicotine 08/05/22 Cravings #30 ea nystatin 100,000 unit/gram topical 1 appl topical BID #15 grams 08/05/22 powder oxycodone 5 mg tablet 10 mg PO Q6H PRN pain, severe #14 08/05/22 tabs polyethylene glycol 3350 17 gram 17 g PO DAILY #30 ea 08/05/22 oral powder packet Allergies Allergy/AdvReac Type Severity Reaction Status Date / Time maprotiline [From LUDIOMIL] Allergy Unknown UNK Verified 08/15/22 12:43 meperidine [From DEMEROL] Allergy Unknown VOMITING Verified 08/15/22 12:43 [facility] Past Medical History Medical History Atrial fibrillation CHF (congestive heart failure) Diabetes mellitus type 2 in obese Hx of halfway use of blood thinners Hypertension Myocardial infarct Persistent atrial fibrillation Surgical History No pertinent past surgical history Family History Family History Mother CAD (coronary artery disease) Social History Social History Household Members: Spouse Housing: Apartment Do you presently have visiting nurse or other home services: No Alcohol intake: never Patient Tobacco Use Status: Current everyday Tobacco user Tobacco use type: Cigarette Cigarette Packs Per Day: 0.5 Cigarettes Per Day: 3 Years Smoked: 54 Smoked in Last 30 Days: Yes e-Cigarette/Vaping Use: Never Used Second Hand Smoke Exposure: No Substance Use Type: Marijuana Advance Directives: Yes Advance Directives on File: Yes Advance Directives Date on File: 09/19/21 service: No Current occupational status: retired Current occupational exposures/hazards: No Physical Exam ED Vital Signs: Vital Signs - 24 hr 09/22/22 13:03 09/22/22 13:09 09/22/22 14:45 Temperature 97.8 F 98.1 F 98.2 F Pulse Rate 100 89 84 Respiratory Rate 16 18 18 Blood Pressure 101/69 108/71 116/66 Pulse Oximetry 92 95 98 Oxygen Delivery Method Room Air Room Air Room Air 09/22/22 17:04 Temperature 98.0 F Pulse Rate 82 Respiratory Rate 16 Blood Pressure 126/81 Pulse Oximetry 97 Oxygen Delivery Method Room Air BMI result Body Mass Index 33.5 GEN: Well developed, no acute distress, alert, oriented HEENT: Normocephalic, atraumatic, normal external ears, nose appears normal, no oropharyngeal edema or exudates Eyes: Normal to appearance Neck: Supple, no lymphadenopathy Respiratory: Talks in complete sentences, no respiratory distress, clear to auscultation bilaterally Cardiovascular: Regular rate and rhythm, no murmurs rubs or gallops Abdomen: Soft, nontender, nondistended, no guarding, no rebound Back: No CVA tenderness Extremities: No clubbing cyanosis or edema Neurologic: No focal neurologic deficits, cranial nerves 2-12 intact, strength is 5/5 bilaterally Skin: No rash Course Course Course Narrative: 67-year-old male presents with generalized weakness, fall and low back pain. Regarding low back pain this is chronic in nature. May be slightly worse than usual. The pain does not radiate. His neurologic exam is nonfocal. He does have difficulty raising the right leg secondary to pain. He does also have difficulty with bilateral shoulder abduction. Otherwise he is neurovascularly intact. He has no midline tenderness. There is no step-off. His sensation is intact. Patient's workup is complete. Has a slightly elevated lactic acid level. This improved after IV fluid administration. He has no evidence of hypokalemia which could cause generalized weakness or hyponatremia. He has no significant anemia which could also contribute to generalized weakness. Does have a slightly elevated white blood cell count with a slight left shift but no significant bandemia. His urinalysis is clean without any evidence of acute infection. There is slight microscopic hematuria x-ray of his lumbar spine demonstrates compression fractures which are new since September of last year, however, they are stable in appearance from his most recent imaging. Does not appear that he has suffered an acute compression fracture. We did attempt to ambulate the patient. He was unable to do so secondary to pain and discomfort. He did receive analgesia but unfortunately this was not effective for him. Will provide additional analgesia tonight. Will order PT and Case Management. Patient will likely need short-term rehabilitation. This was discussed with the patient. He is on board with this plan. Reevaluation(s) Reevaluation #1: Patient will be, Physician observation at this time to do to re-evaluation with PT and Case Management as well as a time to see if analgesia will improve his ability to ambulate Time: 17:45 Reevaluation #2: Dr Altamirano to assume care at this time, pending CM, PT eval Time: 18:06 Medications Administered Discontinued Medications Generic Name Dose Route Start Last Admin Trade Name Freq PRN Reason Stop Dose Admin Acetaminophen 975 mg 09/22/22 13:44 09/22/22 14:51 Acetaminophen 325 Mg Tablet PO 09/22/22 13:45 975 mg ONCE ONE Administration Sodium Chloride 1,000 mls @ 999 mls/hr 09/22/22 13:45 09/22/22 16:04 Ns IV 09/22/22 14:45 Infused .Q1H1M TERRI Infusion Medical Decision Making Medical Decision Making [facility] Narrative: Patient presents with generalized weakness, low back pain and a accidental fall. He did not hit his head or lose consciousness. There is no indication for emergent imaging of his head her cervical spine. He does have chronic low back pain which appears to be worse. I would like to get an x-ray to rule out new compression fracture, subluxation or any other potential acute traumatic injury. He also has some generalized weakness which resulted in his fall. Would like to rule out hypokalemia, hyponatremia, anemia, thyroid dysfunction, or other metabolic dysfunction. Differential Diagnosis Differential Diagnoses: The differential diagnosis associated with the presentation includes (See above) Admission/Observation Consideration of admission/observation: Escalation of care including admission/observation considered Lab Data [facility] Lab Attestation statement: I reviewed the patient's lab results. 09/22/22 14:01 09/22/22 14:01 Labs: Lab Results 09/22/22 09/22/22 09/22/22 Range/Units 14: 14: 14:01 WBC 11.4 H (4.8-10.8) X10*3/uL RBC 5.21 (4.60-5.80) X10*6/uL Hgb 14.8 (14.0-18.0) g/dl Hct 45.0 (42.0-52.0) % MCV 86.4 (80.0-98.0) fL MCH 28.4 (27.0-33.0) pg MCHC 32.9 (31.0-36.0) g/dl RDW 13.4 (11.0-16.0) % Plt Count 239 (160-400) X10*3/uL MPV 9.8 (9.4-12.4) fL Immature Gran % (Auto) 1.1 H (0.0-0.4) % Neut % (Auto) 81.6 H (45-73) % Lymph % (Auto) 9.6 L (20-40) % [place] % (Auto) 5.9 (2-11) % Eos % (Auto) 1.4 (0-4) % Baso % (Auto) 0.4 (0-2) % Lymph # (Auto) 1.1 L (1.2-4.9) X10*3/uL [place] # (Auto) 0.7 (0.1-1.2) X10*3/uL Eos # (Auto) 0.2 (0.0-0.4) X10*3/uL Baso # (Auto) 0.0 (0.0-0.2) X10*3/uL Abs Immat Gran (auto) 0.13 H (0.00-0.03) X10*3/uL Absolute Neuts (auto) 9.3 H (2.0-8.3) x10*3/uL Absolute Nucleated RBC 0.000 (0.0-0.012) X10*3/uL Nucleated RBC % (auto) 0.0 (0.0-0.2) /100WBC Sodium 141 (135-145) mmol/L Potassium 3.9 (3.3-5.1) mmol/L Chloride 108 (96-108) mmol/L Carbon Dioxide 24 (22-29) mmol/L Anion Gap 13 (12-20) BUN 13 (9-16) mg/dL Creatinine 0.78 (0.5-1.4) mg/dL Estim Creat Clear Calc 103.8 Estimated GFR > 60 Random Glucose 115 (60-115) mg/dL Lactic Acid 2.9 H* (0.5-2.0) mmol/L Lactic Acid F/U @ 2Hr (0.5-2.0) mmol/L Calcium 9.3 (8.4-10.2) mg/dL Phosphorus 2.8 (2.7-4.5) mg/dL Magnesium 1.8 (1.6-2.6) mg/dL Total Bilirubin 0.6 (0.0-1.0) mg/dL AST 14 (5-37) U/L ALT 11 (0-40) U/L Alkaline Phosphatase 112 (39-117) U/L Total Creatine Kinase 22 L (38-174) U/L Total Protein 6.1 L (6.5-8.0) g/dL Albumin 3.4 L (3.5-5.0) g/dL TSH 3.33 (0.32-4.0) uIU/mL Urine Color Urine Appearance Urine pH (5.0-9.0) Ur Specific [place] (1.005-1.025) Urine Protein (Neg-Trace) mg/dL Urine Glucose (UA) (Negative) mg/dL Urine Ketones (Negative) mg/dL Urine Blood (Negative) Urine Nitrite (Negative) Ur Leukocyte Esterase (Negative) Urine RBC (0-2) /HPF Urine WBC (0-5) /HPF Ur Squamous Epith Cells (0-2) /HPF Urine Bacteria (None Seen) Hyaline Casts (0-2) /LPF 09/22/22 09/22/22 Range/Units 14:01 16:30 WBC (4.8-10.8) X10*3/uL RBC (4.60-5.80) X10*6/uL Hgb (14.0-18.0) g/dl Hct (42.0-52.0) % MCV (80.0-98.0) fL MCH (27.0-33.0) pg MCHC (31.0-36.0) g/dl RDW (11.0-16.0) % Plt Count (160-400) X10*3/uL MPV (9.4-12.4) fL Immature Gran % (Auto) (0.0-0.4) % Neut % (Auto) (45-73) % Lymph % (Auto) (20-40) % [place] % (Auto) (2-11) % Eos % (Auto) (0-4) % Baso % (Auto) (0-2) % Lymph # (Auto) (1.2-4.9) X10*3/uL [place] # (Auto) (0.1-1.2) X10*3/uL Eos # (Auto) (0.0-0.4) X10*3/uL Baso # (Auto) (0.0-0.2) X10*3/uL Abs Immat Gran (auto) (0.00-0.03) X10*3/uL Absolute Neuts (auto) (2.0-8.3) x10*3/uL Absolute Nucleated RBC (0.0-0.012) X10*3/uL Nucleated RBC % (auto) (0.0-0.2) /100WBC Sodium (135-145) mmol/L Potassium (3.3-5.1) mmol/L Chloride (96-108) mmol/L Carbon Dioxide (22-29) mmol/L Anion Gap (12-20) BUN (9-16) mg/dL Creatinine (0.5-1.4) mg/dL Estim Creat Clear Calc Estimated GFR Random Glucose (60-115) mg/dL Lactic Acid (0.5-2.0) mmol/L Lactic Acid F/U @ 2Hr 2.1 H* (0.5-2.0) mmol/L Calcium (8.4-10.2) mg/dL Phosphorus (2.7-4.5) mg/dL Magnesium (1.6-2.6) mg/dL Total Bilirubin (0.0-1.0) mg/dL AST (5-37) U/L ALT (0-40) U/L Alkaline Phosphatase (39-117) U/L Total Creatine Kinase (38-174) U/L Total Protein (6.5-8.0) g/dL Albumin (3.5-5.0) g/dL TSH (0.32-4.0) uIU/mL Urine Color Yellow Urine Appearance Clear Urine pH 6.0 (5.0-9.0) Ur Specific [place] 1.015 (1.005-1.025) Urine Protein Trace (Neg-Trace) mg/dL Urine Glucose (UA) Negative (Negative) mg/dL Urine Ketones Negative (Negative) mg/dL Urine Blood Trace H (Negative) Urine Nitrite Negative (Negative) Ur Leukocyte Esterase Negative (Negative) Urine RBC 6-10 H (0-2) /HPF Urine WBC 0-5 (0-5) /HPF Ur Squamous Epith Cells 0-2 (0-2) /HPF Urine Bacteria None Seen (None Seen) Hyaline Casts 3-5 (0-2) /LPF Independent Interpretation I performed an independent interpretation of an: EKG (Atrial fibrillation with rapid ventricular response, heart rate 103, no acute ST elevations depressions, QTC 450 milliseconds.) and Plain X-Ray (L-spine: Compression fractures of indeterminate age) Radiology Impression Discussion of test interpretation with radiology: I have reviewed the radiologist's reading. Radiologist Impression: XR/XR lumbar spine 2-3V IMPRESSION: Probable transitional anatomy with 6 lumbar-type vertebral bodies. First nonrib-bearing vertebral body designated as L1. T12, L1 and L4 vertebral body compression fractures. L1 and L4 vertebral body compression fractures are new in the interval from 2021 and unchanged from recent abdominal and pelvic CT July 2022. Dictated By: Cheyenne Parker MD Signed By: <Electronically signed by Cheyenne Parker MD in OV> 09/22/22 1516 Tests considered The following testing was considered but not selected: CT scan and MRI of the lumbar spine Prescription Management I considered prescription management with: Pain Medication Discharge Plan Discharge Clinical Impression: Compression fracture, Generalized weakness, Chronic back pain, Unstable gait Patient Disposition: Still a Patient Prescriptions: No Action lisinopril 40 mg tablet 40 mg PO DAILY Qty: 90 3RF metoprolol tartrate 100 mg tablet 100 mg PO BID furosemide 20 mg tablet 20 mg PO DAILY Eliquis 5 mg tablet 5 mg PO BID acetaminophen 325 mg Tablet 650 mg PO Q6H PRN (Reason: Pain, Mild (Pain Scale 1-3)) Qty: 30 0RF polyethylene glycol 3350 17 gram Powder In Packet 17 g PO DAILY Qty: 30 0RF nicotine (polacrilex) 2 mg Gum 2 mg buccal Q2H PRN (Reason: Nicotine Cravings) Qty: 30 0RF docusate sodium 100 mg Capsule 200 mg PO BEDTIME Qty: 30 0RF nystatin 100,000 unit/gram Powder 1 appl topical BID Qty: 15 0RF Protocol: Apply to: Apply to: groin oxycodone 5 mg Tablet 10 mg PO Q6H PRN (Reason: pain, severe) Qty: 14 0RF Rx Instructions: Partial Fill upon patient request.
[2022-09-22 16:08] LABS: Reflex Lactate? Lactic Acid Added
[2022-09-22 16:47] LABS: ~Lactic Acid-LAB USE ONLY 2.1 mmol/L (0.5-2.0)
--- NOTE | 2022-09-22 17:47 | PC.NURSE ---
pt unable to take a step without immense pain,, able to stand with a 2x assist
[2022-09-22 18:33] LABS: Reflex Lactate? 2 Y
[2022-09-22] MEDS: Gabapentin 300 MG CAPSULE PO (19:08)
[2022-09-22 19:42] LABS: ~Lactic Acid-LAB USE ONLY 3.9 mmol/L (0.5-2.0)
--- NOTE | 2022-09-22 20:15 | PC.NURSE ---
This health science writer assumed care of this Pt at 1900. Pt laying on stretcher, resting quietly, no apparent distress. Pt A&Ox4, reports 8/10 constant lower back pain feeling aching. Pt medicated per JUL.
--- NOTE | 2022-09-22 20:23 | PHA.MEDREC ---
Pharmacy Consult ? Medication Reconciliation Pharmacy has completed the medication reconciliation.
--- NOTE | 2022-09-22 20:44 | MHC.CM.ED ---
CM met with patient. Pt with hx of falls. Awaiting PT evaluation. Pt is agreeable to STR. Lives w . Uses cane. Has MOW from [facility]. Pt is unsure of Covid vaccination status and cannot remember his PCP. Knows it is a Nurse Practitioner. Pt into patient's to verify. HCP is on file. HCP #1 Jessica Landaverde () [phone] and HCP#2 Gustavo Landaverde (son) same contact information. Family does not have a car. D/C plan: STR. Will transport to facility. Pt requesting local referrals. Referrals placed. CM following for discharge planning.
--- NOTE | 2022-09-22 22:46 | PC.NURSE ---
RN to RN report given to Dulce Maria REA. Pt will be transported to ED overflow bed 2. Pt aware of plan.
--- NOTE | 2022-09-22 23:45 | PC.NURSE ---
Patient arrived to overflow bed 3 at 2300. Patient alert and oriented x3, reports low back pain, reports it's chronic and pain is tolerable at this time, medicated in main ed previously. vss, urinal at bedside, call grayson within reach.
--- NOTE | 2022-09-23 01:55 | PC.NURSE ---
Addendum entered by Coby Myles RN 09/23/22 06:34: 0634 notified that pt BP is elevated. Also Pt has a pain of 8/10 pain. Home meds ordered. Original Note: Assumed care from 2300. Pt is seen in a stretcher, awake and watching a movie. C/o of back pain. ER MD notified. Awaiting for any new orders for pain.
[2022-09-23 06:00] VITALS: BP 172/84; PULSE 91; RESP 16; TEMP 36.6; O2SAT 97
[2022-09-23] MEDS: oxyCODONE HCl Immed Release 5 MG TABLET 10 MG PO (06:39)
[2022-09-23 07:25] VITALS: BP 172/84; PULSE 91; O2SAT 97
[2022-09-23] MEDS: 0.9 % Sodium Chloride 1,000 ML 999 ML IV (07:38)
[2022-09-23 07:59] VITALS: BP 136/70; PULSE 93; RESP 12; TEMP 36.6; O2SAT 97
[2022-09-23] MEDS: Metoprolol Tartrate 100 MG TABLET PO (09:29)
[2022-09-23] MEDS: Furosemide 20 MG TABLET PO (09:29)
[2022-09-23] MEDS: lisinopriL 40 MG TABLET PO (09:29)
[2022-09-23] MEDS: Apixaban 5 MG TABLET PO (09:29)
[2022-09-23 10:21] LABS: COVID-19 Test Negative (Negative); IDNOW Serial# 9DB6401D
--- NOTE | 2022-09-23 11:03 | MHC.CM.ED ---
Pt accepted by Valarie Suarez for STR, he will be discharging today at 1pm, transport via [facility].
[2022-09-23 11:08] LABS: Lactic Acid 2.8 mmol/L (0.5-2.0)
--- NOTE | 2022-09-23 11:10 | MHC.CM.ED ---
Pt accepted by Valarie Suarez for STR, he will be discharging today at 3pm, transport via [facility].
[2022-09-23 12:00] LABS: Reflex Lactate? Lactic Acid Added
--- NOTE | 2022-09-23 12:04 | PC.NURSE ---
alert, agreeable w plan to go to snf at 1500, nad, gen weakness and fall yesterday after being at [facility] for rehab, pt was home for only a few minutes, medicated as ordered and has eaten breakfast and now lunch
--- NOTE | 2022-09-23 12:57 | PC.NURSE ---
report called to Brookeduck Daniela
== END 2022-09-23 16:02 ==
PROVIDERS: Physician Assistant Medical; Emergency Provider Emergency Medicine; PCP Hospitalist
DX: M48.56XA Collapsed vertebra, not elsewhere classified, lumbar region, initial encounter for fracture (principal); R26.81 Unsteadiness on feet; R07.89 Other chest pain; M54.50 Low back pain, unspecified; F17.210 Nicotine dependence, cigarettes, uncomplicated; Z20.822 Contact with and (suspected) exposure to COVID-19; Z20.828 Contact with and (suspected) exposure to other viral communicable diseases; Z71.6 Tobacco abuse counseling; Z79.899 Other long term (current) drug therapy
CPT/HCPCS: 36415; 71045; 72100; 80048; 80053; 81001; 82550; 83605; 83735; 84100; 84443; 85025; 87635; 93005; 96360; 96361; 97162; 99284; 99285

== ENCOUNTER 2023-07-10 10:14 | Outpatient (AMB) | payer MEDICARE, MEDICAID, SELFPAY ==
--- NOTE | 2023-07-10 08:36 | MHC.OFFVIS ---
Intake Intake Visit Reasons: LDCT SD Allergies maprotiline [From LUDIOMIL] Allergy (Unknown, Verified 08/15/22 12:43) UNK meperidine [From DEMEROL] Allergy (Unknown, Verified 08/15/22 12:43) VOMITING HPI HPI Comments History of Present Illness Details Dion is a pleasant 67 year old male, current 1/4 ppd smoker with a 60 PYH. Patient has been smoking since age 7 for 60 years at 1 ppd. Denies marijuana use. Denies exposure to chemicals or substances like asbestos. Admits second hand smoke exposure. Denies known family history of lung cancer, however chart states brother with lung cancer. Denies personal history of cancers. Denies chest CT in last year. Denies recent travel outside the [place]. Denies testing positive for COVID. Admits receiving COVID Vaccine. Denies fever, chills, chest pain, new cough, hemoptysis or unintentional weight loss. Lung Cancer Screening Questionnaire reviewed with patient by provider. Shared Decision Making Completed. Discussed in detail with patient, the risk versus benefit of LDCT screening. Patient in agreement of proceeding with scan. [facility] Medical History (Updated 04/02/23 @ 13:08 by Jennifer Diaz PA-C) (HFpEF) heart failure with preserved ejection fraction History of non-ST elevation myocardial infarction (NSTEMI) Persistent atrial fibrillation History of shelter anticoagulant use Hypertension Diabetes mellitus type 2 in obese Compression fracture of spine KHOI (obstructive sleep apnea) Nicotine dependence, cigarettes, uncomplicated Surgical History (Updated 04/02/23 @ 13:06 by Jennifer Diaz PA-C) History of appendectomy History of left hip hemiarthroplasty History of shoulder surgery Family History (Updated 04/02/23 @ 13:00 by Jennifer Diaz PA-C) Mother CAD (coronary artery disease) COPD (chronic obstructive pulmonary disease) Brother Lung cancer Social History (Updated 07/10/23 @ 11:15 by Shannan Loyd NP) Household Members: Spouse Housing: Apartment Do you presently have visiting nurse or other home services: No Alcohol intake: never Patient Tobacco Use Status: Current everyday Tobacco user Tobacco use type: Cigarette Cigarette Packs Per Day: 0.5 Cigarettes Per Day: 5 Years Smoked: 60 e-Cigarette/Vaping Use: Never Used Second Hand Smoke Exposure: No Substance Use Type: Marijuana Advance Directives Date on File: 09/19/21 service: No Current occupational status: retired Current occupational exposures/hazards: No Assessment & Plan Assessment & Plan (1) Nicotine dependence, cigarettes, uncomplicated: Comment: (smoker, +fam hx lung ca) Code(s): F17.210 - Nicotine dependence, cigarettes, uncomplicated Plan Shared decision-making visit completed today in office. This patient meets criteria for LDCT for lung cancer screening purposes and is asymptomatic. Offered smoking cessation. Patient has been scheduled for a low dose chest CT for screening purposes at [facility]. We discussed how the results will be obtained depending on CT findings. RADS 1 and RADS 2 will receive a letter with results and will follow up for annual LDCT. Patient informed they will be contacted at later date to schedule upcoming LDCT scan. RADS 3 and RADS 4 will receive a telephone call, or an office visit after reviewing case at our Lung Cancer Conference to determine when the next LDCT will be scheduled or further interventions that may be needed. Discussed importance of screening program and compliance with yearly LDCT scan as scheduled. Risks, benefits, and alternatives were discussed in detail and patient agrees to proceed. Risks discussed include but are not limited to: radiation exposure and possibility of additional intervention for benign disease. Benefits include detection of lung cancer at an early stage. A copy of today's visit and LDCT results will be sent to patient's PCP. Incidental findings on LDCT are PCP's responsibility. If there are incidental findings, our office will ensure that PCP office is aware of these findings. All questions were answered and patient is in agreement of plan. Coding Level of Care Code Lung Cancer Screening G0296 Diagnoses Nicotine dependence, cigarettes, uncomplicated F17.210
== END 2023-07-10 11:05 | disposition home or self-care (01) ==
PROVIDERS: PCP Hospitalist; Referring Provider Hospitalist; Visit Provider Nurse Practitioner Family
DX: F17.210 Nicotine dependence, cigarettes, uncomplicated (principal)
CPT/HCPCS: G0296

== ENCOUNTER 2023-07-10 10:40 | Outpatient (REF) | payer MEDICARE, MEDICAID, SELFPAY ==
--- NOTE | ~2023-07-10 | CT_ITS ---
EXAMINATION: CT CHEST SCREENING CLINICAL INFORMATION: Nicotine dependence. Cigarette smoker. Currently smoking 1 pack per day with 40 pack-year history. COMPARISON: CT chest 07/30/2022. TECHNIQUE: Multidetector volumetric CT imaging of the chest is performed without contrast using low dose technique. Additional 2D coronal and sagittal reformatted images and axial 3D maximum intensity projection (MIP) images are generated on the CT workstation. This CT examination was performed using dose optimization techniques as appropriate, variously including the following: *Automated exposure control *Adjustment of mA and/or kV according to patient size (this includes techniques or standardized protocols for targeted exams where dose is matched to indication/reason for exam; i.e. extremities or head) *Use of iterative reconstruction technique DLP: 100 mGy-cm FINDINGS: LUNGS AND PLEURA: Some mild emphysematous changes are present with a few scattered bullae. Punctate calcified granulomas seen in the right upper lobe as well as apical segment of the right lower lobe (5:176 and 235). There is a subpleural 3 mm ground-glass opacity in the right upper lobe (5:184). The lungs are otherwise clear with no evidence of concerning or worrisome inflammation or nodules. Previously seen small pleural effusions have cleared with no pleural effusions present at this time. Some mild peribronchial thickening remains. MEDIASTINUM: Heart size within normal limits. Aortic calcification is present without aneurysm. No mediastinal or hilar lymphadenopathy. Visualized thyroid is unremarkable. CORONARY ARTERY CALCIFICATION: Moderate. AXILLA: No lymphadenopathy. UPPER ABDOMEN: Unremarkable. OSSEOUS STRUCTURES: Partially visualize compression fractures involving T12 and L1 vertebral bodies, unchanged. CT/CT lung screening IMPRESSION: No worrisome finding is seen to suggest the presence of malignancy. Incidental note made of some punctate granulomas and tiny ground-glass opacity. Clearing of previously noted pleural effusions. Stable spinal compression fractures. ASSESSMENT: Lung-RADS category 2: Benign. RECOMMENDATION: Routine annual low-dose CT screening in 12 months.
== END 2023-07-10 10:41 | disposition home or self-care (01) ==
LOC: HO.CT 10:40
PROVIDERS: PCP Hospitalist; Visit Provider Nurse Practitioner Family
DX: Z12.2 Encounter for screening for malignant neoplasm of respiratory organs (principal); F17.210 Nicotine dependence, cigarettes, uncomplicated
CPT/HCPCS: 71271; G0296

== ENCOUNTER 2024-07-12 12:52 | Outpatient (REF) | payer MEDICARE, MEDICAID, SELFPAY ==
--- NOTE | ~2024-07-12 | CT_ITS ---
CLINICAL HISTORY: F17.210 - Nicotine dependence, cigarettes, uncomplicated CT lung cancer screening (LDCT) Comparison: CT/LA/SR - CT LUNG SCREENING - 07/10/23 10:43 EST Technique: Axial CT images of the chest using low-dose technique. Referring provider counseled the patient on shared decision-making for LDCT screening. Additional counseling was provided on smoking cessation. Effective radiation dose total: DLP 92.6 mGycm, CTDIvol 3.1 mGy. Findings: Lung: Mild emphysema. Stable 3 mm subpleural semi-solid nodule of the right upper lobe series 6, image 50. Calcified granulomas. Coronary artery calcifications: Moderate Limited upper abdomen: Unremarkable Other: Calcification of the mitral valve and aortic valve. The heart is enlarged. Impression: LungRADS 2 - Benign Appearance: Continue annual screening with low dose Chest CT in 12 months. ##L2# Category 1: Normal; continue annual screening Category 2: Benign appearance or behavior, continue annual screening Category 3: Probably benign, [address] recommended Category 4A: Suspicious, [address] recommended; may consider PET/CT Category 4B: Suspicious, Additional diagnostics and/or tissue sampling recommended Category 4X: Suspicious, Additional diagnostics and/or tissue sampling recommended Category 0: Recalls (incomplete screen due to Incomplete coverage, Noise, Respiratory motion, Expiration, Obscured by acute abnormality) This document has been electronically signed by: Gaston White MD on 07/13/2024 13:30:45
--- OUTSIDE RECORDS SUMMARY | 2024-07-12 15:40 | XMS_ITS | Clinical Summary ---
Author Organization [address] [facility] Address [address] [place] [address] Phone Care Team Providers Care Housing Management Representative Name Role Phone Vielka Duke MD Primary Care Provider [phone] Encounters Date Type Department Care Team Description 06/23/[address] [facility] - Main Lab [address] [facility] [place] [address] Vielka Duke MD Type 2 diabetes mellitus without complications (CMS/HCC); Essential (primary) hypertension; Unspecified atrial fibrillation (CMS/HCC); Heart failure, unspecified (CMS/HCC); Vitamin D deficiency, unspecified from Last 3 Months Social History Tobacco Use Types Packs/Day Years Used Date Smoking Tobacco: Never Assessed Sex and Gender Information Value Date Recorded Sex Assigned at Not on file Legal Sex Male 1:03 PM EST Gender Identity Not on file Sexual Orientation Not on file Plan of Treatment Health Maintenance Due Date Last Done Comments Diabetes: Annual Foot Exam 1964 Diabetes: Annual Retina Eye Exam 1964 DTaP,Tdap,and Td Vaccines (1 - Tdap) 1973 Pneumococcal Vaccine: 50+ Ye ars (1 of 2 - PCV) 1973 Zoster Vaccines (1 of 2) 2004 Abdominal Aortic Aneurysm (A AA) Screen 04/15/2022 Cholesterol Screening (Lipid Panel) 04/15/2022 Colorectal Cancer Screening: Colonoscopy 04/15/2022 Depression Screening 04/15/2022 Falls Risk Assessment 04/15/2022 Hepatitis C Screening 04/15/2022 Medicare Annual Wellness Visit 04/15/2022 Social Influencers of Health Screening 04/15/2022 COVID-19 Vaccine (1 - 2023-2 5 season) 2024 Influenza Vaccine (#1) 2024 Diabetes: Annual Urine Albumin-Creatinine Ratio (uACR) 06/24/2024 Diabetes: Blood Sugar Contro l Test (HGBA1C) 12/22/2024 06/24/2024 Diabetes: Annual GFR (Glomer ular Filtration Rate) 06/24/2025 06/24/2024 Hypertension/CHF/CAD Annual BMP Blood Test 06/24/2025 06/24/2024 RSV Immunization Patients 60 + Years Old (1 - 1-dose 75+ series) 2029 HIB Vaccines Aged Out No longer eligi ble based on patient's age to complete this topic HPV Vaccines Aged Out No longer eligi ble based on patient's age to complete this topic Hepatitis A Vaccines Aged Out No long er eligible based on patient's age to complete this topic Hepatitis B Vaccines Aged Out No long er eligible based on patient's age to complete this topic IPV Vaccines Aged Out No longer eligi ble based on patient's age to complete this topic MMR Vaccines Aged Out No longer eligi ble based on patient's age to complete this topic Meningococcal ACWY Vaccine Aged Out N o longer eligible based on patient's age to complete this topic Meningococcal B Vacine Aged Out No lo nger eligible based on patient's age to complete this topic RSV Immunization Patients Un kory 20 months Aged Out No longer eligible b ased on patient's age to complete this topic Varicella Vaccines Aged Out No longer eligible based on patient's age to complete this topic Procedures Procedure Name Priority Date/Time Associated Diagnosis Comments VITAMIN B12 Routine 06/24/2024 7:43 AM EST Type 2 diabetes mellitus without complications (CMS/HCC) Essential (primary) hypertension Unspecified atrial fibrillation (CMS/HCC) Heart failure, unspecified (CMS/HCC) Vitamin D deficiency, unspecified VITAMIN D 25 HYDROXY Routine 06/24/2024 7:43 AM EST Type 2 diabetes mellitus without complications (CMS/HCC) Essential (primary) hypertension Unspecified atrial fibrillation (CMS/HCC) Heart failure, unspecified (CMS/HCC) Vitamin D deficiency, unspecified HEMOGLOBIN A1C Routine 06/24/2024 7:43 AM EST Type 2 diabetes mellitus without complications (CMS/HCC) Essential (primary) hypertension Unspecified atrial fibrillation (CMS/HCC) Heart failure, unspecified (CMS/HCC) Vitamin D deficiency, unspecified COMPREHENSIVE METABOLIC PANEL Routine 06/24/2024 7:43 AM EST Type 2 diabetes mellitus without complications (CMS/HCC) Essential (primary) hypertension Unspecified atrial fibrillation (CMS/HCC) Heart failure, unspecified (CMS/HCC) Vitamin D deficiency, unspecified COMPLETE BLOOD COUNT Routine 06/24/2024 7:43 AM EST Type 2 diabetes mellitus without complications (CMS/HCC) Essential (primary) hypertension Unspecified atrial fibrillation (CMS/HCC) Heart failure, unspecified (CMS/HCC) Vitamin D deficiency, unspecified from Last 3 Months Results * Vitamin D 25 hydroxy (06/24/2024 7:43 AM EST) [facility] Vit D, 25-Hydroxy 37.2 30.0 - 80.0 ng/mL LAB CHEMISTRY METHOD 06/24/2024 12:30 PM EST [facility] Blood Venous blood specimen / Unknown Venipuncture / Unknown 06/24/2024 7:43 AM EST 06/24/2024 10:43 AM EST us Vielka Duke MD LAB BLOOD ORDERABLES Final Res ult [facility] [address] [place] [address], [place] [phone] * Complete blood count (06/24/2024 7:43 AM EST) [facility] WBC 7.4 4.8 - 10.8 K/mcL LAB HEMETOLOGY METHOD 06/24/2024 11:14 AM EST [facility] RBC 5.50 4.50 - 5.50 M/mcL LAB HEMETOLOGY METHOD 06/24/2024 11:14 AM [facility] Hemoglobin 16.1 13.5 - 17.5 g/dL LAB HEMETOLOGY METHOD 06/24/2024 11:14 AM EST [facility] Hematocrit 49.8 42.0 - 54.0 % LAB HEMETOLOGY METHOD 06/24/2024 11:14 AM EST [facility] MCV 91.4 79.0 - 98.0 FL LAB HEMETOLOGY METHOD 06/24/2024 11:14 AM [facility] MCH 29.5 27.0 - 32.0 pcg LAB HEMETOLOGY METHOD 06/24/2024 11:14 AM EST [facility] MCHC 32.3 32.0 - 37.0 g/dL LAB HEMETOLOGY METHOD 06/24/2024 11:14 AM EST [facility] RDW 13.3 11.0 - 15.0 % LAB HEMETOLOGY METHOD 06/24/2024 11:14 AM [facility] Platelets 173 130 - 400 K/mcL LAB HEMETOLOGY METHOD 06/24/2024 11:14 AM EST [facility] MPV 11.0 7.0 - 11.0 FL LAB HEMETOLOGY METHOD 06/24/2024 11:14 AM EST [facility] NRBC 0.0 <1.0 % LAB HEMETOLOGY METHOD 06/24/2024 11:14 AM [facility] NRBC Absolute 0.00 <0.10 K/mcL LAB HEMETOLOGY METHOD 06/24/2024 11:14 AM [facility] Blood Venous blood specimen / Unknown Venipuncture / Unknown 06/24/2024 7:43 AM EST 06/24/2024 10:43 AM EST us Vielka Duke MD LAB BLOOD ORDERABLES Final Res ult [facility] [address] [place] [address], * (ABNORMAL) Hemoglobin A1c (06/24/2024 7:43 AM EST) Hemoglobin A1C 7.0(H) <6.5 % LAB CHEMISTRY METHOD 06/24/2024 12:39 PM EST [facility] Mean Bld Glu Estim. 154 mg/dL LAB CHEMISTRY METHOD 06/24/2024 12:39 PM [facility] Blood Venous blood specimen / Unknown Venipuncture / Unknown 06/24/2024 7:43 AM EST 06/24/2024 10:43 AM EST Vielka Duke MD LAB BLOOD ORDERABLES Final Res ult [facility] [address] [place] [address], [place] [phone] * Vitamin B12 (06/24/2024 7:43 AM EST) [facility] Vitamin B-12 697 250 - 900 pcg/mL LAB CHEMISTRY METHOD 06/24/2024 11:51 AM EST [facility] Blood Venous blood specimen / Unknown Venipuncture / Unknown 06/24/2024 7:43 AM EST 06/24/2024 10:43 AM EST Vielka Duke MD LAB BLOOD ORDERABLES Final Res ult Performing Organization Address City/[facility]/ZIP Co de Phone Number [facility] [address] [place] [address], [place] [phone] * (ABNORMAL) Comprehensive metabolic panel (06/24/2024 7:43 AM EST) [facility] Sodium 138 133 - 145 mmol/L LAB CHEMISTRY METHOD 06/24/2024 11:29 AM [facility] Potassium 3.7 3.5 - 5.5 mmol/L LAB CHEMISTRY METHOD 06/24/2024 11:29 AM [facility] Chloride 105 96 - 110 mmol/L LAB CHEMISTRY METHOD 06/24/2024 11:29 AM [facility] CO2 24 21 - 32 mmol/L LAB CHEMISTRY METHOD 06/24/2024 11:29 AM [facility] Anion Gap 9 3 - 11 LAB CHEMISTRY METHOD 06/24/2024 11:29 AM [facility] Glucose 134(H) 70 - 100 mg/dL LAB CHEMISTRY METHOD 06/24/2024 11:29 AM [facility] BUN 18 5 - 25 mg/dL LAB CHEMISTRY METHOD 06/24/2024 11:29 AM [facility] Creatinine 0.84 0.70 - 1.30 mg/dL LAB CHEMISTRY METHOD 06/24/2024 11:29 AM [facility] eGFR 94 >=60 mL/min/1. 73m2 LAB CHEMISTRY METHOD 06/24/2024 11:29 AM [facility] Comment:Calculation based on the??Chronic Kidney Disease Epidemiology Collaboration (CKD-EPI) equation refit??without adjustment for race. BUN/Creatinine Ratio 21.4 LAB CHEMISTRY METHOD 06/24/2024 11:29 AM [facility] Calcium 9.0 8.5 - 10.5 mg/dL LAB CHEMISTRY METHOD 06/24/2024 11:29 AM [facility] AST (SGOT) 26 10 - 42 unit/L LAB CHEMISTRY METHOD 06/24/2024 11:29 AM [facility] ALT (SGPT) 33 10 - 60 unit/L LAB CHEMISTRY METHOD 06/24/2024 11:29 AM [facility] Alkaline Phosphatase 69 42 - 121 unit/L LAB CHEMISTRY METHOD 06/24/2024 11:29 AM [facility] Total Protein 6.9 6.0 - 8.0 g/dL LAB CHEMISTRY METHOD 06/24/2024 11:29 AM [facility] Albumin 3.5 3.2 - 5.0 g/dL LAB CHEMISTRY METHOD 06/24/2024 11:29 AM [facility] Total Bilirubin 0.8 0.0 - 1.4 mg/dL LAB CHEMISTRY METHOD 06/24/2024 11:29 AM EST [facility] Blood Venous blood specimen / Unknown Venipuncture / Unknown 06/24/2024 7:43 AM EST 06/24/2024 10:43 AM EST Vielka Duke MD LAB BLOOD ORDERABLES Final Res ult [facility] ([facility] [address] [place] [address], [place] [phone] from Last 3 Months Insurance MEDICARE MEDICAID - [place] Care Teams Housing Management Representative Relationship Specialty Start Date End Date Vielka Duke MD [address] [place] [id number] PCP - General Internal Medicine 06/29/24
--- OUTSIDE RECORDS SUMMARY | 2024-07-12 15:40 | XMS_ITS | Encounter Summary ---
Author Organization [employer] Address [address] [place] [address] Care Team Providers Care Client Relations Associate Name Role Phone Vielka Duke MD Primary Care Provider [phone] Encounter Details Date Type Department Care Team (Latest Contact Info) Description 06/23/2024 Lab Requisition [facility] - Main Lab [address] [facility] [place] [address] Vielka Duke MD [address] [place] [id number] Type 2 diabetes mellitus without complications (CMS/HCC); Essential (primary) hypertension; Unspecified atrial fibrillation (CMS/HCC); Heart failure, unspecified (CMS/HCC); Vitamin D deficiency, unspecified Social History Tobacco Use Types Packs/Day Years Used Date Smoking Tobacco: Never Assessed Sex and Gender Information Value Date Recorded Sex Assigned at Not on file Legal Sex Male 1:03 PM EST Gender Identity Not on file Sexual Orientation Not on file documented as of this encounter Plan of Treatment Not on file documented as of this encounter Procedures Procedure Name Priority Date/Time Associated Diagnosis Comments VITAMIN D 25 HYDROXY Routine 06/24/2024 7:43 [...] unspecified (CMS/HCC) Vitamin D deficiency, unspecified VITAMIN B12 Routine 06/24/2024 7:43 AM EST Type 2 diabetes mellitus without complications (CMS/HCC) Essential (primary) hypertension Unspecified atrial fibrillation (CMS/HCC) Heart failure, unspecified (CMS/HCC) Vitamin D deficiency, unspecified COMPREHENSIVE METABOLIC PANEL Routine 06/24/2024 7:43 AM EST Type 2 diabetes mellitus without complications (CMS/HCC) Essential (primary) hypertension Unspecified atrial fibrillation (CMS/HCC) Heart failure, unspecified (CMS/HCC) Vitamin D deficiency, unspecified documented in this encounter Results * Vitamin B12 (06/24/2024 7:43 AM EST) Vitamin B-12 697 250 - 900 pcg/mL LAB CHEMISTRY METHOD 06/24/2024 11:51 AM EST [facility] Blood Venous blood specimen / Unknown Venipuncture / Unknown 06/24/2024 7:43 AM EST 06/24/2024 10:43 AM EST us Vielka Duke MD LAB BLOOD ORDERABLES Final Res ult [facility] [address] [place] [address], * Vitamin D 25 hydroxy (06/24/2024 7:43 AM EST) Vit D, 25-Hydroxy 37.2 30.0 - 80.0 ng/mL LAB CHEMISTRY METHOD 06/24/2024 12:30 PM EST [facility] Blood Venous blood specimen / Unknown Venipuncture / Unknown 06/24/2024 7:43 AM EST 06/24/2024 10:43 AM EST us Vielka Duke MD LAB BLOOD ORDERABLES Final Res ult Performing Organization Address [facility]/ZIP Co de Phone Number [facility] [address] [place] [address], [place] [phone] * (ABNORMAL) Hemoglobin A1c (06/24/2024 7:43 AM EST) [facility] Hemoglobin A1C 7.0(H) <6.5 % LAB CHEMISTRY METHOD 06/24/2024 12:39 PM EST [facility] Mean Bld Glu Estim. 154 mg/dL LAB CHEMISTRY METHOD 06/24/2024 12:39 PM EST [facility] Blood Venous blood specimen / Unknown Venipuncture / Unknown 06/24/2024 7:43 AM EST 06/24/2024 10:43 AM EST Vielka Duke MD LAB BLOOD ORDERABLES Final Res ult Performing Organization Address [facility]/ZIP Co de Phone Number [facility] [address] [place] [address], [place] [phone] * (ABNORMAL) Comprehensive metabolic panel (06/24/2024 7:43 AM EST) [facility] Sodium 138 133 - 145 mmol/L LAB CHEMISTRY METHOD 06/24/2024 11:29 AM [facility] Potassium 3.7 3.5 - 5.5 mmol/L LAB CHEMISTRY METHOD 06/24/2024 11:29 AM [facility] Chloride 105 96 - 110 mmol/L LAB CHEMISTRY METHOD 06/24/2024 11:29 AM [facility] CO2 24 21 - 32 mmol/L LAB CHEMISTRY METHOD 06/24/2024 11:29 AM [facility] Anion Gap 9 3 - 11 LAB CHEMISTRY METHOD 06/24/2024 11:29 AM [facility] Glucose 134(H) 70 - 100 mg/dL LAB CHEMISTRY METHOD 06/24/2024 11:29 AM [facility] BUN 18 5 - 25 mg/dL LAB CHEMISTRY METHOD 06/24/2024 11:29 AM [facility] Creatinine 0.84 0.70 - 1.30 mg/dL LAB CHEMISTRY METHOD 06/24/2024 11:29 AM [facility] eGFR 94 >=60 mL/min/1. 73m2 LAB CHEMISTRY METHOD 06/24/2024 11:29 AM [facility] Comment:Calculation based on the??Chronic Kidney Disease Epidemiology Collaboration (CKD-EPI) equation refit??without adjustment for race. BUN/Creatinine Ratio 21.4 LAB CHEMISTRY METHOD 06/24/2024 11:29 AM [facility] Calcium 9.0 8.5 - 10.5 mg/dL LAB CHEMISTRY METHOD 06/24/2024 11:29 AM [facility] AST (SGOT) 26 10 - 42 unit/L LAB CHEMISTRY METHOD 06/24/2024 11:29 AM [facility] ALT (SGPT) 33 10 - 60 unit/L LAB CHEMISTRY METHOD 06/24/2024 11:29 AM [facility] Alkaline Phosphatase 69 42 - 121 unit/L LAB CHEMISTRY METHOD 06/24/2024 11:29 AM [facility] Total Protein 6.9 6.0 - 8.0 g/dL LAB CHEMISTRY METHOD 06/24/2024 11:29 AM [facility] Albumin 3.5 3.2 - 5.0 g/dL LAB CHEMISTRY METHOD 06/24/2024 11:29 AM [facility] Total Bilirubin 0.8 0.0 - 1.4 mg/dL LAB CHEMISTRY METHOD 06/24/2024 11:29 AM [facility] Blood Venous blood specimen / Unknown Venipuncture / Unknown 06/24/2024 7:43 AM EST 06/24/2024 10:43 AM EST Vielka Duke MD LAB BLOOD ORDERABLES Final Res ult [facility] [address] [place] [address], * Complete blood count (06/24/2024 7:43 AM EST) WBC 7.4 4.8 - 10.8 K/mcL LAB HEMETOLOGY METHOD 06/24/2024 11:14 AM [facility] RBC 5.50 4.50 - 5.50 M/mcL LAB HEMETOLOGY METHOD 06/24/2024 11:14 AM [facility] Hemoglobin 16.1 13.5 - 17.5 g/dL LAB HEMETOLOGY METHOD 06/24/2024 11:14 AM [facility] Hematocrit 49.8 42.0 - 54.0 % LAB HEMETOLOGY METHOD 06/24/2024 11:14 AM [facility] MCV 91.4 79.0 - 98.0 FL LAB HEMETOLOGY METHOD 06/24/2024 11:14 AM [facility] MCH 29.5 27.0 - 32.0 pcg LAB HEMETOLOGY METHOD 06/24/2024 11:14 AM [facility] MCHC 32.3 32.0 - 37.0 g/dL LAB HEMETOLOGY METHOD 06/24/2024 11:14 AM [facility] RDW 13.3 11.0 - 15.0 % LAB HEMETOLOGY METHOD 06/24/2024 11:14 AM [facility] Platelets 173 130 - 400 K/mcL LAB HEMETOLOGY METHOD 06/24/2024 11:14 AM [facility] MPV 11.0 7.0 - 11.0 FL LAB HEMETOLOGY METHOD 06/24/2024 11:14 AM [facility] NRBC 0.0 <1.0 % LAB HEMETOLOGY METHOD 06/24/2024 11:14 AM EST [facility] NRBC Absolute 0.00 <0.10 K/mcL LAB HEMETOLOGY METHOD 06/24/2024 11:14 AM EST [facility] Blood Venous blood specimen / Unknown Venipuncture / Unknown 06/24/2024 7:43 AM EST 06/24/2024 10:43 AM EST us Vielka Duke MD LAB BLOOD ORDERABLES Final Res ult [facility] [address] [place] [address], documented in this encounter Visit Diagnoses Diagnosis Type 2 diabetes mellitus without complications (CMS/HCC) Essential (primary) hypertension Unspecified essential hypertension Unspecified atrial fibrillation (CMS/HCC) Heart failure, unspecified (CMS/HCC) Heart failure, unspecified Vitamin D deficiency, unspecified documented in this encounter Care Teams Client Relations Associate Relationship Specialty Start Date End Date Vielka Duke MD [address] [place] [phone] PCP - General Internal Medicine 06/29/24 documented as of this encounter
--- OUTSIDE RECORDS SUMMARY | 2024-07-12 15:40 | XMS_ITS ---
Author Organization [facility] Address Unknown Allergies, Adverse Reactions, Alerts Substance Reaction Status Noted Date Resolved Date Meperidine active 08/05/2022 Maprotiline active 08/05/2022 Problems Problem Status Start Date End Date FRACTURE OF UNSPECIFIED PART OF NECK OF LEFT FEMUR, SUBSEQUENT ENCOUNTER FOR CLOSED FRACTURE WITH ROUTINE HEALING (Primary) (S72.002D - ICD-10-CM) ACTIVE 08/05/2022 TYPE 2 DIABETES MELLITUS WIT HOUT COMPLICATIONS (E11.9 - ICD-10-CM) ACTIVE 08/05/2022 ACUTE ON CHRONIC DIASTOLIC ( CONGESTIVE) HEART FAILURE (I50.33 - ICD-10-CM) ACTIVE 08/05/2022 UNSPECIFIED ATRIAL FIBRILLATION (I48.91 - ICD-10-CM) A CTIVE 08/05/2022 ESSENTIAL (PRIMARY) HYPERTENSION (I10 - ICD-10-CM) ACT UMER 08/05/2022 UNSPECIFIED PROTEIN-CALORIE MALNUTRITION (E46 - ICD-10 -CM) ACTIVE 08/05/2022 Encounters Encounter Performer Performer Role Encounter Diagnoses Location Date Discharge - Discharged to home or self care - [facility] - Private home/apt. with home health services [facility] 3 04:09 pm EDT - 3 01:30 am EDT Immunizations Vaccine Date PPSV23 (Previous Pneumococcal Polysaccha ride)Vaccine 12/28/2016 12:00 am EDT Social History
== END 2024-07-12 12:53 | disposition home or self-care (01) ==
LOC: HO.CT 12:52
PROVIDERS: PCP Hospitalist; Visit Provider Physician Assistant Medical
DX: Z12.2 Encounter for screening for malignant neoplasm of respiratory organs (principal); F17.210 Nicotine dependence, cigarettes, uncomplicated
CPT/HCPCS: 71271

== ENCOUNTER → 2024-07-12 12:54 | Outpatient (BNV) | payer MEDICARE, MEDICAID, SELFPAY | PROVIDERS: PCP Hospitalist; Visit Provider Nuclear Medicine | DX: F17.210 Nicotine dependence, cigarettes, uncomplicated (principal) | CPT/HCPCS: 71271 ==